=== PATIENT | female | born 1950 | race Caucasian/White ===

== ENCOUNTER → 2018-03-25 | Day surgery (SDC) | payer MEDICARE, OTHER ==
[2018-03-24 12:15] LABS: BASOPHILS # (AUTO) 0.1 (0.0-0.1); BASOPHILS % 0.6 % (0.0-1.0); EOSINOPHILS # (AUTO) 0.4 (0.0-0.4); EOSINOPHILS % 3.5 % (0.0-6.0); HEMATOCRIT 32.1 % (34.2-44.1); HEMOGLOBIN 9.9 g/dL (12.0-16.0); LYMPHOCYTES # (AUTO) 5.1 (1.0-3.2); LYMPHOCYTES % 47.5 % (18.0-39.1); MEAN CORPUSCULAR HEMOGLOBIN 25.1 pg (28-32); MEAN CORPUSCULAR HGB CONC 30.8 g/dL (31-35); MEAN CORPUSCULAR VOLUME 81.5 fL (81-99); MONOCYTES # (AUTO) 0.9 (0.2-0.8); MONOCYTES % 8.4 % (4.4-11.3); NEUTROPHILS # (AUTO) 4.3 (2.1-6.9); NEUTROPHILS % 39.6 % (38.7-80.0); PLATELET COUNT 311 x10e3/uL (140-360); RED BLOOD COUNT 3.94 x10e6/uL (3.6-5.1)
[2018-03-24 12:34] LABS: ANION GAP 13.5 mmol/L (8-16); CALCIUM 9.7 mg/dL (8.4-10.2); CREATININE, SERUM 1.04 mg/dL (0.57-1.11); POTASSIUM 3.5 mmol/L (3.5-5.1)
--- NOTE | 2018-03-24 13:09 | Diagnostic Imaging Report ---
EXAMINATION: PA and lateral views of the chest. COMPARISON: None CLINICAL HISTORY: Preoperative for cystoscopy DISCUSSION: The lungs are well-inflated. No consolidation, pleural effusion, or pneumothorax. Tortuous thoracic aorta with atherosclerotic calcification. Upper mediastinal surgical clips. Normal heart size. No pulmonary edema. No acute osseous abnormality. Surgical clips project over the right upper quadrant of the abdomen likely related to prior cholecystectomy. IMPRESSION: No acute cardiopulmonary abnormalities. Signed by: Dr. Miguel Rose M.D. on 03/24/2018 1:06 PM
[2018-03-24 14:25] LABS: RBC MORPHOLOGY COMMENT ABNORMAL
[2018-03-24 14:27] LABS: HYPOCHROMASIA SLIGHT
[2018-03-24 14:28] LABS: ANISOCYTOSIS SLIG; PLATELET ESTIMATE ADEQUATE; PLATELET MORPHOLOGY COMMENT NORMAL; POIKILOCYTOSIS SLIGHT
[~2018-03-25] MED LIST: ASPIR 8181 MG; ATORVASTATIN CA10 MG PO; BENADRYL25 M1 PO; BIOTIN1 MG PO; BUPROPION XL150 MG PO; CEFAZOLIN SOD 1 GM VIAL ONE; CEFTIN250 MG PO; CITALOPRAM HBR20 MG PO; CLOPIDOGREL75 MG PO; DEXAMETHASONE SOD PHOS INJ 4 MG/ML VIAL ONE; FEROSUL325 MG PO; GABAPENTIN400 MG PO; GENTAMICIN 80MG/NS 100 ML 200 ML IV ONE; HUMALOG MI100 UNIT/2; HYDROMORPHONE 1MG/1ML INJ ONE; IOPAMIDOL 300MG/ML 50ML INFUS..BTL IV ONE; KETOROLAC TROMETHAMINE 30 MG/ML VIAL ONE; LABETALOL HCL 5 MG/ML 20ML VIAL ONE; LIDOCAINE HCL 2% LOCAL INJ 5 ML SDV VIAL INJ ONE; LYRICA50 MG PO; MIDAZOLAM HCL 2 MG/2 ML VIAL ONE; NORCO 5-325 TA1 EACH PO; OMEPRAZOLE40 MG; ONDANSETRON HCL INJ 2 MG/ML VIAL ONE; PROPOFOL IV EMULSION 10 MG/ML 20 ML VIAL ONE; SANTYL15 GM; SEVOFLURANE INHAL SOLN 250 ML PEN BTL ONE; TRULICITY; VICTOZA 2-0.6 MG/0.1 SC; VITAMIN B-121000 MCG PO
[2018-03-25 12:10] VITALS: BP 176/81
--- NOTE | 2018-03-25 12:56 | Operative Report ---
DATE OF PROCEDURE: March 25, 2018 SERVICE: Urology. PREOPERATIVE DIAGNOSES 1. Urethral stricture. 2. Recurrent urinary tract infection. 3. Incomplete bladder emptying, atonic bladder. POSTOPERATIVE DIAGNOSES 1. Urethral stricture. 2. Recurrent urinary tract infection. 3. Incomplete bladder emptying, atonic bladder. OPERATIONS PERFORMED 1. Cystoscopy and urethral dilation. 2. Bilateral retrograde ureteral pyelograms. 3. Interpretation of x-ray, radiologist not present. 4. Supervision on fluoroscopy, radiologist not present. 5. Pelvic exam under anesthesia. This was done for cystocele. BILINGUAL CUSTOMER SERVICE SPECIALIST: None. ANESTHESIA: General. CLINICAL INDICATION NOTE: A 67-year-old patient with recurrent urinary tract infection. She does have multiple other medical problems. She has also an atonic bladder. In the past, she was supposed to do self intermittent catheterization. She did it for some time and stopped. The patient was brought for cystoscopy, dilation, assessment of the upper tracts. Procedure was discussed with the patient. Potential benefits of having Mcpherson catheter following urethral dilation was explained to the patient. I hope she will comply with it. DESCRIPTION OF PROCEDURE AND FINDINGS: After proper level of anesthesia was achieved, the patient was placed in lithotomy position, prepped and draped in a sterile fashion. A small cystocele was noticed. Urethra was dilated to 32-Jamaican with female dilators. Following this as we scoped, the bladder demonstrated inflammatory changes and no tumor and no foreign bodies seen. The bladder appeared to be atonic, somewhat thin walled. Cone-tip catheters were then used and bilateral retrograde was done under fluoroscopic control. No intrinsic lesions were identified. Drainage was prompt. Following this, the bladder was irrigated. Scope was removed and a 22-Jamaican, 10 mL Mcpherson catheter was inserted. Plan is to keep it for 1 week. Followup appointment was given and postop instructions. Job#: [id number] CRISTY
== END | disposition home or self-care (01) ==
LOC: OR 08:14
PROVIDERS: ATTEND Urology
DX: N35.9 Urethral stricture, unspecified (principal); N39.0 Urinary tract infection, site not specified; N31.2 Flaccid neuropathic bladder, not elsewhere classified; N81.10 Cystocele, unspecified; I82.409 Acute embolism and thrombosis of unspecified deep veins of unspecified lower extremity; I10 Essential (primary) hypertension; R05 Cough; E11.9 Type 2 diabetes mellitus without complications; K21.9 Gastro-esophageal reflux disease without esophagitis; K58.9 Irritable bowel syndrome, unspecified; E78.6 Lipoprotein deficiency; F41.9 Anxiety disorder, unspecified; F32.9 Major depressive disorder, single episode, unspecified; Z01.810 Encounter for preprocedural cardiovascular examination; Z01.812 Encounter for preprocedural laboratory examination; Z01.818 Encounter for other preprocedural examination; Z79.82 Long term (current) use of aspirin; Z79.02 Long term (current) use of antithrombotics/antiplatelets; Z79.4 Long term (current) use of insulin; Z87.01 Personal history of pneumonia (recurrent)
CPT/HCPCS: 36415 ×2; 52281; 71046; 74420; 80048; 82948; 85025; 87086; 93005; C1758; J0690; J1100; J1170; J1580; J1885; J2001; J2250; J2405; J3490; Q9967

== ENCOUNTER → 2018-06-15 | Day surgery (SDC) | payer MEDICARE, OTHER ==
[2018-06-14 13:07] LABS: BASOPHILS # (AUTO) 0.1 (0.0-0.1); BASOPHILS % 0.5 % (0.0-1.0); EOSINOPHILS # (AUTO) 0.3 (0.0-0.4); EOSINOPHILS % 2.5 % (0.0-6.0); HEMATOCRIT 33.1 % (34.2-44.1); HEMOGLOBIN 10.3 g/dL (12.0-16.0); LYMPHOCYTES % 28.4 % (18.0-39.1); MEAN CORPUSCULAR HEMOGLOBIN 23.9 pg (28-32); MEAN CORPUSCULAR HGB CONC 31.1 g/dL (31-35); MEAN CORPUSCULAR VOLUME 76.8 fL (81-99); MONOCYTES # (AUTO) 0.6 (0.2-0.8); MONOCYTES % 5.3 % (4.4-11.3); NEUTROPHILS # (AUTO) 6.6 (2.1-6.9); NEUTROPHILS % 62.9 % (38.7-80.0); PLATELET COUNT 322 x10e3/uL (140-360); RED BLOOD COUNT 4.31 x10e6/uL (3.6-5.1); RED CELL DISTRIBUTION WIDTH 13.7 % (11.7-14.4)
[2018-06-14 13:36] LABS: ANION GAP 12.1 mmol/L (8-16); CALCIUM 9.9 mg/dL (8.4-10.2); CREATININE, SERUM 1.02 mg/dL (0.57-1.11); POTASSIUM 4.1 mmol/L (3.5-5.1)
[~2018-06-15] MED LIST changes: +FAMOTIDINE 20 MG/2 ML VIAL IV ONE; +FENTANYL CITRATE/PF 100MCG/2 ML INJ ONE; -HYDROMORPHONE 1MG/1ML INJ ONE; +IMODIUM2 MG PO; +INSULIN REGULAR, HUMAN 100 UNIT/1 ML 3ML VIAL ONE; -IOPAMIDOL 300MG/ML 50ML INFUS..BTL IV ONE; +IOPAMIDOL 610MG/1ML 300 MG/ML VIAL IV ONE; +LABETALOL HCL 20 ML ONE; -LABETALOL HCL 5 MG/ML 20ML VIAL ONE; +METOCLOPRAMIDE HCL 10 MG/2ML VIAL ONE; +MORPHINE SULFATE 2 MG/ML SYR ONE
[2018-06-15 11:51] VITALS: BP 207/96
--- NOTE | 2018-06-15 12:16 | Operative Report ---
DATE OF PROCEDURE: June 15, 2018 SERVICE: Urology. PREOPERATIVE DIAGNOSES: 1. Recurrent urinary tract infection. 2. Urethral stricture. 3. Incomplete bladder emptying. 4. Microhematuria. 5. Cystocele. POSTOPERATIVE DIAGNOSES: 1. Recurrent urinary tract infection. 2. Urethral stricture. 3. Incomplete bladder emptying. 4. Microhematuria. 5. Cystocele. OPERATIONS PERFORMED: 1. Cystoscopy and urethral dilation under anesthesia. 2. Cystoscopy and bilateral retrograde pyelograms under fluoroscopic control. 3. Interpretation of x-ray. Radiologist not present. 4. Supervision of fluoroscopy. Radiologist not present. 5. Pelvic exam under anesthesia. This is done as part of the evaluation of the cystocele. AUTOMOTIVE SOFTWARE ENGINEER: None. ANESTHESIA: General. CLINICAL INDICATION NOTE: This is a 68-year-old patient who has a history of urethral stricture. There was a period of time when she was able to do self-catheterization. Presently she states that she cannot. Patient has an incomplete bladder emptying and significant recurrent urinary tract infection. She also has a cystocele. She was brought for assessment of the upper tract as well as urethral dilation. DESCRIPTION OF PROCEDURE AND FINDINGS: After the proper level of anesthesia was achieved, the patient was placed in a lithotomy position and prepped and draped in sterile fashion. Urethra inspected. This appeared to be narrow. Dilated to 30-Vietnamese. The bladder itself was trabeculated. Cloudy urine was present and sent for culture and sensitivity. No tumors were identified in the bladder. A cone-tip catheter was used, and bilateral retrograde pyelograms were done. No intrinsic lesions were identified. Drainage was prompt. Following this, the bladder was irrigated. The scope was removed. A pelvic exam was done under anesthesia, and no midline or adnexal masses were palpable. Patient tolerated procedure well and was transferred in satisfactory condition to the recovery room. She will be followed as outpatient. Job#: [id number] EV
== END | disposition home or self-care (01) ==
LOC: OR 06:59
PROVIDERS: ATTEND Urology
DX: N35.92 Unspecified urethral stricture, female (principal); N39.0 Urinary tract infection, site not specified; N81.10 Cystocele, unspecified; N32.89 Other specified disorders of bladder; I10 Essential (primary) hypertension; E11.9 Type 2 diabetes mellitus without complications; K21.9 Gastro-esophageal reflux disease without esophagitis; K58.9 Irritable bowel syndrome, unspecified; K57.90 Diverticulosis of intestine, part unspecified, without perforation or abscess without bleeding; F32.9 Major depressive disorder, single episode, unspecified; Z01.812 Encounter for preprocedural laboratory examination; Z79.02 Long term (current) use of antithrombotics/antiplatelets; Z79.82 Long term (current) use of aspirin; Z79.4 Long term (current) use of insulin
CPT/HCPCS: 36415 ×2; 52281; 74420; 80048; 82948; 85025; 87086; 87186; 93005; C1758; J0690; J1100; J1580; J1885; J2001; J2250; J2270; J2405; J2704; J2765; Q9967

== ENCOUNTER 2020-03-06 17:49 | Inpatient (IN) | payer MEDICARE, OTHER ==
[~2020-03-06] VITALS: Ht 157.5 cm; Wt 66.3 kg
[~2020-03-06 17:49] MED LIST changes: -ASPIR 8181 MG; +ASPIR 8181 MG PO; -CEFAZOLIN SOD 1 GM VIAL ONE; -DEXAMETHASONE SOD PHOS INJ 4 MG/ML VIAL ONE; -FAMOTIDINE 20 MG/2 ML VIAL IV ONE; -FENTANYL CITRATE/PF 100MCG/2 ML INJ ONE; -GENTAMICIN 80MG/NS 100 ML 200 ML IV ONE; -INSULIN REGULAR, HUMAN 100 UNIT/1 ML 3ML VIAL ONE; -IOPAMIDOL 610MG/1ML 300 MG/ML VIAL IV ONE; -KETOROLAC TROMETHAMINE 30 MG/ML VIAL ONE; -LABETALOL HCL 20 ML ONE; -LIDOCAINE HCL 2% LOCAL INJ 5 ML SDV VIAL INJ ONE; -METOCLOPRAMIDE HCL 10 MG/2ML VIAL ONE; -MIDAZOLAM HCL 2 MG/2 ML VIAL ONE; -MORPHINE SULFATE 2 MG/ML SYR ONE; -ONDANSETRON HCL INJ 2 MG/ML VIAL ONE; -PROPOFOL IV EMULSION 10 MG/ML 20 ML VIAL ONE; -SEVOFLURANE INHAL SOLN 250 ML PEN BTL ONE
--- NOTE | 2020-03-06 18:45 | Emergency Department Note ---
History of Present Illnes History of Present Illness Chief Complaint: COVID PUI History of Present Illness This is a 69 year old female PRESENTS WITH SHORTNESS OF BREATH SINCE THURSDAY, ALSO REPORTS SWELLING OF LEGS FOR PAST 1 WEEK, WAS AT EDUCATION PROGRAM SPECIALIST OFFICE TODAY AND TOLD TO GO TO ER FOR EVAL FOR SUSPECTED NEW ONSET CHF. PT SOB WORSE WITH EXERTION AND LYING DOWN, DENIES FEVER, DENIES COUGH. 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 Arrival Mode: Car Onset (how long ago): day(s) (3) Location: LEGS Quality: SOB, SWELLING TO LOWER LEGS Radiation: Reports non-radiation Severity: moderate Onset quality: gradual Duration (how long): day(s) (3) Timing of current episode: constant Progression: worsening Context: Denies recent illness, Denies recent surgery, Denies recent travel Relieving factors: rest Exacerbating factors: movement, other (LYING DOWN) Associated symptoms: Reports denies other symptoms Treatments prior to arrival: none Past Medical/Family History Physician Review I have reviewed the patient's past medical and family history. Any updates have been documented here. Past Medical History Recent Fever: No Clinical Suspicion of Infectio: No New/Unexplained Change in Ment: No Past Medical History: Hypertension, Diabetes, UTI's, Anemia, Depression, Hyperlipedemia, DVT/PE, Chronic Kidney Disease Other Medical History: DVT'S DEPRESSION HIGH CHOLESTEROL ANEMIA NEUROPATHY IN FEET Past Surgical History: Cholecysctectomy, Back Surgery, Cataract Removal Other Surgery: TUMOR REMOVED THORACIC SPINE-NON CANCER SURGERY FROM LEGS CLOTS REMOVED CATARACTS PREVIOUS BLEEDING IN RIGHT EYE-NOTED VISIBLE DIALTED LARGER THAN LEFT; Social History Smoking Cessation: Never Smoker Alcohol Use: None Any Illegal Drug Use: No Physically hurt or threatened: No Family History Family history of heart diseas: No Other family history HTN,DM Other Last Tetanus: UNK Review of Systems Review of Systems Constitutional: Reports no symptoms EENTM: Reports no symptoms Cardiovascular: Reports no symptoms Respiratory: Reports as per HPI Gastrointestinal: Reports no symptoms Genitourinary: Reports no symptoms Musculoskeletal: Reports as per HPI Integumentary: Reports no symptoms Neurological: Reports no symptoms Psychological: Reports no symptoms Endocrine: Reports no symptoms Hematological/Lymphatic: Reports no symptoms Physical Exam Related Data Allergies: Coded Allergies: No Known Allergies (Unverified , 12/30/16) Triage Vital Signs Vital Signs Date Time Temp Pulse Resp B/P (MAP) Pulse Ox O2 Delivery O2 Flow Rate FiO2 03/06/20 18:08 97.3 88 30 147/94 96 Room Air Vital signs reviewed: Yes Physical Exam CONSTITUTIONAL Constitutional: Present well-developed, Present well-nourished; Absent distressed HENT HENT: Present normocephalic, Present atraumatic, Present oropharynx clear/moist, Present nose normal HENT L/R: Present left ext ear normal, Present right ext ear normal EYES Eyes: Reports PERRL, Reports conjunctivae normal NECK Neck: Present ROM normal PULMONARY Pulmonary: Present effort normal, Present respiratory distress (MILD TACHYPNEA), Present rales (AT BASE BILATERAL), Present other (DECREASED BREATH SOUNDS THOUGHOUT) CARDIOVASCULAR Cardiovascular: Present regular rhythm, Present heart sounds normal, Present capillary refill normal, Present normal rate GASTROINTESTINAL Abdominal: Present soft, Present nontender, Present bowel sounds normal GENITOURINARY Genitourinary: Present exam deferred SKIN Skin: Present warm, Present dry MUSCULOSKELETAL Musculoskeletal: Present ROM normal, Present edema (3+ PITTING EDEMA TO BILATERAL LOWER EXTREMITIES) NEUROLOGICAL Neurological: Present alert, Present oriented x 3, Present no gross motor or sensory deficits PSYCHOLOGICAL Psychological: Present mood/affect normal, Present judgement normal Results Laboratory Laboratory Laboratory Tests Test 03/06/20 19:35 03/06/20 19:15 Prothrombin Time 13.5 seconds (11.9-14.5) Prothromb Time International Ratio 0.98 Activated Partial Thromboplast Time 30.7 seconds (23.8-35.5) White Blood Count 9.08 x10e3/uL (4.8-10.8) Red Blood Count 3.69 x10e6/uL (3.6-5.1) Hemoglobin 9.3 g/dL (12.0-16.0) Hematocrit 31.6 % (34.2-44.1) Mean Corpuscular Volume 85.6 fL (81-99) Mean Corpuscular Hemoglobin 25.2 pg (28-32) Mean Corpuscular Hemoglobin Concent 29.4 g/dL (31-35) Red Cell Distribution Width 15.9 % (11.7-14.4) Platelet Count 408 x10e3/uL (140-360) Neutrophils (%) (Auto) 50.2 % (38.7-80.0) Lymphocytes (%) (Auto) 40.0 % (18.0-39.1) Monocytes (%) (Auto) 4.1 % (4.4-11.3) Eosinophils (%) (Auto) 4.3 % (0.0-6.0) Basophils (%) (Auto) 0.8 % (0.0-1.0) Neutrophils # (Auto) 4.6 (2.1-6.9) Lymphocytes # (Auto) 3.6 (1.0-3.2) Monocytes # (Auto) 0.4 (0.2-0.8) Eosinophils # (Auto) 0.4 (0.0-0.4) Basophils # (Auto) 0.1 (0.0-0.1) Absolute Immature Granulocyte (auto 0.05 x10e3/uL (0-0.1) Sodium Level 141 mmol/L (136-145) Potassium Level 6.0 mmol/L (3.5-5.1) Chloride Level 116 mmol/L (98-107) Carbon Dioxide Level 13 mmol/L (22-29) Anion Gap 18.0 mmol/L (8-16) Blood Urea Nitrogen 47 mg/dL (7-26) Creatinine 4.26 mg/dL (0.57-1.11) Estimat Glomerular Filtration Rate 10 ML/MIN (60-) BUN/Creatinine Ratio 11 (6-25) Glucose Level 95 mg/dL (74-118) Calcium Level 8.6 mg/dL (8.4-10.2) Total Bilirubin 0.2 mg/dL (0.2-1.2) Aspartate Amino Transf (AST/SGOT) 16 IU/L (5-34) Alanine Aminotransferase (ALT/SGPT) 11 IU/L (0-55) Alkaline Phosphatase 110 IU/L (40-150) Creatine Kinase 142 IU/L (29-168) Creatine Kinase MB 7.50 ng/mL (0-5.0) Troponin I 0.259 ng/mL (0-0.300) Total Protein 6.7 g/dL (6.5-8.1) Albumin 2.3 g/dL (3.5-5.0) Globulin 4.4 g/dL (2.3-3.5) Albumin/Globulin Ratio 0.5 (0.8-2.0) Lab results reviewed: Yes Imaging Imaging results reviewed: Yes Impressions Procedure: [id number] DX/CHEST SINGLE (PORTABLE) Exam Date: 03/06/20 Exam Time: 1900 REPORT STATUS: Signed Examination: Single AP view of the chest. COMPARISON: Chest 2 views 03/24/2018 INDICATION: Shortness of breath today IMPRESSION: 1. Lines and Tubes: None 2. Lungs are mildly hypoinflated. Bilateral predominantly perihilar interstitial opacities, left greater than right suggesting interstitial edema. Small to moderate bilateral pleural effusions, left greater than right, and likely associated compressive atelectasis of bilateral lower lobes. 3. Cardiomediastinal silhouette is obscured. Central pulmonary venous congestion. 4. No acute bony abnormalities. Signed by: Dr. Crystal Parry M.D. on 03/06/2020 7:34 PM Dictated By: CRYSTAL PARRY MD 33 Transcribed By: ANSELMO on 03/06/201933 COPY TO: CHELO OCASIO MD~ Procedures 12 Lead ECG Interpretation ECG Interpretation : ECG: ECG 1 Gastroenterologist: Interpreted by ED physician Date: Mar 06, 2020 Time: 18:52 Rhythm: sinus rhythm Rate: normal BPM: 89 QRS axis: right ST segments normal: Yes T waves flattening: V4, V5, V6 Q waves: V1, V2, V3 Clinical Impression: non-specific ECG Critical Care Time Total Critical Care Time (min): 31 Critcal care necessary due to: renal failure Critcal care time spent by me: develop tx plan w patient/surrogate, discussion w consultants, discussion w primary provider, interpret cardiac output measures, evaluation patient response to tx, examination of patient, obtaining hx from patient/surrogate, order/perform tx or interventions, order/review laboratory studies, order/review radiographic studies, pulse oximetry, re-evaluation of patient condition, review of old charts Assessment & Plan Medical Decision Making MDM PT WITH SOB AND EDEMA TO LOWER EXTREMITIES CBC,CMP, BNP, PT/PTT, CARDIAC ENZYMES EKG, CXR,ORDERED TO EVAL FOR MYOCARDIAL INFARCTION, PULMONARY EDEMA, CHF, CARDIOMEGALY, ELECTROLYTE ABNORMALITY, RENAL FAILURE 1999 PT FOUND TO BE IN RENAL FAILURE WITH HYPERKALEMIA AND VOLUME OVERLOAD, PT'S CREATININE TODAY GREATER THAN 4, LAST CREATININE ON FILE HERE FROM 2 YEARS AGO WAS UNDER 1.5 DELANEY CATHETER ORDERED TO MEASURE ACCURATE URINE OUTPUT 1 AMP CALCIUM CHLORIDE IV ORDERED 1 AMP BICARB IV ORDERED 1 AMP D50 IV ORDERED REGULAR INSULIN 10 UNITS IV ORDERED KAYEXALATE 30 GRAMS PO ORDERED LASIX 80 MG IV ORDERED I SPOKE WITH DR CAICEDO AND DR ANSARI, ADMIT TO IMCU Reassessment Reassessment time: 20:51 Reassessment PT STILL MILDLY TACHYPNEIC RR 25, OXYGEN SATURATION 100 % ON 2 LPM VIA NC Assessment & Plan Final Impression: (1) Hyperkalemia (2) Pulmonary edema (3) Acute on chronic renal failure (4) Volume overload Depart Disposition: ADMITTED Last Vital Signs Date Time Temp Pulse Resp B/P (MAP) Pulse Ox O2 Delivery O2 Flow Rate FiO2 03/06/20 18:08 97.3 88 30 147/94 96 Room Air Home Meds Reported Medications Loperamide Hcl* (IMODIUM*) 2 Mg Cap, 2 PO, CAP 06/15/18 Hydrocodone Bit/Acetaminophen (NORCO 5-325 TABLET) 1 Each Tablet, 1 EACH PO, TAB 03/24/18 [facility] No Conflict Check, 1.5 WEEKLY 03/24/18 Omeprazole (OMEPRAZOLE) 40 Mg Capsule.dr, 20 MG 03/24/18 Gabapentin (GABAPENTIN) 400 Mg Capsule, 600 MG PO DAILY, #30 CAP 03/24/18 Insulin Npl/Insulin Lispro (HUMALOG MIX 75-25 KWIKPEN) 100 Unit/1 Ml Insuln.pen 12/30/16 Diphenhydramine Hcl (BENADRYL) 25 Mg Capsule, 25 MG PO Q12HR PRN for ALLERGY 12/30/16 Clopidogrel Bisulfate (CLOPIDOGREL) 75 Mg Tablet, 75 MG PO DAILY, #30 TAB 12/30/16 Citalopram Hydrobromide (CITALOPRAM HBR) 20 Mg Tablet, 10 MG PO DAILY, TAB 12/30/16 Bupropion Hcl (BUPROPION XL) 150 Mg Tab.er.24h, 150 MG PO DAILY 12/30/16 Aspirin (ASPIR 81) 81 Mg Tablet. 12/30/16 CHELO OCASIO MD Mar 06, 2020 18:44
--- NOTE | 2020-03-06 19:15 | NUR ---
report received from jeff miller
[2020-03-06 19:35] LABS: BASOPHILS # (AUTO) 0.1 (0.0-0.1); BASOPHILS % 0.8 % (0.0-1.0); EOSINOPHILS # (AUTO) 0.4 (0.0-0.4); EOSINOPHILS % 4.3 % (0.0-6.0); HEMATOCRIT 31.6 % (34.2-44.1); HEMOGLOBIN 9.3 g/dL (12.0-16.0); LYMPHOCYTES # (AUTO) 3.6 (1.0-3.2); MEAN CORPUSCULAR HEMOGLOBIN 25.2 pg (28-32); MEAN CORPUSCULAR HGB CONC 29.4 g/dL (31-35); MEAN CORPUSCULAR VOLUME 85.6 fL (81-99); MONOCYTES # (AUTO) 0.4 (0.2-0.8); MONOCYTES % 4.1 % (4.4-11.3); NEUTROPHILS # (AUTO) 4.6 (2.1-6.9); NEUTROPHILS % 50.2 % (38.7-80.0); PLATELET COUNT 408 x10e3/uL (140-360); RED BLOOD COUNT 3.69 x10e6/uL (3.6-5.1); RED CELL DISTRIBUTION WIDTH 15.9 % (11.7-14.4)
--- NOTE | 2020-03-06 19:38 | Diagnostic Imaging Report ---
Examination: Single AP view of the chest. COMPARISON: Chest 2 views 03/24/2018 INDICATION: Shortness of breath today IMPRESSION: 1. Lines and Tubes: None 2. Lungs are mildly hypoinflated. Bilateral predominantly perihilar interstitial opacities, left greater than right suggesting interstitial edema. Small to moderate bilateral pleural effusions, left greater than right, and likely associated compressive atelectasis of bilateral lower lobes. 3. Cardiomediastinal silhouette is obscured. Central pulmonary venous congestion. 4. No acute bony abnormalities. Signed by: Dr. Javed Parry M.D. on 03/06/2020 7:34 PM
[2020-03-06 19:49] LABS: ALBUMIN 2.3 g/dL (3.5-5.0); ALBUMIN/GLOBULIN RATIO 0.5 (0.8-2.0); CALCIUM 8.6 mg/dL (8.4-10.2); CREATININE, SERUM 4.26 mg/dL (0.57-1.11)
[2020-03-06 19:50] LABS: INR 0.98; PROTHROMBIN TIME 13.5 seconds (11.9-14.5)
[2020-03-06 19:51] LABS: PARTIAL THROMBOPLASTIN TIME 30.7 seconds (23.8-35.5)
[2020-03-06 19:55] LABS: CREATINE KINASE MB 7.5 ng/mL (0-5.0)
[2020-03-06] MEDS ORDERED: CALCIUM CHLORIDE 10% 1.36 MEQ/ML 10ML SYR IV STA (19:56)
[2020-03-06] MEDS ORDERED: DEXTROSE 50% SYRINGE 50 ML IV STA (19:56)
[2020-03-06] MEDS ORDERED: SODIUM BICARBONATE 8.4% INJ 50 ML SYR IV STA (19:56)
[2020-03-06] MEDS ORDERED: INSULIN REGULAR, HUMAN 100 UNIT/1 ML 3ML VIAL IV ONE (20:00)
[2020-03-06] MEDS ORDERED: SOD POLYSTYRENE SULFONATE SUSP 15 GM/60 ML BTL PO ONE (20:00)
--- NOTE | 2020-03-06 20:30 | NUR ---
100CC URINE OUT OF DELANEY CATH UPON INSERTION, INFORMED, STERILE TECHNIQUE USED, PATIENT TOLERATED PROCEDURE WELL.
[2020-03-06] MEDS ORDERED: FUROSEMIDE INJ 10 MG/ML 4 ML VIAL IV ONE (20:45)
[2020-03-06] MEDS ORDERED: LORAZEPAM INJ 2 MG/ML VIAL IV ONE ×2 (20:45)
[2020-03-06] MEDS ORDERED: LORAZEPAM INJ 2 MG/ML VIAL ONE (20:58)
[2020-03-06] MEDS ORDERED: DEXTROSE 50% SYRINGE 50 ML IV PRN (21:00)
[2020-03-06] MEDS ORDERED: ONDANSETRON HCL INJ 2MG/ML 2ML 2 MG/ML VIAL IV PRN (21:00)
[2020-03-06] MEDS ORDERED: SODIUM CHLORIDE FLUSH 10 ML SYR INJ PRN (21:00)
[2020-03-06 21:01] LABS: COLOR,URINE YELLOW (YELLOW)
[2020-03-06 21:02] LABS: BILIRUBIN,URINE NEGATIVE (NEGATIVE); CLARITY,URINE CLOUDY (CLEAR); KETONES,URINE NEGATIVE (NEGATIVE); LEUKOCYTE ESTERASE ,URINE 1+ (NEGATIVE); NITRITE,URINE NEGATIVE (NEGATIVE); PROTEIN,URINE DIPSTICK >=300 (NEGATIVE); URINE UROBILINOGEN 0.2 mg/dL (0.2 - 1)
--- OUTSIDE RECORDS SUMMARY | 2020-03-06 21:04 | XMS REPORT | Summary of Care ---
Author Organization Unknown Address Unknown Phone Unavailable Encounter HQ Nuzhat(ANNALISE) [id number] Date(s): 04/19/14 - 04/19/14 [facility] [address] [address] - [facility] Discharge Disposition: Home Physician Attending: Edgar Bowden MD Physician_Referring: Edgar Bowden MD Reason for Visit 250.00-DIAB TYPE 2/401.9-HYPERTENSION/787.99-CHANGE IN Problem List Condition Effective Dates Status Health Status Informan t changes in bowel Active habits(Confirmed) Diabetes mellitus Active type II(Confirmed) Heart Active murmur(Confirmed) Hypertension(Confirm Active ed) Neuropathy(Confirmed Active ) 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
--- OUTSIDE RECORDS SUMMARY | 2020-03-06 21:04 | XMS REPORT | Continuity of Care Document ---
Author Author [employer] Organization [employer] Address Unknown Phone Unavailable Care Team Providers Care Breaster Name Role Phone [employer] Unavailable Un available Problems Problem Status Onset Date Classification Date Reported Comments Source PERIPHERAL Active 02/24/2019 [facility] PERIPHERAL ANGIOGRAM /C INTERVENSION Active 11/09/2018 [facility] DX: K29.70=GASTRITIS, UNSPECIFIED, WITHO Active 10/08/2018 [facility] PERIPHERAL ANGIOGRAM /C INTERVENTION Active 09/23/2018 [facility] UNK Active 0 12/05/2016 [facility] V76.51 787.99 Active 01/18/2015 [facility] 250.00-DIAB TYPE 2/401.9-HYPERTENSION/78 Active 04/14/2014 [facility] 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 Problem 03/06[facility] Depression - motion (qualifier value) Active Problem 09/2016 [facility] Gastroesophageal reflux disease (disorder) Active Problem 03/06/[facility] Anemia (disorder) Resolved Problem 03/06/2019 [facility] [place] [place] Anxiety (finding) Active Problem 03/06/2019 [facility] [place] Diabetes mellitus (disorder) A ctive Problem [facility] [place] Diabetes mellitus type 2 (disorder) Active Problem [facility] [place] Heart murmur (finding) Resolved Problem 03/06/2019 [facility] Nug[facility] [place] Hypercholesterolemia (disorder) Resolved Problem [facility] [place] Hypertensive disorder, systemic arterial (disorder) Active [facility]06[facility] Irritable colon (disorder) Act [place] Problem [facility] [place] Neuropathy (disorder) [facility] Peripheral [facility] disease (disorder) [facility] Urinary tract infectious disease (disorder) Resolved [facility]06[facility]2019 [facility] changes in bowel habits(Confirmed) Active Problem 09/2013 [facility] SCREEN MALIG NEOP-COLON Active [facility] DIGESTVE SYST SYMPTM NEC Active [facility] Medications Medication Details Route Status Patient Instructions Ordering Provider Order Date Source Alprazolam 0.5 MG Oral Tablet [Xanax] Notes: With food or milk (Same as: Xanax) Inactive 03/04/2019 [facility] Benadryl 50 mg, 2 tab, Route: PO, Drug form: TAB, ONCE, Dosing Weight 63.636, kg, Priority: STAT, Start date: 03/04/19 12:47:00 CDT, Stop date: 03/04/19 12:47:00 CDT, 0 Inactive 03/04/2019 [facility] Pepcid Notes: (Same as: Pepcid ) Can be dilute in 5-10cc NS IVP: Slow IV push over at least 2 minutes. Inactive 03/04/2019 [facility] Solu-Medrol Notes: (Same as:So sam-MEDROL, A-Methapred) Inactive 03/04/2019 [facility] normal saline 0.9% IV 1,000 mL 1,000 mL, Rate: 100 ml/hr, Infuse over: 10 hr, Route: IV, Dosing Weight 63.636 kg, Total Volume: 1,000, Start date: 03/04/19 12:47:00 CDT, Duration: 30 day, Stop date: 04/03/19 12:46:00 CDT, 1.69, m2, 0 Inactive 03/04/2019 [facility] Imodium A-D EZ Chews 2 mg =, C HEW, BID, PRN as needed for loose stool, 0 Refill(s) Active 03/04/2019 [facility] Insulin Glargine Notes: (Same as: Lantus) Do not hold insulin without contacting prescriber WASTE: F/P - Black; E - Municipal Trash Bin "single patient use only" Stable for 28 days at room temperature Expires in days from Date Inactive 12/01/2018 [facility] Bystolic Notes: (same as: Byst olic) Inactive 12/01/2018 [facility] hydrochlorothiazide 25 mg oral tablet Notes: (Same as: Hydrodiuril) With food. Inactive 12/01/2018 [facility] Furosemide 40 MG Oral Tablet [Lasix] Notes: (Same as: Lasix) May cause GI upset. Give with food or milk. Inactive 12/01/2018 [facility] Hydrochlorothiazide 25 MG / Olmesartan m edoxomil 40 MG Oral Tablet 1 tab, Route: PO, Drug Form: TAB, Dosing Weight 61.364, kg, Daily, Start date: 12/01/18 9:00:00 CDT, Duration: 30 day, Stop date: 12/30/18 9:00:00 CDT No Longer Active 12/01/2018 [facility] clopidogrel Notes: (Same As: P lavix) Inactive 12/01/2018 [facility] Citalopram 20 mg, 2 tab, Route : PO, Drug form: TAB, Daily, Dosing Weight 61.364, kg, Start date: 12/01/18 9:00:00 CDT, Duration: 30 day, Stop date: 12/30/18 9:00:00 CDT Inactive 12/01/2018 [facility] Bupropion Notes: (Same as: Elza lbutrin XL) "Do Not Crush" Inactive 12/01/2018 [facility] Benicar 40 mg, 2 tab, Route: P O, Drug form: TAB, Daily, Start date: 12/01/18 9:00:00 CDT, Duration: 30 day, Stop date: 12/30/18 9:00:00 CDT Inactive 12/01/2018 [facility] atorvastatin Notes: (Same As: Lipitor) No Longer Active 12/01/2018 [facility] Hydralazine Notes: (Same as: A presoline) Push over 5 minutes No Longer Active 12/01/2018 [facility] mesalamine 1200 MG Enteric Coated Tablet 2.4 gm, 2 tab, Route: PO, Drug form: ECTAB, BID, Dosing Weight 61.364, kg, Start date: 11/30/18 17:00:00 CDT, Duration: 30 day, Stop date: 12/30/18 9:00:00 CDT No Longer Active 11/30/2018 [facility] Hyoscyamine Notes: (Same as: L evsin) Take 30 min before meal No Longer Active 11/30/2018 [facility] Tums Notes: (Same As: Tums) Ca lcium Carbonate 500 mg = 200 mg elemental calcium Dose = mg calcium carbonate ( mg elemental calcium) No Longer Active 11/30/2018 [facility] Aspirin 81 MG Enteric Coated Tablet Notes: Do not crush or chew. (Same As: Ecotrin) No Longer Active 11/30/2018 [facility] Insulin Lispro Notes: (Same as : Humalog) Roll in palms of hands gently; Do not shake vigorously. WASTE: F/P - Black; E - Municipal Trash Bin Stable for 28 days at room temperature. Expires in days from Date No Longer Active 11/30/2018 [facility] *Please bring pt's own mesalamine to [facility] for label* *Please bring pt's own mesalamine to [facility] for label*, ATTN:MARTIN, Drug form: MISC, Route: MISC, QSHIFT, 11/30/18 16:00:00 CDT, Duration: 30 day, Stop date: 12/30/18 8:00:00 CDT No Longer Active 11/30/2018 [facility] Insulin Lispro Notes: (Same as : Humalog) Roll in palms of hands gently; Do not shake vigorously. WASTE: F/P - Black; E - Municipal Trash Bin Stable for 28 days at room temperature. Expires in days from Date No Longer Active 11/30/2018 [facility] Glucagon 1 mg, Route: IM, Drug form: PDR/INJ, PRN, Dosing Weight 61.364, kg, PRN Blood Glucose Results, Start date: 11/30/18 15:27:00 CDT, Duration: 30 day, Stop date: 12/30/18 15:26:00 CDT No Longer Active 11/30/2018 [facility] Dextrose 50% Syringe 12.5 gm, 25 mL, Route: IVP, Drug Form: INJ, Dosing Weight 61.364, kg, PRN, PRN Blood Glucose Results, Start date: 11/30/18 15:27:00 CDT, Duration: 30 day, Stop date: 12/30/18 15:26:00 CDT No Longer Active 11/30/2018 [facility] Acetaminophen 325 MG / Hydrocodone Yaz trate 5 MG Oral Tablet Notes: (Same as: [place] 325/5) Do not ex ceed 4gm/day of acetaminophen. No Longer Active 11/30/2018 [facility] Morphine Notes: (Same as:MORPh ine Sulfate) No Longer Active 11/30/2018 [facility] Ondansetron Notes: (Same as: Z ofran) No Longer Active 11/30/2018 [facility] Diphenhydramine 25 mg, 1 tab, Route: PO, Drug form: TAB, Bedtime, Dosing Weight 61.364, kg, PRN Insomnia, Start date: 11/30/18 15:24:00 CDT, Duration: 30 day, Stop date: 12/30/18 15:23:00 CDT No Longer Active 11/30/2018 [facility] Nitroglycerin Notes: (Same as: Nitroquick, Nitrostat) "Do Not Crush" Sublingual tablet No Longer Active 11/30/2018 [facility] Sodium Chloride 0.9% IV 750 mL 750 mL, Rate: 75 ml/hr, Infuse over: 10 hr, Route: IV, Dosing Weight 61.364 kg, Total Volume: 750, Start date: 11/30/18 15:24:00 CDT, Duration: 10 hr, Stop date: 12/01/18 1:23:00 CDT, 1.66, m2 No Longer Active 11/30/2018 [facility] Sodium Chloride 0.9% (Bolus) IV 250 mL, 250 ml/hr, Infuse Over: 1 hr, Route: IV, 250, Drug form: INJ, ONCE, Dosing Weight 61.364 kg, Start date: 11/30/18 15:24:00 CDT, Stop date: 11/30/18 15:24:00 CDT Inactive 11/30/2018 [facility] citalopram 20 mg oral tablet 2 0 mg = 1 tab, PO, Daily, 0 Refill(s) Active 11/30/2018 [facility] Bupropion 150 mg, PO, Daily, 0 Refill(s) Active 11/30/2018 [facility] ALIVE MULTIVITAMIN FOR WOMEN A LIVE MULTIVITAMIN FOR WOMEN, 1 tablet, Refill(s) 0 Active 11/30/2018 [facility] hyoscyamine 0.125 mg oral tablet 0.125 mg = 1 tab, PO, QID, 0 Refill(s) Active 11/26/2018 [facility] nebivolol 10 MG Oral Tablet [Bystolic] 10 mg = 1 tab, PO, Daily, 0 Refill(s) Active 11/26/2018 [facility] Morphine Notes: (Same as:MORPh ine Sulfate) Inactive 10/26/2018 [facility] Acetaminophen 325 MG / Hydrocodone Yaz trate 5 MG Oral Tablet Notes: (Same as: [place] 325/5) Do not ex ceed 4gm/day of acetaminophen. Inactive 10/26/2018 [facility] Nitroglycerin Notes: (Same as: Nitroquick, Nitrostat) "Do Not Crush" Sublingual tablet Inactive 10/26/2018 [facility] Sodium Chloride 0.9% IV 750 mL 750 mL, Rate: 75 ml/hr, Infuse over: 10 hr, Route: IV, Dosing Weight 65.909 kg, Total Volume: 750, Start date: 10/26/18 11:20:00 CDT, Duration: 10 hr, Stop date: 10/26/18 21:19:00 CDT, 1.72, m2 Inactive 10/26/2018 [facility] clopidogrel 75 mg oral tablet 75 mg = 1 tab, PO, Daily, # 90 tab, 1 Refill(s) Active 10/26/2018 [facility] Diphenhydramine 50 mg, 2 tab, Route: PO, Drug form: TAB, ONCE, Dosing Weight 65.909, kg, Priority: NOW, Start date: 10/26/18 8:24:00 CDT, Stop date: 10/26/18 8:24:00 CDT Inactive 10/26/2018 [facility] Alprazolam Notes: With food or milk (Same as: Xanax) Inactive 10/26/2018 [facility] normal saline 0.9% IV 1,000 mL 1,000 mL, Rate: 250 ml/hr, Infuse over: 4 hr, Route: IV, Dosing Weight 65.909 kg, Total Volume: 1,000, Priority: NOW, Start date: 10/26/18 7:16:00 CDT, Duration: 30 day, Stop date: 11/25/18 7:15:00 CDT, 1.72, m2 Inactive 10/26/2018 [facility] Tums 500 mg, CHEW, BID, 0 Refi ll(s) Active 10/22/2018 [facility] mesalamine 1200 MG Enteric Coated Tablet 2.4 gm = 2 tab, PO, BID, 0 Refill(s) Active 10/22/2018 [facility] gabapentin 600 MG Oral Tablet 300 mg = 0.5 tab, PO, Bedtime, 0 Refill(s) Active 10/22/2018 [facility] nebivolol 2.5 MG Oral Tablet [Bystolic] 2.5 mg = 1 tab, PO, Daily, # 30 tab, 0 Refill(s) Active 10/22/2018 [facility] Hydralazine Hydrochloride 50 MG Oral Tablet 50 mg = 1 tab, PO, TID, # 90 tab, 3 Refill(s) Active 10/22/2018 [facility] Hydrochlorothiazide 25 MG / Olmesartan m edoxomil 40 MG Oral Tablet 1 tab, PO, Daily, # 30 tab, 0 Refill(s) Active 10/22/2018 [facility] potassium chloride 10 mEq oral capsule, extended release 10 mEq = 1 cap, PO, Daily, 0 Refill(s) Active 10/22/2018 [facility] Furosemide 40 MG Oral Tablet [Lasix] 40 mg = 1 tab, PO, Daily, # 30 tab, 0 Refill(s) Active 10/22/2018 [facility] iron infusions iron infusions, IV, qWeek, Refill(s) 0 Active 10/22/2018 [facility] Nitroglycerin Notes: (Same as: Nitroquick, Nitrostat) "Do Not Crush" Sublingual tablet No Longer Active 12/09/2016 [facility] Acetaminophen 325 MG / Hydrocodone Yaz trate 5 MG Oral Tablet Notes: (Same as: [place] 325/5) Do not ex ceed 4gm/day of acetaminophen. No Longer Active 12/09/2016 [facility] Morphine Notes: (Same as:MORPh ine Sulfate) No Longer Active 12/09/2016 [facility] Sodium Chloride 0.154 MEQ/ML Injectable Solution 750 mL, Rate: 75 ml/hr, Infuse over: 10 hr, Route: IV, Dosing Weight 63.636 kg, Total Volume: 750, Start date: 12/09/16 12:10:00 CDT, Duration: 10 hr, Stop date: 12/09/16 22:09:00 CDT Inactive 12/09/2016 [facility] Keflex = 1 tab, PO, TID, 1 tab , 3 times a day, 0 Refill(s) Active 12/09/2016 [facility] Sodium Chloride 0.154 MEQ/ML Injectable Solution 500 mL, Rate: 25 ml/hr, Infuse over: 20 hr, Route: IV, Dosing Weight 60.909 kg, Total Volume: 500, Start date: 02/06/15 13:03:00, Duration: 30 day, Stop date: 03/08/15 13:02:00 Inactive 02/06/2015 [facility] Cardizem 0 Refill(s) Active 02/02/2015 [facility] valsartan 320 MG Oral Tablet [Diovan] 320 mg = 1 tab, PO, Daily, # 30 tab, 0 Refill(s) Active 02/02/2015 [facility] vilazodone hydrochloride 10 MG Oral Tablet [Viibryd] 10 mg = 1 tab, PO, Daily, 0 Refill(s) Active 02/02/2015 [facility] Unknown Home Medication 1 tab, PO, BID, Refill(s) 0 Active 02/02/2015 [facility] 0.65 ML exenatide 3.08 MG/ML Prefilled S yringe [Bydureon] 2 mg, SUB-Q, qWeek, # 4 ea, 0 Refill(s) Active 02/02/2015 [facility] Lantus 18 unit, SUB-Q, Bedtime , 0 Refill(s) Active 02/02/2015 [facility] Humalog 14 units, SUB-Q, TID-B efore Meals, 0 Refill(s) Active 02/02/2015 [facility] Allergies, Adverse Reactions, Alerts Substance Category Reaction Severity Reaction type Status Date Reported Comments Source contrast media (iodine-based) Assertion Drug aller gy Active [facility] No Known Medication Allergies Assertion Drug aller gy [facility] Immunizations No Data Provided for This Section Results Order Name Results Value Reference Range Date Interpretation Comments Source ELECTROLYTES AGAP 13.7 10.0 - 20.0 03/04/2019 [facility] ELECTROLYTES B/C Ratio 21 6 - 25 03/04/2019 [facility] ELECTROLYTES Globulin 4.9 2.7 - 4.2 03/04/2019 [facility] ELECTROLYTES A/G Ratio 0.5 0.7 - 1.6 03/04/2019 [facility] ELECTROLYTES Glucose Lvl 145 70 - 99 03/04/2019 [facility] ELECTROLYTES BUN 48 7 - 22 03/04/2019 [facility] ELECTROLYTES Creatinine Lvl 2.2 7 0.50 - 1.40 03/04/2019 [facility] ELECTROLYTES Sodium Lvl 142 135 - 145 03/04/2019 [facility] ELECTROLYTES Potassium Lvl 3.7 3.5 - 5.1 03/04/2019 [facility] ELECTROLYTES Chloride Lvl 111 95 - 109 03/04/2019 [facility] ELECTROLYTES CO2 21 24 - 32 03/04/2019 [facility] ELECTROLYTES Calcium Lvl 9.1 8.5 - 10.5 03/04/2019 [facility] ELECTROLYTES Total Protein 7.5 6.4 - 8.4 03/04/2019 [facility] ELECTROLYTES Albumin Lvl 2.6 3.5 - 5.0 03/04/2019 [facility] ELECTROLYTES ALT 15 0 - 65 03/04/2019 [facility] ELECTROLYTES AST 13 0 - 37 03/04/2019 [facility] ELECTROLYTES Alk Phos 103 39 - 136 03/04/2019 [facility] ELECTROLYTES Bili Total 0.4 0.2 - 1.3 03/04/2019 [facility] ELECTROLYTES eGFR 22 03/04/2019 Result Comment: The eGFR is calculated using the CKD-EPI formula. In most young, healthy individuals the eGFR will be >90 mL/min/1.73m2. The eGFR declines with age. An eGFR of 60-89 may be normal in some populations, particularly the elderly, for whom the CKD-EPI formula has not been extensively validated. Use of the eGFR is not recommended in the following populations:

Individuals with unstable creatinine concentrations, including patients and those with serious co-morbid conditions.

Patients with extremes in muscle mass or diet.

The data above are obtained from the National Kidney Disease Education Program (NKDEP) which additionally recommends that when the eGFR is used in patients with extremes of body mass index for purposes of drug dosing, the eGFR should be multiplied by the estimated BMI. [facility] HEMATOLOGY WBC 10.0 3.7 - 10.4 03/04/2019 [facility] HEMATOLOGY RBC 4.23 4.20 - 5.40 03/04/2019 [facility] HEMATOLOGY Hgb 10.4 12.0 - 16.0 03/04/2019 [facility] [place][note 2] Hct 31.7 36.0 - 48.0 03/04/2019 [facility] [place][note 2] MCV 75.1 80.0 - 98.0 03/04/2019 [facility] [place][note 2] MCH 24.6 27.0 - 31.0 03/04/2019 [facility] [place][note 2] MCHC 32.8 32.0 - 36.0 03/04/2019 [facility] [place][note 2] RDW 16.9 11.5 - 14.5 03/04/2019 [facility] [place][note 2] Platelet 397 133 - 450 03/04/2019 [facility] [place][note 2] MPV 7.5 7.4 - 10.4 03/04/2019 [facility] [place][note 2] Segs 44.6 45.0 - 75.0 03/04/2019 [facility] [place][note 2] Lymphocytes 44.8 20.0 - 40.0 03/04/2019 [facility] [place][note 2] Monocytes 7.1 2.0 - 12.0 03/04/2019 [facility] [place][note 2] Eosinophils 2.7 0.0 - 4.0 03/04/2019 [facility] [place][note 2] Basophils 0.8 0.0 - 1.0 03/04/2019 [facility] [place][note 2] Neutrophils # 4.5 1.5 - 8.1 03/04/2019 [facility] [place][note 2] Lymphocytes # 4.5 1.0 - 5.5 03/04/2019 [facility] [place][note 2] Monocytes # 0.7 0.0 - 0.8 03/04/2019 [facility] [place][note 2] Eosinophils # 0.3 0.0 - 0.5 03/04/2019 [facility] [place][note 2] Basophils # 0.1 0.0 - 0.2 03/04/2019 [facility] [place][note 2] Microcyte 1+ *ABN* (03/04/19 12:50 PM) None Seen 03/04/2019 [facility] CHEM PANEL Glucose Lvl 236 70 - 99 12/01/2018 [facility] CHEM PANEL BUN 58 7 - 22 12/01/2018 [facility] CHEM PANEL eGFR 21 12/01/2018 Result Comment: The eGFR is calculated using the CKD-EPI formula. In most young, healthy individuals the eGFR will be >90 mL/min/1.73m2. The eGFR declines with age. An eGFR of 60-89 may be normal in some populations, particularly the elderly, for whom the CKD-EPI formula has not been extensively validated. Use of the eGFR is not recommended in the following populations:

Individuals with unstable creatinine concentrations, including patients and those with serious co-morbid conditions.

Patients with extremes in muscle mass or diet.

The data above are obtained from the National Kidney Disease Education Program (NKDEP) which additionally recommends that when the eGFR is used in patients with extremes of body mass index for purposes of drug dosing, the eGFR should be multiplied by the estimated BMI. [facility] CHEM PANEL Chloride Lvl 108 95 - 109 12/01/2018 [facility] CHEM PANEL Creatinine Lvl 2.32 0.50 - 1.40 12/01/2018 [facility] CHEM PANEL Potassium Lvl 4.6 3.5 - 5.1 12/01/2018 [facility] CHEM PANEL Sodium Lvl 139 135 - 145 12/01/2018 [facility] CHEM PANEL CO2 24 24 - 32 12/01/2018 [facility] CHEM PANEL Calcium Lvl 8.8 8.5 - 10.5 12/01/2018 [facility] CHEM PANEL AGAP 11.6 10.0 - 20.0 12/01/2018 [facility] HEMATOLOGY WBC 11.2 3.7 - 10.4 12/01/2018 [facility] HEMATOLOGY RBC 4.34 4.20 - 5.40 12/01/2018 [facility] HEMATOLOGY MCH 23.8 27.0 - 31.0 12/01/2018 [facility] HEMATOLOGY MCV 77.2 80.0 - 98.0 12/01/2018 [facility] HEMATOLOGY MCHC 30.8 32.0 - 36.0 12/01/2018 [facility] HEMATOLOGY Hct 33.5 36.0 - 48.0 12/01/2018 [facility] HEMATOLOGY Hgb 10.3 12.0 - 16.0 12/01/2018 [facility] HEMATOLOGY RDW 15.3 11.5 - 14.5 12/01/2018 [facility] HEMATOLOGY MPV 7.7 7.4 - 10.4 12/01/2018 [facility] HEMATOLOGY Platelet 313 133 - 450 12/01/2018 [facility] CHEM PANEL Globulin 5.1 2.7 - 4.2 11/26/2018 [facility] CHEM PANEL A/G Ratio 0.5 0.7 - 1.6 11/26/2018 [facility] CHEM PANEL AGAP 11.0 10.0 - 20.0 11/26/2018 [facility] CHEM PANEL B/C Ratio 21 6 - 25 11/26/2018 [facility] CHEM PANEL eGFR 26 11/26/2018 Result Comment: The eGFR is calculated using the CKD-EPI formula. In most young, healthy individuals the eGFR will be >90 mL/min/1.73m2. The eGFR declines with age. An eGFR of 60-89 may be normal in some populations, particularly the elderly, for whom the CKD-EPI formula has not been extensively validated. Use of the eGFR is not recommended in the following populations:

Individuals with unstable creatinine concentrations, including patients and those with serious co-morbid conditions.

Patients with extremes in muscle mass or diet.

The data above are obtained from the National Kidney Disease Education Program (NKDEP) which additionally recommends that when the eGFR is used in patients with extremes of body mass index for purposes of drug dosing, the eGFR should be multiplied by the estimated BMI. [facility] CHEM PANEL Alk Phos 143 39 - 136 11/26/2018 [facility] CHEM PANEL AST 21 0 - 37 11/26/2018 [facility] CHEM PANEL ALT 23 0 - 65 11/26/2018 [facility] CHEM PANEL Bili Total 0.3 0.2 - 1.3 11/26/2018 [facility] CHEM PANEL BUN 42 7 - 22 11/26/2018 [facility] CHEM PANEL Glucose Lvl 213 70 - 99 11/26/2018 [facility] CHEM PANEL Potassium Lvl 5.0 3.5 - 5.1 11/26/2018 [facility] CHEM PANEL Sodium Lvl 136 135 - 145 11/26/2018 [facility] CHEM PANEL Creatinine Lvl 1.98 0.50 - 1.40 11/26/2018 [facility] CHEM PANEL Total Protein 7.9 6.4 - 8.4 11/26/2018 [facility] CHEM PANEL Albumin Lvl 2.8 3.5 - 5.0 11/26/2018 [facility] CHEM PANEL Calcium Lvl 9.4 8.5 - 10.5 11/26/2018 [facility] CHEM PANEL Chloride Lvl 105 95 - 109 11/26/2018 [facility] CHEM PANEL CO2 25 24 - 32 11/26/2018 [facility] HEMATOLOGY WBC 9.9 3.7 - 10.4 11/26/2018 [facility] HEMATOLOGY RDW 15.1 11.5 - 14.5 11/26/2018 [facility] HEMATOLOGY RBC 4.84 4.20 - 5.40 11/26/2018 [facility] HEMATOLOGY MCHC 31.5 32.0 - 36.0 11/26/2018 [facility] [place][note 2] MCV 76.9 80.0 - 98.0 11/26/2018 [facility] [place][note 2] MCH 24.2 27.0 - 31.0 11/26/2018 [facility] [place][note 2] Hgb 11.7 12.0 - 16.0 11/26/2018 [facility] [place][note 2] Hct 37.2 36.0 - 48.0 11/26/2018 [facility] [place][note 2] Platelet 367 133 - 450 11/26/2018 [facility] [place][note 2] MPV 7.7 7.4 - 10.4 11/26/2018 [facility] [place][note 2] Eosinophils # 0.2 0.0 - 0.5 11/26/2018 [facility] [place][note 2] Microcyte 1+ *ABN* (11/26/18 1:14 PM) None Seen 11/26/2018 [facility] [place][note 2] Basophils # 0.1 0.0 - 0.2 11/26/2018 [facility] [place][note 2] Monocytes # 0.6 0.0 - 0.8 11/26/2018 [facility] [place][note 2] Lymphocytes # 3.4 1.0 - 5.5 11/26/2018 [facility] [place][note 2] Neutrophils # 5.7 1.5 - 8.1 11/26/2018 [facility] [place][note 2] Monocytes 6.2 2.0 - 12.0 11/26/2018 [facility] [place][note 2] Eosinophils 2.3 0.0 - 4.0 11/26/2018 [facility] [place][note 2] Basophils 0.6 0.0 - 1.0 11/26/2018 [facility] [place][note 2] Lymphocytes 33.8 20.0 - 40.0 11/26/2018 [facility] [place][note 2] Segs 57.1 45.0 - 75.0 11/26/2018 [facility] CHEM PANEL eGFR 34 10/22/2018 Result Comment: The eGFR is calculated using the CKD-EPI formula. In most young, healthy individuals the eGFR will be >90 mL/min/1.73m2. The eGFR declines with age. An eGFR of 60-89 may be normal in some populations, particularly the elderly, for whom the CKD-EPI formula has not been extensively validated. Use of the eGFR is not recommended in the following populations:

Individuals with unstable creatinine concentrations, including patients and those with serious co-morbid conditions.

Patients with extremes in muscle mass or diet.

The data above are obtained from the National Kidney Disease Education Program (NKDEP) which additionally recommends that when the eGFR is used in patients with extremes of body mass index for purposes of drug dosing, the eGFR should be multiplied by the estimated BMI. [facility] CHEM PANEL Sodium Lvl 138 135 - 145 10/22/2018 [facility] CHEM PANEL Creatinine Lvl 1.58 0.50 - 1.40 10/22/2018 [facility] CHEM PANEL BUN 32 7 - 22 10/22/2018 [facility] CHEM PANEL Glucose Lvl 236 70 - 99 10/22/2018 [facility] CHEM PANEL CO2 21 24 - 32 10/22/2018 [facility] CHEM PANEL Total Protein 7.8 6.4 - 8.4 10/22/2018 [facility] CHEM PANEL Albumin Lvl 2.6 3.5 - 5.0 10/22/2018 [facility] CHEM PANEL Calcium Lvl 9.1 8.5 - 10.5 10/22/2018 [facility] CHEM PANEL Chloride Lvl 110 95 - 109 10/22/2018 [facility] CHEM PANEL Potassium Lvl 4.9 3.5 - 5.1 10/22/2018 [facility] CHEM PANEL ALT 19 0 - 65 10/22/2018 [facility] CHEM PANEL AST 16 0 - 37 10/22/2018 [facility] CHEM PANEL Bili Total 0.4 0.2 - 1.3 10/22/2018 [facility] CHEM PANEL Alk Phos 148 39 - 136 10/22/2018 [facility] CHEM PANEL B/C Ratio 20 6 - 25 10/22/2018 [facility] CHEM PANEL Globulin 5.2 2.7 - 4.2 10/22/2018 [facility] CHEM PANEL A/G Ratio 0.5 0.7 - 1.6 10/22/2018 [facility] CHEM PANEL AGAP 11.9 10.0 - 20.0 10/22/2018 [facility] HEMATOLOGY MPV 7.4 7.4 - 10.4 10/22/2018 [facility] HEMATOLOGY Platelet 430 133 - 450 10/22/2018 [facility] HEMATOLOGY MCV 76.0 80.0 - 98.0 10/22/2018 [facility] HEMATOLOGY RDW 15.8 11.5 - 14.5 10/22/2018 [facility] [place][note 2] MCH 25.0 27.0 - 31.0 10/22/2018 [facility] [place][note 2] MCHC 32.8 32.0 - 36.0 10/22/2018 [facility] HEMATOLOGY RBC 4.31 4.20 - 5.40 10/22/2018 [facility] [place][note 2] Hct 32.8 36.0 - 48.0 10/22/2018 [facility] [place][note 2] Hgb 10.8 12.0 - 16.0 10/22/2018 [facility] [place][note 2] WBC 9.9 3.7 - 10.4 10/22/2018 [facility] [place][note 2] Microcyte 1+ *ABN* (10/22/18 8:11 AM) None Seen 10/22/2018 [facility] [place][note 2] Eosinophils 2.4 0.0 - 4.0 10/22/2018 [facility] [place][note 2] Monocytes 4.8 2.0 - 12.0 10/22/2018 [facility] [place][note 2] Segs 58.2 45.0 - 75.0 10/22/2018 [facility] [place][note 2] Lymphocytes 34.0 20.0 - 40.0 10/22/2018 [facility] [place][note 2] Basophils 0.6 0.0 - 1.0 10/22/2018 [facility] [place][note 2] Lymphocytes # 3.4 1.0 - 5.5 10/22/2018 [facility] [place][note 2] Monocytes # 0.5 0.0 - 0.8 10/22/2018 [facility] [place][note 2] Neutrophils # 5.7 1.5 - 8.1 10/22/2018 [facility] [place][note 2] Eosinophils # 0.2 0.0 - 0.5 10/22/2018 [facility] [place][note 2] Basophils # 0.1 0.0 - 0.2 10/22/2018 [facility] ELECTROLYTES Chloride Lvl 102 95 - 109 02/02/2015 [facility] ELECTROLYTES CO2 31 24 - 32 02/02/2015 [facility] ELECTROLYTES Calcium Lvl 8.8 8.5 - 10.5 02/02/2015 [facility] ELECTROLYTES AGAP 11.7 10.0 - 20.0 02/02/2015 [facility] ELECTROLYTES Sodium Lvl 141 135 - 145 02/02/2015 [facility] ELECTROLYTES Glucose Lvl 234 70 - 99 02/02/2015 [facility] ELECTROLYTES Potassium Lvl 3.7 3.5 - 5.1 02/02/2015 [facility] ELECTROLYTES BUN 20 7 - 22 02/02/2015 [facility] ELECTROLYTES Creatinine Lvl 0.8 0.5 - 1.4 02/02/2015 [facility] ELECTROLYTES eGFR 79 02/02/2015 Result Comment: The eGFR is calculated using the CKD-EPI formula. In most young, healthy individuals the eGFR will be >90 mL/min/1.73m2. The eGFR declines with age. An eGFR of 60-89 may be normal in some populations, particularly the elderly, for whom the CKD-EPI formula has not been extensively validated. Use of the eGFR is not recommended in the following populations:

Individuals with unstable creatinine concentrations, including patients and those with serious co-morbid conditions.

Patients with extremes in muscle mass or diet.

The data above are obtained from the National Kidney Disease Education Program (NKDEP) which additionally recommends that when the eGFR is used in patients with extremes of body mass index for purposes of drug dosing, the eGFR should be multiplied by the estimated BMI. [facility] Pathology Reports No Data Provided for This Section Diagnostic Reports Report Value Date Source Brain wo contrast MRI PATIENT NAME: ELSIE LOAIZA : 1950; Age: 67 years y/o Female MR: [id number] STUDY: Brain wo contrast MRI 06/18/2017 10:23 AM OB GYN ORDERING PHYSICIAN: Vaibhav Jarrett MD CLINICAL INDICATION: Left eye vision loss; COMPARISON: None TECHNIQUE: Multiplanar noncontrast MRI of the brain is performed. FINDINGS: BRAIN PARENCHYMA: There is no hemorrhage, mass lesion, extra axial collection, cerebral edema, or mass effect. Diffusion sequences are normal. Brain volume is age-appropriate. There are minimal periventricular white matter signal abnormalities without mass effect.The cerebellar tonsils are above foramen magnum. The pituitary gland is age-appropriate. CEREBELLOPONTINE REGIONS AND SKULL BASE: The cerebellopontine angles appear unremarkable. No skull base abnormality is seen. VENTRICLES/SULCI/CISTERNS: The ventricles are normal in size and configuration. The basal cisterns are patent. VISUALIZED VESSELS: Major intracranial flow voids are preserved. ORBITS, VISUALIZED PARANASAL SINUSES AND MASTOIDS: Paranasal sinuses are clear. The mastoid air cells are clear. No orbital pathology is seen. IMPRESSION: 1. No evidence of acute or recent ischem ia 2. Mild, nonspecific white matter signal abnormalities likely reflect chronic small vessel ischemia 3. Normal orbits and optic nerves 06/18/2017 CELESTINA Nugent Stomach emptying NM HISTORY: G astritis. Nuclear gastric emptying study performed following the oral administration of 1 mCi technetium 99m sulfur colloid in eggs. FINDINGS: T1 half of gastric emptying is delayed at 159 minutes. There is only 8% gastric emptying noted at one hour. Only 30% gastric emptying noted at 2 hours. 54% gastric emptying is noted at 3 hours . 60% gastric emptying is noted at 4 hours . IMPRESSION: Delayed gastric emptying. SL:13 2014 [facility] Consultation Notes No Data Provided for This Section Discharge Summaries No Data Provided for This Section History and Physicals No Data Provided for This Section Vital Signs Vital Sign Value Date Comments Source Height 157.48 cm 03/04/2019 [facility] Weight 63.636 03/04/2019 [facility] BMI Calculated 25.66 03/04/2019 [facility] Heart Rate 72 12/01/2018 [facility] Systolic (mm Hg) 90 12/01/2018 [facility] Diastolic (mm Hg) 56 12/01/2018 [facility] Respitory Rate 18 12/01/2018 [facility] Temperature Oral (F) 98.5 F 12/01/2018 [facility] Temperature Oral (F) 98.7 F 12/01/2018 [facility] Systolic (mm Hg) 126 12/01/2018 [facility] Diastolic (mm Hg) 62 12/01/2018 [facility] Respitory Rate 16 12/01/2018 [facility] Heart Rate 71 12/01/2018 [facility] Systolic (mm Hg) 123 12/01/2018 [facility] Diastolic (mm Hg) 68 12/01/2018 [facility] Temperature Oral (F) 97.7 F 12/01/2018 [facility] Respitory Rate 18 12/01/2018 [facility] Heart Rate 65 12/01/2018 [facility] Weight 61.364 11/26/2018 [facility] BMI Calculated 24.74 11/26/2018 [facility] Height 157.48 cm 11/26/2018 [facility] Systolic (mm Hg) 136 10/26/2018 [facility] Diastolic (mm Hg) 62 10/26/2018 [facility] Systolic (mm Hg) 148 10/26/2018 [facility] Diastolic (mm Hg) 80 10/26/2018 [facility] Systolic (mm Hg) 152 10/26/2018 [facility] Diastolic (mm Hg) 65 10/26/2018 [facility] Temperature Oral (F) 98.0 F 10/26/2018 [facility] Respitory Rate 19 10/26/2018 [facility] BMI Calculated 26.15 10/22/2018 [facility] Weight 65.909 10/22/2018 [facility] Height 158.75 cm 10/22/2018 [facility] Heart Rate 83 10/22/2018 [facility] Temperature Oral (F) 97.8 F 10/22/2018 [facility] Respitory Rate 20 10/22/2018 [facility] Heart Rate 87 12/10/2016 [facility] Temperature Oral (F) 97.4 F 12/10/2016 [facility] Respitory Rate 18 12/10/2016 [facility] Systolic (mm Hg) 123 12/10/2016 [facility] Diastolic (mm Hg) 74 12/10/2016 [facility] Temperature Oral (F) 98.2 F 12/10/2016 [facility] Respitory Rate 16 12/10/2016 [facility] Systolic (mm Hg) 160 12/10/2016 [facility] Diastolic (mm Hg) 84 12/10/2016 [facility] Respitory Rate 16 12/10/2016 [facility] Temperature Oral (F) 97.6 F 12/10/2016 [facility] Systolic (mm Hg) 163 12/10/2016 [facility] Diastolic (mm Hg) 89 12/10/2016 [facility] Height 157.48 cm 12/09/2016 [facility] Weight 63.636 12/09/2016 [facility] BMI Calculated 25.66 12/09/2016 [facility] Systolic (mm Hg) 162 02/06/2015 [facility] Diastolic (mm Hg) 95 02/06/2015 [facility] Respitory Rate 12 02/06/2015 [facility] Systolic (mm Hg) 145 02/06/2015 [facility] Diastolic (mm Hg) 95 02/06/2015 [facility] Respitory Rate 15 02/06/2015 [facility] Systolic (mm Hg) 145 02/06/2015 [facility] Diastolic (mm Hg) 121 02/06/2015 [facility] Respitory Rate 15 02/06/2015 [facility] Heart Rate 99 02/06/2015 [facility] Weight 60.909 02/02/2015 [facility] BMI Calculated 24.56 02/02/2015 [facility] Height 157.48 cm 02/02/2015 [facility] Temperature Oral (F) 97.8 F 02/02/2015 [facility] Heart Rate 88 02/02/2015 [facility] Encounters Location Location Details Encounter Type Encounter Number Reason For Visit Attending Provider ADM Date DC Date Status Source [facility] Outpatient [id number] Edgar Bowden 2014 04/20/2014 [facility] Bedded Outpatient [id number] Edgar Bowden 02/06/2015 02/06/2015 [facility] Bedded Outpatient [id number] Vaibhav Jarrett 12/09/2016 12/10/2016 [facility] [place] [facility] [id number] Vaibhav Jarrett 06/18/2017 06/19/2017 CELESTINA Nugent [facility] Bedded Outpatient [id number] Viabhav Jarrett 10/26/2018 10/27/2018 [facility] Bedded Outpatient [id number] Vaibhav Jarrett 11/30/2018 12/01/2018 [facility] Bedded Outpatient [id number] Vaibhav Jarrett 03/04/2019 03/04/2019 [facility] Procedures Procedure Code Date Perfomer Comments Source Angiogram [id number] 10/26/2018 [facility] Rotational atherectomy [id number] 12/09/2016 [facility] Colonoscopy [id number] 07/20/[id number] 07/20/2012 [facility] Removal of spinal cord lesion [id number] 07/20/2002 [facility] [id number] 07/20/[id number] [facility] Tonsillectomy [id number] [facility] Assessment and Plan Assessment and Plan Date Source Extracted from:Title: Cardiology Progres s Note Author: Bianca Zendejas MD Date: 12/10/16 Impression and Plan 1. Peripheral arterial disease status po st atherectomy and angioplasty of the right popliteal, anterior tibial, and posterior tibial artery 2. Diabetes mellitus 3. Hyperlipidemia Plan: 1. Dual anti-platelet therapy for life. 2. Discharge home to follow-up with Dr. Jarrett in two weeks. 3. Continue current medications. 12/10/2016 [facility] Plan of Care No Data Provided for This Section Social History Social History Date Source Social History TypeResponse Alcohol Never Substance Abuse Use: None. Smoking Status Never smoker; Exposure to Tobacco Smoke None; Cigarette Smoking Last 365 Days No; Reg Smoking Cessation Counseling No entered on: 03/04/19 03/04/2019 [facility] Social History TypeResponse Substance Abuse 1 Alcohol Never2 Smoking Status Never smoker; Exposure to Tobacco Smoke None; Cigarette Smoking Last 365 Days No; Reg Smoking Cessation Counseling No [id number] 07/19/2013 CELESTINA Nugent Family History No Data Provided for This Section Advance Directives No Data Provided for This Section Functional Status No Data Provided for This Section
--- OUTSIDE RECORDS SUMMARY | 2020-03-06 21:04 | XMS REPORT | Summary of Care ---
Author Author [facility] Organization [facility] Address Unknown Phone Unavailable Encounter ACE Noland(ANNALISE) [id number] Date(s): 02/06/15 - 02/06/15 [facility] [address] [place] [address]- Discharge Disposition: Home Attending Physician: Edgar Bowden MD Referring Physician: Edgar Bowden MD Vital Signs 1 2 3 Most recent to oldest [Reference Range]: 157.48 cm (02/02/15 10:50 AM) Height 1 2 3 Most recent to oldest [Reference Range]: 97.8 DegF (02/02/15 10:50 AM) Temperature Oral [96.4-99.1 DegF] 1 2 3 Most recent to oldest [Reference Range]: 162/95 mmHg *HI* (02/06/15 3:21 PM) 145/95 mmHg *HI* (02/06/15 3:06 PM) 145/121 mmHg *HI* (02/06/15 2:51 PM) Blood Pressure [90-140/60-90 mmHg] 1 2 3 Most recent to oldest [Reference Range]: 12 BRMIN *LOW* (02/06/15 3:21 PM) 15 BRMIN (02/06/15 3:06 PM) 15 BRMIN (02/06/15 2:51 PM) Respiratory Rate [14-20 BRMIN] 1 2 3 Most recent to oldest [Reference Range]: 99 bpm (02/06/15 1:59 PM) 88 bpm (02/02/15 10:50 AM) Peripheral Pulse Rate [60-100 bpm] 1 2 3 Most recent to oldest [Reference Range]: 60.909 kg (02/02/15 10:50 AM) Weight 1 2 3 Most recent to oldest [Reference Range]: 24.56 m2 (02/02/15 10:50 AM) Body Mass Index Problem List Condition Effective Dates Status Health Status Informan t Acid Active reflux(Confirmed) Depression(Confirmed Active ) Diabetes mellitus Active type II(Confirmed) Heart Resolved murmur(Confirmed) Hypertension(Confirm Active ed) IBS - Irritable Active bowel syndrome(Confirmed) Neuropathy(Confirmed Active ) 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) UTI - Urinary tract Resolved infection(Confirmed) Allergies, Adverse Reactions, Alerts Substance Reaction Severity Status NKDA Active Medications Bydureon Pen 2 mg subcutaneous injection, extended release 2 mg, SUB-Q, qWeek, # 4 ea, 0 Refill(s) Start Date: 02/02/15 Status: Ordered Cardizem 0 Refill(s) Start Date: 02/02/15 Status: Ordered Diovan 320 mg oral tablet 320 mg = 1 tab, PO, Daily, # 30 tab, 0 Refill(s) Start Date: 02/02/15 Status: Ordered Humalog 14 units, SUB-Q, TID-Before Meals, 0 Refill(s) Start Date: 02/02/15 Status: Ordered Lantus 18 unit, SUB-Q, Bedtime, 0 Refill(s) Start Date: 02/02/15 Status: Ordered Sodium Chloride 0.9% IV 500 mL 500 mL, Rate: 25 ml/hr, Infuse over: 20 hr, Route: IV, Dosing Weight 60.909 kg, Total Volume: 500, Start date: 02/06/15 13:03:00, Duration: 30 day, Stop date: 0 03/08/15 13:02:00 Start Date: 02/06/15 Stop Date: 02/06/15 Status: Discontinued Unknown Home Medication 1 tab, PO, BID, Refill(s) 0 Start Date: 02/02/15 Status: Ordered Viibryd 10 mg oral tablet 10 mg = 1 tab, PO, Daily, 0 Refill(s) Start Date: 02/02/15 Status: Ordered Results ELECTROLYTES Most recent to 1 oldest [Reference Range]: Sodium Lvl [135-145 141 mEq/L mEq/L] (02/02/15 11:03 AM) Potassium Lvl 3.7 mEq/L [3.5-5.1 mEq/L] (02/02/15 11:03 AM) Chloride Lvl [95-109 102 mEq/L mEq/L] (02/02/15 11:03 AM) CO2 [24-32 mEq/L] 31 mEq/L (02/02/15 11:03 AM) AGAP [10.0-20.0 11.7 mEq/L mEq/L] (02/02/15 11:03 AM) CHEM PANEL Most recent to 1 oldest [Reference Range]: Creatinine Lvl 0.8 mg/dL [0.5-1.4 mg/dL] (02/02/15 11:03 AM) eGFR 79 mL/min/1.73m2 1 *NA* (02/02/15 11:03 AM) BUN [7-22 mg/dL] 20 mg/dL (02/02/15 11:03 AM) Glucose Lvl [70-99 234 mg/dL mg/dL] *HI* (02/02/15 11:03 AM) Calcium Lvl 8.8 mg/dL [8.5-10.5 mg/dL] (02/02/15 11:03 AM) 1Result Comment: The eGFR is calculated using the [...] from the National Kidney Disease Education Program ( NKDEP) which additionally recommends that when the eGFR is used in patients with extremes of body mass index for purposes of drug dosing, the eGFR should be mul tiplied by the estimated BMI. Immunizations No data available for this section Procedures Procedure Date Related Diagnosis Body Site Colonoscopy 07/2013 Removal of spinal cord lesion 2002 Tubal ligation 1995 Tonsillectomy Social History Social History Type Response Substance Abuse 1 Alcohol 2 Smoking Status Never smoker; Exposure to T obacco Smoke None; Cigarette Smoking Last 365 Days No; Reg Smoking Cessation Counseli ng No 1NONE 2NONE Assessment and Plan No data available for this section
--- OUTSIDE RECORDS SUMMARY | 2020-03-06 21:04 | XMS REPORT | Summary of Care ---
Author Author [facility] Organization [facility] Address Unknown Phone Unavailable Encounter ACE Noland(ANNALISE) [id number] Date(s): 12/09/16 - 12/10/16 [facility] [address] [place] [address]- [phone] Discharge Disposition: Home or Self Care Attending Physician: Vaibhav Jarrett MD Referring Physician: Vaibhav Jarrett MD Vital Signs 1 2 3 Most recent to oldest [Reference Range]: 157.48 cm (12/09/16 12:26 PM) Height 97.4 DegF (12/10/16 7:42 AM) 98.2 DegF (12/10/16 4:00 AM) 97.6 DegF (12/10/16 12:00 AM) Temperature Oral [96.4-99.1 DegF] 123/74 mmHg (12/10/16 7:42 AM) 160/84 mmHg *HI* (12/10/16 4:00 AM) 163/89 mmHg *HI* (12/10/16 12:00 AM) Blood Pressure [90-140/60-90 mmHg] 18 BRMIN (12/10/16 7:42 AM) 16 BRMIN (12/10/16 4:00 AM) 16 BRMIN (12/10/16 12:00 AM) Respiratory Rate [14-20 BRMIN] 87 bpm (12/10/16 7:42 AM) Peripheral Pulse Rate [60-100 bpm] 63.636 kg (12/09/16 12:26 PM) Weight 25.66 m2 (12/09/16 12:26 PM) Body Mass Index Problem List Condition Effective Dates Status Health Status Informan t Acid Active reflux(Confirmed) Anemia(Confirmed) Resolved Anxiety(Confirmed) Active Depression(Confirmed Active ) Toe ulcer due to Active DM(Confirmed) Diabetes mellitus Active type II(Confirmed) Heart Resolved murmur(Confirmed) Hypercholesteremia(C Resolved onfirmed) Hypertension(Confirm Active ed) IBS - Irritable Active bowel syndrome(Confirmed) Neuropathy(Confirmed Active ) Poor circulation of Active extremity(Confirmed) 1 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 Start Date: 12/09/16 Stop Date: 12/10/16 Status: Discontinued Keflex = 1 tab, PO, TID, 1 tab, 3 times a day, 0 Refill(s) Start Date: 12/09/16 Status: Ordered morphine Sulfate 4 mg, 1 mL, Route: IVP, Drug form: SOLN, Q2H, Dosing Weight 63.636, kg, PRN Pain Score 7-10, Start date: 12/09/16 12:10:00 CDT, Duration: 30 day, Stop date: 12:09:00 CDT Notes: (Same as:MORPhine Sulfate) Start Date: 12/09/16 Stop Date: 12/10/16 Status: Discontinued nitroglycerin SL Tab 0.4 mg, 1 tab, Route: SL, Drug form: TAB, Q5Min, Dosing Weight 63.636, kg, PRN C hest Pain, Start date: 12/09/16 12:10:00 CDT, Duration: 3 doses or times, Stop d ate: Limited # of times Notes: (Same as:Nitroquick, Nitrostat)"Do Not Crush" Sublingual tablet Start Date: 12/09/16 Stop Date: 12/10/16 Status: Discontinued sodium chloride 0.9% 1000 ml INJ 750 mL 750 mL, Rate: 75 ml/hr, Infuse over: 10 hr, Route: IV, Dosing Weight 63.636 kg, Total Volume: 750, Start date: 12/09/16 12:10:00 CDT, Duration: 10 hr, Stop date : 12/09/16 22:09:00 CDT Start Date: 12/09/16 Stop Date: 12/09/16 Status: Completed Results No data available for this section Immunizations No data available for this section Procedures Procedure Date Related Diagnosis Body Site Colonoscopy 07/2013 Removal of spinal cord lesion 2002 Tubal ligation 1995 Cataract surgery Tonsillectomy Social History Social History Type Response Substance Abuse 1 Alcohol Never2 Smoking Status Never smoker; Exposure to T obacco Smoke None; Cigarette Smoking Last 365 Days No; Reg Smoking Cessation Counseli ng No 1NONE 2NONE Assessment and Plan Extracted from: Title: Cardiology Progress Note Author: Bianca Zendejas MD Date: 12/10/16 [...]
--- OUTSIDE RECORDS SUMMARY | 2020-03-06 21:04 | XMS REPORT | Summary of Care ---
Author Author [facility] Organization [facility] Address Unknown Phone Unavailable Encounter ACE Noland(ANNALISE) [id number] Date(s): 10/26/18 - 10/26/18 [facility] [address] [place] [address]- Discharge Disposition: Home or Self Care Attending Physician: Vaibhav Jarrett MD Referring Physician: Vaibhav Jarrett MD Vital Signs 1 2 3 Most recent to oldest [Reference Range]: 158.75 cm (10/22/18 8:07 AM) Height 98.0 DegF (10/26/18 7:22 AM) 97.8 DegF (10/22/18 8:07 AM) Temperature Oral [96.4-99.1 DegF] 136/62 mmHg (10/26/18 6:30 PM) 148/80 mmHg *HI* (10/26/18 6:00 PM) 152/65 mmHg *HI* (10/26/18 5:30 PM) Blood Pressure [90-140/60-90 mmHg] 19 BRMIN (10/26/18 7:22 AM) 20 BRMIN (10/22/18 8:07 AM) Respiratory Rate [14-20 BRMIN] 83 bpm (10/22/18 8:07 AM) Peripheral Pulse Rate [60-100 bpm] 65.909 kg (10/22/18 8:07 AM) Weight 26.15 m2 (10/22/18 8:07 AM) Body Mass Index Problem List Condition Effective Dates Status Health Status Informan t Acid Active reflux(Confirmed) Anemia(Confirmed) Resolved Anxiety(Confirmed) Active Toe ulcer due to Active DM(Confirmed) Diabetes mellitus Active type II(Confirmed) Heart Resolved murmur(Confirmed) Hypercholesteremia(C Resolved onfirmed) Hypertension(Confirm Active ed) IBS - Irritable Active bowel syndrome(Confirmed) Neuropathy(Confirmed Active ) Poor circulation of Active extremity(Confirmed) 1 PAD (peripheral Active artery disease)(Confirmed) 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 Start Date: 10/26/18 Stop Date: 10/26/18 Status: Discontinued ALPRAZOLam 0.5 mg, 1 tab, Route: PO, Drug form: TAB, ONCE, Dosing Weight 65.909, kg, Priori ty: NOW, Start date: 10/26/18 8:24:00 CDT, Stop date: 10/26/18 8:24:00 CDT Notes: With food or milk(Same as: Xanax) Start Date: 10/26/18 Stop Date: 10/26/18 Status: Ordered Bystolic 2.5 mg oral tablet 2.5 mg = 1 tab, PO, Daily, # 30 tab, 0 Refill(s) Start Date: 10/22/18 Status: Ordered clopidogrel 75 mg oral tablet 75 mg = 1 tab, PO, Daily, # 90 tab, 1 Refill(s) Start Date: 10/26/18 Stop Date: 04/24/19 Status: Ordered diphenhydrAMINE 50 mg, 2 tab, Route: PO, Drug form: TAB, ONCE, Dosing Weight 65.909, kg, Priorit y: NOW, Start date: 10/26/18 8:24:00 CDT, Stop date: 10/26/18 8:24:00 CDT Start Date: 10/26/18 Stop Date: 10/26/18 Status: Ordered gabapentin 600 mg oral tablet 300 mg = 0.5 tab, PO, Bedtime, 0 Refill(s) Start Date: 10/22/18 Status: Ordered hydrALAZINE 50 mg oral tablet 50 mg = 1 tab, PO, TID, # 90 tab, 3 Refill(s) Start Date: 10/22/18 Status: Ordered hydrochlorothiazide-olmesartan 25 mg-40 mg oral tablet 1 tab, PO, Daily, # 30 tab, 0 Refill(s) Start Date: 10/22/18 Status: Ordered iron infusions iron infusions, IV, qWeek, Refill(s) 0 Start Date: 10/22/18 Status: Ordered Lasix 40 mg oral tablet 40 mg = 1 tab, PO, Daily, # 30 tab, 0 Refill(s) Start Date: 10/22/18 Status: Ordered mesalamine 1.2 g oral enteric coated tablet 2.4 gm = 2 tab, PO, BID, 0 Refill(s) Start Date: 10/22/18 Status: Ordered morphine Sulfate 4 mg, 1 mL, Route: IVP, Drug form: SOLN, Q2H, Dosing Weight 65.909, kg, PRN Pain Score 7-10, Start date: 10/26/18 11:20:00 CDT, Duration: 30 day, Stop date: 04/07 11:19:00 CDT Notes: (Same as:MORPhine Sulfate) Start Date: 10/26/18 Stop Date: 10/26/18 Status: Discontinued nitroglycerin SL Tab 0.4 mg, 1 tab, Route: SL, Drug form: TAB, Q5Min, Dosing Weight 65.909, kg, PRN C hest Pain, Start date: 10/26/18 11:20:00 CDT, Duration: 3 doses or times, Stop d ate: Limited # of times Notes: (Same as:Nitroquick, Nitrostat)"Do Not Crush" Sublingual tablet Start Date: 10/26/18 Stop Date: 10/26/18 Status: Discontinued normal saline 0.9% IV 1,000 mL 1,000 mL, Rate: 250 ml/hr, Infuse over: 4 hr, Route: IV, Dosing Weight 65.909 kg , Total Volume: 1,000, Priority: NOW, Start date: 10/26/18 7:16:00 CDT, Duration : 30 day, Stop date: 11/25/18 7:15:00 CDT, 1.72, m2 Start Date: 10/26/18 Stop Date: 10/26/18 Status: Discontinued potassium chloride 10 mEq oral capsule, extended release 10 mEq = 1 cap, PO, Daily, 0 Refill(s) Start Date: 10/22/18 Status: Ordered Sodium Chloride 0.9% IV 750 mL 750 mL, Rate: 75 ml/hr, Infuse over: 10 hr, Route: IV, Dosing Weight 65.909 kg, Total Volume: 750, Start date: 10/26/18 11:20:00 CDT, Duration: 10 hr, Stop date : 10/26/18 21:19:00 CDT, 1.72, m2 Start Date: 10/26/18 Stop Date: 10/26/18 Status: Completed Tums 500 mg, CHEW, BID, 0 Refill(s) Start Date: 10/22/18 Status: Ordered Results ELECTROLYTES Most recent to 1 oldest [Reference Range]: Sodium Lvl [135-145 138 mEq/L mEq/L] (10/22/18 8:11 AM) Potassium Lvl 4.9 mEq/L [3.5-5.1 mEq/L] (10/22/18 8:11 AM) Chloride Lvl [95-109 110 mEq/L mEq/L] *HI* (10/22/18 8:11 AM) CO2 [24-32 mEq/L] 21 mEq/L *LOW* (10/22/18 8:11 AM) AGAP [10.0-20.0 11.9 mEq/L mEq/L] (10/22/18 8:11 AM) CHEM PANEL Most recent to 1 oldest [Reference Range]: Creatinine Lvl 1.58 mg/dL [0.50-1.40 mg/dL] *HI* (10/22/18 8:11 AM) eGFR 34 mL/min/1.73m2 1 *NA* (10/22/18 8:11 AM) BUN [7-22 mg/dL] 32 mg/dL *HI* (10/22/18 8:11 AM) B/C Ratio [6-25] 20 (10/22/18 8:11 AM) Glucose Lvl [70-99 236 mg/dL mg/dL] *HI* (10/22/18 8:11 AM) Total Protein 7.8 g/dL [6.4-8.4 g/dL] (10/22/18 8:11 AM) Albumin Lvl [3.5-5.0 2.6 g/dL g/dL] *LOW* (10/22/18 8:11 AM) Globulin [2.7-4.2 5.2 g/dL g/dL] *HI* (10/22/18 8:11 AM) A/G Ratio [0.7-1.6] 0.5 *LOW* (10/22/18 8:11 AM) Calcium Lvl 9.1 mg/dL [8.5-10.5 mg/dL] (10/22/18 8:11 AM) ALT [0-65 unit/L] 19 unit/L (10/22/18 8:11 AM) AST [0-37 unit/L] 16 unit/L (10/22/18 8:11 AM) Alk Phos [39-136 148 unit/L unit/L] *HI* (10/22/18 8:11 AM) Bili Total [0.2-1.3 0.4 mg/dL mg/dL] (10/22/18 8:11 AM) 1Result Comment: The eGFR is calculated [...] be mul tiplied by the estimated BMI. HEMATOLOGY Most recent to 1 oldest [Reference Range]: WBC [3.7-10.4 K/CMM] 9.9 K/CMM (10/22/18 8:11 AM) RBC [4.20-5.40 4.31 M/CMM M/CMM] (10/22/18 8:11 AM) Hgb [12.0-16.0 g/dL] 10.8 g/dL *LOW* (10/22/18 8:11 AM) Hct [36.0-48.0 %] 32.8 % *LOW* (10/22/18 8:11 AM) MCV [80.0-98.0 fL] 76.0 fL *LOW* (10/22/18:11 AM) MCH [27.0-31.0 pg] 25.0 pg *LOW* (10/22/18 8:11 AM) MCHC [32.0-36.0 32.8 g/dL g/dL] (10/22/18 8:11 AM) RDW [11.5-14.5 %] 15.8 % *HI* (10/22/18 8:11 AM) MPV [7.4-10.4 fL] 7.4 fL (10/22/18 8:11 AM) Platelet [133-450 430 K/CMM K/CMM] (10/22/18 8:11 AM) Segs [45.0-75.0 %] 58.2 % (10/22/18 8:11 AM) Lymphocytes 34.0 % [20.0-40.0 %] (10/22/18 8:11 AM) Monocytes [2.0-12.0 4.8 % %] (10/22/18 8:11 AM) Eosinophils [0.0-4.0 2.4 % %] (10/22/18 8:11 AM) Basophils [0.0-1.0 0.6 % %] (10/22/18 8:11 AM) Neutrophils # 5.7 K/CMM [1.5-8.1 K/CMM] (10/22/18 8:11 AM) Lymphocytes # 3.4 K/CMM [1.0-5.5 K/CMM] (10/22/18 8:11 AM) Monocytes # [0.0-0.8 0.5 K/CMM K/CMM] (10/22/18 8:11 AM) Eosinophils # 0.2 K/CMM [0.0-0.5 K/CMM] (10/22/18 8:11 AM) Basophils # [0.0-0.2 0.1 K/CMM K/CMM] (10/22/18 8:11 AM) Microcyte [None 1+ Seen] *ABN* (10/22/18 8:11 AM) Immunizations No data available for this section Procedures Procedure Date Related Diagnosis Body Site Status Rotational atherectomy 12/09/16 Completed Colonoscopy 07/2013 Completed Removal of spinal cord lesion 2002 Complete d Tubal ligation 1995 Completed Cataract surgery Completed Tonsillectomy Completed Social History Social History Type Response Substance Abuse 1 Alcohol Never2 Smoking Status Never smoker; Exposure to T obacco Smoke None; Cigarette Smoking Last 365 Days No; Reg Smoking Cessation Counseli ng No entered on: 10/22/18 1NONE 2NONE Assessment and Plan No data available for this section
--- OUTSIDE RECORDS SUMMARY | 2020-03-06 21:04 | XMS REPORT | Summary of Care ---
Author Author [facility] Organization [facility] Address Unknown Phone Unavailable Encounter HQ Nuzhat(FIN) [id number] Date(s): 06/18/17 - 06/18/17 [facility] [place] [address] [phone] Discharge Disposition: Home or Self Care Attending Physician: Vaibhav Jarrett MD Vital Signs No data available for this section Problem List Condition Effective Dates Status Health Status Informan t Acid Active reflux(Confirmed) Anemia(Confirmed) Resolved Anxiety(Confirmed) Active Depression(Confirmed Active ) Toe ulcer due to Active DM(Confirmed) Diabetes mellitus Active type II(Confirmed) Heart Resolved murmur(Confirmed) Hypercholesteremia(C Resolved onfirmed) Hypertension(Confirm Active ed) IBS - Irritable Active bowel syndrome(Confirmed) Neuropathy(Confirmed Active ) Poor circulation of Active extremity(Confirmed) 1 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
--- OUTSIDE RECORDS SUMMARY | 2020-03-06 21:04 | XMS REPORT | Summary of Care ---
Author Author [facility] Organization [facility] Address Unknown Phone Unavailable Encounter ACE Noland(ANNALISE) [id number] Date(s): 03/04/19 - 03/04/19 [facility] [address] [place] [address]- Discharge Disposition: Home or Self Care Attending Physician: Vaibhav Jarrett MD Referring Physician: Vaibhav Jarrett MD Vital Signs Most recent to 1 oldest [Reference Range]: Height 157.48 cm (03/04/19 7:04 AM) Weight 63.636 kg (03/04/19 7:04 AM) Body Mass Index 25.66 m2 (03/04/19 7:04 AM) Problem List Condition Effective Dates Status Health Status Informan t Acid Active reflux(Confirmed) Anemia(Confirmed) Resolved Anxiety(Confirmed) Active Toe ulcer due to Active DM(Confirmed) Diabetes mellitus Active type II(Confirmed) Heart Resolved murmur(Confirmed) Hypercholesteremia(C Resolved onfirmed) Hypertension(Confirm Active ed) IBS - Irritable Active bowel syndrome(Confirmed) Neuropathy(Confirmed Active ) Poor circulation of Active extremity(Confirmed) 1 PAD (peripheral Active artery disease)(Confirmed) 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) UTI - Urinary tract Resolved infection(Confirmed) 1legs Allergies, Adverse Reactions, Alerts Substance Reaction Severity Status contrast media Active (iodine-based) Medications Benadryl 50 mg, 2 tab, Route: PO, Drug form: TAB, ONCE, Dosing Weight 63.636, kg, Priorit y: STAT, Start date: 03/04/19 12:47:00 CDT, Stop date: 03/04/19 12:47:00 CDT, 0 Start Date: 03/04/19 Stop Date: 03/04/19 Status: Completed Imodium A-D EZ Chews 2 mg =, CHEW, BID, PRN as needed for loose stool, 0 Refill(s) Start Date: 03/04/19 Status: Ordered normal saline 0.9% IV 1,000 mL 1,000 mL, Rate: 100 ml/hr, Infuse over: 10 hr, Route: IV, Dosing Weight 63.636 k g, Total Volume: 1,000, Start date: 03/04/19 12:47:00 CDT, Duration: 30 day, Sto p date: 04/03/19 12:46:00 CDT, 1.69, m2, 0 Start Date: 03/04/19 Stop Date: 03/04/19 Status: Discontinued Pepcid 20 mg, 2 mL, Route: IVP, Drug form: INJ, ONCE, Dosing Weight 63.636, kg, Priorit y: STAT, Start date: 03/04/19 12:47:00 CDT, Stop date: 03/04/19 12:47:00 CDT, 0 Notes: (Same as: Pepcid)Can be dilute in 5-10cc NS IVP: Slow IV push over at le ast 2 minutes. Start Date: 03/04/19 Stop Date: 03/04/19 Status: Ordered Solu-MEDROL 125 mg, 2 mL, Route: IVP, Drug form: INJ, ONCE, Dosing Weight 63.636, kg, Priori ty: STAT, Start date: 03/04/19 12:47:00 CDT, Stop date: 03/04/19 12:47:00 CDT, 0 Notes: (Same as:Solu-MEDROL, A-Methapred) Start Date: 03/04/19 Stop Date: 03/04/19 Status: Ordered Xanax 0.5 mg oral tablet 0.5 mg, 1 tab, Route: PO, Drug form: TAB, ONCE, Dosing Weight 63.636, kg, Priori ty: STAT, Start date: 03/04/19 12:47:00 CDT, Stop date: 03/04/19 12:47:00 CDT, 0 Notes: With food or milk(Same as: Xanax) Start Date: 03/04/19 Stop Date: 03/04/19 Status: Completed Results Most recent to 1 oldest [Reference Range]: Neutrophils # 4.5 K/CMM [1.5-8.1 K/CMM] (03/04/19 12:50 PM) Lymphocytes # 4.5 K/CMM [1.0-5.5 K/CMM] (03/04/19 12:50 PM) Monocytes # [0.0-0.8 0.7 K/CMM K/CMM] (03/04/19 12:50 PM) Eosinophils # 0.3 K/CMM [0.0-0.5 K/CMM] (03/04/19 12:50 PM) Basophils # [0.0-0.2 0.1 K/CMM K/CMM] (03/04/19 12:50 PM) eGFR 22 mL/min/1.73m2 1 *NA* (03/04/19 12:50 PM) A/G Ratio [0.7-1.6] 0.5 *LOW* (03/04/19 12:50 PM) Albumin Lvl [3.5-5.0 2.6 g/dL g/dL] *LOW* (03/04/19 12:50 PM) Alk Phos [39-136 103 unit/L unit/L] (03/04/19 12:50 PM) ALT [0-65 unit/L] 15 unit/L (03/04/19 12:50 PM) AGAP [10.0-20.0 13.7 mEq/L mEq/L] (03/04/19 12:50 PM) AST [0-37 unit/L] 13 unit/L (03/04/19 12:50 PM) B/C Ratio [6-25] 21 (03/04/19 12:50 PM) Basophils [0.0-1.0 0.8 % %] (03/04/19 12:50 PM) BUN [7-22 mg/dL] 48 mg/dL *HI* (03/04/19 12:50 PM) Calcium Lvl 9.1 mg/dL [8.5-10.5 mg/dL] (03/04/19 12:50 PM) Chloride Lvl [95-109 111 mEq/L mEq/L] *HI* (03/04/19 12:50 PM) CO2 [24-32 mEq/L] 21 mEq/L *LOW* (03/04/19 12:50 PM) Creatinine Lvl 2.27 mg/dL [0.50-1.40 mg/dL] *HI* (03/04/19 12:50 PM) Eosinophils [0.0-4.0 2.7 % %] (03/04/19 12:50 PM) Globulin [2.7-4.2 4.9 g/dL g/dL] *HI* (03/04/19 12:50 PM) Glucose Lvl [70-99 145 mg/dL mg/dL] *HI* (03/04/19 12:50 PM) Hct [36.0-48.0 %] 31.7 % *LOW* (03/04/19 12:50 PM) Hgb [12.0-16.0 g/dL] 10.4 g/dL *LOW* (03/04/19 12:50 PM) Potassium Lvl 3.7 mEq/L [3.5-5.1 mEq/L] (03/04/19 12:50 PM) Lymphocytes 44.8 % [20.0-40.0 %] *HI* (03/04/19 12:50 PM) MCH [27.0-31.0 pg] 24.6 pg *LOW* (03/04/19 12:50 PM) MCHC [32.0-36.0 32.8 g/dL g/dL] (03/04/19 12:50 PM) MCV [80.0-98.0 fL] 75.1 fL *LOW* (03/04/19 12:50 PM) Microcyte [None 1+ Seen] *ABN* (03/04/19 12:50 PM) Monocytes [2.0-12.0 7.1 % %] (03/04/19 12:50 PM) MPV [7.4-10.4 fL] 7.5 fL (03/04/19 12:50 PM) Sodium Lvl [135-145 142 mEq/L mEq/L] (03/04/19 12:50 PM) Platelet [133-450 397 K/CMM K/CMM] (03/04/19 12:50 PM) Segs [45.0-75.0 %] 44.6 % *LOW* (03/04/19 12:50 PM) Total Protein 7.5 g/dL [6.4-8.4 g/dL] (03/04/19 12:50 PM) RBC [4.20-5.40 4.23 M/CMM M/CMM] (03/04/19 12:50 PM) RDW [11.5-14.5 %] 16.9 % *HI* (03/04/19 12:50 PM) Bili Total [0.2-1.3 0.4 mg/dL mg/dL] (03/04/19 12:50 PM) WBC [3.7-10.4 K/CMM] 10.0 K/CMM (03/04/19 12:50 PM) 1Result Comment: The eGFR is calculated using [...] Procedure Date Related Diagnosis Body Site Status Angiogram 10/26/18 Completed Rotational atherectomy 12/09/16 Completed Colonoscopy 07/2013 Completed Cholecystectomy 2012 Completed Removal of spinal cord lesion 2002 Complete d Tubal ligation 1995 Completed Cataract surgery Completed Tonsillectomy Completed Social History Social History Type Response Alcohol Never Substance Abuse Use: None. Smoking Status Never smoker; Exposure to T obacco Smoke None; Cigarette Smoking Last 365 Days No; Reg Smoking Cessation Counseli ng No entered on: 03/04/19 Assessment and Plan No data available for this section
--- OUTSIDE RECORDS SUMMARY | 2020-03-06 21:04 | XMS REPORT | Summary of Care ---
Author Author [facility] Organization [facility] Address Unknown Phone Unavailable Encounter ACE Noland(ANNALISE) [id number] Date(s): 11/30/18 - 12/01/18 [facility] [address] [place] [address]- Discharge Disposition: Home or Self Care Attending Physician: Vaibhav Jarrett MD Referring Physician: Vaibhav Jarrett MD Vital Signs 1 2 3 Most recent to oldest [Reference Range]: 157.48 cm (11/26/18 12:54 PM) Height 98.5 DegF (12/01/18 7:33 AM) 98.7 DegF (12/01/18 3:12 AM) 97.7 DegF (11/30/18 11:09 PM) Temperature Oral [96.4-99.1 DegF] 90/56 mmHg (12/01/18 7:33 AM) 126/62 mmHg (12/01/18 3:12 AM) 123/68 mmHg (11/30/18 11:09 PM) Blood Pressure [90-140/60-90 mmHg] 18 BRMIN (12/01/18 7:33 AM) 16 BRMIN (12/01/18 3:12 AM) 18 BRMIN (11/30/18 11:09 PM) Respiratory Rate [14-20 BRMIN] 72 bpm (12/01/18 7:33 AM) 71 bpm (12/01/18 3:12 AM) 65 bpm (11/30/18 11:09 PM) Peripheral Pulse Rate [60-100 bpm] 61.364 kg (11/26/18 12:54 PM) Weight 24.74 m2 (11/26/18 12:54 PM) Body Mass Index Problem List Condition [...] Resolved infection(Confirmed) 1legs Allergies, Adverse Reactions, Alerts No Known Medication Allergies Medications *Please bring pt's own mesalamine to pharmacy for label* *Please bring pt's own mesalamine to pharmacy for label*, ATTN:MARTIN, Drug form: IA SC, Route: MISC, QSHIFT, 11/30/18 16:00:00 CDT, Duration: 30 day, Stop date: 8:00:00 CDT Start Date: 11/30/18 Stop Date: 12/01/18 Status: Discontinued acetaminophen-hydrocodone 325 mg-5 mg oral tablet 1 tab, Route: PO, Drug Form: TAB, Dosing Weight 61.364, kg, Q4H, PRN Pain Score 4-6, Start date: 11/30/18 15:24:00 CDT, Duration: 30 day, Stop date: 12/30/18 15 :23:00 CDT Notes: (Same as: [place] 325/5) Do not exceed 4gm/day of acetaminophen. Start Date: 11/30/18 Stop Date: 12/01/18 Status: Discontinued acetaminophen-hydrocodone 325 mg-5 mg oral tablet 2 tab, Route: PO, Drug Form: TAB, Dosing Weight 61.364, kg, Q4H, PRN Pain Score 7-10, Start date: 11/30/18 15:24:00 CDT, Duration: 30 day, Stop date: 12/30/18 1 5:23:00 CDT Notes: (Same as: [place] 325/5) Do not exceed 4gm/day of acetaminophen. Start Date: 11/30/18 Stop Date: 12/01/18 Status: Discontinued ALIVE MULTIVITAMIN FOR WOMEN ALIVE MULTIVITAMIN FOR WOMEN, 1 tablet, Refill(s) 0 Start Date: 11/30/18 Status: Ordered aspirin 81 mg tablet, enteric coated 81 mg, 1 tab, Route: PO, Drug form: ECTAB, Daily, Dosing Weight 61.364, kg, Star t date: 11/30/18 17:00:00 CDT, Duration: 30 day, Stop date: 12/30/18 9:00:00 CDT Notes: Do not crush or chew.(Same As: Ecotrin) Start Date: 11/30/18 Stop Date: 12/01/18 Status: Discontinued atorvastatin 10 mg, 1 tab, Route: PO, Drug form: TAB, Bedtime, Dosing Weight 61.364, kg, Star t date: 11/30/18 21:00:00 CDT, Duration: 30 day, Stop date: 12/29/18 21:00:00 CD T Notes: (Same As: Lipitor) Start Date: 11/30/18 Stop Date: 12/01/18 Status: Discontinued Benicar 40 mg, 2 tab, Route: PO, Drug form: TAB, Daily, Start date: 12/01/18 9:00:00 CDT , Duration: 30 day, Stop date: 12/30/18 9:00:00 CDT Start Date: 12/01/18 Stop Date: 12/01/18 Status: Discontinued buPROPion 150 mg, PO, Daily, 0 Refill(s) Start Date: 11/30/18 Status: Ordered buPROPion 150 mg, 1 tab, Route: PO, Drug form: ERTAB, Daily, Dosing Weight 61.364, kg, Sta rt date: 12/01/18 9:00:00 CDT, Duration: 30 day, Stop date: 12/30/18 9:00:00 CDT Notes: (Same as: Wellbutrin XL)"Do Not Crush" Start Date: 12/01/18 Stop Date: 12/01/18 Status: Discontinued Bystolic 10 mg, 1 tab, Route: PO, Drug form: TAB, Daily, Dosing Weight 61.364, kg, Start date: 12/01/18 9:00:00 CDT, Duration: 30 day, Stop date: 12/30/18 9:00:00 CDT Notes: (same as: Bystolic) Start Date: 12/01/18 Stop Date: 12/01/18 Status: Discontinued Bystolic 10 mg oral tablet 10 mg = 1 tab, PO, Daily, 0 Refill(s) Start Date: 11/26/18 Status: Ordered citalopram 20 mg, 2 tab, Route: PO, Drug form: TAB, Daily, Dosing Weight 61.364, kg, Start date: 12/01/18 9:00:00 CDT, Duration: 30 day, Stop date: 12/30/18 9:00:00 CDT Start Date: 12/01/18 Stop Date: 12/01/18 Status: Discontinued citalopram 20 mg oral tablet 20 mg = 1 tab, PO, Daily, 0 Refill(s) Start Date: 11/30/18 Status: Ordered clopidogrel 75 mg, 1 tab, Route: PO, Drug form: TAB, Daily, Dosing Weight 61.364, kg, Start date: 12/01/18 9:00:00 CDT, Duration: 30 day, Stop date: 12/30/18 9:00:00 CDT Notes: (Same As: Plavix) Start Date: 12/01/18 Stop Date: 12/01/18 Status: Discontinued Dextrose 50% Syringe 12.5 gm, 25 mL, Route: IVP, Drug Form: INJ, Dosing Weight 61.364, kg, PRN, PRN B lood Glucose Results, Start date: 11/30/18 15:27:00 CDT, Duration: 30 day, Stop date: 12/30/18 15:26:00 CDT Start Date: 11/30/18 Stop Date: 12/01/18 Status: Discontinued Dextrose 50% Syringe 25 gm, 50 mL, Route: IVP, Drug Form: INJ, Dosing Weight 61.364, kg, PRN, PRN Blo od Glucose Results, Start date: 11/30/18 15:27:00 CDT, Duration: 30 day, Stop da te: 12/30/18 15:26:00 CDT Start Date: 11/30/18 Stop Date: 12/01/18 Status: Discontinued diphenhydrAMINE 25 mg, 1 tab, Route: PO, Drug form: TAB, Bedtime, Dosing Weight 61.364, kg, PRN Insomnia, Start date: 11/30/18 15:24:00 CDT, Duration: 30 day, Stop date: 15:23:00 CDT Start Date: 11/30/18 Stop Date: 12/01/18 Status: Discontinued glucagon 1 mg, Route: IM, Drug form: PDR/INJ, PRN, Dosing Weight 61.364, kg, PRN Blood Gl ucose Results, Start date: 11/30/18 15:27:00 CDT, Duration: 30 day, Stop date: 0 12/30/18 15:26:00 CDT Start Date: 11/30/18 Stop Date: 12/01/18 Status: Discontinued hydrALAZINE 20 mg, 1 mL, Route: IV, Drug form: INJ, Q4H, Dosing Weight 61.364, kg, PRN Hyper tension, Start date: 11/30/18 20:29:00 CDT, Duration: 30 day, Stop date: 20:28:00 CDT Notes: (Same as: Apresoline)Push over 5 minutes Start Date: 11/30/18 Stop Date: 12/01/18 Status: Discontinued hydrochlorothiazide 25 mg oral tablet 25 mg, 1 tab, Route: PO, Drug form: TAB, Daily, Start date: 12/01/18 9:00:00 CDT , Duration: 30 day, Stop date: 12/30/18 9:00:00 CDT Notes: (Same as: Hydrodiuril) With food. Start Date: 12/01/18 Stop Date: 12/01/18 Status: Discontinued hydrochlorothiazide-olmesartan 25 mg-40 mg oral tablet 1 tab, Route: PO, Drug Form: TAB, Dosing Weight 61.364, kg, Daily, Start date: 0 12/01/18 9:00:00 CDT, Duration: 30 day, Stop date: 12/30/18 9:00:00 CDT Start Date: 12/01/18 Stop Date: 11/30/18 Status: Deleted hyoscyamine 0.125 mg, 1 tab, Route: PO, Drug form: TAB, QID, Dosing Weight 61.364, kg, Start date: 11/30/18 17:00:00 CDT, Duration: 30 day, Stop date: 12/30/18 13:00:00 CDT Notes: (Same as: Levsin) Take 30 min before meal Start Date: 11/30/18 Stop Date: 12/01/18 Status: Discontinued hyoscyamine 0.125 mg oral tablet 0.125 mg = 1 tab, PO, QID, 0 Refill(s) Start Date: 11/26/18 Status: Ordered insulin glargine 10 unit, 0.1 mL, Route: SUB-Q, Drug form: SOLN, Daily, Dosing Weight 61.364, kg, Start date: 12/01/18 9:00:00 CDT, Duration: 30 day, Stop date: 12/30/18 9:00:00 CDT Notes: (Same as: Lantus)Do not hold insulin without contacting prescriberWASTE: F/P - Black; E - Municipal Trash Bin"single patient use only"Stable for 28 days at room temperature Expires in days from Date Start Date: 12/01/18 Stop Date: 12/01/18 Status: Discontinued insulin lispro 10 unit, 0.1 mL, Route: SUB-Q, Drug form: SOLN, TID-Before Meals, Dosing Weight 61.364, kg, Start date: 11/30/18 16:30:00 CDT, Duration: 30 day, Stop date: 12/18 10/05 11:30:00 CDT Notes: (Same as: Humalog) Roll in palms of hands gently; Do not shake vigorously . WASTE: F/P - Black; E - Municipal Trash BinStable for 28 days at room [facility].Expires in days from Date Start Date: 11/30/18 Stop Date: 12/01/18 Status: Discontinued insulin lispro 10 unit, 0.1 mL, Route: SUB-Q, Drug form: SOLN, TID-Before Meals, Dosing Weight 61.364, kg, PRN Blood Glucose Results, Start date: 11/30/18 15:27:00 CDT, Durati on: 30 day, Stop date: 12/30/18 15:26:00 CDT Notes: (Same as: Humalog) Roll in palms of hands gently; Do not shake vigorously . WASTE: F/P - Black; E - Municipal Trash BinStable for 28 days at room [facility].Expires in days from Date Start Date: 11/30/18 Stop Date: 12/01/18 Status: Discontinued insulin lispro 8 unit, 0.08 mL, Route: SUB-Q, Drug form: SOLN, TID-Before Meals, Dosing Weight 61.364, kg, PRN Blood Glucose Results, Start date: 11/30/18 15:27:00 CDT, Durati on: 30 day, Stop date: 12/30/18 15:26:00 CDT Notes: (Same as: Humalog) Roll in palms of hands gently; Do not shake vigorously . WASTE: F/P - Black; E - Municipal Trash BinStable for 28 days at room tempera ture.Expires in days from Date Start Date: 11/30/18 Stop Date: 12/01/18 Status: Discontinued insulin lispro 6 unit, 0.06 mL, Route: SUB-Q, Drug form: SOLN, TID-Before Meals, Dosing Weight 61.364, kg, PRN Blood Glucose Results, Start date: 11/30/18 15:27:00 CDT, Durati on: 30 day, Stop date: 12/30/18 15:26:00 CDT Notes: (Same as: Humalog) Roll in palms of hands gently; Do not shake vigorously . WASTE: F/P - Black; E - Municipal Trash BinStable for 28 days at room tempera ture.Expires in days from Date Start Date: 11/30/18 Stop Date: 12/01/18 Status: Discontinued insulin lispro 4 unit, 0.04 mL, Route: SUB-Q, Drug form: SOLN, TID-Before Meals, Dosing Weight 61.364, kg, PRN Blood Glucose Results, Start date: 11/30/18 15:27:00 CDT, Durati on: 30 day, Stop date: 12/30/18 15:26:00 CDT Notes: (Same as: Humalog) Roll in palms of hands gently; Do not shake vigorously . WASTE: F/P - Black; E - Municipal Trash BinStable for 28 days at room [facility].Expires in days from Date Start Date: 11/30/18 Stop Date: 12/01/18 Status: Discontinued insulin lispro 2 unit, 0.02 mL, Route: SUB-Q, Drug form: SOLN, TID-Before Meals, Dosing Weight 61.364, kg, PRN Blood Glucose Results, Start date: 11/30/18 15:27:00 CDT, Durati on: 30 day, Stop date: 12/30/18 15:26:00 CDT Notes: (Same as: Humalog) Roll in palms of hands gently; Do not shake vigorously . WASTE: F/P - Black; E - Municipal Trash BinStable for 28 days at room [facility].Expires in days from Date Start Date: 11/30/18 Stop Date: 12/01/18 Status: Discontinued Lasix 40 mg oral tablet 40 mg, 1 tab, Route: PO, Drug form: TAB, Daily, Dosing Weight 61.364, kg, Start date: 12/01/18 9:00:00 CDT, Duration: 30 day, Stop date: 12/30/18 9:00:00 CDT Notes: (Same as: Lasix) May cause GI upset. Give with food or milk. Start Date: 12/01/18 Stop Date: 12/01/18 Status: Discontinued mesalamine 1.2 g oral enteric coated tablet 2.4 gm, 2 tab, Route: PO, Drug form: ECTAB, BID, Dosing Weight 61.364, kg, Start date: 11/30/18 17:00:00 CDT, Duration: 30 day, Stop date: 12/30/18 9:00:00 CDT Start Date: 11/30/18 Stop Date: 12/01/18 Status: Discontinued morphine Sulfate 2 mg, 0.5 mL, Route: IVP, Drug form: SOLN, Q2H, Dosing Weight 61.364, kg, PRN Pa in Score 4-6, Start date: 11/30/18 15:24:00 CDT, Duration: 30 day, Stop date: 15:23:00 CDT Notes: (Same as:MORPhine Sulfate) Start Date: 11/30/18 Stop Date: 12/01/18 Status: Discontinued morphine Sulfate 4 mg, 1 mL, Route: IVP, Drug form: SOLN, Q2H, Dosing Weight 61.364, kg, PRN Pain Score 7-10, Start date: 11/30/18 15:24:00 CDT, Duration: 30 day, Stop date: 15:23:00 CDT Notes: (Same as:MORPhine Sulfate) Start Date: 11/30/18 Stop Date: 12/01/18 Status: Discontinued nitroglycerin SL Tab 0.4 mg, 1 tab, Route: SL, Drug form: TAB, Q5Min, Dosing Weight 61.364, kg, PRN C hest Pain, Start date: 11/30/18 15:24:00 CDT, Duration: 3 doses or times, Stop d ate: Limited # of times Notes: (Same as:Nitroquick, Nitrostat)"Do Not Crush" Sublingual tablet Start Date: 11/30/18 Stop Date: 12/01/18 Status: Discontinued ondansetron 4 mg, 1 tab, Route: PO, Drug form: TAB, Q8H, Dosing Weight 61.364, kg, PRN Nause a & Vomiting, Start date: 11/30/18 15:24:00 CDT, Duration: 30 day, Stop date: 12/30/18 15:23:00 CDT Notes: (Same as: Zofran) Start Date: 11/30/18 Stop Date: 12/01/18 Status: Discontinued Sodium Chloride 0.9% (Bolus) IV 250 mL, 250 ml/hr, Infuse Over: 1 hr, Route: IV, 250, Drug form: INJ, ONCE, Dosi ng Weight 61.364 kg, Start date: 11/30/18 15:24:00 CDT, Stop date: 11/30/18 15:2 4:00 CDT Start Date: 11/30/18 Stop Date: 11/30/18 Status: Completed Sodium Chloride 0.9% IV 750 mL 750 mL, Rate: 75 ml/hr, Infuse over: 10 hr, Route: IV, Dosing Weight 61.364 kg, Total Volume: 750, Start date: 11/30/18 15:24:00 CDT, Duration: 10 hr, Stop date : 12/01/18 1:23:00 CDT, 1.66, m2 Start Date: 11/30/18 Stop Date: 12/01/18 Status: Completed Tums 500 mg, 1 tab, Route: CHEW, Drug form: CHEWTAB, BID, Dosing Weight 61.364, kg, S tart date: 11/30/18 17:00:00 CDT, Duration: 30 day, Stop date: 12/30/18 9:00:00 CDT Notes: (Same As: Tums)Calcium Carbonate 500 mg = 200 mg elemental calcium Dose = mg calcium carbonate ( mg elemental calcium) Start Date: 11/30/18 Stop Date: 12/01/18 Status: Discontinued Results Most recent to 1 2 oldest [Reference Range]: Neutrophils # 5.7 K/CMM [1.5-8.1 K/CMM] (11/26/18 1:14 PM) Lymphocytes # 3.4 K/CMM [1.0-5.5 K/CMM] (11/26/18 1:14 PM) Monocytes # [0.0-0.8 0.6 K/CMM K/CMM] (11/26/18 1:14 PM) Eosinophils # 0.2 K/CMM [0.0-0.5 K/CMM] (11/26/18 1:14 PM) Basophils # [0.0-0.2 0.1 K/CMM K/CMM] (11/26/18 1:14 PM) eGFR 21 mL/min/1.73m2 1 26 mL/min/1.73m2 2 *NA* *NA* (12/01/18 3:11 AM) (11/26/18 1:14 PM) A/G Ratio [0.7-1.6] 0.5 *LOW* (11/26/18 1:14 PM) Albumin Lvl [3.5-5.0 2.8 g/dL g/dL] *LOW* (11/26/18 1:14 PM) Alk Phos [39-136 143 unit/L unit/L] *HI* (11/26/18 1:14 PM) ALT [0-65 unit/L] 23 unit/L (11/26/18 1:14 PM) AGAP [10.0-20.0 11.6 mEq/L 11.0 mEq/L mEq/L] (12/01/18 3:11 AM) (11/26/18 1:14 PM) AST [0-37 unit/L] 21 unit/L (11/26/18:14 PM) B/C Ratio [6-25] 21 (11/26/18: PM) Basophils [0.0-1.0 0.6 % %] (11/26/18:14 PM) BUN [7-22 mg/dL] 58 mg/dL 42 mg/dL *HI* *HI* (12/01/18 3:11 AM) (11/26/18: PM) Calcium Lvl 8.8 mg/dL 9.4 mg/dL [8.5-10.5 mg/dL] (12/01/18 3:11 AM) (11/26/18: PM) Chloride Lvl [95-109 108 mEq/L 105 mEq/L mEq/L] (12/01/18 3:11 AM) (11/26/18 1:14 PM) CO2 [24-32 mEq/L] 24 mEq/L 25 mEq/L (12/01/18 3:11 AM) (11/26/18:14 PM) Creatinine Lvl 2.32 mg/dL 1.98 mg/dL [0.50-1.40 mg/dL] *HI* *HI* (12/01/18 3:11 AM) (11/26/18:14 PM) Eosinophils [0.0-4.0 2.3 % %] (11/26/18 1:14 PM) Globulin [2.7-4.2 5.1 g/dL g/dL] *HI* (11/26/18: PM) Glucose Lvl [70-99 236 mg/dL 213 mg/dL mg/dL] *HI* *HI* (12/01/18 3:11 AM) (11/26/18:14 PM) Hct [36.0-48.0 %] 33.5 % 37.2 % *LOW* (11/26/18 1:14 PM) (12/01/18 3:11 AM) Hgb [12.0-16.0 g/dL] 10.3 g/dL 11.7 g/dL *LOW* *LOW* (12/01/18 3:11 AM) (11/26/18 1:14 PM) Potassium Lvl 4.6 mEq/L 5.0 mEq/L [3.5-5.1 mEq/L] (12/01/18 3:11 AM) (11/26/18 1:14 PM) Lymphocytes 33.8 % [20.0-40.0 %] (11/26/18: PM) MCH [27.0-31.0 pg] 23.8 pg 24.2 pg *LOW* *LOW* (12/01/18 3:11 AM) (11/26/18:14 PM) MCHC [32.0-36.0 30.8 g/dL 31.5 g/dL g/dL] *LOW* *LOW* (12/01/18 3:11 AM) (11/26/18 1:14 PM) MCV [80.0-98.0 fL] 77.2 fL 76.9 fL *LOW* *LOW* (12/01/18 3:11 AM) (11/26/18: PM) Microcyte [None 1+ Seen] *ABN* (11/26/18: PM) Monocytes [2.0-12.0 6.2 % %] (11/26/18 1:14 PM) MPV [7.4-10.4 fL] 7.7 fL 7.7 fL (12/01/18 3:11 AM) (11/26/18:14 PM) Sodium Lvl [135-145 139 mEq/L 136 mEq/L mEq/L] (12/01/18 3:11 AM) (11/26/18 1:14 PM) Platelet [133-450 313 K/CMM 367 K/CMM K/CMM] (12/01/18 3:11 AM) (11/26/18 1:14 PM) Segs [45.0-75.0 %] 57.1 % (5/10/19 1:14 PM) Total Protein 7.9 g/dL [6.4-8.4 g/dL] (11/26/18 1:14 PM) RBC [4.20-5.40 4.34 M/CMM 4.84 M/CMM M/CMM] (12/01/18 3:11 AM) (11/26/18 1:14 PM) RDW [11.5-14.5 %] 15.3 % 15.1 % *HI* *HI* (12/01/18 3:11 AM) (11/26/18 1:14 PM) Bili Total [0.2-1.3 0.3 mg/dL mg/dL] (11/26/18 1:14 PM) WBC [3.7-10.4 K/CMM] 11.2 K/CMM 9.9 K/CMM *HI* (11/26/18 1:14 PM) (12/01/18 3:11 AM) 1Result Comment: The eGFR is calculated [...] be mul tiplied by the estimated BMI. 2Result Comment: The eGFR is calculated using the [...] History Social History Type Response Substance Abuse Use: None. Alcohol Never Smoking Status Never smoker; Exposure to T obacco Smoke None; Cigarette Smoking Last 365 Days No; Reg Smoking Cessation Counseli ng No entered on: 11/26/18 Assessment and Plan No data available for this section
--- OUTSIDE RECORDS SUMMARY | 2020-03-06 21:05 | XMS REPORT | Continuity of Care Document ---
Author Author [facility] t Organization [facility] Address [address] [place] [address] Phone Unavailable Care Team Providers Care Developer Programmer Analyst Name Role Phone Eric OCASIO Attphys Unavailable Wilfrido Jarrett Attphys MIKE BAL Attphys Unavailable Harish Bowden Attphys Payers Payer Name Policy Type Policy Number Effective Date Expiration Date S ource Problems Condition Name Condition Details Condition Category Status Onset Date Resolution Date Last Treatment Date Treating Clinician Comments Source PERIPHERAL GERRI PHERAL Active 02/24/2019 [facility] Diagnosis Active 2019-02-24 00:00:00 2019-03-10 14:14:00 Marquez Clinton PERIPHERAL ANGIOGRAM /C INTERVENSION PERIPHERAL ANGIOGRAM /C INTERVENSION Active 11/09/2018 [facility] Diagnosis Ac tive 2018-11-09 00:00:00 2018-11-30 17:32:00 M faby Clinton DX: K29.70=GASTRITIS, UNSPECIFIED, WITHO DX: K29.70=GASTRITIS, UNSPECIFIED, WITHO Active 10/08/2018 [facility] Active 2018-10-08 00:00:00 2018-11-15 15:53:00 Marquez Clinton PERIPHERAL ANGIOGRAM /C INTERVENTION PERIPHERAL ANGIOGRAM /C INTERVENTION Active 09/23/2018 [facility] Diagnosis Ac tive 2018-09-23 00:00:00 2018-10-26 06:09:00 [facility] UNK UNK Active 12/05/2016 [facility] Diagnosis Active 2016-12-05 00:00:00 2016-12-10 10:07:00 [facility] V[facility].51 787.99 V76. 51 787.99 Active 01/18/2015 [facility] Diagnosis Active 2015-01-18 00:00:00 2015-02-06 12:31:00 [facility] 250.00-DIAB TYPE 2/401.9-HYPERTENSION/78 250.00-DIAB TYPE 2/401.9-HYPERTENSION/78 Active 04/14/2014 [facility] Diagnosis A ctive 2014-04-14 00:00:00 2014 08:04:[facility] Anemia (disorder) Anem ia (disorder) [facility] 2019-03-06 21:58:03 [facility] Heart murmur (finding) Hear t murmur (finding) Resolved Problem 03/06[facility]2019 [facility] Resolved 2019-03-06 21:58:03 [facility] Hypercholesterolemia (disorder) Hypercholesterolemia (disorder) Resolved Problem 03/06/2019 [facility] Resolved 2019-03-06 21:58:03 [facility] Urinary tract infectious disease (disorder) Urinary tract infectious disease (disorder) Resolved Problem 03/06/2019 [facility] Resolved 2019-03-06 21:58:03 [facility] Depression - motion (qualifier value) Depression - motion (qualifier value) Active Problem 06/21/2017 [facility] Active 2017-06-21 02:10:55 [facility] Gastroesophageal reflux disease (disorder) Gastroesophageal reflux disease (disorder) Active Problem 03/06/2019 [facility] Active 2019-03-06 21:58:03 [facility] Anxiety (finding) Anxi ety (finding) Active Problem 03/06/2019 [facility] Active 2019-03-06 21:58:03 [facility] Diabetes mellitus (disorder) D iabetes mellitus (disorder) Active Problem 03/06/2019 [facility] Active 2019-03-06 21:58:03 [facility] Diabetes mellitus type 2 (disorder) Diabetes mellitus type 2 (disorder) Active Problem 03/06/2019 [facility] Active 2019-03-06 21:58:03 Yisel Clinton Hypertensive disorder, systemic arterial (disorder) Hypertensive disorder, systemic arterial (disorder) Active Problem 03/06/2019 [facility] Active 2019-03-06 21:58:03 Marquez Clinton Irritable colon (disorder) Irr itable colon (disorder) Active Problem 03/06/2019 CELESTINA Nugent [facility] Problem Active 2019-03-06 21:58:03 Marquez Clinton Neuropathy (disorder) Neur opathy (disorder) Active Problem 03/06/2019 [facility] Active 2019-03-06 21:58:03 Marquez Clinton Peripheral vascular disease (disorder) Peripheral vascular disease (disorder) Active Problem 03/06/2019 [facility] Active 2019-03-06 21:58:03 Christiano Clinton changes in bowel habits(Confirmed) changes in bowel habits(Confirmed) Active Problem 04/21/2014 [facility] Problem Active 2014-04-21 22:04:05 [facility] Oz SCREEN MALIG NEOP-COLON SCRE EN MALIG NEOP-COLON Active [facility] Diagnosis Active 2015-02-06 12:31:00 Maruqez Clinton DIGESTVE SYST SYMPTM NEC DIGE STVE SYST SYMPTM NEC Active [facility] Diagnosis Active 2015-02-06 12:31:00 Marquez Clinton History of Past Illness Condition Name Condition Details Condition Category Status Onset Date Resolution Date Last Treatment Date Treating Clinician Comments Source 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 Problem 03/06/2019 [facility] Resolved 2002-07-20 00:00:00 2019-03-06 21:58:03 2 21:58:03 Marquez Clinton Allergies, Adverse Reactions, Alerts Allergy Name Allergy Type Status Severity Reaction(s) Onset Date Inacti ve Date Treating Clinician Comments Source No Known Allergies DA Active U 2019-02-01 00:00:00 [facility] No Known Allergies DA Active U 2018-07-10 00:00:00 [facility] No Known Allergies DA Active U 2018-02-01 00:00:00 [facility] contrast media (iodine-based) contrast media (iodine-based) Active Marquez Clinton No Known Medication Allergies No Known Medication Allergies Active Marquez Clinton Social History Social Habit Start Date Stop Date Quantity Comments Source Social History 2013-07-19 18:03:47 2013-07-19 18:03:47 Marquez Clinton Medications Ordered Medication Name Filled Medication Name Start Date Stop Da te Current Medication? Ordering Clinician Indication Dosage Frequency Signature (SIG) Comments Components Source Alprazolam 0.5 MG Oral Tablet [Xanax] 2019-03-04 17:47:00 N o Notes: With food or milk (Same as: Xanax) Yisel Clinton Benadryl 2019-03-04 17:47:00 No 50 mg, 2 tab, Route: PO, Drug form: TAB, ONCE, Dosing Weight 63.636, kg, Priority: STAT, Start date: 03/04/19 12:47:00 CDT, Stop date: 03/04/19 12:47:00 CDT, 0 Marquez Clinton Pepcid 2019-03-04 17:47:00 Yes Notes: (Same as: Pepcid) Can be dilute in 5-10cc NS IVP: Slow IV push over at least 2 minutes. Marquez Clinton Solu-Medrol 2019-03-04 17:47:00 Yes Notes: (Same as:Solu-MEDROL, A-Methapred) Marquez Clinton normal saline 0.9% IV 1,000 mL 2019-03-04 17:47:00 No 1,000 mL, Rate: 100 ml/hr, Infuse over: 10 hr, Route: IV, Dosing Weight 63.636 kg, Total Volume: 1,000, Start date: 03/04/19 12:47:00 CDT, Duration: 30 day, Stop date: 04/03/19 12:46:00 CDT, 1.69, m2, 0 Yisel Clinton Imodium A-D EZ Chews 2019-03-04 12:02:00 Yes 2 mg =, CHEW, BID, PRN as needed for loose stool, 0 Refill(s) Armen Clinton Insulin Glargine 2018-12-01 14:00:00 No Notes: (Same as: Lantus) Do not hold insulin without contacting prescriber WASTE: F/P - Black; E - Municipal Trash Bin "single patient use only" Stable for 28 days at room temperature Expires in days from Date Marquez Wing 2018-12-01 14:00:00 No Notes: (clark e as: [facility]) Marquez Clinton hydrochlorothiazide 25 mg oral tablet 2018-12-01 14:00:00 N o Notes: (Same as: Hydrodiuril) With food. Yisel brown Oz Furosemide 40 MG Oral Tablet [Lasix] 2018-12-01 14:00:00 No Notes: (Same as: Lasix) May cause GI upset. Give with food or milk. aMrquez Clinton Hydrochlorothiazide 25 MG / Olmesartan medoxomil 40 MG Oral Tablet 2018-12-01 14:00:00 No 1 tab, Rou te: PO, Drug Form: TAB, Dosing Weight 61.364, kg, Daily, Start date: 12/01/18 9:00:00 CDT, Duration: 30 day, Stop date: 12/30/18 9:00:00 CDT [facility] clopidogrel 2018-12-01 14:00:00 No Notes: ( Same As: Plavix) [facility] Citalopram 2018-12-01 14:00:00 No 20 mg, 2 tab, Route: PO, Drug form: TAB, Daily, Dosing Weight 61.364, kg, Start date: 12/01/18 9:00:00 CDT, Duration: 30 day, Stop date: 12/30/18 9:00:00 CDT [facility] Bupropion 2018-12-01 14:00:00 No Notes: (Same as: Wellbutrin XL) "Do Not Crush" [facility] Benicar 2018-12-01 14:00:00 No 40 mg, 2 tab, Route: PO, Drug form: TAB, Daily, Start date: 12/01/18 9:00:00 CDT, Duration: 30 day, Stop date: 12/30/18 9:00:00 CDT [facility] atorvastatin 2018-12-01 02:00:00 No Notes: (Same As: Lipitor) [facility] Hydralazine 2018-12-01 01:29:00 No Notes: (Same as: Apresoline) Push over 5 minutes Marquez Clinton mesalamine 1200 MG Enteric Coated Tablet 2018-11-30 22:00:00 No 2.4 gm, 2 tab, Route: PO, Drug form: ECTAB, BID, Dosing Weight 61.364, kg, Start date: 11/30/18 17:00:00 CDT, Duration: 30 day, Stop date: 12/30/18 9:00:00 CDT Marquez Clinton Hyoscyamine 2018-11-30 22:00:00 No Notes: (Same as: Levsin) Take 30 min before meal Marquez Clinton Tums 2018-11-30 22:00:00 No Notes: (Same As: Tums) Calcium Carbonate 500 mg = 200 mg elemental calcium Dose = mg calcium carbonate ( mg elemental calcium) Marquez Clinton Aspirin 81 MG Enteric Coated Tablet 2018-11-30 22:00:00 No Notes: Do not crush or chew. (Same As: Ecotrin) Armen emoririssa Clinton Insulin Lispro 2018-11-30 21:30:00 No Notes: (Same as: Humalog) Roll in palms of hands gently; Do not shake vigorously. WASTE: F/P - Black; E - Municipal Trash Bin Stable for 28 days at room temperature. Expires in days from Date [facility] Blaine tierra *Please bring pt's own mesalamine to pharmacy for label* 2018-11-30 21:00:00 No *Please bring pt's own mesalamine to pharmacy for label*, ATTN:MARTIN, Drug form: MISC, Route: MISC, QSHIFT, 11/30/18 16:00:00 CDT, Duration: 30 day, Stop date: 12/30/18 8:00:00 CDT [facility] Oz Insulin Lispro 2018-11-30 20:27:00 No Notes: (Same as: Humalog) Roll in palms of hands gently; Do not shake vigorously. WASTE: F/P - Black; E - Municipal Trash Bin Stable for 28 days at room temperature. Expires in days from Date [facility] Glucagon 2018-11-30 20:27:00 No 1 mg, Route: IM, Drug form: PDR/INJ, PRN, Dosing Weight 61.364, kg, PRN Blood Glucose Results, Start date: 11/30/18 15:27:00 CDT, Duration: 30 day, Stop date: 12/30/18 15:26:00 CDT [facility] Dextrose 50% Syringe 2018-11-30 20:27:00 No 12.5 gm, 25 mL, Route: IVP, Drug Form: INJ, Dosing Weight 61.364, kg, PRN, PRN Blood Glucose Results, Start date: 11/30/18 15:27:00 CDT, Duration: 30 day, Stop date: 12/30/18 15:26:00 CDT [facility] Acetaminophen 325 MG / Hydrocodone Bitartrate 5 MG Oral Tabl et 2018-11-30 20:24:00 No Notes: (Sa me as: [place] 325/5) Do not exceed 4gm/day of acetaminophen. [facility] Morphine 2018-11-30 20:24:00 No Not es: (Same as:MORPhine Sulfate) [facility] Ondansetron 2018-11-30 20:24:00 No Notes: ( Same as: Zofran) [facility] Diphenhydramine 2018-11-30 20:24:00 No 25 mg, 1 tab, Route: PO, Drug form: TAB, Bedtime, Dosing Weight 61.364, kg, PRN Insomnia, Start date: 11/30/18 15:24:00 CDT, Duration: 30 day, Stop date: 12/30/18 15:23:00 CDT [facility] Nitroglycerin 2018-11-30 20:24:00 No Notes: (Same as:Nitroquick, Nitrostat) "Do Not Crush" Sublingual tablet [facility] Sodium Chloride 0.9% IV 750 mL 2018-11-30 20:24:00 No 750 mL, Rate: 75 ml/hr, Infuse over: 10 hr, Route: IV, Dosing Weight 61.364 kg, Total Volume: 750, Start date: 11/30/18 15:24:00 CDT, Duration: 10 hr, Stop date: 12/01/18 1:23:00 CDT, 1.66, m2 [facility] Sodium Chloride 0.9% (Bolus) IV 2018-11-30 20:24:00 No 250 mL, 250 ml/hr, Infuse Over: 1 hr, Route: IV, 250, Drug form: INJ, ONCE, Dosing Weight 61.364 kg, Start date: 11/30/18 15:24:00 CDT, Stop date: 11/30/18 15:24:00 CDT [facility] citalopram 20 mg oral tablet 2018-11-30 19:22:00 Yes 20 mg = 1 tab, PO, Daily, 0 Refill(s) [facility] Bupropion 2018-11-30 19:22:00 Yes 15 0 mg, PO, Daily, 0 Refill(s) [facility] ALIVE MULTIVITAMIN FOR WOMEN 2018-11-30 19:22:00 Yes ALIVE MULTIVITAMIN FOR WOMEN, 1 tablet, Refill(s) 0 [facility] hyoscyamine 0.125 mg oral tablet 2018-11-26 17:59:00 Yes 0.125 mg = 1 tab, PO, QID, 0 Refill(s) [facility] nebivolol 10 MG Oral Tablet [Bystolic] 2018-11-26 17:56:00 Yes 10 mg = 1 tab, PO, Daily, 0 Refill(s) [facility] [place] Morphine 2018-10-26 16:20:00 No Not es: (Same as:MORPhine Sulfate) [facility] Acetaminophen 325 MG / Hydrocodone Bitartrate 5 MG Oral Tabl et 2018-10-26 16:20:00 No Notes: (Sa me as: [place] 325/5) Do not exceed 4gm/day of acetaminophen. [facility] Nitroglycerin 2018-10-26 16:20:00 No Notes: (Same as:Nitroquick, Nitrostat) "Do Not Crush" Sublingual tablet [facility] Sodium Chloride 0.9% IV 750 mL 2018-10-26 16:20:00 No 750 mL, Rate: 75 ml/hr, Infuse over: 10 hr, Route: IV, Dosing Weight 65.909 kg, Total Volume: 750, Start date: 10/26/18 11:20:00 CDT, Duration: 10 hr, Stop date: 10/26/18 21:19:00 CDT, 1.72, m2 [facility] clopidogrel 75 mg oral tablet 2018-10-26 16:19:00 Yes 75 mg = 1 tab, PO, Daily, # 90 tab, 1 Refill(s) Sara Garcia Diphenhydramine 2018-10-26 13:24:00 Yes 50 mg, 2 tab, Route: PO, Drug form: TAB, ONCE, Dosing Weight 65.909, kg, Priority: NOW, Start date: 10/26/18 8:24:00 CDT, Stop date: 10/26/18 8:24:00 CDT Marquez Clinton Alprazolam 2018-10-26 13:24:00 Yes Notes: With food or milk (Same as: Xanax) Marquez Clinton normal saline 0.9% IV 1,000 mL 2018-10-26 12:16:00 No 1,000 mL, Rate: 250 ml/hr, Infuse over: 4 hr, Route: IV, Dosing Weight 65.909 kg, Total Volume: 1,000, Priority: NOW, Start date: 10/26/18 7:16:00 CDT, Duration: 30 day, Stop date: 11/25/18 7:15:00 CDT, 1.72, m2 Marquez Clinton Tums 2018-10-22 13:05:00 Yes 500 mg, CHEW, B ID, 0 Refill(s) Marquez Clinton mesalamine 1200 MG Enteric Coated Tablet 2018-10-22 13:05:00 Yes 2.4 gm = 2 tab, PO, BID, 0 Refill(s) Sara Garcia gabapentin 600 MG Oral Tablet 2018-10-22 13:05:00 Yes 300 mg = 0.5 tab, PO, Bedtime, 0 Refill(s) Marquez ferro nebivolol 2.5 MG Oral Tablet [Bystolic] 2018-10-22 13:04:00 Yes 2.5 mg = 1 tab, PO, Daily, # 30 tab, 0 Refill(s) Marquez Clinton Hydralazine Hydrochloride 50 MG Oral Tablet 2018-10-22 13:03:00 Yes 50 mg = 1 tab, PO, TID, # 90 tab, 3 Refill(s) Marquez Clinton Hydrochlorothiazide 25 MG / Olmesartan medoxomil 40 MG Oral Tablet 2018-10-22 13:02:00 Yes 1 tab, PO, Daily, # 30 tab, 0 Refill(s) [facility] potassium chloride 10 mEq oral capsule, extended release 2018-10-22 13:02:00 Yes 10 mEq = 1 cap, PO, Daily, 0 Ref ill(s) [facility] Furosemide 40 MG Oral Tablet [Lasix] 2018-10-22 13:01:00 Ye s 40 mg = 1 tab, PO, Daily, # 30 tab, 0 Refill(s) [facility] iron infusions 2018-10-22 13:00:00 Yes iron infusions, IV, qWeek, Refill(s) 0 [facility] Nitroglycerin 2016-12-09 17:10:00 No Notes: (Same as:Nitroquick, Nitrostat) "Do Not Crush" Sublingual tablet [facility] Acetaminophen 325 MG / Hydrocodone Bitartrate 5 MG Oral Tabl et 2016-12-09 17:10:00 No Notes: (Sa me as: [place] 325/5) Do not exceed 4gm/day of acetaminophen. [facility] Morphine 2016-12-09 17:10:00 No Not es: (Same as:MORPhine Sulfate) [facility] Sodium Chloride 0.154 MEQ/ML Injectable Solution 2016-12-09 17:1 0:00 No 750 mL, Rate: 75 ml/hr, Infu se over: 10 hr, Route: IV, Dosing Weight 63.636 kg, Total Volume: 750, Start date: 12/09/16 12:10:00 CDT, Duration: 10 hr, Stop date: 12/09/16 22:09:00 CDT [facility] Her felipe Keflex 2016-12-09 15:29:00 Yes = 1 tab, PO, TID, 1 tab, 3 times a day, 0 Refill(s) [facility] Sodium Chloride 0.154 MEQ/ML Injectable Solution 2015-02-06 18:0 3:00 No 500 mL, Rate: 25 ml/hr, Infu se over: 20 hr, Route: IV, Dosing Weight 60.909 kg, Total Volume: 500, Start date: 02/06/15 13:03:00, Duration: 30 day, Stop date: 03/08/15 13:02:00 [facility] Cardizem 2015-02-02 16:16:00 Yes 0 Refill(s) Marquez Clinton valsartan 320 MG Oral Tablet [Diovan] 2015-02-02 16:16:00 Y es 320 mg = 1 tab, PO, Daily, # 30 tab, 0 Refill(s) Marquez Clinton vilazodone hydrochloride 10 MG Oral Tablet [Viibryd] 2 16:16:00 Yes 10 mg = 1 tab, PO, Daily, 0 Refill(s) Marquez Clinton Unknown Home Medication 2015-02-02 16:16:00 Yes 1 tab, PO, BID, Refill(s) 0 Marquez Clinton 0.65 ML exenatide 3.08 MG/ML Prefilled Syringe [Bydureon] 2015-02-02 16:15:00 Yes 2 mg, SUB-Q, qWeek, # 4 ea, 0 Re fill(s) Marquez Clinton Lantus 2015-02-02 16:14:00 Yes 18 un it, SUB-Q, Bedtime, 0 Refill(s) Marquez Clinton Humalog 2015-02-02 16:13:00 Yes 14 units, SUB-Q, TID-Before Meals, 0 Refill(s) Marquez Clinton Vital Signs Vital Name Observation Time Observation Value Comments Source Height 2019-03-04 12:04:00 157.48 cm [facility] Weight 2019-03-04 12:04:00 Marquez Clinton BMI Calculated 2019-03-04 12:04:00 Sara Aguirreann Heart Rate 2018-12-01 12:33:00 [facility] Systolic (mm Hg) 2018-12-01 12:33:00 Christiano rial Oz Diastolic (mm Hg) 2018-12-01 12:33:00 Mem orial Oz Respitory Rate 2018-12-01 12:33:00 Sara al [place] Temperature Oral (F) 2018-12-01 12:33:00 98.5 F [facility] Temperature Oral (F) 2018-12-01 08:12:00 98.7 F [facility] Systolic (mm Hg) 2018-12-01 08:12:00 Christiano rial [place] Diastolic (mm Hg) 2018-12-01 08:12:00 Mem orial [place] Respitory Rate 2018-12-01 08:12:00 Memori al Oz Heart Rate 2018-12-01 08:12:00 [facility] [place] Systolic (mm Hg) 2018-12-01 04:09:00 Christiano rial Oz Diastolic (mm Hg) 2018-12-01 04:09:00 Mem orial Oz Temperature Oral (F) 2018-12-01 04:09:00 97.7 F [facility] Respitory Rate 2018-12-01 04:09:00 [facility] [place] Heart Rate 2018-12-01 04:09:00 [facility] [place] Weight 2018-11-26 17:54:00 [facility] [place] BMI Calculated 2018-11-26 17:54:00 Memori al Oz Height 2018-11-26 17:54:00 157.48 cm [facility] Systolic (mm Hg) 2018-10-26 23:30:00 Christiano rial Oz Diastolic (mm Hg) 2018-10-26 23:30:00 Mem orial [place] Systolic (mm Hg) 2018-10-26 23:00:00 Christiano rial Oz Diastolic (mm Hg) 2018-10-26 23:00:00 Mem orial [facility] Systolic (mm Hg) 2018-10-26 22:30:00 Christiano rial [place] Diastolic (mm Hg) 2018-10-26 22:30:00 Mem orial [place] Temperature Oral (F) 2018-10-26 12:22:00 98.0 F [facility] Respitory Rate 2018-10-26 12:22:00 [facility] [place] BMI Calculated 2018-10-22 13:07:00 Memori al Oz Weight 2018-10-22 13:07:00 [facility] Height 2018-10-22 13:07:00 158.75 cm [facility] [place] Heart Rate 2018-10-22 13:07:00 [facility] Temperature Oral (F) 2018-10-22 13:07:00 97.8 F [facility] Respitory Rate 2018-10-22 13:07:00 [facility] [place] Heart Rate 2016-12-10 12:42:00 [facility] Temperature Oral (F) 2016-12-10 12:42:00 97.4 F [facility] [place] Respitory Rate 2016-12-10 12:42:00 Memori al Oz Systolic (mm Hg) 2016-12-10 12:42:00 Christiano rial [place] Diastolic (mm Hg) 2016-12-10 12:42:00 Mem orial Oz Temperature Oral (F) 2016-12-10 09:00:00 98.2 F [facility] [place] Respitory Rate 2016-12-10 09:00:00 Memori al [facility] Systolic (mm Hg) 2016-12-10 09:00:00 Christiano rial Oz Diastolic (mm Hg) 2016-12-10 09:00:00 Mem o[facility] Respitory Rate 2016-12-10 05:00:00 [facility] [place] Temperature Oral (F) 2016-12-10 05:00:00 97.6 F [facility] [place] Systolic (mm Hg) 2016-12-10 05:00:00 Christiano rial Oz Diastolic (mm Hg) 2016-12-10 05:00:00 Mem o[facility] Height 2016-12-09 17:26:00 157.48 cm [facility] Weight 2016-12-09 17:26:00 [facility] BMI Calculated 2016-12-09 17:26:00 [facility] [place] Systolic (mm Hg) 2015-02-06 20:21:00 Christiano rial [place] Diastolic (mm Hg) 2015-02-06 20:21:00 Mem o[facility] Oz Respitory Rate 2015-02-06 20:21:00 [facility] [place] Systolic (mm Hg) 2015-02-06 20:06:00 Christiano rial [place] Diastolic (mm Hg) 2015-02-06 20:06:00 Mem orial Oz Respitory Rate 2015-02-06 20:06:00 [facility] [place] Systolic (mm Hg) 2015-02-06 19:51:00 Christiano rial Oz Diastolic (mm Hg) 2015-02-06 19:51:00 Mem o[facility] Oz Respitory Rate 2015-02-06 19:51:00 [facility] [place] Heart Rate 2015-02-06 18:59:00 [facility] [place] Weight 2015-02-02 15:50:00 [facility] BMI Calculated 2015-02-02 15:50:00 [facility] [place] Height 2015-02-02 15:50:00 157.48 cm [facility] Temperature Oral (F) 2015-02-02 15:50:00 97.8 F [facility] Heart Rate 2015-02-02 15:50:00 [facility] [place] Procedures Procedure Date / Time Performed Performing Clinician [facility] e Angiogram 2018-10-26 05:00:00 Marquez felipe Rotational atherectomy 2016-12-09 05:00:00 Yisel Apodacaann Colonoscopy 2013-07-20 00:00:00 Marquez felipe Cholecystectomy 2012-07-20 00:00:00 Marquez felipe Removal of spinal cord lesion 2002-07-20 00:00:00 [facility] Tubal ligation 1995-07-20 00:00:00 [facility] Her felipe Cataract surgery [facility] Elvis n Tonsillectomy [facility] Oz Encounters Start Date/Time End Date/Time [facility] Source 2019-03-04 11:35:00 2019-03-04 15:00:00 Outpatient Vaibhav Jarrett MHSE MHSE [id number] 2019-03-04 13:00:00 2019-03-04 13:00:00 Outpatient [facility] CAR [id number] 2018-11-30 10:43:00 2018-12-01 13:45:00 Outpatient Vaibhav Jarrett MHSE MHSE [id number] 2018-11-30 10:43:00 2018-11-30 10:43:00 Outpatient [facility] CAR [id number] 2018-10-26 06:09:00 2018-10-26 19:30:00 Outpatient Vaibhav Jarrett MHSE MHSE [id number] 2018-10-26 06:09:00 2018-10-26 06:09:00 Outpatient [facility] CAR [id number] 2017-06-18 09:23:00 2017-06-18 23:59:00 Outpatient Amber Jarrett HOIP HOIP [id number] 2016-12-09 09:50:00 2016-12-10 10:54:00 Outpatient Vaibhav Jarrett MHSE MHSE [id number] 2015-02-06 12:29:00 2015-02-06 15:29:00 Outpatient Edgar Bowden MHSE MHSE [id number] 2014 07:56:00 2014 23:59:00 Outpatient Edgar Bowden MHIE MHIE [id number] Results Test Description Test Time Test Comments Results Result Comments Source CHEST SINGLE (PORTABLE) 2020-03-06 19:33:00 [facility] [address] [place], [place] [address] Patient Name: ELSIE LOAIZA MR #: [id number] : 1950 Age/Sex: 69/F Req #: [id number] Adm Physician: Ordered by: CHELO OCASIO MD Report #: [id number] Location: ER Room/Bed: Procedure: [id number] DX/CHEST SINGLE (PORTABLE) Exam Date: 03/06/20 Exam Time: 1899 REPORT STATUS: Signed Examination: Single AP view of the chest. COMPARISON: Chest 2 views 03/24/2018 INDICATION: Shortness of breath today IMPRESSION: 1. Lines and Tubes: None 2. Lungs are mildly hypoinflated. Bilateral predominantly perihilar interstitial opacities, left greater than right suggesting interstitial edema. Small to moderate bilateral pleural effusions, left greater than right, and likely associated compressive atelectasis of bilateral lower lobes. 3. Cardiomediastinal silhouette is obscured. Central pulmonary venous congestion. 4. No acute bony abnormalities. Signed by: Dr. Javed Conroy M.D. on 03/06/2020 7:34 PM Dictated By: JAVED CONROY MD 33 Transcribed By: ANSELMO on 03/06/201933 COPY TO: CHELO OCASIO MD - [employer] [facility] 2019-09-13 09:59:00 N maegan: ELSIE LOAIZA [facility] : 1950 Age/S: 69 / F [address] [facility] Unit #: [id number] Loc: [place] [address] Phys: Mike Bal MD Acct: [id number] Dis Date: Status: REG CLI PHONE #: [phone] Exam Date: 09/13/2019948 FAX #: [phone] Reason: [id number] EXAMS: CPT CODE: [id number] US RETROPERITONEAL COM [id number] HISTORY: Chronic kidney disease. COMPARISON: Renal ultrasound from March 14, [address] abdomen and pelvis from July 11, 2018. Bilateral renal ultrasound: Both kidneys are free from hydronephrosis. Lobular contour. Slightly prominent medullary pyramids bilaterally with mildly hyperechogenic kidneys may suggest chronic medical renal disease. No calyceal stones are visible on either side. No perinephric collections noted. Right k idney measured 10.4 x 5 x 5.2 cm. Left kidney measured 10.3 x 4.7 x 4 cm. Urinary bladder distended incompletely with minimal scattered calcification within the urinary bladder wall along the nondependent portion. No wall thickening. No mural nodules. No free fluid. IMPRESSION: No hydronephrosis or calyceal stones with mild chronic medical renal disease. Incompletely distended urinary bladder with punctate scattered calcifications within the wall without nodules. Location: [facility]. at 0959 Reported and signed by: Mario Richards M.D. CC: Mike Bal MD; Aldo Espinosa MD Technologist: JEANNIE GONZALEZ RT(R),RDMS Trnscb Date/Time: 09/13/2019 (0959) t.SDR.[email or web address] Orig Print D/T: S: 09/13/2019 (1002) Probe: PAGE 1 Signed Report GLUBED 2019-03-15 16:48:00 Test Item GLUBED (test code = GLUBED) 300 mg/dL 74-106 H Performed by certified heavy forging machine operator at [facility] [id number] 12:03:00* Test Item Value Reference Range Interpretation Comments GLUBED (test code = GLUBED) 244 mg/dL 74-106 H Performed by certified heavy forging machine operator at [facility] BASIC METABOLIC [id number] 07:02:00* Test Item Value Reference Range Interpretation Comments SODIUM (test code = NA) 141 mmol/L 136-145 N POTASSIUM (test code = K) 4.4 mmol/L 3.5-5.1 N CHLORIDE (test code = CL) 110.0 mmol/L 98-107 H CARBON DIOXIDE (test code = CO2) 21.0 mmol/L 21-32 N ANION GAP (test code = GAP) 14.4 10-20 N GLUCOSE (test code = GLU) 224 mg/dL 74-106 H BLOOD UREA NITROGEN (test code = BUN) 54 mg/dL 7-18 H GLOMERULAR FILTRATION RATE (test code = GFR) 18 mL/min >=60 Estimated GFR by using Modified MDRD formula.Chronic kidney disease is defined as either kidney damageor GFR <60 mL/min/1.73 m2 for >3 months. CREATININE (test code = CREAT) 2.60 mg/dL 0.55-1.02 H Note change in reference range due to change in reagent. BUN/CREATININE RATIO (test code = BUN/CREA) 20.8 10-20 H CALCIUM (test code = CA) 8.8 mg/dL 8.5-10.1 N BASIC METABOLIC [id number] 06:48:00* Test Item Value Reference Range Interpretation Comments SODIUM (test code = NA) 141 mmol/L 136-145 N POTASSIUM (test code = K) 4.4 mmol/L 3.5-5.1 N CHLORIDE (test code = CL) 110.0 mmol/L 98-107 H CARBON DIOXIDE (test code = CO2) mmol/L 21-32 ANION GAP (test code = GAP) 10-20 GLUCOSE (test code = GLU) mg/dL 74-106 BLOOD UREA NITROGEN (test code = BUN) mg/dL 7-18 GLOMERULAR FILTRATION RATE (test code = GFR) mL/min >=60 CREATININE (test code = CREAT) mg/dL 0.55-1.02 BUN/CREATININE RATIO (test code = BUN/CREA) 10-20 CALCIUM (test code = CA) mg/dL 8.5-10.1 [id number] 06:04:00* Test Item Value Reference Range Interpretation Comments GLUBED (test code = GLUBED) 199 mg/dL 74-106 H Performed by certified heavy forging machine operator at [facility] UR PROTEIN [id number] 23:02:00* Test Item Value Reference Range Interpretation Comments UR PROTEIN RANDOM (test code = PROTU) 532.3 mg/dL 0.0-11.9 H Protein levels may be falsely elevated in patients withelevated level of aminoglycoside antibiotics in CSF and inhighly concentrated urine specimens. If false elevation issuspected, contact lab for alternated testing technique. UR CREATININE [id number] 23:02:00* Test Item Value Reference Range Interpretation Comments UR CREATININE RANDOM (test code = CREATU) 78.0 mg/dL 30-125 N URINALYSIS [id number] 22:53:00* Test Item Value Reference Range Interpretation Comments UA COLOR (test code = COLU) YELLOW YELLOW UA APPEARANCE (test code = APPU) TURBID CLEAR A UA GLUCOSE DIPSTICK (test code = DGLUU) 500 (3+) mg/dL NEGATIVE A UA BILIRUBIN DIPSTICK (test code = BILU) NEGATIVE mg/dL NEGATIVE UA KETONE DIPSTICK (test code = KETU) NEGATIVE mg/dL NEGATIVE UA SPECIFIC GRAVITY (test code = SGU) 1.014 1.001-1.035 UA BLOOD DIPSTICK (test code = JACQUELINE) 0.2 mg/dL (2+) mg/dL NEGATIVE A UA PH DIPSTICK (test code = NOE) 6.0 5.0-8.0 UA PROTEIN DIPSTICK (test code = PROU) 200 (2+) mg/dL NEGATIVE A UA UROBILINIOGEN DIPSTICK (test code = URO) Normal mg/dL NEGATIVE UA NITRITE DIPSTICK (test code = ZAKIA) POSITIVE NEGATIVE A UA LEUKOCYTE ESTERASE W REFLEX (test code = LEUUR) 500 Kandis/u L (3+) Kandis/uL NEGATIVE A UA WBC (test code = WBCU) >200 per HPF 0-5 A UA RBC (test code = RBCU) 21-50 #/HPF 0-5 UA WBC CLUMPS (test code = WBCUCL) >10 /HPF NONE A UA EPITHELIAL CELLS (test code = EPIU) FEW per HPF FEW UA BACTERIA (test code = BACU) MANY #/HPF NONE A Urine Source? VoidedUR SMEAR EOSINOPHIL [id number] 22:53:00* Test Item Value Reference Range Interpretation Comments UR SMEAR EOSINOPHIL COUNT (test code = EOSCTU) 5-10 EOS/100 WBCs per HPF NONE SEEN Urine Source? VoidedURINALYSIS [id number] 22:41:00* Test Item Value Reference Range Interpretation Comments UA COLOR (test code = COLU) YELLOW YELLOW UA APPEARANCE (test code = APPU) TURBID CLEAR A UA GLUCOSE DIPSTICK (test code = DGLUU) 500 (3+) mg/dL NEGATIVE A UA BILIRUBIN DIPSTICK (test code = BILU) NEGATIVE mg/dL NEGATIVE UA KETONE DIPSTICK (test code = KETU) NEGATIVE mg/dL NEGATIVE UA SPECIFIC GRAVITY (test code = SGU) 1.014 1.001-1.035 UA BLOOD DIPSTICK (test code = JACQUELINE) 0.2 mg/dL (2+) mg/dL NEGATIVE A UA PH DIPSTICK (test code = NOE) 6.0 5.0-8.0 UA PROTEIN DIPSTICK (test code = PROU) 200 (2+) mg/dL NEGATIVE A UA UROBILINIOGEN DIPSTICK (test code = URO) Normal mg/dL NEGATIVE UA NITRITE DIPSTICK (test code = ZAKIA) POSITIVE NEGATIVE A UA LEUKOCYTE ESTERASE W REFLEX (test code = LEUUR) 500 Kandis/u L (3+) Kandis/uL NEGATIVE A UA WBC (test code = WBCU) >200 per HPF 0-5 A UA RBC (test code = RBCU) 21-50 #/HPF 0-5 UA WBC CLUMPS (test code = WBCUCL) >10 /HPF NONE A UA EPITHELIAL CELLS (test code = EPIU) FEW per HPF FEW UA BACTERIA (test code = BACU) MANY #/HPF NONE A Urine Source? VoidedUR SMEAR EOSINOPHIL [id number] 22:41:00* Test Item Value Reference Range Interpretation Comments UR SMEAR EOSINOPHIL COUNT (test code = EOSCTU) per HPF NONE SE EN Urine Source? VoidedURINALYSIS [id number] 22:33:00* Test Item Value Reference Range Interpretation Comments UA COLOR (test code = COLU) YELLOW YELLOW UA APPEARANCE (test code = APPU) TURBID CLEAR A UA GLUCOSE DIPSTICK (test code = DGLUU) 500 (3+) mg/dL NEGATIVE A UA BILIRUBIN DIPSTICK (test code = BILU) NEGATIVE mg/dL NEGATIVE UA KETONE DIPSTICK (test code = KETU) NEGATIVE mg/dL NEGATIVE UA SPECIFIC GRAVITY (test code = SGU) 1.014 1.001-1.035 UA BLOOD DIPSTICK (test code = JACQUELINE) 0.2 mg/dL (2+) mg/dL NEGATIVE A UA PH DIPSTICK (test code = NOE) 6.0 5.0-8.0 UA PROTEIN DIPSTICK (test code = PROU) 200 (2+) mg/dL NEGATIVE A UA UROBILINIOGEN DIPSTICK (test code = URO) Normal mg/dL NEGATIVE UA NITRITE DIPSTICK (test code = ZAKIA) POSITIVE NEGATIVE A UA LEUKOCYTE ESTERASE W REFLEX (test code = LEUUR) 500 Kandis/u L (3+) Kandis/uL NEGATIVE A UA WBC (test code = WBCU) per HPF 0-5 UA RBC (test code = RBCU) per HPF 0-5 UA EPITHELIAL CELLS (test code = EPIU) per HPF Few UA BACTERIA (test code = BACU) per HPF NONE Urine Source? VoidedUR SMEAR EOSINOPHIL [id number] 22:33:00* Test Item Value Reference Range Interpretation Comments UR SMEAR EOSINOPHIL COUNT (test code = EOSCTU) per HPF NONE SE EN Urine Source? Voided- US RETRO [id number] 20:16:00 Name: LOAIZAELSIE HENSON [facility] : 1950 Age/S: 68 / F [address] [facility] Unit #: [id number] Loc: [place] [address] Phys: Natalie Ratliff MD Acct: [id number] Dis Date: Status: ADM IN PHONE #: [phone] Exam Date: 03/14/20191956 FAX #: [phone] Reason: john EXAMS: CPT CODE: [id number] US RETRO LTD 94565 EXAM: Ultrasound retroperitoneum, limited; INFORMATION: Acute kidney injury; creatinine 2.3; FINDINGS: The kidneys of normal size and shape; no hydronephrosis, no stones and no parenchymal abnormalities. The right kidney measures 11.1 x 6.2 x 5.3 cm, with a parenchymal thickness of 1.9 cm. The left kidney measures 10.7 x 5.2 x 5 cm, with a parenchymal thickness of 1.7 cm. The urinary bladder is unremarkable; bilateral ureteral jets are seen. IMPRESSION: Unremarkable ultrasound of the kidneys and the bladder. at 2016 Reported and signed by: Jaron Moffett M.D. CC: Severo Quan MD; Natalie Ratliff MD Technologist: Amber Vazquez Trntnb Date/Time: 03/14/20 (2015) tMACHELLE Orig Print D/T: S: 03/14/2019 (2018) Probe: PAGE 1 Signed Report [id number] 17:22:00* Test Item Value Reference Range Interpretation Comments GLUBED (test code = GLUBED) 233 mg/dL 74-106 H Performed by certified heavy forging machine operator at [facility] - MRI BRAIN W/O [id number] 17:17:00 FAX: Miki Montesinos MD [phone] [facility]: [address] St: ADM Name: ELSIE SON [facility] : [birth year] Age/S: 68/F [address] [facility] Unit #: [id number] Loc: V.[address] [place] [address] Phys: Miki Montesinos MD Acct: [id number] Dis Date: Status: ADM IN PHONE #: [phone] Exam Date: 03/14/2019 0805 FAX #: [phone] Reason: slurred speech EXAMS: CPT CODE: [id number] MRI BRAIN W/O CONTRAST 23365 EXAM: MRI of the brain without con trast; INFORMATION: Slurred speech; hypertension; TE CHNIQUE AND FINDINGS: Multiplanar, multisequence scans of the brain includ ing diffusion-weighted studies. The diffusion scans showed no areas of restricted diffusion. No evidence of mass lesions or midline shift; the gradient echo study shows no evidence of intra or extra-axial hemorrhage. Mild gliosis involving the periventricular and deep white matter; o therwise, unremarkable nichols/white matter differentiation. Expected flow-vo ids are seen within vascular structures. The ventricles are symmetric and of normal diameter; sulci and basilar cisterns are intact. IMPRESSION: 1. No evidence of acute ischemic lesions or of intracranial hemorrhage. 2. No mass lesions. 3. Minimal chronic isch emic white matter changes. at 1719 Reported and signed by: Jaron Moffett M.D. CC: Miki Montesinos MD Technologist: DAVID RIVAS,RT - MRI [facility] Date/Time/By: 2018 (6988) : By: KeerthiGRW Orig Print D/T: S: 03/14/2019 (5926) PAGE 1 Signed Report [id number] 11:35:00* Test Item Value Reference Range Interpretation Comments GLUBED (test code = GLUBED) 243 mg/dL 74-106 H Performed by certified heavy forging machine operator at [facility] [id number] 06:31:00* Test Item Value Reference Range Interpretation Comments GLUBED (test code = GLUBED) 189 mg/dL 74-106 H Performed by certified heavy forging machine operator at [facility] [id number] 02:29:00* Test Item Value Reference Range Interpretation Comments PHOSPHORUS (test code = PHOS) 4.3 mg/dL 2.5-4.9 N FE W/TOTAL IRON BINDING CAP.2019-03-14 02:29:00* Test Item Value Reference Range Interpretation Comments SERUM IRON (test code = IRON) 33 ug/dL 50-175 L TOTAL IRON BINDING CAPACITY (test code = TIBC) 203 mcg/dL 250-450 L IRON SATURATION (test code = FESAT) 16.26 % 13-45 N THYROID PROFILE [id number] 02:29:00* Test Item Value Reference Range Interpretation Comments T3 UPTAKE (test code = T3UP) 39.0 % 30.0-40.0 N T4 (THYROXINE) (test code = T4) 7.1 ug/dL 4.5-13.9 N T7 (FREE THYROXINE INDEX) (test code = T7) 2.76 FTI 1.3-5.1 N THYROID STIMULATING HORMONE (test code = TSH) 2.620 uIU/mL 0.36-3.7 4 N TSH REFERENCE RANGES: EUTHYROID: 0.35 - 4.3 mIU/mL HYPO : > 5.5 mIU/mL HYPER : < 0.35 mIU/mL [id number] 02:29:00* Test Item Value Reference Range Interpretation Comments FERRITIN (test code = DIANDRA) 312 ng/mL 8-388 N PROCALCITONIN (PCT)2019-03-14 02:18:00* Test Item Value Reference Range Interpretation Comments PROCALCITONIN (PCT) (test code = PROCAL) < 0.05 ng/ml Concentration Interpretation (ng/mL) <0.51 Sepsis is not likely. Local bacterial infection is possible. (LOW RISK for progression to Sepsis) 0.51 - 2.00 Sepsis is possible, but other conditions are known to elevate PCT as well. (MODERATE RISK for progression to Sepsis) > 2.00 Sepsis is likely, unless other causes are known. (HIGH RISK for progression to Severe Sepsis or Septic Shock) 10.00 High likelihood of Severe Sepsis or Septic or higher Shock. *Increased PCT levels may not always be related to systemic bacterial infection.*Low PCT levels do not automatically exclude the presence of bacterial infection.*All results should be interpreted taking into account the patients history. [id number] 02:13:00* Test Item Value Reference Range Interpretation Comments TROPONIN-I (test code = TROPI) <0.015 ng/mL 0-0.045 N COMMENTS TO FORMING MACHINE ADJUSTER: COLLECT 3 HOURS AFTER PREVIOUS SAMPLECOMPREHENSIVE METABOLIC [id number] 02:12:00* Test Item Value Reference Range Interpretation Comments SODIUM (test code = NA) 141 mmol/L 136-145 N POTASSIUM (test code = K) 4.1 mmol/L 3.5-5.1 N CHLORIDE (test code = CL) 110.0 mmol/L 98-107 H CARBON DIOXIDE (test code = CO2) 21.0 mmol/L 21-32 N ANION GAP (test code = GAP) 14.1 10-20 N GLUCOSE (test code = GLU) 210 mg/dL 74-106 H BLOOD UREA NITROGEN (test code = BUN) 38 mg/dL 7-18 H GLOMERULAR FILTRATION RATE (test code = GFR) 21 mL/min >=60 Estimated GFR by using Modified MDRD formula.Chronic kidney disease is defined as either kidney damageor GFR <60 mL/min/1.73 m2 for >3 months. CREATININE (test code = CREAT) 2.30 mg/dL 0.55-1.02 H Note change in reference range due to change in reagent. BUN/CREATININE RATIO (test code = BUN/CREA) 16.7 10-20 N TOTAL PROTEIN (test code = PROT) 6.3 gram/dL 6.4-8.2 L ALBUMIN (test code = ALB) 2.1 g/dL 3.4-5.0 L GLOBULIN (test code = GLOB) 4.2 gram/dL 2.7-4.2 N ALBUMIN/GLOBULIN RATIO (test code = A/G) 0.5 0.75-1.50 L CALCIUM (test code = CA) 8.5 mg/dL 8.5-10.1 N BILIRUBIN TOTAL (test code = BILT) 0.10 mg/dL 0.0-1.0 N SGOT/AST (test code = AST) 11 IUnit/L 15-37 L SGPT/ALT (test code = ALT) 16 IUnit/L 12-78 N ALKALINE PHOSPHATASE TOTAL (test code = ALKP) 121 IUnit/L 45-117 H Note change in reference range due to change in reagent. [id number] 02:12:00* Test Item Value Reference Range Interpretation Comments MAGNESIUM (test code = MAG) 1.5 mg/dL 1.8-2.4 L [id number] 02:12:00* Test Item Value Reference Range Interpretation Comments GLYCOSYLATED HEMOGLOBIN (HA1C) (test code = GLYHGB) 9.8 % HbA1 4. 8-6.0 H ESTIMATED AVERAGE GLUCOSE (test code = EAG) 235 MG/DL COMPREHENSIVE METABOLIC [id number] 02:00:00* Test Item Value Reference Range Interpretation Comments SODIUM (test code = NA) 141 mmol/L 136-145 N POTASSIUM (test code = K) 4.1 mmol/L 3.5-5.1 N CHLORIDE (test code = CL) 110.0 mmol/L 98-107 H CARBON DIOXIDE (test code = CO2) mmol/L 21-32 ANION GAP (test code = GAP) 10-20 GLUCOSE (test code = GLU) mg/dL 74-106 BLOOD UREA NITROGEN (test code = BUN) mg/dL 7-18 GLOMERULAR FILTRATION RATE (test code = GFR) mL/min >=60 CREATININE (test code = CREAT) mg/dL 0.55-1.02 BUN/CREATININE RATIO (test code = BUN/CREA) 10-20 TOTAL PROTEIN (test code = PROT) gram/dL 6.4-8.2 ALBUMIN (test code = ALB) g/dL 3.4-5.0 GLOBULIN (test code = GLOB) gram/dL 2.7-4.2 ALBUMIN/GLOBULIN RATIO (test code = A/G) 0.75-1.50 CALCIUM (test code = CA) mg/dL 8.5-10.1 BILIRUBIN TOTAL (test code = BILT) mg/dL 0.0-1.0 SGOT/AST (test code = AST) IUnit/L 15-37 SGPT/ALT (test code = ALT) IUnit/L 12-78 ALKALINE PHOSPHATASE TOTAL (test code = ALKP) IUnit/L 45-117 [id number] 02:00:00* Test Item Value Reference Range Interpretation Comments MAGNESIUM (test code = MAG) mg/dL 1.8-2.4 [id number] 22:21:00* Test Item Value Reference Range Interpretation Comments TROPONIN-I (test code = TROPI) <0.015 ng/mL 0-0.045 N COMMENTS TO FORMING MACHINE ADJUSTER: COLLECT 3 HOURS AFTER PREVIOUS [id number] 21:11:00* Test Item Value Reference Range Interpretation Comments GLUBED (test code = GLUBED) 411 mg/dL 74-106 H Performed by certified heavy forging machine operator at [facility] BASIC METABOLIC [id number] 17:13:00* Test Item Value Reference Range Interpretation Comments SODIUM (test code = NA) 138 mmol/L 136-145 N SPEC IMEN 3+ HEMOLYSIS POTASSIUM (test code = K) 4.7 mmol/L 3.5-5.1 N CHLORIDE (test code = CL) 108.0 mmol/L 98-107 H CARBON DIOXIDE (test code = CO2) 20.0 mmol/L 21-32 L ANION GAP (test code = GAP) 14.7 10-20 N GLUCOSE (test code = GLU) 290 mg/dL 74-106 H RE SULTS CALLED TO [id number] BY [facility] 03/13/19 1710 BLOOD UREA NITROGEN (test code = BUN) 35 mg/dL 7-18 H GLOMERULAR FILTRATION RATE (test code = GFR) 20 mL/min >=60 Estimated GFR by using Modified MDRD formula.Chronic kidney disease is defined as either kidney damageor GFR <60 mL/min/1.73 m2 for >3 months. CREATININE (test code = CREAT) 2.40 mg/dL 0.55-1.02 H Note change in reference range due to change in reagent. BUN/CREATININE RATIO (test code = BUN/CREA) 14.5 10-20 N CALCIUM (test code = CA) 8.7 mg/dL 8.5-10.1 N [id number] 17:13:00* Test Item Value Reference Range Interpretation Comments TROPONIN-I (test code = TROPI) <0.015 ng/mL 0-0.045 N BASIC METABOLIC [id number] 17:12:00* Test Item Value Reference Range Interpretation Comments SODIUM (test code = NA) 138 mmol/L 136-145 N SPEC IMEN 3+ HEMOLYSIS POTASSIUM (test code = K) 4.7 mmol/L 3.5-5.1 N CHLORIDE (test code = CL) 108.0 mmol/L 98-107 H CARBON DIOXIDE (test code = CO2) 20.0 mmol/L 21-32 L ANION GAP (test code = GAP) 14.7 10-20 N GLUCOSE (test code = GLU) 290 mg/dL 74-106 H RE SULTS CALLED TO [id number] BY [employer]DAVID 03/13/19 1710 BLOOD UREA NITROGEN (test code = BUN) 35 mg/dL 7-18 H GLOMERULAR FILTRATION RATE (test code = GFR) 20 mL/min >=60 Estimated GFR by using Modified MDRD formula.Chronic kidney disease is defined as either kidney damageor GFR <60 mL/min/1.73 m2 for >3 months. CREATININE (test code = CREAT) 2.40 mg/dL 0.55-1.02 H Note change in reference range due to change in reagent. BUN/CREATININE RATIO (test code = BUN/CREA) 14.5 10-20 N CALCIUM (test code = CA) 8.7 mg/dL 8.5-10.1 N [id number] 17:12:00* Test Item Value Reference Range Interpretation Comments TROPONIN-I (test code = TROPI) ng/mL 0-0.045 BASIC METABOLIC [id number] 17:11:00* Test Item Value Reference Range Interpretation Comments SODIUM (test code = NA) 138 mmol/L 136-145 N POTASSIUM (test code = K) 4.7 mmol/L 3.5-5.1 N CHLORIDE (test code = CL) 108.0 mmol/L 98-107 H CARBON DIOXIDE (test code = CO2) 20.0 mmol/L 21-32 L ANION GAP (test code = GAP) 14.7 10-20 N GLUCOSE (test code = GLU) 290 mg/dL 74-106 H RE SULTS CALLED TO [id number] BY NAVARRO 03/13/19 1710 BLOOD UREA NITROGEN (test code = BUN) 35 mg/dL 7-18 H GLOMERULAR FILTRATION RATE (test code = GFR) 20 mL/min >=60 Estimated GFR by using Modified MDRD formula.Chronic kidney disease is defined as either kidney damageor GFR <60 mL/min/1.73 m2 for >3 months. CREATININE (test code = CREAT) 2.40 mg/dL 0.55-1.02 H Note change in reference range due to change in reagent. BUN/CREATININE RATIO (test code = BUN/CREA) 14.5 10-20 N CALCIUM (test code = CA) 8.7 mg/dL 8.5-10.1 N [id number] 17:11:00* Test Item Value Reference Range Interpretation Comments TROPONIN-I (test code = TROPI) ng/mL 0-0.045 [id number] 17:11:00* Test Item Value Reference Range Interpretation Comments ALCOHOL (test code = ALC) < 3 mg/dL 0.0-3.0 N -- INTERPRETIVE DATA NOTE: POSITIVE SCREENING RESULTS SHOULD BE CONSIDERED PRESUMPTIVE.WHEN COLLECTED FOR MEDICAL PURPOSES ONLY. SPECIMEN WILL NOTBE COLLECTED BY CHAIN OF CUSTODY.IF A CONFIRMATION OF POSITIVE RESULTS IS DESIRED, ACONFIRMATION TEST MUST BE REQUESTED BY THE PHYSICIAN AT ANADDITIONAL CHARGE TO THE PATIENT. BASIC METABOLIC [id number] 17:10:00* Test Item Value Reference Range Interpretation Comments SODIUM (test code = NA) 138 mmol/L 136-145 N POTASSIUM (test code = K) 4.7 mmol/L 3.5-5.1 N CHLORIDE (test code = CL) 108.0 mmol/L 98-107 H CARBON DIOXIDE (test code = CO2) 20.0 mmol/L 21-32 L ANION GAP (test code = GAP) 14.7 10-20 N GLUCOSE (test code = GLU) 290 mg/dL 74-106 H BLOOD UREA NITROGEN (test code = BUN) 35 mg/dL 7-18 H GLOMERULAR FILTRATION RATE (test code = GFR) 20 mL/min >=60 Estimated GFR by using Modified MDRD formula.Chronic kidney disease is defined as either kidney damageor GFR <60 mL/min/1.73 m2 for >3 months. CREATININE (test code = CREAT) 2.40 mg/dL 0.55-1.02 H Note change in reference range due to change in reagent. BUN/CREATININE RATIO (test code = BUN/CREA) 14.5 10-20 N CALCIUM (test code = CA) 8.7 mg/dL 8.5-10.1 N [id number] 17:10:00* Test Item Value Reference Range Interpretation Comments TROPONIN-I (test code = TROPI) ng/mL 0-0.045 BASIC METABOLIC [id number] 17:07:00* Test Item Value Reference Range Interpretation Comments SODIUM (test code = NA) 138 mmol/L 136-145 N POTASSIUM (test code = K) 4.7 mmol/L 3.5-5.1 N CHLORIDE (test code = CL) 108.0 mmol/L 98-107 H CARBON DIOXIDE (test code = CO2) mmol/L 21-32 ANION GAP (test code = GAP) 10-20 GLUCOSE (test code = GLU) mg/dL 74-106 BLOOD UREA NITROGEN (test code = BUN) mg/dL 7-18 GLOMERULAR FILTRATION RATE (test code = GFR) mL/min >=60 CREATININE (test code = CREAT) mg/dL 0.55-1.02 BUN/CREATININE RATIO (test code = BUN/CREA) 10-20 CALCIUM (test code = CA) mg/dL 8.5-10.1 [id number] 17:07:00* Test Item Value Reference Range Interpretation Comments TROPONIN-I (test code = TROPI) ng/mL 0-0.045 PROTHROMBIN [id number] 16:59:00* Test Item Value Reference Range Interpretation Comments PROTHROMBIN TIME PATIENT (test code = PTP) 11.4 seconds 9.0-14.0 N RESULTS CALLED TO [id number] BY ALFONSO 03/13/19 1659 INTERNATIONAL NORMAL RATIO (test code = INR) 1.0 0.8-1.2 N The therapeutic range for oral anticoagulant therapy formost indications is an international normalized ratio (INR)of between 2.0 and 3.0. The recommended therapeutic INRrange for various clinical situations is listed below: Clinical Situation INR range Pulmonary e mbolism treatment (2.0-3.0)Venous thrombosis treatmentVenous thrombosis prophylaxis (high risk surgery)Prevention of systemic embolism from: Acute myocardial infarction Valvular heart disease Atrial fibrillation Mechanical prosthetic heart valves (2.5-3.5) IS PATIENT ON ANTICOAGULANTS? NTHROMBOPLASTIN TIME [id number] 16:59:00* Test Item Value Reference Range Interpretation Comments THROMBOPLASTIN TIME PARTIAL (test code = PTT) 32.2 seconds 25.0-36. 5 N IS PATIENT ON ANTICOAGULANTS? N- XR CHEST 1 [id number] 16:58:00 FAX: Miki Montesinos MD [phone] [facility]: St: PRE Name: ELSIE SON [facility] : [birth year] Age/S: 68/F [address] [facility] Unit #: [id number] Loc: [place] [address] Phys: Miki Montesinos MD Acct: [id number] Dis Date: Status: PRE ER PHONE #: [phone] Exam Date: 03/13/2019 1640 FAX #: [phone] Reason: CODE STROKE EXAMS: CPT CODE: [id number] XR CHEST 1 V [id number] REASON FOR EXAM: CODE STRO KE Exam Order Date: 03/13/2019 4:32 PM Ordering M.D.: Miki Montesinos MD PROCEDURE: - XR CHEST 1 V COMPARI SON: Frontal chest x-ray July 27, 2018 FINDINGS: The jorge luis gs are clear. There is no pleural effusion or pneumothorax. Pulmonary vas cularity is within normal limits. Cardiomediastinal silhouette is normal in size for technique. The mediastinal contours are within normal l imits. Musculoskeletal structures are within normal limits. Prior cholecystectomy. IMPRESSION: No ac chrissy cardiopulmonary process. at 4621 Reported and signed by: Silverio zavaleta MD CC: Miki Montesinos MD Technologist: RAY LOYD(R) Trnscrd Tristian e/Time/By: 03/13/2019 (3268) : By: [email or web address] Orig Print D/T: S: 2018 (5100) PAGE 1 Signed Report CBC W/AUTO [id number] 16:56:00* Test Item Value Reference Range Interpretation Comments WHITE BLOOD CELL (test code = WBC) 9.7 K/mm3 4.5-12.5 N RED BLOOD CELL (test code = RBC) 4.43 mill/mm3 3.7-5.2 N HEMOGLOBIN (test code = HGB) 10.6 gram/dL 11.5-15.5 L HEMATOCRIT (test code = HCT) 34.5 % 36.0-46.0 L MEAN CELL VOLUME (test code = MCV) 77.9 fL 80-98 L MEAN CELL HGB (test code = MCH) 23.9 picogram 27.0-33.0 L MEAN CELL HGB CONCETRATION (test code = MCHC) 30.7 gram/dL 33.0-36. 0 L RED CELL DISTRIBUTION WIDTH (test code = RDW) 16.2 % 11.6-16. 2 N RED CELL DISTRIBUTION WIDTH SD (test code = RDW-SD) 45.7 fL 37 .0-51.0 N PLATELET COUNT (test code = PLT) 327 K/mm3 150-450 N MEAN PLATELET VOLUME (test code = MPV) 9.5 fL 6.7-11.0 N NEUTROPHIL % (test code = NT%) 51.1 % 39.0-69.0 N IMMATURE GRANULOCYTE % (test code = IG%) 0.5 % 0.0-5.0 N LYMPHOCYTE % (test code = LY%) 40.5 % 25.0-55.0 N MONOCYTE % (test code = MO%) 5.1 % 0.0-10.0 N EOSINOPHIL % (test code = EO%) 2.2 % 0.0-5.0 N BASOPHIL % (test code = BA%) 0.6 % 0.0-1.0 N NUCLEATED RBC % (test code = NRBC%) 0.0 % 0-0 N NEUTROPHIL # (test code = NT#) 4.96 K/mm3 1.8-7.7 N IMMATURE GRANULOCYTE # (test code = IG#) 0.05 x10 3/uL 0-0.03 H LYMPHOCYTE # (test code = LY#) 3.93 K/mm3 1.0-5.0 N MONOCYTE # (test code = MO#) 0.50 K/mm3 0-0.8 N EOSINOPHIL # (test code = EO#) 0.21 K/mm3 0.0-0.5 N BASOPHIL # (test code = BA#) 0.06 K/mm3 0.0-0.2 N NUCLEATED RBC # (test code = NRBC#) 0.00 K/mm3 0.0-0.1 N MANUAL DIFF REQUIRED (test code = MDIFF) NO PROTHROMBIN [id number] 16:56:00* Test Item Value Reference Range Interpretation Comments PROTHROMBIN TIME PATIENT (test code = PTP) 11.4 seconds 9.0-14.0 N INTERNATIONAL NORMAL RATIO (test code = INR) 1.0 0.8-1.2 N The therapeutic range for oral anticoagulant therapy formost indications is an international normalized ratio (INR)of between 2.0 and 3.0. The recommended therapeutic INRrange for various clinical situations is listed below: Clinical Situation INR range Pulmonary e mbolism treatment (2.0-3.0)Venous thrombosis treatmentVenous thrombosis prophylaxis (high risk surgery)Prevention of systemic embolism from: Acute myocardial infarction Valvular heart disease Atrial fibrillation Mechanical prosthetic heart valves (2.5-3.5) IS PATIENT ON ANTICOAGULANTS? NTHROMBOPLASTIN TIME [id number] 16:56:00* Test Item Value Reference Range Interpretation Comments THROMBOPLASTIN TIME PARTIAL (test code = PTT) 32.2 seconds 25.0-36. 5 N IS PATIENT ON ANTICOAGULANTS? N- CT HEAD/BRAIN W/O [id number] 16:47:00 Name: ELSIE LOAIZA [facility] : 1950 Age/S: 68 / F [address] Unit #: [id number] Loc: [place] [address] Phys: Brian Montesinos MD Acct: [id number] Di s Date: Status: PRE ER PHONE #: Exam Date: 03/13/2019 1632 FAX #: Reason: confusion, speech problem EXAMS: CPT CODE: [id number] CT HEAD/BRAIN W/O CONT 00200 HISTORY: confusion, spee ch problem TECHNIQUE: Noncontrast 2.[address] of the head. Exa mination acquired within 24 hours of arrival. Automated exposure control f or dose reduction. COMPARISON: None FINDINGS: No lacerations or contusions of the scalp or facial soft tissues.. Calvarium and skull base are intact. No acute hemorrhage. No intracranial mass, mass effect, or midline shift. No effacement of the sulci or mallory-white matter interface to suggest acute infarct. Decreased attenuation of the periventricular white matter compatible w ith microvascular ischemic changes. No hydrocephalus.. No extra-ax ial fluid collection. Visualized paranasal sinuses are clear. Mastoid air cells and middle ear cavities are clear. There is cerumen in the right external auditory canal. Prior lens extraction bilaterally.. IMPRESSION: No acute intracranial pro cess. Microvascular ischemic changes of the white matter. Preliminary findings discussed with Dr. Montesinos by telephone at 4:47 PM March 13, 2019 Electronically Signed by Silverio Au MD on 2018 at 8506 Reported and signed by: Silverio Au MD PAGE 1 Signed Report (CONTINUED) Name: ELSIE LOAIZA [facility] B: 1950 Age/S: 68 / F [address] [facility] Unit #: [id number] Loc: [place] [address] Phys: Ra duong Montesinos MD Acct: [id number] D is Date: Status: PRE ER PHONE #: [phone] Exam Date: 03/13/2019 163 FAX #: [phone] Reason: confusion, speech problem EXAMS: CPT CODE: [id number] CT HEAD/BRAI N W/O CONT 61314 <Continued> CC: Miki Montesinos MD Technologist:Gabi Traylor RT(R),CT; CTDI: DLP: Trnscb Date/Time: 03/13/2019 (9207) t.SDR.RR31 Orig Print D/T: S: 03/13/2019 (7590) PAGE 2 Signed Report AITQQRRQNHHR7503-30-23 17:50:0013.7[facility] ZJIXQRNKPFGK7252-90-44 17:50:00* Test Item Value Reference Range Interpretation Comments B/C Ratio (test code = B/C Ratio) 21 1 6-25 [facility] MazsobvNCPHLELWZYZK6024-85-33 17:50:004.9[facility] HermannELECTROLYTES 2019-03-04 17:50:00* Test Item Value Reference Range Interpretation Comments A/G Ratio (test code = A/G Ratio) 0.5 1 0.7-1.6 [facility] EqzcpyaCOKXEPQIUDDQ0344-66-23 17:50:72150Nzgvuwki HermannELECTROLYTES 2019-03-04 17:50:0048[facility] OoiysxcRQLQAZINSWQH0260-18-27 17:50:002.27[facility] VdqdoqgWJUUJUXAWSIU4984-53-24 17:50:48068Wzexnjfz PjzzgxcZAEOJIWQIUGI1099-01-57 17:50:003.7[facility] YyzveguLBDJIUVRAMVI7438-21-09 17:50:18582Gkunitzz [place] NGUKUIHCCWIH8101-61-58 17:50:0021[facility] BypxcajYTZZIUOLQSCP2084-47-27 17:50:00 9.1[facility] GfqmlslLQTMVYOFBKZP7220-09-86 17:50:007.5[facility] [place] ETRFBUYQFEDA8945-57-38 17:50:002.6[facility] JnhasjyWFNZOXWYWPBR6421-83-32 17:50:0015[facility] DjphuhcZDJKJUVXRZEQ1703-35-00 17:50:0013[facility] WRCCMZJTQFIQ6125-52-43 17:50:86560Okwllssq ZgfbcwxBVOGORJSPSMJ7683-62-02 17:50:000.4[facility] IyucdhhCJAKAAMJMBOO2665-55-00 17:50:0022[facility] [place] ODHQDIFCTE8691-63-44 17:50:0010.0[facility] IxcvgpjMLQRQVWZEW4034-52-12 17:50:00 4.23[facility] TutxxdwKAFEEAUDKG9386-31-54 17:50:0010.4[facility] HermannHEMATOLOGY 2019-03-04 17:50:0031.7[facility] UkmvkmzYQUAFWIVUY1218-70-28 17:50:0075.1[facility] IbgfqoaCOUSAMHBZL0148-33-17 17:50:00* Test Item Value Reference Range Interpretation Comments MCH (test code = MCH) 24.6 pg 27.0-31.0 [facility] TlgdbuhDFBQLDOXXZ8987-24-43 17:50:0032.8[facility] HermannHEMATOLOGY 2019-03-04 17:50:0016.9[facility] ZjcpjlpLSONAGJJSY9983-37-29 17:50:15753Dvhuhpmn OpuaafrITSDFIAHDB6503-78-93 17:50:007.5[facility] DoaskhgNATGMOPURP4604-51-17 17:50:0044.6[facility] GooqkczKTDRKOGXHI4690-65-74 17:50:0044.8[facility] CSUDJHOCWX4342-02-55 17:50:007.1[facility] QvhgswwKZGEVMNOJH8960-82-49 17:50:002.7 [facility] NnfimdmIPPLSVAJQV7207-09-91 17:50:000.8[facility] HermannHEMATOLOGY 2019-03-04 17:50:004.5[facility] DwxivkzKNCDCIFWFX4518-26-51 17:50:004.5[facility] TfhaeddLKWNLXRKVA0672-22-09 17:50:000.7[facility] YqkbajlRKWCWUHSPN9030-80-06 17:50:000.3[facility] OqloswjNZCZMTPFNO3994-88-82 17:50:000.1[facility] FUUXIBEGHM3589-39-17 17:50:001+ *ABN*(03/04/19 12:50 PM)[facility] URINALYSIS ZIEYMDMD0884-74-94 17:10:00* Test Item Value Reference Range Interpretation Comments UA COLOR (test code = COLU) YELLOW YELLOW UA APPEARANCE (test code = APPU) TURBID CLEAR A UA GLUCOSE DIPSTICK (test code = DGLUU) 100 (1+) mg/dL NEGATIVE A UA BILIRUBIN DIPSTICK (test code = BILU) NEGATIVE mg/dL NEGATIVE UA KETONE DIPSTICK (test code = KETU) NEGATIVE mg/dL NEGATIVE UA SPECIFIC GRAVITY (test code = SGU) 1.010 1.001-1.035 UA BLOOD DIPSTICK (test code = JACQUELINE) 0.2 mg/dL (2+) mg/dL NEGATIVE A UA PH DIPSTICK (test code = NOE) 6.0 5.0-8.0 UA PROTEIN DIPSTICK (test code = PROU) 200 (2+) mg/dL NEGATIVE A UA UROBILINIOGEN DIPSTICK (test code = URO) Normal mg/dL NEGATIVE UA NITRITE DIPSTICK (test code = ZAKIA) NEGATIVE NEGATIVE UA LEUKOCYTE ESTERASE W REFLEX (test code = LEUUR) 500 Kandis/u L (3+) Kandis/uL NEGATIVE A UA WBC (test code = WBCU) >200 per HPF 0-5 A UA RBC (test code = RBCU) 21-50 #/HPF 0-5 UA WBC CLUMPS (test code = WBCUCL) >10 /HPF NONE A UA EPITHELIAL CELLS (test code = EPIU) FEW per HPF FEW UA BACTERIA (test code = BACU) FEW #/HPF NONE A Urine Source? Clean Catch- CT HEAD/BRAIN W/O [id number] 12:54:00 Name: FADIAELSIE BONNY [facility] : 1950 Age/S: 68 / F [address] [facility] Unit #: [id number] Loc: [place] [address] Phys: Shorty Chinchilla DO Acct: [id number] Di s Date: Status: REG ER PHONE #: Exam Date: 02/01/2019 1236 FAX #: Reason: Headache EXAMS: CPT CODE: [id number] CT HEAD/BRAIN W/O CONT 24791 HISTORY: Headaches. COMPARISON: July 10, 2018. CT brain without contrast: Automated exposure control. No acute intracranial bleeds or extra -axial collections are noted. No acute territorial vascular infarction is noted. The sulci, gyri, ventricles and subarachnoid spaces and the basilar cisterns are normal for patient's age. No herniation or hydroceph alus or midline shift is noted. Mild periventricular ischemi c gliosis is noted. Age-appropriate atrophy is noted as well. Portions of the visualized paranasal sinuses are normal. No obvi ous bony calvarial defect is noted. IMPRESSION: No acute intracranial bleeds or extra-axial collections. No acute territorial vascular infarction. No herniation or hydroc ephalus or midline shift. Chronic white matter ischemic disea se and atrophy . at 1254 Reported and signed by : Mario Richards M.D. CC: Shorty Chinchilla DO Technologist:Alfredo Cabello RT(R),(MR),(CT) CTDI: DLP: Tr nscb Date/Time: 02/01/2019 (5422) Francesca.TH4 Orig Print D/ T: S: 02/01/2019 (2558) PAGE 1 Signed Report CBC W/AUTO [id number] 12:44:00* Test Item Value Reference Range Interpretation Comments WHITE BLOOD CELL (test code = WBC) 11.6 K/mm3 4.5-12.5 N RED BLOOD CELL (test code = RBC) 5.03 mill/mm3 3.7-5.2 N HEMOGLOBIN (test code = HGB) 11.8 gram/dL 11.5-15.5 N HEMATOCRIT (test code = HCT) 39.0 % 36.0-46.0 N MEAN CELL VOLUME (test code = MCV) 77.5 fL 80-98 L MEAN CELL HGB (test code = MCH) 23.5 picogram 27.0-33.0 L MEAN CELL HGB CONCETRATION (test code = MCHC) 30.3 gram/dL 33.0-36. 0 L RED CELL DISTRIBUTION WIDTH (test code = RDW) 14.8 % 11.6-16. 2 N RED CELL DISTRIBUTION WIDTH SD (test code = RDW-SD) 41.1 fL 37 .0-51.0 N PLATELET COUNT (test code = PLT) 357 K/mm3 150-450 N MEAN PLATELET VOLUME (test code = MPV) 10.0 fL 6.7-11.0 N NEUTROPHIL % (test code = NT%) 55.1 % 39.0-69.0 N IMMATURE GRANULOCYTE % (test code = IG%) 0.6 % 0.0-5.0 N LYMPHOCYTE % (test code = LY%) 35.1 % 25.0-55.0 N MONOCYTE % (test code = MO%) 5.5 % 0.0-10.0 N EOSINOPHIL % (test code = EO%) 3.0 % 0.0-5.0 N BASOPHIL % (test code = BA%) 0.7 % 0.0-1.0 N NUCLEATED RBC % (test code = NRBC%) 0.0 % 0-0 N NEUTROPHIL # (test code = NT#) 6.37 K/mm3 1.8-7.7 N IMMATURE GRANULOCYTE # (test code = IG#) 0.07 x10 3/uL 0-0.03 H LYMPHOCYTE # (test code = LY#) 4.07 K/mm3 1.0-5.0 N MONOCYTE # (test code = MO#) 0.64 K/mm3 0-0.8 N EOSINOPHIL # (test code = EO#) 0.35 K/mm3 0.0-0.5 N BASOPHIL # (test code = BA#) 0.08 K/mm3 0.0-0.2 N NUCLEATED RBC # (test code = NRBC#) 0.00 K/mm3 0.0-0.1 N BASIC METABOLIC [id number] 12:39:00* Test Item Value Reference Range Interpretation Comments SODIUM (test code = NA) 136 mmol/L 136-145 N POTASSIUM (test code = K) 4.1 mmol/L 3.5-5.1 N CHLORIDE (test code = CL) 105.0 mmol/L 98-107 N CARBON DIOXIDE (test code = CO2) 21.0 mmol/L 21-32 N ANION GAP (test code = GAP) 14.1 10-20 N GLUCOSE (test code = GLU) 148 mg/dL 74-106 H BLOOD UREA NITROGEN (test code = BUN) 46 mg/dL 7-18 H GLOMERULAR FILTRATION RATE (test code = GFR) 20 mL/min >=60 Estimated GFR by using Modified MDRD formula.Chronic kidney disease is defined as either kidney damageor GFR <60 mL/min/1.73 m2 for >3 months. CREATININE (test code = CREAT) 2.40 mg/dL 0.55-1.02 H Note change in reference range due to change in reagent. BUN/CREATININE RATIO (test code = BUN/CREA) 19.2 10-20 N CALCIUM (test code = CA) 8.9 mg/dL 8.5-10.1 N BASIC METABOLIC [id number] 12:33:00* Test Item Value Reference Range Interpretation Comments SODIUM (test code = NA) 136 mmol/L 136-145 N POTASSIUM (test code = K) 4.1 mmol/L 3.5-5.1 N CHLORIDE (test code = CL) 105.0 mmol/L 98-107 N CARBON DIOXIDE (test code = CO2) mmol/L 21-32 ANION GAP (test code = GAP) 10-20 GLUCOSE (test code = GLU) mg/dL 74-106 BLOOD UREA NITROGEN (test code = BUN) mg/dL 7-18 GLOMERULAR FILTRATION RATE (test code = GFR) mL/min >=60 CREATININE (test code = CREAT) mg/dL 0.55-1.02 BUN/CREATININE RATIO (test code = BUN/CREA) 10-20 CALCIUM (test code = CA) mg/dL 8.5-10.1 CHEM KDLLF0535-55-00 08:11:80247Flzcscxy HermannCHEM TZIOQ8353-74-91 08:11:0058 [facility]annCHEM YKYRR3105-54-40 08:11:0021[facility] HermannCHEM PANEL 2018-12-01 08:11:92113Wprjhezy [facility]annCHEM YZPCQ0835-70-23 08:11:002.32[facility] HermannCHEM TOKDR3513-36-68 08:11:004.6[facility] HermannCHEM ZKTYK2231-74-08 08:11:11927Zhltdfpq HermannCHEM KLEVN8870-98-89 08:11:0024[facility] HermannCHEM KOZPL3244-71-97 08:11:008.8[facility] HermannCHEM IZNEM0510-31-39 08:11:0011.6 [facility] KhjlbbiYELMUWTLQQ8031-27-26 08:11:0011.2[facility] HermannHEMATOLOGY 2018-12-01 08:11:004.34[facility] GokhtsoQTEHMVIZKX1877-16-33 08:11:00* Test Item Value Reference Range Interpretation Comments MCH (test code = MCH) 23.8 pg 27.0-31.0 [facility] VdlsbqcHRHCVLFGKU4100-23-23 08:11:0077.2[facility] HermannHEMATOLOGY 2018-12-01 08:11:0030.8[facility] EylggnmKFYTXNVHBY0324-04-85 08:11:0033.5[facility] AzlkvgyZBUVZHKARK6799-00-50 08:11:0010.3[facility] QitexrtEDSZAOBYIW8466-27-53 08:11:0015.3[facility] RlthhewEUVNORZLQU2927-19-62 08:11:007.7[facility] QEZCBHYDRI5212-01-50 08:11:30035Flyqbsxg HermannCHEM KLRYV3407-37-75 18:14:005.1 [facility] HermannCHEM IGLIC5398-81-64 18:14:00* Test Item Value Reference Range Interpretation Comments A/G Ratio (test code = A/G Ratio) 0.5 1 0.7-1.6 [facility] HermannCHEM WODKS4636-13-72 18:14:0011.0[facility] HermannCHEM PANEL 2018-11-26 18:14:00* Test Item Value Reference Range Interpretation Comments B/C Ratio (test code = B/C Ratio) 21 1 6-25 [facility] HermannCHEM PECRU1378-03-64 18:14:0026[facility] HermannCHEM PANEL 2018-11-26 18:14:31780Bnpbnqcj HermannCHEM DPSDD4172-40-67 18:14:0021[facility] HermannCHEM ZSIIE2298-88-47 18:14:0023[facility] HermannCHEM MRHVK7981-05-57 18:14:000.3[facility] HermannCHEM ZXYDE9435-25-40 18:14:0042[facility] HermannCHEM QSYZI6494-48-31 18:14:72641Llzercwg HermannCHEM GSZEI2560-46-31 18:14:005.0 [facility] HermannCHEM IJDLY3970-18-07 18:14:90648Iyntcwob HermannCHEM PANEL 2018-11-26 18:14:001.98[facility] HermannCHEM DBQZV2454-86-66 18:14:007.9[facility] HermannCHEM XZJGF0971-27-28 18:14:002.8[facility] HermannCHEM XRBKD4934-19-94 18:14:009.4[facility] HermannCHEM AKXDI0957-39-25 18:14:85322Zpuzyfcw HermannCHEM ANAYL3145-56-02 18:14:0025[facility] NzsobakMDFMNRKADA5875-49-44 18:14:009.9 [facility] ZkbpbikOCAYVZGGKS5072-18-82 18:14:0015.1[facility] HermannHEMATOLOGY 2018-11-26 18:14:004.84[facility] AxvrohjHXFMJVKOGO8119-79-37 18:14:0031.5[facility] ZujmbnuNCQUGFWEPW3517-58-09 18:14:0076.9[facility] ImcyjajMWDDMAZQYF8305-80-59 18:14:00* Test Item Value Reference Range Interpretation Comments MCH (test code = MCH) 24.2 pg 27.0-31.0 [facility] MzuzurjTLXYYMLUKG5781-76-95 18:14:0011.7[facility] HermannHEMATOLOGY 2018-11-26 18:14:0037.2[facility] OypsxacWYBVGCWUSS6612-82-88 18:14:10022Xekayzuk EkqsozxEJNFFGKZNA2612-71-37 18:14:007.7[facility] UpondapDVBTWMMZSF3957-46-60 18:14:000.2[facility] RoxspyzHAHPVASQQA8328-61-84 18:14:001+ *ABN*(11/26/18 1:14 PM)[facility] NzuwuudVBEIUQMEPV6404-71-08 18:14:000.1[facility] HermannHEMATOLOGY 2018-11-26 18:14:000.6[facility] RczlqjuDXOWMYMKEL0605-49-23 18:14:003.4[facility] PefxmzwYJSQUEETRV9757-30-63 18:14:005.7[facility] LrmvmaeBPRODTLUXE6139-89-91 18:14:006.2[facility] VdzxzeoVFMVYAGBOJ7771-76-17 18:14:002.3[facility] [place] BCADULKRTU6182-64-86 18:14:000.6[facility] MhsvoxvLSXDYGMRTG0554-52-29 18:14:00 33.8[facility] GtvfthiUEFGUPNXIF1096-92-25 18:14:0057.1[facility] HermannCHEM PANEL 2018-10-22 13:11:0034[facility] HermannCHEM AXUKZ7066-60-08 13:11:31697Rujyhbda HermannCHEM MDHKO0642-65-00 13:11:001.58[facility] HermannCHEM MPZSS7815-27-55 13:11:0032[facility] HermannCHEM ACKYV4233-54-79 13:11:62209Elnzzwvo HermannCHEM EDIVH6937-65-83 13:11:0021[facility] HermannCHEM HJPVD0414-72-41 13:11:007.8 [facility] HermannCHEM UKJDG3664-30-00 13:11:002.6[facility] HermannCHEM PANEL 2018-10-22 13:11:009.1[facility] HermannCHEM SJSYG6050-60-48 13:11:70266Latdldvd HermannCHEM TKXKO4351-11-80 13:11:004.9[facility] HermannCHEM QVNNR1226-06-26 13:11:0019[facility] HermannCHEM YLEXX9940-43-64 13:11:0016[facility] HermannCHEM EFNZI8065-63-41 13:11:000.4[facility] HermannCHEM FTSAK0589-52-98 13:11:11904 [facility]annCHEM QACZL7967-87-25 13:11:00* Test Item Value Reference Range Interpretation Comments B/C Ratio (test code = B/C Ratio) 20 1 6-25 [facility]annCHEM GIWRZ6347-80-06 13:11:005.2[facility] HermannCHEM PANEL 2018-10-22 13:11:00* Test Item Value Reference Range Interpretation Comments A/G Ratio (test code = A/G Ratio) 0.5 1 0.7-1.6 [facility]annCHEM USBDE9381-90-96 13:11:0011.9[facility] HermannHEMATOLOGY 2018-10-22 13:11:007.4[facility] MdbymizQTPIHXPQAN7125-55-93 13:11:56459Wkdzxgwc PtrxwzfZDPBNAJDSE1119-14-28 13:11:0076.0[facility] EtaswqnIQJJGFSOBH6251-50-07 13:11:0015.8[facility] SdxusncBNDXHMBOYX4385-08-84 13:11:00* Test Item Value Reference Range Interpretation Comments MCH (test code = MCH) 25.0 pg 27.0-31.0 [facility] TkyykrmNTOCGBDHCW9330-00-06 13:11:0032.8[facility] HermannHEMATOLOGY 2018-10-22 13:11:004.31[facility] TngvykaGZOAUFMQOA0311-78-06 13:11:0032.8[facility] XjllpbdCRBIAZGUUX3662-67-82 13:11:0010.8[facility] TsbwhmvTRECBSALQT1019-57-11 13:11:009.9[facility] YjdlhmqFLRSWMFGRA5435-72-12 13:11:001+ *ABN*(10/22/18 8:11 AM) [facility] GmhbfrwDULJUFXPUI0841-25-66 13:11:002.4[facility] HermannHEMATOLOGY 2018-10-22 13:11:004.8[facility] WmfpmswAXVUBNUKCZ9750-99-84 13:11:0058.2[facility] CaqoxrfVEALHTALSJ9361-35-45 13:11:0034.0[facility] BkrvihoGSVUCHDJTQ9172-21-89 13:11:000.6[facility] WzxgdnsDTIEEUKYZN5176-45-57 13:11:003.4[facility] [place] CQLFUFLLIE9234-01-22 13:11:000.5[facility] OeszoolECVLBDIGJY5836-60-73 13:11:005.7 [facility] HplqihuPSCNDGVTQG5616-87-30 13:11:000.2[facility] HermannHEMATOLOGY 2018-10-22 13:11:000.1[facility] HermannCHEST 2 GEITJ7300-08-81 13:03:00 [place] [address] Patient Name: ELSIE LOAIZA MR #: [id number] : 1950 Age/Sex: 67/F Req #: [id number] [facility] Physician: Ordered by: MIKE BAL MD Report #: [id number] Location: OR Room/Be d: Procedure: DX/CHEST 2 VIEWS Exam Date: 03/24/18 Exam Time: 1210 REPORT STATUS: Signed EXAMINATION: PA and lateral views of the chest. COMPARISON: None CLINICAL HISTORY: Preoperative for cystoscopy DISCUSSION: The l ungs are well-inflated. No consolidation, pleural effusion, or pneumothorax. T ortuous thoracic aorta with atherosclerotic calcification. Upper mediastinal s urgical clips. Normal heart size. No pulmonary edema. No acute osseous abno rmality. Surgical clips project over the right upper quadrant of the abdomen l ikely related to prior cholecystectomy. IMPRESSION: No acute cardiopu lmonary abnormalities. Signed by: Abelino Sifuentes on 03/24/2018 1:06 PM Dictated By: MAURILIO ZAVALA MD Electronically Fiordaliza d By: MAURILIO ZAVALA MD on 03/24/18 1306 Transcribed By: ANSELMO on 03/24/18 130 6 COPY TO: MIKE BAL MD CEVMEWAUABUI1671-94-72 16:03:57808 [facility] HxlqjcnOFPQNEEKQRSG1890-41-97 16:03:0031[facility] HermannELECTROLYTES 2015-02-02 16:03:008.8[facility] UdqqfyuNOGPVSLVSRXJ3337-58-42 16:03:0011.7 [facility] GlicupvNPIGZGIPBRAS8102-53-55 16:03:77817Evtaejor HermannELECTROLYTES 2015-02-02 16:03:19424Bggltunz UrfbdvwRYGWVUUGEKKW8014-85-23 16:03:003.7[facility] TmljpqkIXEKMRFNQHNR2666-79-30 16:03:0020[facility] LcnggifZHCCFKEIDXKD4690-58-01 16:03:000.8[facility] CspzsleLFWIKFTGMCAI1211-67-59 16:03:0079[facility] Oz
--- OUTSIDE RECORDS SUMMARY | 2020-03-06 21:12 | XMS REPORT | Continuity of Care Document ---
Author Author [facility] t Organization [facility] Address [address] [place] [address] Phone Unavailable Care Team Providers Care Solar Manager Name Role Phone Eric OCASIO Attphys Unavailable Wilfrido Jarrett Attphys MIKE BAL Attphys Unavailable Harish Bowden Attphys Payers Payer Name Policy Type Policy Number Effective Date Expiration Date S ource Problems Condition Name Condition Details Condition Category Status Onset Date Resolution Date Last Treatment Date Treating Clinician Comments Source PERIPHERAL GERRI PHERAL Active 02/24/2019 [facility] Diagnosis Active 2019-02-24 00:00:00 2019-03-10 14:14:00 Marquez Clinton PERIPHERAL ANGIOGRAM /C INTERVENSION PERIPHERAL ANGIOGRAM /C INTERVENSION Active 11/09/2018 [facility] Diagnosis Ac tive 2018-11-09 00:00:00 2018-11-30 17:32:00 M faby Clinton DX: K29.70=GASTRITIS, UNSPECIFIED, WITHO DX: K29.70=GASTRITIS, UNSPECIFIED, WITHO Active 10/08/2018 [facility] Active 2018-10-08 00:00:00 2018-11-15 15:53:00 Marquez Clinton PERIPHERAL ANGIOGRAM /C INTERVENTION PERIPHERAL ANGIOGRAM /C INTERVENTION Active 09/23/2018 [facility] Diagnosis Ac tive 2018-09-23 00:00:00 2018-10-26 06:09:00 [facility] UNK UNK Active 12/05/2016 [facility] Diagnosis Active 2016-12-05 00:00:00 2016-12-10 10:07[facility]51 787.99 V76. 51 787.99 Active 01/18/2015 [facility] Diagnosis Active 2015-01-18 00:00:00 2015-02-06 12:31:00 [facility] 250.00-DIAB TYPE 2/401.9-HYPERTENSION/78 250.00-DIAB TYPE 2/401.9-HYPERTENSION/78 Active 04/14/2014 [facility] Diagnosis A ctive 2014-04-14 00:00:00 2014 08:04:00 [facility] Anemia (disorder) Anem ia (disorder) [facility] 2019-03-06 21:58:03 [facility] Heart murmur (finding) Hear t murmur (finding) Resolved Problem 03/06/2019 [facility] Resolved 2019-03-06 21:58:03 [facility] Hypercholesterolemia (disorder) Hypercholesterolemia (disorder) Resolved Problem 03/06/2019 [facility] Resolved 2019-03-06 21:58:03 [facility] Urinary tract infectious disease (disorder) Urinary tract infectious disease (disorder) Resolved Problem 03/06/2019 [facility] Resolved 2019-03-06 21:58:03 [facility] Depression - motion (qualifier value) Depression - motion (qualifier value) Active Problem 06/21/2017 [facility] Active 2017-06-21 02:10:55 [facility] Gastroesophageal reflux disease (disorder) Gastroesophageal reflux disease (disorder) Active Problem 03/06/2019 [facility] Active 2019-03-06 21:58:03 [facility] Anxiety (finding) Anxi ety (finding) Active Problem 03/06/2019 [facility] Active 2019-03-06 21:58:03 [facility] Diabetes mellitus (disorder) D iabetes mellitus (disorder) Active Problem 03/06/2019 [facility] Active 2019-03-06 21:58:03 [facility] Diabetes mellitus type 2 (disorder) Diabetes mellitus type 2 (disorder) Active Problem 03/06/2019 [facility] Active 2019-03-06 21:58:03 Yisel Clinton Hypertensive disorder, systemic arterial (disorder) Hypertensive disorder, systemic arterial (disorder) Active Problem 03/06/2019 [facility] Active 2019-03-06 21:58:03 Marquez Clinton Irritable colon (disorder) Irr itable colon (disorder) Active Problem 03/06/2019 CELESTINA Nugent [facility] Problem Active 2019-03-06 21:58:03 Marquez Clinton Neuropathy (disorder) Neur opathy (disorder) Active Problem 03/06/2019 [facility] Active 2019-03-06 21:58:03 Marquez Clinton Peripheral vascular disease (disorder) Peripheral vascular disease (disorder) Active Problem 03/06/2019 [facility] Active 2019-03-06 21:58:03 Christiano Clinton changes in bowel habits(Confirmed) changes in bowel habits(Confirmed) Active Problem 04/21/2014 [facility] Problem Active 2014-04-21 22:04:05 [facility] Oz SCREEN MALIG NEOP-COLON SCRE EN MALIG NEOP-COLON Active [facility] Diagnosis Active 2015-02-06 12:31:00 Marquez Clinton DIGESTVE SYST SYMPTM NEC DIGE STVE SYST SYMPTM NEC Active [facility] Diagnosis Active 2015-02-06 12:31:00 Marquez Clinton History of Past Illness Condition Name Condition Details Condition Category Status Onset Date Resolution Date Last Treatment Date Treating Clinician Comments Source 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 Problem 03/06/2019 [facility]olved 2002-07-20 00:00:00 2019-03-06 21:58:03 2 21:58:03 Marquez Clinton Allergies, Adverse Reactions, Alerts Allergy Name Allergy Type Status Severity Reaction(s) Onset Date Inacti ve Date Treating Clinician Comments Source No Known Allergies DA Active U 2019-02-01 00:00:00 [facility] No Known Allergies DA Active U 2018-07-10 00:00:00 [facility] No Known Allergies DA Active U 2018-02-01 00:00:00 [facility] contrast media (iodine-based) contrast media (iodine-based) Active [...] 2018-12-01 14:00:00 No Notes: (clark e as: [facility]) Marquez Clinton hydrochlorothiazide 25 mg oral tablet 2018-12-01 14:00:00 N o Notes: (Same as: Hydrodiuril) With food. Yisel brown Oz Furosemide 40 MG Oral Tablet [Lasix] 2018-12-01 14:00:00 No Notes: (Same as: Lasix) May cause GI upset. Give with food or milk. Marquez Clinton Hydrochlorothiazide 25 MG / Olmesartan medoxomil 40 MG Oral Tablet 2018-12-01 14:00:00 No 1 tab, Rou te: PO, Drug Form: TAB, Dosing Weight 61.364, kg, Daily, Start date: 12/01/18 9:00:00 CDT, Duration: 30 day, Stop date: 12/30/18 9:00:00 CDT [facility] Oz clopidogrel 2018-12-01 14:00:00 No Notes: ( Same As: Plavix) [facility] Oz Citalopram 2018-12-01 14:00:00 No 20 mg, 2 tab, Route: PO, Drug form: TAB, Daily, Dosing Weight 61.364, kg, Start date: 12/01/18 9:00:00 CDT, Duration: 30 day, Stop date: 12/30/18 9:00:00 CDT [facility] Bupropion 2018-12-01 14:00:00 No Notes: (Same as: Wellbutrin XL) "Do Not Crush" [facility] Oz Benicar 2018-12-01 14:00:00 No 40 mg, 2 tab, Route: PO, Drug form: TAB, Daily, Start date: 12/01/18 9:00:00 CDT, Duration: 30 day, Stop date: 12/30/18 9:00:00 CDT [facility] atorvastatin 2018-12-01 02:00:00 No Notes: (Same As: Lipitor) [facility] Hydralazine 2018-12-01 01:29:00 No Notes: (Same as: [...] room temperature. Expires in days from Date [facility] Blaine tierra *Please bring pt's own mesalamine to pharmacy for label* 2018-11-30 21:00:00 No *Please bring pt's own mesalamine to pharmacy for label*, ATTN:MARTIN, Drug form: MISC, Route: MISC, QSHIFT, 11/30/18 16:00:00 CDT, Duration: 30 day, Stop date: 12/30/18 8:00:00 CDT [facility] Oz Insulin Lispro 2018-11-30 20:27:00 No Notes: (Same as: Humalog) Roll in palms of hands gently; Do not shake vigorously. WASTE: F/P - Black; E - Municipal Trash Bin Stable for 28 days at room temperature. Expires in days from Date [facility] Glucagon 2018-11-30 20:27:00 No 1 mg, Route: IM, Drug form: PDR/INJ, PRN, Dosing Weight 61.364, kg, PRN Blood Glucose Results, Start date: 11/30/18 15:27:00 CDT, Duration: 30 day, Stop date: 12/30/18 15:26:00 CDT [facility] Dextrose 50% Syringe 2018-11-30 20:27:00 No 12.5 gm, 25 mL, Route: IVP, Drug Form: INJ, Dosing Weight 61.364, kg, PRN, PRN Blood Glucose Results, Start date: 11/30/18 15:27:00 CDT, Duration: 30 day, Stop date: 12/30/18 15:26:00 CDT [facility] Acetaminophen 325 MG / Hydrocodone Bitartrate 5 MG Oral Tabl et 2018-11-30 20:24:00 No Notes: (Sa me as: Golden 325/5) Do not exceed 4gm/day of acetaminophen. [facility] Morphine 2018-11-30 20:24:00 No Not es: (Same as:MORPhine Sulfate) [facility] Ondansetron 2018-11-30 20:24:00 No Notes: ( Same as: Zofran) [facility] Diphenhydramine 2018-11-30 20:24:00 No 25 mg, 1 tab, Route: PO, Drug form: TAB, Bedtime, Dosing Weight 61.364, kg, PRN Insomnia, Start date: 11/30/18 15:24:00 CDT, Duration: 30 day, Stop date: 12/30/18 15:23:00 CDT [facility] Nitroglycerin 2018-11-30 20:24:00 No Notes: (Same as:Nitroquick, Nitrostat) "Do Not Crush" Sublingual tablet [facility] Sodium Chloride 0.9% IV 750 mL 2018-11-30 20:24:00 No 750 mL, Rate: 75 ml/hr, Infuse over: 10 hr, Route: IV, Dosing Weight 61.364 kg, Total Volume: 750, Start date: 11/30/18 15:24:00 CDT, Duration: 10 hr, Stop date: 12/01/18 1:23:00 CDT, 1.66, m2 [facility] Sodium Chloride 0.9% (Bolus) IV 2018-11-30 20:24:00 No 250 mL, 250 ml/hr, Infuse Over: 1 hr, Route: IV, 250, Drug form: INJ, ONCE, Dosing Weight 61.364 kg, Start date: 11/30/18 15:24:00 CDT, Stop date: 11/30/18 15:24:00 CDT [facility] citalopram 20 mg oral tablet 2018-11-30 19:22:00 Yes 20 mg = 1 tab, PO, Daily, 0 Refill(s) [facility] Bupropion 2018-11-30 19:22:00 Yes 15 0 mg, PO, Daily, 0 Refill(s) [facility] ALIVE MULTIVITAMIN FOR WOMEN 2018-11-30 19:22:00 Yes ALIVE MULTIVITAMIN FOR WOMEN, 1 tablet, Refill(s) 0 [facility] hyoscyamine 0.125 mg oral tablet 2018-11-26 17:59:00 Yes 0.125 mg = 1 tab, PO, QID, 0 Refill(s) [facility] nebivolol 10 MG Oral Tablet [Bystolic] 2018-11-26 17:56:00 Yes 10 mg = 1 tab, PO, Daily, 0 Refill(s) Memoria l [facility] Morphine 2018-10-26 16:20:00 No Not es: (Same as:MORPhine Sulfate) [facility] Acetaminophen 325 MG / Hydrocodone Bitartrate 5 MG Oral Tabl et 2018-10-26 16:20:00 No Notes: (Sa me as: Golden 325/5) Do not exceed 4gm/day of acetaminophen. [facility] Nitroglycerin 2018-10-26 16:20:00 No Notes: (Same as:Nitroquick, Nitrostat) "Do Not Crush" Sublingual tablet [facility] Sodium Chloride 0.9% IV 750 mL 2018-10-26 16:20:00 No 750 mL, Rate: 75 ml/hr, Infuse over: 10 hr, Route: IV, Dosing Weight 65.909 kg, Total Volume: 750, Start date: 10/26/18 11:20:00 CDT, Duration: 10 hr, Stop date: 10/26/18 21:19:00 CDT, 1.72, m2 [facility] clopidogrel 75 mg oral tablet 2018-10-26 16:19:00 [...] PO, Daily, # 30 tab, 0 Refill(s) [facility] potassium chloride 10 mEq oral capsule, extended release 2018-10-22 13:02:00 Yes 10 mEq = 1 cap, PO, Daily, 0 Ref ill(s) [facility] Furosemide 40 MG Oral Tablet [Lasix] 2018-10-22 13:01:00 Ye s 40 mg = 1 tab, PO, Daily, # 30 tab, 0 Refill(s) [facility] iron infusions 2018-10-22 13:00:00 Yes iron infusions, IV, qWeek, Refill(s) 0 [facility] Nitroglycerin 2016-12-09 17:10:00 No Notes: (Same as:Nitroquick, Nitrostat) "Do Not Crush" Sublingual tablet [facility] Acetaminophen 325 MG / Hydrocodone Bitartrate 5 MG Oral Tabl et 2016-12-09 17:10:00 No Notes: (Sa me as: Golden 325/5) Do not exceed 4gm/day of acetaminophen. [facility] Morphine 2016-12-09 17:10:00 No Not es: (Same as:MORPhine Sulfate) [facility] Sodium Chloride 0.154 MEQ/ML Injectable Solution 2016-12-09 17:1 0:00 No 750 mL, Rate: 75 ml/hr, Infu se over: 10 hr, Route: IV, Dosing Weight 63.636 kg, Total Volume: 750, Start date: 12/09/16 12:10:00 CDT, Duration: 10 hr, Stop date: 12/09/16 22:09:00 CDT [facility] Her felipe Keflex 2016-12-09 15:29:00 Yes = 1 tab, PO, TID, 1 tab, 3 times a day, 0 Refill(s) [facility] Sodium Chloride 0.154 MEQ/ML Injectable Solution 2015-02-06 18:0 3:00 No 500 mL, Rate: 25 ml/hr, Infu se over: 20 hr, Route: IV, Dosing Weight 60.909 kg, Total Volume: 500, Start date: 02/06/15 13:03:00, Duration: 30 day, Stop date: 03/08/15 13:02:00 [facility] Cardizem 2015-02-02 16:16:00 Yes 0 Refill(s) Marquez [...] Comments Source Height 2019-03-04 12:04:00 157.48 cm [facility] Weight 2019-03-04 12:04:00 Marquez Clinton BMI Calculated 2019-03-04 12:04:00 Sara Aguirreann Heart Rate 2018-12-01 12:33:00 [facility] Systolic (mm Hg) 2018-12-01 12:33:00 Christiano rial Oz Diastolic (mm Hg) 2018-12-01 12:33:00 Mem orial Oz Respitory Rate 2018-12-01 12:33:00 Sara al [place] Temperature Oral (F) 2018-12-01 12:33:00 98.5 F [facility] Temperature Oral (F) 2018-12-01 08:12:00 98.7 F [facility] Systolic (mm Hg) 2018-12-01 08:12:00 Christiano rial [place] Diastolic (mm Hg) 2018-12-01 08:12:00 Mem orial [place] Respitory Rate 2018-12-01 08:12:00 Memori al Oz Heart Rate 2018-12-01 08:12:00 [facility] [place] Systolic (mm Hg) 2018-12-01 04:09:00 Christiano rial Oz Diastolic (mm Hg) 2018-12-01 04:09:00 Mem orial Oz Temperature Oral (F) 2018-12-01 04:09:00 97.7 F [facility] Respitory Rate 2018-12-01 04:09:00 Memori al [place] Heart Rate 2018-12-01 04:09:00 [facility] [place] Weight 2018-11-26 17:54:00 [facility] [place] BMI Calculated 2018-11-26 17:54:00 Memori al Oz Height 2018-11-26 17:54:00 157.48 cm [facility] Systolic (mm Hg) 2018-10-26 23:30:00 Christiano rial Oz Diastolic (mm Hg) 2018-10-26 23:30:00 Mem orial [place] Systolic (mm Hg) 2018-10-26 23:00:00 Christiano rial Oz Diastolic (mm Hg) 2018-10-26 23:00:00 Mem orial Oz Systolic (mm Hg) 2018-10-26 22:30:00 Christiano rial [place] Diastolic (mm Hg) 2018-10-26 22:30:00 Mem orial [place] Temperature Oral (F) 2018-10-26 12:22:00 98.0 F [facility] Respitory Rate 2018-10-26 12:22:00 Memori al [place] BMI Calculated 2018-10-22 13:07:00 Memori al Oz Weight 2018-10-22 13:07:00 [facility] Height 2018-10-22 13:07:00 158.75 cm [facility] [place] Heart Rate 2018-10-22 13:07:00 [facility] Temperature Oral (F) 2018-10-22 13:07:00 97.8 F [facility] Respitory Rate 2018-10-22 13:07:00 Memori al [place] Heart Rate 2016-12-10 12:42:00 [facility] Temperature Oral (F) 2016-12-10 12:42:00 97.4 F [facility] [place] Respitory Rate 2016-12-10 12:42:00 Memori al Oz Systolic (mm Hg) 2016-12-10 12:42:00 Christiano rial [place] Diastolic (mm Hg) 2016-12-10 12:42:00 Mem orial Oz Temperature Oral (F) 2016-12-10 09:00:00 98.2 F [facility] [place] Respitory Rate 2016-12-10 09:00:00 Memori al Oz Systolic (mm Hg) 2016-12-10 09:00:00 Christiano rial Oz Diastolic (mm Hg) 2016-12-10 09:00:00 Mem orial Oz Respitory Rate 2016-12-10 05:00:00 Memori al [place] Temperature Oral (F) 2016-12-10 05:00:00 97.6 F [facility] [place] Systolic (mm Hg) 2016-12-10 05:00:00 Christiano rial Oz Diastolic (mm Hg) 2016-12-10 05:00:00 Mem orial Oz Height 2016-12-09 17:26:00 157.48 cm [facility] Weight 2016-12-09 17:26:00 [facility] BMI Calculated 2016-12-09 17:26:00 Memori al [place] Systolic (mm Hg) 2015-02-06 20:21:00 Christiano rial [place] Diastolic (mm Hg) 2015-02-06 20:21:00 Mem orial Oz Respitory Rate 2015-02-06 20:21:00 Memori al [place] Systolic (mm Hg) 2015-02-06 20:06:00 Christiano rial [place] Diastolic (mm Hg) 2015-02-06 20:06:00 Mem orial Oz Respitory Rate 2015-02-06 20:06:00 Memori al [place] Systolic (mm Hg) 2015-02-06 19:51:00 Christiano rial Oz Diastolic (mm Hg) 2015-02-06 19:51:00 Mem orial Oz Respitory Rate 2015-02-06 19:51:00 Memori al [place] Heart Rate 2015-02-06 18:59:00 [facility] [place] Weight 2015-02-02 15:50:00 [facility] BMI Calculated 2015-02-02 15:50:00 Memori al [place] Height 2015-02-02 15:50:00 157.48 cm [facility] Temperature Oral (F) 2015-02-02 15:50:00 97.8 F [facility] Heart Rate 2015-02-02 15:50:00 [facility] [place] Procedures Procedure Date / Time Performed Performing Clinician [facility] e Angiogram 2018-10-26 05:00:00 Marquez felipe Rotational atherectomy 2016-12-09 05:00:00 Yisel Apodacaann Colonoscopy 2013-07-20 00:00:00 Marquez felipe Cholecystectomy 2012-07-20 00:00:00 Marquez felipe Removal of spinal cord lesion 2002-07-20 00:00:00 [facility] Oz Tubal ligation 1995-07-20 00:00:00 [facility] Her felipe Cataract surgery [facility] Elvis n Tonsillectomy [facility] Oz Encounters Start Date/Time End Date/Time [facility]counter Type Ad[facility] Encounter ID Source 2019-03-04 11:35:00 2019-03-04 15:00:00 Outpatient Vaibhav Jarrett MHSE MHSE [id number] 2019-03-04 13:00:00 2019-03-04 13:00:00 Outpatient MHSE CAR [id number] 2018-11-30 10:43:00 2018-12-01 13:45:00 Outpatient Vaibhav Jarrett MHSE MHSE [id number] 2018-11-30 10:43:00 2018-11-30 10:43:00 Outpatient MHSE CAR [id number] 2018-10-26 06:09:00 2018-10-26 19:30:00 Outpatient Vaibhav Jarrett MHSE MHSE [id number] 2018-10-26 06:09:00 2018-10-26 06:09:00 Outpatient MHSE CAR [id number] 2017-06-18 09:23:00 2017-06-18 23:59:00 Outpatient Amber Jarrett HOIP HOIP [id number] 2016-12-09 09:50:00 2016-12-10 10:54:00 Outpatient Vaibhav Jarrett MHSE MHSE [id number] 2015-02-06 12:29:00 2015-02-06 15:29:00 Outpatient Edgar Bowden MHSE MHSE [id number] 2014 07:56:00 2014 23:59:00 Outpatient Edgar Bowden MHIE MHIE [id number] Results Test Description Test Time Test Comments Results Result Comments Source CHEST SINGLE (PORTABLE) 2020-03-06 19:33:00 [facility] [address] [place], [place] [address] Patient Name: ELSIE LOAIZA MR #: [id number] : 1950 Age/Sex: 69/F Req #: [id number] Adm Physician: Ordered by: CHELO OCSAIO MD Report #: [id number] Location: ER Room/Bed: Procedure: [id number] DX/CHEST SINGLE (PORTABLE) Exam Date: 03/06/20 Exam [...] 03/06/201933 COPY TO: CHELO OCASIO MD - Arigo 2019-09-13 09:59:00 N maegan: ELSIE LOAIZA [facility] : 1950 Age/S: 69 / F [address] [facility] Unit #: [id number] Loc: [place] [address] Phys: Mike Bal MD Acct: [id number] Dis Date: Status: REG CLI PHONE #: [phone] Exam Date: 09/13/2019948 FAX #: [phone] Reason: N18.9 EXAMS: CPT CODE: [id number] US RETROPERITONEAL COM [id number] HISTORY: Chronic kidney disease. COMPARISON: Renal ultrasound [...] calcifications within the wall without nodules. Location: [facility]. at 0959 Reported and signed by: Mario Richards M.D. CC: Mike Bal MD; Aldo Espinosa MD Technologist: JEANNIE GONZALEZ RT(R),RDMS Trnscb Date/Time: 09/13/2019 (0959) [email or web address] Orig Print D/T: S: 09/13/2019 (1002) Probe: PAGE 1 Signed Report GLUBED 2019-03-15 16:48:00 Test Item GLUBED (test code = GLUBED) 300 mg/dL 74-106 H Performed by certified dethistler operator at [facility]3] [id number] 12:03:00* Test Item Value Reference Range Interpretation Comments GLUBED (test code = GLUBED) 244 mg/dL 74-106 H Performed by certified dethistler operator at [facility]3] BASIC METABOLIC [id number] 07:02:00* Test Item Value Reference Range Interpretation [...] CA) 8.8 mg/dL 8.5-10.1 N BASIC METABOLIC [id number] 06:48:00* Test Item Value Reference Range Interpretation [...] CALCIUM (test code = CA) mg/dL 8.5-10.1 [id number] 06:04:00* Test Item Value Reference Range Interpretation Comments GLUBED (test code = GLUBED) 199 mg/dL 74-106 H Performed by certified dethistler operator at [facility]3] UR PROTEIN [id number] 23:02:00* Test Item Value Reference Range Interpretation Comments UR PROTEIN RANDOM (test code = PROTU) 532.3 mg/dL 0.0-11.9 H Protein levels may be falsely elevated in patients withelevated level of aminoglycoside antibiotics in CSF and inhighly concentrated urine specimens. If false elevation issuspected, contact lab for alternated testing technique. UR CREATININE [id number] 23:02:00* Test Item Value Reference Range Interpretation Comments UR CREATININE RANDOM (test code = CREATU) 78.0 mg/dL 30-125 N URINALYSIS [id number] 22:53:00* Test Item Value Reference Range Interpretation [...] NONE A Urine Source? VoidedUR SMEAR EOSINOPHIL [id number] 22:53:00* Test Item Value Reference Range Interpretation Comments UR SMEAR EOSINOPHIL COUNT (test code = EOSCTU) 5-10 EOS/100 WBCs per HPF NONE SEEN Urine Source? VoidedURINALYSIS [id number] 22:41:00* Test Item Value Reference Range Interpretation [...] NONE A Urine Source? VoidedUR SMEAR EOSINOPHIL [id number] 22:41:00* Test Item Value Reference Range Interpretation Comments UR SMEAR EOSINOPHIL COUNT (test code = EOSCTU) per HPF NONE SE EN Urine Source? VoidedURINALYSIS [id number] 22:33:00* Test Item Value Reference Range Interpretation [...] HPF NONE Urine Source? VoidedUR SMEAR EOSINOPHIL [id number] 22:33:00* Test Item Value Reference Range Interpretation Comments UR SMEAR EOSINOPHIL COUNT (test code = EOSCTU) per HPF NONE SE EN Urine Source? Voided- US RETRO [id number] 20:16:00 Name: LOAIZAELSIE HENSON [facility] : 1950 Age/S: 68 / F [address] [facility] Unit #: [id number] Loc: [place] [address] Phys: Natalie Ratliff MD Acct: [id number] Dis Date: Status: ADM IN PHONE #: [phone] Exam Date: 03/14/20191956 FAX #: [phone] Reason: john EXAMS: CPT CODE: [id number] US RETRO LTD [id number] EXAM: Ultrasound retroperitoneum, limited; INFORMATION: Acute kidney [...] MD; Natalie Ratliff MD Technologist: Amber Vazquez Trngab Date/Time: 03/14/20 (2015) tMACHELLE Orig Print D/T: S: 03/14/2019 (2018) Probe: PAGE 1 Signed Report [id number] 17:22:00* Test Item Value Reference Range Interpretation Comments GLUBED (test code = GLUBED) 233 mg/dL 74-106 H Performed by certified dethistler operator at [facility]3] - MRI BRAIN W/O [id number] 17:17:00 FAX: Miki Montesinos MD [phone] [place]: [address] St: ADM Name: ELSIE SON [facility] : [birth year] Age/S: 68/F [address] [facility] Unit #: [id number] Loc: [address] [place] [address] Phys: Miki Montesinos MD Acct: [id number] Dis Date: Status: ADM IN PHONE #: [phone] Exam Date: 03/14/2019 6758 FAX #: [phone] Reason: slurred speech EXAMS: CPT CODE: [id number] MRI BRAIN W/O CONTRAST 82811 EXAM: MRI of the brain without con [...] chronic isch emic white matter changes. at 1711 Reported and signed by: Jaron Moffett M.D. CC: Miki Montesinos MD Technologist: DAVID RIVAS,RT - MRI [facility] Date/Time/By: 2018 (1447) : By: KeerthiGRW Orig Print D/T: S: 03/14/2019 (8522) PAGE 1 Signed Report [id number] 11:35:00* Test Item Value Reference Range Interpretation Comments GLUBED (test code = GLUBED) 243 mg/dL 74-106 H Performed by certified dethistler operator at [facility] (Formerly [facility])[3] KGDXVV8779-07-97 06:31:00* Test Item Value Reference Range Interpretation Comments GLUBED (test code = GLUBED) 189 mg/dL 74-106 H Performed by certified dethistler operator at [facility] (Formerly [facility])[3] QUVGMOAFQV0324-33-76 02:29:00* Test Item Value Reference Range Interpretation [...] FESAT) 16.26 % 13-45 N THYROID PROFILE W/QAY1350-12-46 02:29:00* Test Item Value Reference Range Interpretation [...] 5.5 mIU/mL HYPER : < 0.35 mIU/mL GFMJWQCY3242-69-08 02:29:00* Test Item Value Reference Range Interpretation [...] interpreted taking into account the patients history. NWMAMYWK-E6499-51-26 02:13:00* Test Item Value Reference Range Interpretation Comments TROPONIN-I (test code = TROPI) <0.015 ng/mL 0-0.045 N COMMENTS TO ASSOCIATE DIRECTOR FINANCIAL AID: COLLECT 3 HOURS AFTER PREVIOUS SAMPLECOMPREHENSIVE METABOLIC FOINV3043-67-55 02:12:00* Test Item Value Reference Range Interpretation [...] reference range due to change in reagent. CKKYNPLJE0123-45-39 02:12:00* Test Item Value Reference Range Interpretation Comments MAGNESIUM (test code = MAG) 1.5 mg/dL 1.8-2.4 L [id number] 02:12:00* Test Item Value Reference Range Interpretation Comments GLYCOSYLATED HEMOGLOBIN (HA1C) (test code = GLYHGB) 9.8 % HbA1 4. 8-6.0 H ESTIMATED AVERAGE GLUCOSE (test code = EAG) 235 MG/DL COMPREHENSIVE METABOLIC IKCQT5030-57-94 02:00:00* Test Item Value Reference Range Interpretation [...] TOTAL (test code = ALKP) IUnit/L 45-117 SAITRAWSB4594-21-60 02:00:00* Test Item Value Reference Range Interpretation Comments MAGNESIUM (test code = MAG) mg/dL 1.8-2.4 XMBKIVZO-W8141-89-25 22:21:00* Test Item Value Reference Range Interpretation Comments TROPONIN-I (test code = TROPI) <0.015 ng/mL 0-0.045 N COMMENTS TO ASSOCIATE DIRECTOR FINANCIAL AID: COLLECT 3 HOURS AFTER PREVIOUS RDZJVTPTGSJO8282-66-51 21:11:00* Test Item Value Reference Range Interpretation Comments GLUBED (test code = GLUBED) 411 mg/dL 74-106 H Performed by certified dethistler operator at [facility] ([facility])[3] BASIC METABOLIC [id number] 17:13:00* Test Item Value Reference Range Interpretation [...] mg/dL 74-106 H RE SULTS CALLED TO [id number] BY [facility] 1710 BLOOD UREA NITROGEN (test [...] code = CA) 8.7 mg/dL 8.5-10.1 N [id number]-[id number] 17:13:00* Test Item Value Reference Range Interpretation Comments TROPONIN-I (test code = TROPI) <0.015 ng/mL 0-0.045 N BASIC METABOLIC [id number] 17:12:00* Test Item Value Reference Range Interpretation [...] mg/dL 74-106 H RE SULTS CALLED TO [id number] [employer] [address] [employer]DAVID 03/13/19 1710 BLOOD UREA NITROGEN (test code [...] code = CA) 8.7 mg/dL 8.5-10.1 N [id number]-[id number] 17:12:00* Test Item Value Reference Range Interpretation Comments TROPONIN-I (test code = TROPI) ng/mL 0-0.045 BASIC METABOLIC [id number] 17:11:00* Test Item Value Reference Range Interpretation [...] mg/dL 74-106 H RE SULTS CALLED TO [id number] BY NAVARRO 03/13/19 1710 BLOOD UREA NITROGEN [...] code = CA) 8.7 mg/dL 8.5-10.1 N [id number]-[id number] 17:11:00* Test Item Value Reference Range Interpretation Comments TROPONIN-I (test code = TROPI) ng/mL 0-0.045 OCUKQPC9154-50-22 17:11:00* Test Item Value Reference Range Interpretation [...] ANADDITIONAL CHARGE TO THE PATIENT. BASIC METABOLIC DADXU6467-15-03 17:10:00* Test Item Value Reference Range Interpretation [...] code = CA) 8.7 mg/dL 8.5-10.1 N [id number]-[id number] 17:10:00* Test Item Value Reference Range Interpretation Comments TROPONIN-I (test code = TROPI) ng/mL 0-0.045 BASIC METABOLIC EFKSM9912-67-19 17:07:00* Test Item Value Reference Range Interpretation [...] CALCIUM (test code = CA) mg/dL 8.5-10.1 YNXLPCVJ-B6452-89-25 17:07:00* Test Item Value Reference Range Interpretation Comments TROPONIN-I (test code = TROPI) ng/mL 0-0.045 PROTHROMBIN [id number] 16:59:00* Test Item Value Reference Range Interpretation Comments PROTHROMBIN TIME PATIENT (test code = PTP) 11.4 seconds 9.0-14.0 N RESULTS CALLED TO [id number] BY ALFONSO 03/13/19 1659 INTERNATIONAL NORMAL RATIO [...] (2.5-3.5) IS PATIENT ON ANTICOAGULANTS? NTHROMBOPLASTIN TIME OCHXQQP1198-68-29 16:59:00* Test Item Value Reference Range Interpretation Comments THROMBOPLASTIN TIME PARTIAL (test code = PTT) 32.2 seconds 25.0-36. 5 N IS PATIENT ON ANTICOAGULANTS? N- XR CHEST 1 [id number] 16:58:00 FAX: Miki Montesinos MD [phone] [place]: St: PRE Name: ELSIE SON [facility] : [birth year] Age/S: 68/F [address] [facility] Unit #: [id number] Loc: [place] [address] Phys: Miki Montesinos MD Acct: [id number] Dis Date: Status: PRE ER PHONE #: [phone] Exam Date: 03/13/2019 1640 FAX #: [phone] Reason: CODE STROKE EXAMS: CPT CODE: [id number] XR CHEST 1 V 76655 REASON FOR EXAM: CODE STRO KE Exam [...] IMPRESSION: No ac chrissy cardiopulmonary process. at 4242 Reported and signed by: Silverio zavaleta MD CC: Miki Montesinos MD Technologist: RAY LOYD(R) Trnscrd Tristian e/Time/By: 03/13/2019 (2002) : By: [email or web address] Orig Print D/T: S: 2018 (1382) PAGE 1 Signed Report CBC W/AUTO [id number] 16:56:00* Test Item Value Reference Range Interpretation [...] REQUIRED (test code = MDIFF) NO PROTHROMBIN [id number] 16:56:00* Test Item Value Reference Range Interpretation [...] (2.5-3.5) IS PATIENT ON ANTICOAGULANTS? NTHROMBOPLASTIN TIME BNIRTKD3008-28-83 16:56:00* Test Item Value Reference Range Interpretation Comments THROMBOPLASTIN TIME PARTIAL (test code = PTT) 32.2 seconds 25.0-36. 5 N IS PATIENT ON ANTICOAGULANTS? N- CT HEAD/BRAIN W/O [id number] 16:47:00 Name: ELSIE LOAIZA [facility] : 1950 Age/S: 68 / F [address] Unit #: [id number] Loc: [place] [address] Phys: Brian Montesinos MD Acct: [id number] Di s Date: Status: PRE ER PHONE #: Exam Date: 03/13/2019 1634 FAX #: Reason: confusion, speech problem EXAMS: CPT CODE: [id number] CT HEAD/BRAIN W/O CONT 14544 HISTORY: confusion, spee ch problem TECHNIQUE: Noncontrast [...] by Silverio Au MD on 2018 at 6649 Reported and signed by: Silverio Au MD PAGE 1 Signed Report (CONTINUED) Name: ELSIE LOAIZA [facility] B: 1950 Age/S: 68 / F [address] Unit #: [id number] Loc: [place] [address] Phys: Ra duong Montesinos MD Acct: [id number] D is Date: Status: PRE ER PHONE #: [phone] Exam Date: 03/13/2019 1632 FAX #: [phone] Reason: confusion, speech problem EXAMS: CPT CODE: [id number] CT HEAD/BRAI N W/O CONT 83201 <Continued> CC: Miki Montesinos MD Technologist:Gabi Traylor RT(R),CT; CTDI: DLP: Trnscb Date/Time: 03/13/2019 (8727) t.SDR.RR31 Orig Print D/T: S: 03/13/2019 (6609) PAGE 2 Signed Report PUFKXKJSJKIF7299-91-60 17:50:0013.7[facility] XSSMVPUWVAAF6471-30-55 17:50:00* Test Item Value Reference Range Interpretation Comments B/C Ratio (test code = B/C Ratio) 21 1 6-25 [facility] EazmttvEERGFXKJXPRD4977-15-50 17:50:004.9[facility] HermannELECTROLYTES 2019-03-04 17:50:00* Test Item Value Reference Range Interpretation Comments A/G Ratio (test code = A/G Ratio) 0.5 1 0.7-1.6 [facility] YfsdzisAZBPWEPAQOAE0511-05-44 17:50:64987Delstjlq HermannELECTROLYTES 2019-03-04 17:50:0048[facility] FidrmrjNYNDNICIPISP4680-82-49 17:50:002.27[facility] JossleyIBCKABUXDDIB8939-17-26 17:50:79904Wqqovcsm ClmbxrsQJONBIFJTVVA2459-16-80 17:50:003.7[facility] MqztjsjBWGBIUICDFQY3550-17-41 17:50:02924Zjhbsmxa Hayden HROJGQPSESEP4083-22-25 17:50:0021[facility] FutxszcEVJVEPPIMJXR9179-38-71 17:50:00 9.1[facility] QpalhfoZYMZADNOLDUQ1956-34-46 17:50:007.5[facility] BXQTRPOMHFEP8932-95-60 17:50:002.6[facility] UxevwriMVGFHZHRRFXW0893-54-19 17:50:0015[facility] XrwsqnuUABSEXXPKVJS0215-07-64 17:50:0013[facility] DXNGQBJDJYIE6970-91-29 17:50:00786Swfvvpst BpbxafaQEGDVQXSXNHC2468-08-82 17:50:000.4[facility] CxnvtyeSWTUAJNKODCG2421-74-89 17:50:0022[facility] IDTKGWNDYL3622-42-80 17:50:0010.0[facility] PlgjveyKELUKXSVMF7439-45-41 17:50:00 4.23[facility] IxrptcdUMIULRLARN4149-36-38 17:50:0010.4[facility] HermannHEMATOLOGY 2019-03-04 17:50:0031.7[facility] MjvjavxMVBMHCJNOD9791-69-47 17:50:0075.1[facility] BjtworfVORFIHKSPU8937-66-15 17:50:00* Test Item Value Reference Range Interpretation Comments MCH (test code = MCH) 24.6 pg 27.0-31.0 [facility] ZmworokOAIDRPYFGO8740-87-05 17:50:0032.8[facility] HermannHEMATOLOGY 2019-03-04 17:50:0016.9[facility] XnosdlbCXCNARVUZL2352-07-89 17:50:84842Txquyogi PtipenrXUTZQDTNBP7887-71-00 17:50:007.5[facility] PzatqpvUCAORXPPED4146-39-41 17:50:0044.6[facility] ZdajifyINZXEQIWAD5648-57-80 17:50:0044.8[facility] FNWCVWSUVL5887-17-66 17:50:007.1[facility] NsprwpjKAEMBPMKUQ1282-70-63 17:50:002.7 [facility] GpdgqwnHVKTHJWNOG2205-46-90 17:50:000.8[facility] HermannHEMATOLOGY 2019-03-04 17:50:004.5[facility] QtlutbeAISZEOWFAK6043-85-07 17:50:004.5[facility] FyuflssHYRQBDXCVJ6347-95-28 17:50:000.7[facility] TyxeekwDKFFANOMYI5401-81-64 17:50:000.3[facility] EkqfmczWKJSSVOEKB0193-93-09 17:50:000.1[facility] USJKAMCOQA6017-98-37 17:50:001+ *ABN*(03/04/19 12:50 PM)[facility] URINALYSIS VYACKASJ9831-55-36 17:10:00* Test Item Value Reference Range Interpretation [...] Urine Source? Clean Catch- CT HEAD/BRAIN W/O OUAH9742-54-75 12:54:00 Name: FADIAELSIE BONNY [facility] : 1950 Age/S: 68 / F [address] [facility] Unit #: [id number] Loc: [place] [address] Phys: Shorty Chinchilla DO Acct: [id number] Di s Date: Status: REG ER PHONE #: [phone] Exam Date: 02/01/2019 1238 FAX #: Reason: Headache EXAMS: CPT CODE: [id number] CT HEAD/BRAIN W/O CONT 42906 HISTORY: Headaches. COMPARISON: July 10, 2018. CT [...] RT(R),(MR),(CT) CTDI: DLP: Tr nscb Date/Time: 02/01/2019 (7704) Francesca.TH4 Orig Print D/ T: S: 02/01/2019 (1525) PAGE 1 Signed Report CBC W/AUTO [id number] 12:44:00* Test Item Value Reference Range Interpretation [...] NRBC#) 0.00 K/mm3 0.0-0.1 N BASIC METABOLIC XECBR7050-20-71 12:39:00* Test Item Value Reference Range Interpretation [...] CA) 8.9 mg/dL 8.5-10.1 N BASIC METABOLIC SPUWA7938-59-76 12:33:00* Test Item Value Reference Range Interpretation [...] (test code = CA) mg/dL 8.5-10.1 CHEM UAWZT0623-17-47 08:11:92423Unpvicjp HermannCHEM KWFMN8377-03-87 08:11:0058 [facility]annCHEM CKWDH6265-13-81 08:11:0021[facility] HermannCHEM PANEL 2018-12-01 08:11:73030Phklmdnu HermannCHEM BDKFB9890-25-95 08:11:002.32[facility] HermannCHEM HLEYL1066-81-80 08:11:004.6[facility] HermannCHEM KVYPP1365-02-66 08:11:15617Bmmuardr HermannCHEM UFGDK3248-36-99 08:11:0024[facility] HermannCHEM WBKVN7115-31-47 08:11:008.8[facility] HermannCHEM ZMYVX9108-90-18 08:11:0011.6 [facility] ZidkvzdLDKSLZFWNO1567-65-65 08:11:0011.2[facility] HermannHEMATOLOGY 2018-12-01 08:11:004.34[facility] FofdhniHDFHRRKXHI5194-80-49 08:11:00* Test Item Value Reference Range Interpretation Comments MCH (test code = MCH) 23.8 pg 27.0-31.0 [facility] CbkvycvPFUUUPOULE2731-17-28 08:11:0077.2[facility] HermannHEMATOLOGY 2018-12-01 08:11:0030.8[facility] NeturknJWZQIILZSL4616-17-03 08:11:0033.5[facility] FiplmewMLVMAEJROR1950 08:11:0010.3[facility] BlcafmnGDYAHPFAQX9244-45-79 08:11:0015.3[facility] KzveddcWHPEXNMUFJ9877-02-15 08:11:007.7[facility] FHSOZZDSTA1196-48-89 08:11:55952Qztliyqz HermannCHEM BUBRZ0318-58-88 18:14:005.1 [facility] HermannCHEM UDHEK3312-51-06 18:14:00* Test Item Value Reference Range Interpretation Comments A/G Ratio (test code = A/G Ratio) 0.5 1 0.7-1.6 [facility] HermannCHEM HZSMN8102-24-56 18:14:0011.0[facility] HermannCHEM PANEL 2018-11-26 18:14:00* Test Item Value Reference Range Interpretation Comments B/C Ratio (test code = B/C Ratio) 21 1 6-25 [facility] HermannCHEM PDQAF7266-85-10 18:14:0026[facility] HermannCHEM PANEL 2018-11-26 18:14:03479Hkxjvvgg HermannCHEM OCBPJ4303-61-08 18:14:0021[facility] HermannCHEM ZRLOL8856-52-63 18:14:0023[facility] HermannCHEM ZGSDU6462-23-96 18:14:000.3[facility] HermannCHEM VSBSV3527-97-25 18:14:0042[facility] HermannCHEM ZOEUZ1492-13-36 18:14:73533Okvdlfgh HermannCHEM THUNX8311-84-47 18:14:005.0 [facility] HermannCHEM CFLOG4601-63-60 18:14:03911Sotjzijb HermannCHEM PANEL 2018-11-26 18:14:001.98[facility] HermannCHEM FRGWN6511-34-53 18:14:007.9[facility] HermannCHEM QKLTM2249-52-42 18:14:002.8[facility] HermannCHEM IZEOW7181-41-43 18:14:009.4[facility] HermannCHEM PIXGM7537-41-58 18:14:15042Ssdrgszk HermannCHEM EZCJY3403-30-46 18:14:0025[facility] YqlbqmrODKJKGKOYL3357-54-06 18:14:009.9 [facility] ErjmbsbKVNXUQDEDK4713-42-99 18:14:0015.1[facility] HermannHEMATOLOGY 2018-11-26 18:14:004.84[facility] IerzhaoMBTQSLVXSB2541-80-42 18:14:0031.5[facility] KowlvwbPWWXQCWLKO2430-77-11 18:14:0076.9[facility] BwvthtmRJCAKOFUVF3761-43-45 18:14:00* Test Item Value Reference Range Interpretation Comments MCH (test code = MCH) 24.2 pg 27.0-31.0 [facility] MbbnlqtJIUCUQXGFS6564-12-12 18:14:0011.7[facility] HermannHEMATOLOGY 2018-11-26 18:14:0037.2[facility] OwockeoUIAWDUBSDT9200-27-38 18:14:04775Vltjmhst SfkfpviGJRYIKQMPD6932-50-57 18:14:007.7[facility] YwuurgtMMPMILWQWJ3270-01-76 18:14:000.2[facility] QktrtlnYPSNKBWKUU3384-74-23 18:14:001+ *ABN*(11/26/18 1:14 PM)[facility] JewgzwzPSVZAESZPK3012-47-88 18:14:000.1[facility] HermannHEMATOLOGY 2018-11-26 18:14:000.6[facility] UcqyuucXUYUPPQHXB1956-98-82 18:14:003.4[facility] AxkjagjVBERTPWXAE3385-54-94 18:14:005.7[facility] HuisliwDPJOOOEBKM7841-18-42 18:14:006.2[facility] KoueudhXOEMVDGXKS1649-49-99 18:14:002.3[facility] KSPDVGAHOH9968-26-17 18:14:000.6[facility] StinivkRLNQPRNBKI3919-38-71 18:14:00 33.8[facility] DqgeqjoANJVBKKAZT8019-61-45 18:14:0057.1[facility] HermannCHEM PANEL 2018-10-22 13:11:0034[facility] HermannCHEM HNRDO3982-41-42 13:11:90220Vhnnylyi HermannCHEM XFQYE7417-80-06 13:11:001.58[facility] HermannCHEM GPLXQ3664-94-07 13:11:0032[facility] HermannCHEM HELNX8258-53-46 13:11:79134Snrlehem HermannCHEM DLKTB0647-78-34 13:11:0021[facility] HermannCHEM KYNFK3190-66-51 13:11:007.8 [facility] HermannCHEM UGXKN8344-77-70 13:11:002.6[facility] HermannCHEM PANEL 2018-10-22 13:11:009.1[facility] HermannCHEM EPBFB0329-69-23 13:11:71215Uqajglfs HermannCHEM ALGYH0199-16-66 13:11:004.9[facility] HermannCHEM KAMDB0072-44-25 13:11:0019[facility] HermannCHEM OOIMJ0473-25-74 13:11:0016[facility] HermannCHEM HRXSM5223-13-83 13:11:000.4[facility] HermannCHEM BUNSU9680-40-16 13:11:20348 [facility] HermannCHEM YFOIF9542-06-76 13:11:00* Test Item Value Reference Range Interpretation Comments B/C Ratio (test code = B/C Ratio) 20 1 6-25 [facility] HermannCHEM XTHGT1987-53-39 13:11:005.2[facility] HermannCHEM PANEL 2018-10-22 13:11:00* Test Item Value Reference Range Interpretation Comments A/G Ratio (test code = A/G Ratio) 0.5 1 0.7-1.6 [facility] HermannCHEM HMRYO1817-08-48 13:11:0011.9[facility] HermannHEMATOLOGY 2018-10-22 13:11:007.4[facility] GmlqpdoIOEPTCTJVT4831-17-29 13:11:04866Mvjcodks SixoldkELIYBXCQSO7996-86-17 13:11:0076.0[facility] RjudbqlXNWGYQMVUZ8214-50-15 13:11:0015.8[facility] RxjpvfeZVZYSJFYBK1570-49-92 13:11:00* Test Item Value Reference Range Interpretation Comments MCH (test code = MCH) 25.0 pg 27.0-31.0 [facility] FqdfbbqVHWGMWVBFQ9532-34-94 13:11:0032.8[facility] HermannHEMATOLOGY 2018-10-22 13:11:004.31[facility] QquhsilLPLCWWTDLO3238-95-21 13:11:0032.8[facility] TpduntzQEYKMKKEVA1122-23-52 13:11:0010.8[facility] VbqrsjsWBHOLRYGUD2726-78-53 13:11:009.9[facility] JcnxjjbIRXUHKXGIU9872-97-52 13:11:001+ *ABN*(10/22/18 8:11 AM) [facility] NzyhlvxFLRIQQNJQQ5361-89-72 13:11:002.4[facility] HermannHEMATOLOGY 2018-10-22 13:11:004.8[facility] WlvgmqwEORJTAEQUX5898-06-46 13:11:0058.2[facility] MtwqigwCNIFVYDGMO6155-39-81 13:11:0034.0[facility] KqijpkoDUXAWOLPLJ5080-37-09 13:11:000.6[facility] RbpreigPRCNEKHRPH4707-81-82 13:11:003.4[facility] ASEIWSPYZF0904-12-63 13:11:000.5[facility] TtgakmfTBAWHUJKXU2767-92-33 13:11:005.7 [facility] RpaazoaJIERWCLAJH5355-47-70 13:11:000.2[facility] HermannHEMATOLOGY 2018-10-22 13:11:000.1[facility] HermannCHEST 2 OPOON7672-02-56 13:03:00 [place] [address] Patient Name: ELSIE LOAIZA MR #: [id number] : 1950 Age/Sex: 67/F Req #: [id number] [facility] Physician: Ordered by: MIKE BAL MD Report #: [id number] Location: OR Room/Be d: Procedure: DX/CHEST 2 [...] 130 6 COPY TO: MIKE BAL MD DDFYALMUFCPV2047-87-50 16:03:14907 [facility] VwytcjzFPNXAIOEFTOO6636-45-49 16:03:0031[facility] HermannELECTROLYTES 2015-02-02 16:03:008.8[facility] OyaqnlvAKXSXWZJUDFP9341-71-72 16:03:0011.7 [facility] LcgebleDAJREQMGWCVS3335-89-58 16:03:74782Btumxhiz HermannELECTROLYTES 2015-02-02 16:03:18572Bkglkrju PjonfjjRRXGAVIUAMWA4132-93-99 16:03:003.7[facility] JqoxhkeUSRWZFUOZZJZ1379-23-91 16:03:0020[facility] PxlwojjSKSLOOPKGNHS6736-46-07 16:03:000.8[facility] SbogiftKUIQVBNLVKKR5997-14-15 16:03:0079[facility] Oz
--- OUTSIDE RECORDS SUMMARY | 2020-03-06 21:12 | XMS REPORT | Continuity of Care Document ---
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 Name Role Phone Office [employer] Unavailable Un available Problems Problem Status Onset Date Classification Date Reported Comments Source PERIPHERAL Active 02/24/2019 [facility] PERIPHERAL ANGIOGRAM /C INTERVENSION Active 11/09/2018 [facility] DX: K29.70=GASTRITIS, UNSPECIFIED, WITHO Active 10/08/2018 [facility] PERIPHERAL ANGIOGRAM /C INTERVENTION Active 09/23/2018 [facility] UNK Active 0 12/05/2016 [facility] V76.51 787.99 Active 01/18/2015 [facility] 250.00-DIAB TYPE 2/401.9-HYPERTENSION/78 Active 04/14/2014 [facility] 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 [facility]06[facility] Depression - motion (qualifier value) Active Problem 09/2016 [facility] [place] Gastroesophageal reflux disease (disorder) Active Problem 03/06/2019 [facility] Anemia (disorder) Resolved Problem 03/06/2019 CELESTINA [...] systemic arterial (disorder) Active Problem [facility]/06/[facility] Irritable colon (disorder) Act antel[place] Problem [facility] [place] Neuropathy (disorder) [facility] Peripheral vascular disease (disorder) Active [facility] Urinary tract infectious disease (disorder) Resolved Problem 03/06/2019 [facility] changes in bowel habits(Confirmed) Active Problem 09/2013 [facility] SCREEN MALIG NEOP-COLON Active [facility] DIGESTVE SYST SYMPTM NEC Active [facility] Medications Medication Details Route Status Patient Instructions Ordering Provider Order Date Source Alprazolam 0.5 MG Oral Tablet [Xanax] Notes: With food or milk (Same as: Xanax) Inactive 03/04/2019 [facility] Benadryl 50 mg, 2 tab, Route: PO, Drug form: TAB, ONCE, Dosing Weight 63.636, kg, Priority: STAT, Start date: 03/04/19 12:47:00 CDT, Stop date: 03/04/19 12:47:00 CDT, 0 Inactive 03/04/2019 [facility] Pepcid Notes: (Same as: Pepcid ) Can be dilute in 5-10cc NS IVP: Slow IV push over at least 2 minutes. Inactive 03/04/2019 [facility] Solu-Medrol Notes: (Same as:So sam-MEDROL, A-Methapred) Inactive 03/04/2019 [facility] normal saline 0.9% IV 1,000 mL 1,000 mL, Rate: 100 ml/hr, Infuse over: 10 hr, Route: IV, Dosing Weight 63.636 kg, Total Volume: 1,000, Start date: 03/04/19 12:47:00 CDT, Duration: 30 day, Stop date: 04/03/19 12:46:00 CDT, 1.69, m2, 0 Inactive 03/04/2019 [facility] Imodium A-D EZ Chews 2 mg =, C HEW, BID, PRN as needed for loose stool, 0 Refill(s) Active 03/04/2019 [facility] Insulin Glargine Notes: (Same as: Lantus) Do not hold insulin without contacting prescriber WASTE: F/P - Black; E - Municipal Trash Bin "single patient use only" Stable for 28 days at room temperature Expires in days from Date Inactive 12/01/2018 [facility] Bystolic Notes: (same as: Byst olic) Inactive 12/01/2018 [facility] hydrochlorothiazide 25 mg oral tablet Notes: (Same as: Hydrodiuril) With food. Inactive 12/01/2018 [facility] Furosemide 40 MG Oral Tablet [Lasix] Notes: (Same as: Lasix) May cause GI upset. Give with food or milk. Inactive 12/01/2018 [facility] Hydrochlorothiazide 25 MG / Olmesartan m edoxomil 40 MG Oral Tablet 1 tab, Route: PO, Drug Form: TAB, Dosing Weight 61.364, kg, Daily, Start date: 12/01/18 9:00:00 CDT, Duration: 30 day, Stop date: 12/30/18 9:00:00 CDT No Longer Active 12/01/2018 [facility] clopidogrel Notes: (Same As: P lavix) Inactive 12/01/2018 [facility] Citalopram 20 mg, 2 tab, Route : PO, Drug form: TAB, Daily, Dosing Weight 61.364, kg, Start date: 12/01/18 9:00:00 CDT, Duration: 30 day, Stop date: 12/30/18 9:00:00 CDT Inactive 12/01/2018 [facility] Bupropion Notes: (Same as: Elza lbutrin XL) "Do Not Crush" Inactive 12/01/2018 [facility] Benicar 40 mg, 2 tab, Route: P O, Drug form: TAB, Daily, Start date: 12/01/18 9:00:00 CDT, Duration: 30 day, Stop date: 12/30/18 9:00:00 CDT Inactive 12/01/2018 [facility] atorvastatin Notes: (Same As: Lipitor) No Longer Active 12/01/2018 [facility] Hydralazine Notes: (Same as: A presoline) Push over 5 minutes No Longer Active 12/01/2018 [facility] mesalamine 1200 MG Enteric Coated Tablet 2.4 gm, 2 tab, Route: PO, Drug form: ECTAB, BID, Dosing Weight 61.364, kg, Start date: 11/30/18 17:00:00 CDT, Duration: 30 day, Stop date: 12/30/18 9:00:00 CDT No Longer Active 11/30/2018 [facility] Hyoscyamine Notes: (Same as: L evsin) Take 30 min before meal No Longer Active 11/30/2018 [facility] Tums Notes: (Same As: Tums) Ca lcium Carbonate 500 mg = 200 mg elemental calcium Dose = mg calcium carbonate ( mg elemental calcium) No Longer Active 11/30/2018 [facility] Aspirin 81 MG Enteric Coated Tablet Notes: Do not crush or chew. (Same As: Ecotrin) No Longer Active 11/30/2018 [facility] Insulin Lispro Notes: (Same as : Humalog) Roll in palms of hands gently; Do not shake vigorously. WASTE: F/P - Black; E - Municipal Trash Bin Stable for 28 days at room temperature. Expires in days from Date No Longer Active 11/30/2018 [facility] *Please bring pt's own mesalamine to [facility] for label* *Please bring pt's own mesalamine to [facility] for label*, ATTN:MARTIN, Drug form: MISC, Route: MISC, QSHIFT, 11/30/18 16:00:00 CDT, Duration: 30 day, Stop date: 12/30/18 8:00:00 CDT No Longer Active 11/30/2018 [facility] Insulin Lispro Notes: (Same as : Humalog) Roll in palms of hands gently; Do not shake vigorously. WASTE: F/P - Black; E - Municipal Trash Bin Stable for 28 days at room temperature. Expires in days from Date No Longer Active 11/30/2018 [facility] Glucagon 1 mg, Route: IM, Drug form: PDR/INJ, PRN, Dosing Weight 61.364, kg, PRN Blood Glucose Results, Start date: 11/30/18 15:27:00 CDT, Duration: 30 day, Stop date: 12/30/18 15:26:00 CDT No Longer Active 11/30/2018 [facility] Dextrose 50% Syringe 12.5 gm, 25 mL, Route: IVP, Drug Form: INJ, Dosing Weight 61.364, kg, PRN, PRN Blood Glucose Results, Start date: 11/30/18 15:27:00 CDT, Duration: 30 day, Stop date: 12/30/18 15:26:00 CDT No Longer Active 11/30/2018 [facility] Acetaminophen 325 MG / Hydrocodone Yaz trate 5 MG Oral Tablet Notes: (Same as: [place] 325/5) Do not ex ceed 4gm/day of acetaminophen. No Longer Active 11/30/2018 [facility] Morphine Notes: (Same as:MORPh ine Sulfate) No Longer Active 11/30/2018 [facility] Ondansetron Notes: (Same as: Z ofran) No Longer Active 11/30/2018 [facility] Diphenhydramine 25 mg, 1 tab, Route: PO, Drug form: TAB, Bedtime, Dosing Weight 61.364, kg, PRN Insomnia, Start date: 11/30/18 15:24:00 CDT, Duration: 30 day, Stop date: 12/30/18 15:23:00 CDT No Longer Active 11/30/2018 [facility] Nitroglycerin Notes: (Same as: Nitroquick, Nitrostat) "Do Not Crush" Sublingual tablet No Longer Active 11/30/2018 [facility] Sodium Chloride 0.9% IV 750 mL 750 mL, Rate: 75 ml/hr, Infuse over: 10 hr, Route: IV, Dosing Weight 61.364 kg, Total Volume: 750, Start date: 11/30/18 15:24:00 CDT, Duration: 10 hr, Stop date: 12/01/18 1:23:00 CDT, 1.66, m2 No Longer Active 11/30/2018 [facility] Sodium Chloride 0.9% (Bolus) IV 250 mL, 250 ml/hr, Infuse Over: 1 hr, Route: IV, 250, Drug form: INJ, ONCE, Dosing Weight 61.364 kg, Start date: 11/30/18 15:24:00 CDT, Stop date: 11/30/18 15:24:00 CDT Inactive 11/30/2018 [facility] citalopram 20 mg oral tablet 2 0 mg = 1 tab, PO, Daily, 0 Refill(s) Active 11/30/2018 [facility] Bupropion 150 mg, PO, Daily, 0 Refill(s) Active 11/30/2018 [facility] ALIVE MULTIVITAMIN FOR WOMEN A LIVE MULTIVITAMIN FOR WOMEN, 1 tablet, Refill(s) 0 Active 11/30/2018 [facility] hyoscyamine 0.125 mg oral tablet 0.125 mg = 1 tab, PO, QID, 0 Refill(s) Active 11/26/2018 [facility] nebivolol 10 MG Oral Tablet [Bystolic] 10 mg = 1 tab, PO, Daily, 0 Refill(s) Active 11/26/2018 [facility] Morphine Notes: (Same as:MORPh ine Sulfate) Inactive 10/26/2018 [facility] Acetaminophen 325 MG / Hydrocodone Yaz trate 5 MG Oral Tablet Notes: (Same as: [place] 325/5) Do not ex ceed 4gm/day of acetaminophen. Inactive 10/26/2018 [facility] Nitroglycerin Notes: (Same as: Nitroquick, Nitrostat) "Do Not Crush" Sublingual tablet Inactive 10/26/2018 [facility] Sodium Chloride 0.9% IV 750 mL 750 mL, Rate: 75 ml/hr, Infuse over: 10 hr, Route: IV, Dosing Weight 65.909 kg, Total Volume: 750, Start date: 10/26/18 11:20:00 CDT, Duration: 10 hr, Stop date: 10/26/18 21:19:00 CDT, 1.72, m2 Inactive 10/26/2018 [facility] clopidogrel 75 mg oral tablet 75 mg = 1 tab, PO, Daily, # 90 tab, 1 Refill(s) Active 10/26/2018 [facility] Diphenhydramine 50 mg, 2 tab, Route: PO, Drug form: TAB, ONCE, Dosing Weight 65.909, kg, Priority: NOW, Start date: 10/26/18 8:24:00 CDT, Stop date: 10/26/18 8:24:00 CDT Inactive 10/26/2018 [facility] Alprazolam Notes: With food or milk (Same as: Xanax) Inactive 10/26/2018 [facility] normal saline 0.9% IV 1,000 mL 1,000 mL, Rate: 250 ml/hr, Infuse over: 4 hr, Route: IV, Dosing Weight 65.909 kg, Total Volume: 1,000, Priority: NOW, Start date: 10/26/18 7:16:00 CDT, Duration: 30 day, Stop date: 11/25/18 7:15:00 CDT, 1.72, m2 Inactive 10/26/2018 [facility] Tums 500 mg, CHEW, BID, 0 Refi ll(s) Active 10/22/2018 [facility] mesalamine 1200 MG Enteric Coated Tablet 2.4 gm = 2 tab, PO, BID, 0 Refill(s) Active 10/22/2018 [facility] gabapentin 600 MG Oral Tablet 300 mg = 0.5 tab, PO, Bedtime, 0 Refill(s) Active 10/22/2018 [facility] nebivolol 2.5 MG Oral Tablet [Bystolic] 2.5 mg = 1 tab, PO, Daily, # 30 tab, 0 Refill(s) Active 10/22/2018 [facility] Hydralazine Hydrochloride 50 MG Oral Tablet 50 mg = 1 tab, PO, TID, # 90 tab, 3 Refill(s) Active 10/22/2018 [facility] Hydrochlorothiazide 25 MG / Olmesartan m edoxomil 40 MG Oral Tablet 1 tab, PO, Daily, # 30 tab, 0 Refill(s) Active 10/22/2018 [facility] potassium chloride 10 mEq oral capsule, extended release 10 mEq = 1 cap, PO, Daily, 0 Refill(s) Active 10/22/2018 [facility] Furosemide 40 MG Oral Tablet [Lasix] 40 mg = 1 tab, PO, Daily, # 30 tab, 0 Refill(s) Active 10/22/2018 [facility] iron infusions iron infusions, IV, qWeek, Refill(s) 0 Active 10/22/2018 [facility] Nitroglycerin Notes: (Same as: Nitroquick, Nitrostat) "Do Not Crush" Sublingual tablet No Longer Active 12/09/2016 [facility] Acetaminophen 325 MG / Hydrocodone Yaz trate 5 MG Oral Tablet Notes: (Same as: [place] 325/5) Do not ex ceed 4gm/day of acetaminophen. No Longer Active 12/09/2016 [facility] Morphine Notes: (Same as:MORPh ine Sulfate) No Longer Active 12/09/2016 [facility] Sodium Chloride 0.154 MEQ/ML Injectable Solution 750 mL, Rate: 75 ml/hr, Infuse over: 10 hr, Route: IV, Dosing Weight 63.636 kg, Total Volume: 750, Start date: 12/09/16 12:10:00 CDT, Duration: 10 hr, Stop date: 12/09/16 22:09:00 CDT Inactive 12/09/2016 [facility] Keflex = 1 tab, PO, TID, 1 tab , 3 times a day, 0 Refill(s) Active 12/09/2016 [facility] Sodium Chloride 0.154 MEQ/ML Injectable Solution 500 mL, Rate: 25 ml/hr, Infuse over: 20 hr, Route: IV, Dosing Weight 60.909 kg, Total Volume: 500, Start date: 02/06/15 13:03:00, Duration: 30 day, Stop date: 03/08/15 13:02:00 Inactive 02/06/2015 [facility] Cardizem 0 Refill(s) Active 02/02/2015 [facility] valsartan 320 MG Oral Tablet [Diovan] 320 mg = 1 tab, PO, Daily, # 30 tab, 0 Refill(s) Active 02/02/2015 [facility] vilazodone hydrochloride 10 MG Oral Tablet [Viibryd] 10 mg = 1 tab, PO, Daily, 0 Refill(s) Active 02/02/2015 [facility] Unknown Home Medication 1 tab, PO, BID, Refill(s) 0 Active 02/02/2015 [facility] 0.65 ML exenatide 3.08 MG/ML Prefilled S yringe [Bydureon] 2 mg, SUB-Q, qWeek, # 4 ea, 0 Refill(s) Active 02/02/2015 [facility] Lantus 18 unit, SUB-Q, Bedtime , 0 Refill(s) Active 02/02/2015 [facility] Humalog 14 units, SUB-Q, TID-B efore Meals, 0 Refill(s) Active 02/02/2015 [facility] Allergies, Adverse Reactions, Alerts Substance Category Reaction Severity Reaction type Status Date Reported Comments Source contrast media (iodine-based) Assertion Drug aller gy Active [facility] No Known Medication Allergies Assertion Drug aller gy [facility] Immunizations No Data Provided for This Section Results Order Name Results Value Reference Range Date Interpretation Comments Source ELECTROLYTES AGAP 13.7 10.0 - 20.0 03/04/2019 [facility] ELECTROLYTES B/C Ratio 21 6 - 25 03/04/2019 [facility] ELECTROLYTES Globulin 4.9 2.7 - 4.2 03/04/2019 [facility] ELECTROLYTES A/G Ratio 0.5 0.7 - 1.6 03/04/2019 [facility] ELECTROLYTES Glucose Lvl 145 70 - 99 03/04/2019 [facility] ELECTROLYTES BUN 48 7 - 22 03/04/2019 [facility] ELECTROLYTES Creatinine Lvl 2.2 7 0.50 - 1.40 03/04/2019 [facility] ELECTROLYTES Sodium Lvl 142 135 - 145 03/04/2019 [facility] ELECTROLYTES Potassium Lvl 3.7 3.5 - 5.1 03/04/2019 [facility] ELECTROLYTES Chloride Lvl 111 95 - 109 03/04/2019 [facility] ELECTROLYTES CO2 21 24 - 32 03/04/2019 [facility] ELECTROLYTES Calcium Lvl 9.1 8.5 - 10.5 03/04/2019 [facility] ELECTROLYTES Total Protein 7.5 6.4 - 8.4 03/04/2019 [facility] ELECTROLYTES Albumin Lvl 2.6 3.5 - 5.0 03/04/2019 [facility] ELECTROLYTES ALT 15 0 - 65 03/04/2019 [facility] ELECTROLYTES AST 13 0 - 37 03/04/2019 [facility] ELECTROLYTES Alk Phos 103 39 - 136 03/04/2019 [facility] ELECTROLYTES Bili Total 0.4 0.2 - 1.3 03/04/2019 [facility] ELECTROLYTES eGFR 22 03/04/2019 Result Comment: [...] should be multiplied by the estimated BMI. [facility] HEMATOLOGY WBC 10.0 3.7 - 10.4 03/04/2019 [facility] HEMATOLOGY RBC 4.23 4.20 - 5.40 03/04/2019 [facility] HEMATOLOGY Hgb 10.4 12.0 - 16.0 03/04/2019 [facility] Hct 31.7 36.0 - 48.0 03/04/2019 [facility] MCV 75.1 80.0 - 98.0 03/04/2019 [facility] MCH 24.6 27.0 - 31.0 03/04/2019 [facility] MCHC 32.8 32.0 - 36.0 03/04/2019 [facility] RDW 16.9 11.5 - 14.5 03/04/2019 [facility] Platelet 397 133 - 450 03/04/2019 [facility] MPV 7.5 7.4 - 10.4 03/04/2019 [facility] Segs 44.6 45.0 - 75.0 03/04/2019 [facility] Lymphocytes 44.8 20.0 - 40.0 03/04/2019 [facility] Monocytes 7.1 2.0 - 12.0 03/04/2019 [facility] Eosinophils 2.7 0.0 - 4.0 03/04/2019 [facility] Basophils 0.8 0.0 - 1.0 03/04/2019 [facility] Neutrophils # 4.5 1.5 - 8.1 03/04/2019 [facility] Lymphocytes # 4.5 1.0 - 5.5 03/04/2019 [facility] Monocytes # 0.7 0.0 - 0.8 03/04/2019 [facility] Eosinophils # 0.3 0.0 - 0.5 03/04/2019 [facility] Basophils # 0.1 0.0 - 0.2 03/04/2019 [facility] Microcyte 1+ *ABN* (03/04/19 12:50 PM) None Seen 03/04/2019 [facility] CHEM PANEL Glucose Lvl 236 70 - 99 12/01/2018 [facility] CHEM PANEL BUN 58 7 - 22 12/01/2018 [facility] CHEM PANEL eGFR 21 12/01/2018 Result [...] should be multiplied by the estimated BMI. [facility] CHEM PANEL Chloride Lvl 108 95 - 109 12/01/2018 [facility] CHEM PANEL Creatinine Lvl 2.32 0.50 - 1.40 12/01/2018 [facility] CHEM PANEL Potassium Lvl 4.6 3.5 - 5.1 12/01/2018 [facility] CHEM PANEL Sodium Lvl 139 135 - 145 12/01/2018 [facility] CHEM PANEL CO2 24 24 - 32 12/01/2018 [facility] CHEM PANEL Calcium Lvl 8.8 8.5 - 10.5 12/01/2018 [facility] CHEM PANEL AGAP 11.6 10.0 - 20.0 12/01/2018 [facility] HEMATOLOGY WBC 11.2 3.7 - 10.4 12/01/2018 [facility] HEMATOLOGY RBC 4.34 4.20 - 5.40 12/01/2018 [facility] HEMATOLOGY MCH 23.8 27.0 - 31.0 12/01/2018 [facility] HEMATOLOGY MCV 77.2 80.0 - 98.0 12/01/2018 [facility] HEMATOLOGY MCHC 30.8 32.0 - 36.0 12/01/2018 [facility] HEMATOLOGY Hct 33.5 36.0 - 48.0 12/01/2018 [facility] HEMATOLOGY Hgb 10.3 12.0 - 16.0 12/01/2018 [facility] HEMATOLOGY RDW 15.3 11.5 - 14.5 12/01/2018 [facility] HEMATOLOGY MPV 7.7 7.4 - 10.4 12/01/2018 [facility] HEMATOLOGY Platelet 313 133 - 450 12/01/2018 [facility] CHEM PANEL Globulin 5.1 2.7 - 4.2 11/26/2018 [facility] CHEM PANEL A/G Ratio 0.5 0.7 - 1.6 11/26/2018 [facility] CHEM PANEL AGAP 11.0 10.0 - 20.0 11/26/2018 [facility] CHEM PANEL B/C Ratio 21 6 - 25 11/26/2018 [facility] CHEM PANEL eGFR 26 11/26/2018 Result [...] should be multiplied by the estimated BMI. [facility] CHEM PANEL Alk Phos 143 39 - 136 11/26/2018 [facility] CHEM PANEL AST 21 0 - 37 11/26/2018 [facility] CHEM PANEL ALT 23 0 - 65 11/26/2018 [facility] CHEM PANEL Bili Total 0.3 0.2 - 1.3 11/26/2018 [facility] CHEM PANEL BUN 42 7 - 22 11/26/2018 [facility] CHEM PANEL Glucose Lvl 213 70 - 99 11/26/2018 [facility] CHEM PANEL Potassium Lvl 5.0 3.5 - 5.1 11/26/2018 [facility] CHEM PANEL Sodium Lvl 136 135 - 145 11/26/2018 [facility] CHEM PANEL Creatinine Lvl 1.98 0.50 - 1.40 11/26/2018 [facility] CHEM PANEL Total Protein 7.9 6.4 - 8.4 11/26/2018 [facility] CHEM PANEL Albumin Lvl 2.8 3.5 - 5.0 11/26/2018 [facility] CHEM PANEL Calcium Lvl 9.4 8.5 - 10.5 11/26/2018 [facility] CHEM PANEL Chloride Lvl 105 95 - 109 11/26/2018 [facility] CHEM PANEL CO2 25 24 - 32 11/26/2018 [facility] HEMATOLOGY WBC 9.9 3.7 - 10.4 11/26/2018 [facility] HEMATOLOGY RDW 15.1 11.5 - 14.5 11/26/2018 [facility] HEMATOLOGY RBC 4.84 4.20 - 5.40 11/26/2018 [facility] HEMATOLOGY MCHC 31.5 32.0 - 36.0 11/26/2018 [facility] MCV 76.9 80.0 - 98.0 11/26/2018 [facility] MCH 24.2 27.0 - 31.0 11/26/2018 [facility] Hgb 11.7 12.0 - 16.0 11/26/2018 [facility] Hct 37.2 36.0 - 48.0 11/26/2018 [facility] Platelet 367 133 - 450 11/26/2018 [facility] MPV 7.7 7.4 - 10.4 11/26/2018 [facility] Eosinophils # 0.2 0.0 - 0.5 11/26/2018 [facility] Microcyte 1+ *ABN* (11/26/18 1:14 PM) None Seen 11/26/2018 [facility] Basophils # 0.1 0.0 - 0.2 11/26/2018 [facility] Monocytes # 0.6 0.0 - 0.8 11/26/2018 [facility] Lymphocytes # 3.4 1.0 - 5.5 11/26/2018 [facility] Neutrophils # 5.7 1.5 - 8.1 11/26/2018 [facility] Monocytes 6.2 2.0 - 12.0 11/26/2018 [facility] Eosinophils 2.3 0.0 - 4.0 11/26/2018 [facility] Basophils 0.6 0.0 - 1.0 11/26/2018 [facility] Lymphocytes 33.8 20.0 - 40.0 11/26/2018 [facility] Segs 57.1 45.0 - 75.0 11/26/2018 [facility] CHEM PANEL eGFR 34 10/22/2018 Result [...] should be multiplied by the estimated BMI. [facility] CHEM PANEL Sodium Lvl 138 135 - 145 10/22/2018 [facility] CHEM PANEL Creatinine Lvl 1.58 0.50 - 1.40 10/22/2018 [facility] CHEM PANEL BUN 32 7 - 22 10/22/2018 [facility] CHEM PANEL Glucose Lvl 236 70 - 99 10/22/2018 [facility] CHEM PANEL CO2 21 24 - 32 10/22/2018 [facility] CHEM PANEL Total Protein 7.8 6.4 - 8.4 10/22/2018 [facility] CHEM PANEL Albumin Lvl 2.6 3.5 - 5.0 10/22/2018 [facility] CHEM PANEL Calcium Lvl 9.1 8.5 - 10.5 10/22/2018 [facility] CHEM PANEL Chloride Lvl 110 95 - 109 10/22/2018 [facility] CHEM PANEL Potassium Lvl 4.9 3.5 - 5.1 10/22/2018 [facility] CHEM PANEL ALT 19 0 - 65 10/22/2018 [facility] CHEM PANEL AST 16 0 - 37 10/22/2018 [facility] CHEM PANEL Bili Total 0.4 0.2 - 1.3 10/22/2018 [facility] CHEM PANEL Alk Phos 148 39 - 136 10/22/2018 [facility] CHEM PANEL B/C Ratio 20 6 - 25 10/22/2018 [facility] CHEM PANEL Globulin 5.2 2.7 - 4.2 10/22/2018 [facility] CHEM PANEL A/G Ratio 0.5 0.7 - 1.6 10/22/2018 [facility] CHEM PANEL AGAP 11.9 10.0 - 20.0 10/22/2018 [facility] HEMATOLOGY MPV 7.4 7.4 - 10.4 10/22/2018 [facility] HEMATOLOGY Platelet 430 133 - 450 10/22/2018 [facility] HEMATOLOGY MCV 76.0 80.0 - 98.0 10/22/2018 [facility] HEMATOLOGY RDW 15.8 11.5 - 14.5 10/22/2018 [facility] MCH 25.0 27.0 - 31.0 10/22/2018 [facility] MCHC 32.8 32.0 - 36.0 10/22/2018 [facility] HEMATOLOGY RBC 4.31 4.20 - 5.40 10/22/2018 [facility] Hct 32.8 36.0 - 48.0 10/22/2018 [facility] Hgb 10.8 12.0 - 16.0 10/22/2018 [facility] WBC 9.9 3.7 - 10.4 10/22/2018 [facility] Microcyte 1+ *ABN* (10/22/18 8:11 AM) None Seen 10/22/2018 [facility] Eosinophils 2.4 0.0 - 4.0 10/22/2018 [facility] Monocytes 4.8 2.0 - 12.0 10/22/2018 [facility] Segs 58.2 45.0 - 75.0 10/22/2018 [facility] Lymphocytes 34.0 20.0 - 40.0 10/22/2018 [facility] Basophils 0.6 0.0 - 1.0 10/22/2018 [facility] Lymphocytes # 3.4 1.0 - 5.5 10/22/2018 [facility] Monocytes # 0.5 0.0 - 0.8 10/22/2018 [facility] Neutrophils # 5.7 1.5 - 8.1 10/22/2018 [facility] Eosinophils # 0.2 0.0 - 0.5 10/22/2018 [facility] Basophils # 0.1 0.0 - 0.2 10/22/2018 [facility] ELECTROLYTES Chloride Lvl 102 95 - 109 02/02/2015 [facility] ELECTROLYTES CO2 31 24 - 32 02/02/2015 [facility] ELECTROLYTES Calcium Lvl 8.8 8.5 - 10.5 02/02/2015 [facility] ELECTROLYTES AGAP 11.7 10.0 - 20.0 02/02/2015 [facility] ELECTROLYTES Sodium Lvl 141 135 - 145 02/02/2015 [facility] ELECTROLYTES Glucose Lvl 234 70 - 99 02/02/2015 [facility] ELECTROLYTES Potassium Lvl 3.7 3.5 - 5.1 02/02/2015 [facility] ELECTROLYTES BUN 20 7 - 22 02/02/2015 [facility] ELECTROLYTES Creatinine Lvl 0.8 0.5 - 1.4 02/02/2015 [facility] ELECTROLYTES eGFR 79 02/02/2015 Result Comment: [...] should be multiplied by the estimated BMI. [facility] Pathology Reports No Data Provided for This Section Diagnostic Reports Report Value Date Source Brain wo contrast MRI PATIENT NAME: ELSIE LOAIZA : 1950; Age: 67 years y/o Female MR: [id number] STUDY: Brain wo contrast MRI 06/18/2017 10:23 AM [employer] ORDERING PHYSICIAN: Vaibhav Jarrett MD CLINICAL INDICATION: [...] . IMPRESSION: Delayed gastric emptying. SL:13 2014 [facility] Consultation Notes No Data Provided for This Section Discharge Summaries No Data Provided for This Section History and Physicals No Data Provided for This Section Vital Signs Vital Sign Value Date Comments Source Height 157.48 cm 03/04/2019 [facility] Weight 63.636 03/04/2019 [facility] BMI Calculated 25.66 03/04/2019 [facility] Heart Rate 72 12/01/2018 [facility] Systolic (mm Hg) 90 12/01/2018 [facility] Diastolic (mm Hg) 56 12/01/2018 [facility] Respitory Rate 18 12/01/2018 [facility] Temperature Oral (F) 98.5 F 12/01/2018 [facility] Temperature Oral (F) 98.7 F 12/01/2018 [facility] Systolic (mm Hg) 126 12/01/2018 [facility] Diastolic (mm Hg) 62 12/01/2018 [facility] Respitory Rate 16 12/01/2018 [facility] Heart Rate 71 12/01/2018 [facility] Systolic (mm Hg) 123 12/01/2018 [facility] Diastolic (mm Hg) 68 12/01/2018 [facility] Temperature Oral (F) 97.7 F 12/01/2018 [facility] Respitory Rate 18 12/01/2018 [facility] Heart Rate 65 12/01/2018 [facility] Weight 61.364 11/26/2018 [facility] BMI Calculated 24.74 11/26/2018 [facility] Height 157.48 cm 11/26/2018 [facility] Systolic (mm Hg) 136 10/26/2018 [facility] Diastolic (mm Hg) 62 10/26/2018 [facility] Systolic (mm Hg) 148 10/26/2018 [facility] Diastolic (mm Hg) 80 10/26/2018 [facility] Systolic (mm Hg) 152 10/26/2018 [facility] Diastolic (mm Hg) 65 10/26/2018 [facility] Temperature Oral (F) 98.0 F 10/26/2018 [facility] Respitory Rate 19 10/26/2018 [facility] BMI Calculated 26.15 10/22/2018 [facility] Weight 65.909 10/22/2018 [facility] Height 158.75 cm 10/22/2018 [facility] Heart Rate 83 10/22/2018 [facility] Temperature Oral (F) 97.8 F 10/22/2018 [facility] Respitory Rate 20 10/22/2018 [facility] Heart Rate 87 12/10/2016 [facility] Temperature Oral (F) 97.4 F 12/10/2016 [facility] Respitory Rate 18 12/10/2016 [facility] Systolic (mm Hg) 123 12/10/2016 [facility] Diastolic (mm Hg) 74 12/10/2016 [facility] Temperature Oral (F) 98.2 F 12/10/2016 [facility] Respitory Rate 16 12/10/2016 [facility] Systolic (mm Hg) 160 12/10/2016 [facility] Diastolic (mm Hg) 84 12/10/2016 [facility] Respitory Rate 16 12/10/2016 [facility] Temperature Oral (F) 97.6 F 12/10/2016 [facility] Systolic (mm Hg) 163 12/10/2016 [facility] Diastolic (mm Hg) 89 12/10/2016 [facility] Height 157.48 cm 12/09/2016 [facility] Weight 63.636 12/09/2016 [facility] BMI Calculated 25.66 12/09/2016 [facility] Systolic (mm Hg) 162 02/06/2015 [facility] Diastolic (mm Hg) 95 02/06/2015 [facility] Respitory Rate 12 02/06/2015 [facility] Systolic (mm Hg) 145 02/06/2015 [facility] Diastolic (mm Hg) 95 02/06/2015 [facility] Respitory Rate 15 02/06/2015 [facility] Systolic (mm Hg) 145 02/06/2015 [facility] Diastolic (mm Hg) 121 02/06/2015 [facility] Respitory Rate 15 02/06/2015 [facility] Heart Rate 99 02/06/2015 [facility] Weight 60.909 02/02/2015 [facility] BMI Calculated 24.56 02/02/2015 [facility] Height 157.48 cm 02/02/2015 [facility] Temperature Oral (F) 97.8 F 02/02/2015 [facility] Heart Rate 88 02/02/2015 [facility] Encounters Location Location Details Encounter Type Encounter Number Reason For Visit Attending Provider ADM Date DC Date Status Source [facility] Outpatient [id number] Edgar Bowden 2014 04/20/2014 [facility] Bedded Outpatient [id number] Edgar Bowden 02/06/2015 02/06/2015 [facility] Bedded Outpatient [id number] Vaibhav Jarrett 12/09/2016 12/10/2016 [facility] [place] [facility] [id number] Vaibhav Jarrett 06/18/2017 06/19/2017 CELESTINA Nugent [facility] Bedded Outpatient [id number] Vaibhav Jarrett 10/26/2018 10/27/2018 [facility] Bedded Outpatient [id number] Vaibhav Jarrett 11/30/2018 12/01/2018 [facility] Bedded Outpatient [id number] Vaibahv Jarrett 03/04/2019 03/04/2019 [facility] Procedures Procedure Code Date Perfomer Comments Source Angiogram [id number] 10/26/2018 [facility] Rotational atherectomy [id number] 12/09/2016 [facility] Colonoscopy [id number] 07[facility]20[facility] [id number] 07/20/2012 [facility] Removal of spinal cord lesion [id number] 07[facility]20/[facility] Tubal [facility] [id number] 07/20/[facility] [id number] [facility] Tonsillectomy [id number] [facility] Assessment and Plan Assessment and Plan [...] two weeks. 3. Continue current medications. 12/10/2016 [facility] Plan of Care No Data Provided for This Section Social History Social History Date Source Social History TypeResponse Alcohol Never Substance Abuse Use: None. Smoking Status Never smoker; Exposure to Tobacco Smoke None; Cigarette Smoking Last 365 Days No; Reg Smoking Cessation Counseling No entered on: 03/04/19 03/04/2019 [facility] Social History TypeResponse Substance Abuse 1 Alcohol Never2 Smoking Status Never smoker; Exposure to Tobacco Smoke None; Cigarette Smoking Last 365 Days No; Reg Smoking Cessation Counseling No [id number] 07/19/2013 CELESTINA Nugent Family History No Data Provided for This Section Advance Directives No Data Provided for This Section Functional Status No Data Provided for This Section
[2020-03-06 21:14] LABS: BACTERIA,URINE MANY /HPF; EPITHELIAL CELLS,URINE FEW /LPF; WBC,URINE (MAN) >50 /HPF (0-5)
[2020-03-06] MEDS: INSULIN REGULAR, HUMAN 100 UNIT/1 ML 3ML VIAL SQ SCH (21:30)
[2020-03-06] MEDS ORDERED: CEFTRIAXONE SOD 1 GM VIAL IV SCH (21:30)
[2020-03-06] MEDS ORDERED: HYDRALAZINE HCL 20 MG/ML VIAL IV PRN (22:00)
--- NOTE | 2020-03-06 22:11 | History and Physical ---
PRIMARY CARE PHYSICIAN: Aldo Espinosa MD [facility] DOCTOR: Dr. Severo Nielsen. CHIEF COMPLAINT: Shortness of breath. HISTORY OF PRESENT ILLNESS: Ms. Payton is a pleasant 69-year-old female with shortness of breath. The patient came to emergency room on March 06, 2020. The patient had shortness of breath for 4 days with a pattern of worsening. Some increasing leg edema. The patient was told to come to emergency room from personal service representative's office per ER note. The patient had seen her PCP on March 01, 2020. She was diagnosed with UTI and she was given possibly nitrofurantoin antibiotic, but she only took one tablet. The patient was short of breath, so she stopped subsequent antibiotics. The patient without any history of asthma. There are allergies and she is on intermittent Benadryl. She has GERD and she is on medication for this. No home oxygen. She is usually independent. PAST MEDICAL HISTORY: Hyperlipidemia, diabetes, peripheral vascular disease, depression, chronic kidney disease, cholecystectomy, lumbar surgery, cataract surgery, tonsillectomy, and bilateral tubal ligation. MEDICATIONS: Medication list reviewed per the chart record. ALLERGIES: NO KNOWN DRUG ALLERGIES. SOCIAL HISTORY: No smoking. No drinking. No drugs. The patient lives with her and she is an independent as stated above. FAMILY HISTORY: Noncontributory. REVIEW OF SYSTEMS: GENERAL: There are no weight changes. OPHTHALMOLOGIC: No floaters. ENT: No dry mouth. ENDOCRINE: No known thyroid disease. PULMONARY: No hemoptysis. CARDIAC: No recent TX. : No blood in urine. GI: No diarrhea. MUSCULOSKELETAL: Mild arthritis. NEUROLOGIC: No seizures. PSYCHIATRIC: No active depression, mood. PHYSICAL EXAMINATION: VITAL SIGNS: Noted and reviewed per the chart record. Blood pressure averaging 147/94, but up to 188/108. Heart rate 88. Other vital signs noted and reviewed, stable per electronic record. She is currently on 2 L/minute of oxygen. GENERAL: In no acute distress, slightly nervous on oxygen by cannula. HEENT: Normocephalic and atraumatic. NECK: Supple. Throat midline. LUNGS: Bilateral air entry, decreased breath sounds at bases. CARDIOVASCULAR: S1, S2. No murmurs, rubs, or gallops. ABDOMEN: Soft and nontender. EXTREMITIES: No clubbing. No cyanosis. There is 2+ leg edema. INTEGUMENT: No rash. No purpura. LABORATORY DATA: Urinalysis with greater than 300 protein, 1+ glucose, 3+ blood, 1+ LE, still pending microscopic. 9 white count, 31 hematocrit, 408 platelets. Lymphocytes 40%, PMNs 50%. Coagulation profile normal. 13 bicarbonate, 47 BUN and 4.26 creatinine. 6.0 potassium. BNP was 7073. Albumin 2.3. Chest x-ray as stated small right, moderate left-sided pleural effusion with compressive atelectasis suggested versus pneumonia. IMPRESSION AND PLAN: 1. Dyspnea, mostly due to pulmonary edema. 2. Pulmonary edema. 3. Acute kidney failure. 4. Hypertension, treated emergency. 5. Diabetes. 6. Hyperlipidemia. 7. Possible pneumonia. 8. Reported recent urinary tract infection. 9. Moderate anemia. 10. Critical hyperkalemia. 11. Severe hypoalbuminemia. 12. Hyperlipidemia. 13. Diabetes. 14. Peripheral vascular disease, on history. 15. Depression. Renal consult. Gentle diuresis. Consult Cardiology, the patient may or may not need updated echo. The patient may have difficulty with fluid removal and therefore may need eventual thoracentesis. Consult Pulmonary, Dr. Flores. We know the patient well from the past. Initial antibiotics and follow up closely. Check ultrasound of renal system. Thank you very much, Dr. Espinosa. Please call for questions. MD HOLLY Escobar/ESLENE /[id number]
[2020-03-06] MEDS: HYDRALAZINE HCL 20 MG/ML VIAL IV PRN (22:14)
[2020-03-06] MEDS: AZITHROMYCIN 500MG/NS 250 ML 250 ML IV SCH (22:14)
--- NOTE | 2020-03-06 23:10 | NUR ---
Patient admitted to room 198 in IMCU. Patient A&O x3, on 02 2L NC, law to bedside drainage. Oriented to environment and call light. Instructed to call for assistance on the onset of pain or SOB. Call light within reach. Will continue to monitor.
[2020-03-06 23:30] VITALS: BP 127/65
[2020-03-06] MEDS: CEFTRIAXONE SOD 1 GM/NS 50 ML 50 ML IV SCH (23:30)
[2020-03-07] VITALS (12 sets, daily range): BP systolic 127–170; BP diastolic 64–90
--- NOTE | 2020-03-07 | NUR ---
Patient unable to report home medication. Medication and list left at home. Patient states " I thought Dr Jarrett would have all my home meds" Patient states spouse at home unable to read medication due to legally blind. Patient states uses [facility] in [place] or son Juan Antonio could bring home medications in AM.
--- NOTE | 2020-03-07 00:30 | NUR ---
Noted patient RR 32, 02 sat 100%, patient using accessory muscles and c/o SOB. Education provided on bipap and encourage patient to wear. Patient agreeable to wear BIPAP. RT called to place bipap. Will continue to monitor.
--- NOTE | 2020-03-07 00:32 | NUR ---
RT here to place patient on bipap. Patient tolerating. Will continue to monitor.
--- NOTE | 2020-03-07 03:45 | NUR ---
Patient request to remove bipap. Bipap removed and 02 2L NC applied. 02 sat 100% Will continue to monitor.
[2020-03-07 03:57] LABS: BASOPHILS # (AUTO) 0.1 (0.0-0.1); BASOPHILS % 0.5 % (0.0-1.0); EOSINOPHILS # (AUTO) 0.1 (0.0-0.4); EOSINOPHILS % 1.5 % (0.0-6.0); HEMOGLOBIN 8.9 g/dL (12.0-16.0); LYMPHOCYTES # (AUTO) 2.4 (1.0-3.2); LYMPHOCYTES % 25.2 % (18.0-39.1); MEAN CORPUSCULAR HGB CONC 29.7 g/dL (31-35); MEAN CORPUSCULAR VOLUME 84.3 fL (81-99); MONOCYTES # (AUTO) 0.4 (0.2-0.8); NEUTROPHILS # (AUTO) 6.5 (2.1-6.9); NEUTROPHILS % 68.3 % (38.7-80.0); PLATELET COUNT 347 x10e3/uL (140-360); RED BLOOD COUNT 3.56 x10e6/uL (3.6-5.1); RED CELL DISTRIBUTION WIDTH 15.8 % (11.7-14.4)
--- NOTE | 2020-03-07 04:00 | NUR ---
Patient 02 sat 100%, RR 36, noted using accessory muscles. Encourage patient to wear bipap. Bipap applied, RR 26 02 sat 100%. Will continue to monitor.
[2020-03-07] MEDS: HYDRALAZINE HCL 20 MG/ML VIAL IV PRN (04:09)
[2020-03-07 04:16] LABS: ALBUMIN/GLOBULIN RATIO 0.5 (0.8-2.0); CALCIUM 8.8 mg/dL (8.4-10.2); CREATININE, SERUM 4.15 mg/dL (0.57-1.11)
[2020-03-07 04:32] LABS: CREATINE KINASE MB 2.9 ng/mL (0-5.0)
--- NOTE | 2020-03-07 05:30 | NUR ---
Patient request to remove bipap. Nurse in room with patient providing care and monitoring patient off bipap. Patient on 02 2L NC, tolerating RR 22. Will continue to monitor.
--- NOTE | 2020-03-07 06:45 | NUR ---
Security brought home meds to desk that emmy Romano dropped off at front desk assistant.
[2020-03-07] MEDS ORDERED: CALCITRIOL0.25 MCG PO (07:02)
[2020-03-07] MEDS ORDERED: LEVOTHYROXINE50 MCG PO (07:02)
[2020-03-07] MEDS ORDERED: ATORVASTATIN CA10 MG PO (07:02)
[2020-03-07] MEDS ORDERED: NITROFURANTOIN100 MG PO (07:02)
[2020-03-07] MEDS ORDERED: FLUCONAZOLE100 MG PO (07:02)
[2020-03-07] MEDS ORDERED: MIRTAZAPINE15 MG PO (07:02)
[2020-03-07] MEDS ORDERED: COLCRYS0.6 MG PO (07:02)
[2020-03-07] MEDS ORDERED: DOXAZOSIN MESYLA2 MG PO (07:02)
[2020-03-07] MEDS ORDERED: ALLOPURINOL100 MG PO (07:02)
[2020-03-07] MEDS ORDERED: PANTOPRAZOLE SO40 MG PO (07:02)
[2020-03-07] MEDS ORDERED: LASIX40 MG PO (07:02)
[2020-03-07] MEDS ORDERED: BYSTOLIC10 MG PO (07:02)
--- NOTE | 2020-03-07 07:15 | NUR ---
Report and walking rounds completed with oncoming nurse. Patient in bed with call light within reach. No issues or concerns noted.
--- NOTE | 2020-03-07 07:23 | NUR ---
Left message for Dr Mcclendon regarding consult for acute on chronic renal failure, hyperkalemia and volume overload. Left message for Dr Stone ( Covering for [facility]) for new consult overload. Awaiting call back. Oncoming nurse updated that paged.
[2020-03-07] MEDS: INSULIN REGULAR, HUMAN 100 UNIT/1 ML 3ML VIAL SQ SCH ×4 (07:30→20:40)
--- NOTE | 2020-03-07 08:43 | Diagnostic Imaging Report ---
TECHNIQUE: Frontal view of the chest. INDICATION: ^CHF ^[id number] ^[id number] COMPARISON: Prior day. DISCUSSION: Limited evaluation due to portable technique. Lines and hardware: Overlying EKG leads are noted. Heart and mediastinum: Stable cardiomegaly and central gastric congestion. Lungs and pleura: Interstitial markings are more prominent with ill-defined interstitial opacities in the perihilar regions. Stable hazy opacities at the lung base with blunting of the costophrenic angles. Soft tissues and bones: No acute abnormality. IMPRESSION: Interval increase in interstitial opacities and prominent pulmonary vascular concerning for worsening fluid overload/pulmonary edema. Stable cardiomegaly, central vascular congestion and left greater than right pleural effusions. Signed by: Anton Wild MD on 03/07/2020 8:40 AM
--- NOTE | 2020-03-07 08:53 | Diagnostic Imaging Report ---
Renal ultrasound. History: Renal failure. Comparison: 12/31/2016. Discussion: Transverse and longitudinal images of the kidneys were obtained demonstrating normal renal sizes and echogenicities. There is no evidence of hydronephrosis, mass, or renal calculus. The right kidney measures 8.7 cm and the left kidney measures 9.7 cm in length. The urinary bladder is decompressed by a Mcpherson catheter. There is no evidence of free fluid. IMPRESSION: Unremarkable renal ultrasound. Negative for hydronephrosis. Signed by: Anton Wild MD on 03/07/2020 8:49 AM
[2020-03-07] MEDS: PANTOPRAZOLE SOD 40 MG TABEC PO SCH ×2 (08:57→09:17)
[2020-03-07] MEDS: ASPIRIN 81 MG CHEW TAB PO SCH (08:58)
[2020-03-07] MEDS: FUROSEMIDE INJ 10 MG/ML 4 ML VIAL IV SCH ×2 (08:59→23:00)
[2020-03-07] MEDS ORDERED: CLOPIDOGREL BISULFATE 75 MG TAB PO SCH (09:00)
[2020-03-07] MEDS: HEPARIN SOD (PORCINE) 5,000 UNIT/ML VIAL SC SCH ×2 (09:21→20:50)
--- NOTE | 2020-03-07 13:09 | NUR ---
INTERNAL MEDICINE PROGRESS NOTE Coverage for: Dr. Severo Nielsen. DATE: 03/07/20 SUBJECTIVE: Some SOB today BIPAP for rescue, 30/01; 30% fio2 law, ~ 80 cc/hr on Lasix eats 70-80% of meal REVIEW OF SYSTEMS: No chest pain, no rash PHYSICAL EXAMINATION: VITAL SIGNS: Noted and reviewed per the chart record. GENERAL: no acute distress, slightly nervous on oxygen by cannula. HEENT: Normocephalic and atraumatic. NECK: Supple. Throat midline. LUNGS: Bilateral air entry, decreased breath sounds at bases. CARDIOVASCULAR: S1, S2. No murmurs, rubs, or gallops. ABDOMEN: Soft and nontender. EXTREMITIES: No clubbing. No cyanosis. 1-2+ leg edema. INTEGUMENT: No rash. No purpura. LABS: k 5.0, cr 4.15. hco3 15. wbc 9.5. hct 30, plt 347 IMPRESSION AND PLAN: 0. Acute respiratory failure hypoxemic, bipap salvage 1. Dyspnea, mostly due to pulmonary edema. 2. Pulmonary edema. Associated pleural effusions 3. Acute kidney failure. 4. Hypertension, treated emergency. 5. Diabetes. 6. Hyperlipidemia. 7. Possible pneumonia, less likely but not ruled out. 8. Reported recent urinary tract infection. 9. Moderate anemia. 10. Critical hyperkalemia. 11. Severe hypoalbuminemia. 12. Hyperlipidemia. 13. Diabetes. 14. Peripheral vascular disease, on history. 15. Depression. Renal consult for diuresis and fluid management Oxygen by protocol if tolerated. BIPAP for salvage Follow urine output and lytes/renal function Patient may actually need a bridging thoracentesis. Pulmonary consulted Initial antibiotics for possibility of sepsis and follow up closely. ultrasound of renal system - no hydronephrosis Follow K, better. Thank you very much, Dr. Espinosa. Please call for questions.
[2020-03-07] MEDS ORDERED: FLUCONAZOLE 200 MG/100 ML 100 ML IV SCH (14:00)
--- NOTE | 2020-03-07 14:05 | Diagnostic Imaging Report ---
Ultrasound chest History: Evaluate for pleural effusion. Comparison: Chest x-ray dated the same day. Discussion: Focused ultrasound images of the chest were obtained. Moderate left and small right pleural effusions are noted. IMPRESSION: Moderate left and small right pleural effusions. Signed by: Anton Wild MD on 03/07/2020 2:02 PM
[2020-03-07 14:49] LABS: CREATINE KINASE MB 2.8 ng/mL (0-5.0)
[2020-03-07] MEDS ORDERED: HEPARIN SOD (PORCINE) 1000 UNIT/ML 10ML MDV IM ONE (17:15)
--- NOTE | 2020-03-07 17:21 | Consultation ---
DATE OF CONSULTATION: Pulmonary Critical Care Consultation CHIEF COMPLAINT: Dyspnea and acute renal failure. HISTORY OF PRESENT ILLNESS: The patient is a 69-year-old woman. She has a history of diabetes, chronic kidney disease, and peripheral vascular disease. She came in complaining of worsening dyspnea and edema. Evaluation in the ER showed pulmonary edema with pleural effusions. She did not have fever or cough. The patient received Lasix last night and required BiPAP. She is still short of breath and is awaiting placement of a dialysis catheter and dialysis. PAST SURGICAL HISTORY: 1. Status post cholecystectomy. 2. Status post lumbar surgery. 3. Status post tonsillectomy. 4. Status post cataract surgery. PAST MEDICAL HISTORY: 1. Diabetes. 2. Peripheral vascular disease. 3. Chronic kidney disease. SOCIAL HISTORY: The patient is not a smoker. The patient is not a drinker. ALLERGIES: THERE ARE NO KNOWN DRUG ALLERGIES. FAMILY HISTORY: Family history is noncontributory. REVIEW OF SYSTEMS: The patient is not having any fevers. She has no headache. She has no neck pain. She is not having any chest pain. PHYSICAL EXAMINATION: CARDIAC: Reveals regular rate and rhythm with normal S1 and S2. LUNGS: Auscultation of lungs reveals rhonchorous breath sounds bilaterally. There is no wheezing. ABDOMEN: Soft and nontender. There is no rebound or guarding. EXTREMITIES: Shows 2+ leg edema. NEUROLOGIC: There are no focal neurological abnormalities. LABORATORY DATA: White blood cell count is 9.5, hemoglobin is 8.9, and the platelet count is 347. The BUN to creatinine ratio is 40 to 4.15 and the carbon dioxide is 16. The albumin is 2. RADIOGRAPHIC DATA: Chest x-ray shows increasing bilateral opacities, cardiomegaly, and bilateral pleural effusions. IMPRESSION: 1. [id number] renal failure. 2. Acute respiratory failure. 3. Pulmonary edema related to renal disease. 4. Hypertension. 5. Diabetes. 6. Peripheral vascular disease. PLAN: 1. The patient is scheduled for Leon catheter placement and dialysis. 2. Continue current antibiotics. 3. Echocardiogram. 4. Monitor and control blood sugars. 5. Monitor creatinine and electrolytes. Judd Nicholas MD [facility] /[id number]
[2020-03-07] MEDS ORDERED: HEPARIN SOD (PORCINE) 1000 UNIT/ML SDV ONE (17:22)
[2020-03-07] MEDS ORDERED: HEPARIN SOD (PORCINE) 1000 UNIT/ML SDV IV PRN (17:30)
--- NOTE | 2020-03-07 18:55 | NUR ---
Handoff report to oncoming nurse made aware nurse patient to receiving hemodialysis this nurse spoke with [facility] center spoke with nurse Krishna RN he stated he would be here approximately 2 hours form 1730.
--- NOTE | 2020-03-07 19:32 | Consultation ---
DATE OF CONSULTATION: Cardiology consultation REASON FOR CONSULTATION: Heart failure. HISTORY OF PRESENT ILLNESS: This is a 69-year-old woman who has a history of chronic diastolic heart failure, chronic kidney disease not on dialysis, hypertension, diabetes mellitus, peripheral arterial disease, and history of deep venous thrombosis, who presented from our cardiology clinic due to progressively worsening shortness of breath and peripheral edema. Symptoms were moderate to severe in intensity, progressively worsening, progressed despite being on diuretics. No other exacerbating or relieving factors. There have been discussions in the past regarding hemodialysis, however, is not currently on hemodialysis. Upon arrival here, she was noted to be volume overloaded and was given Lasix and now Nephrology plans for dialysis due to oliguric renal failure. REVIEW OF SYSTEMS: A 12-point review of system was conducted, is negative except as stated above in the HPI. PAST MEDICAL HISTORY: As stated above in the HPI. PAST SURGICAL HISTORY: None recent. PAST FAMILY HISTORY: Noncontributory to current illness. SOCIAL HISTORY: No illicit drug, alcohol, or tobacco use. ALLERGIES: NO KNOWN DRUG ALLERGIES. MEDICATIONS: See medication reconciliation form. PHYSICAL EXAMINATION: VITAL SIGNS: Temperature is 97.5, heart rate is 88, respirations are 24, blood pressure is 131/64, and oxygen saturation 99% on 2 L nasal cannula. GENERAL: Well appearing, no apparent distress. Alert and oriented x3. HEAD: Normocephalic and atraumatic. Eyes, the extraocular muscles are intact. Conjunctivae clear. NECK: No JVD. No bruits. CARDIOVASCULAR: Regular rate and rhythm. LUNGS: Diminished breath sounds at bases. ABDOMEN: Soft, nontender, nondistended. EXTREMITIES: Pitting edema. VASCULAR: 2+ pulses. SKIN: Warm, dry, intact. NEUROLOGIC: No focal deficits noted. LABORATORY DATA: Reviewed. Creatinine is 4.1, potassium 5. Troponin negative x3. BNP 7034. Hemoglobin 8.9. Chest x-ray shows perihilar interstitial opacities, left greater than right with bilateral pleural effusions. IMAGING DATA: A 12-lead electrocardiogram showed normal sinus rhythm. IMPRESSION: 1. Acute on chronic diastolic heart failure. 2. Acute on chronic kidney disease. 3. Hypoalbuminemia. 4. Hyperkalemia. 5. Hypertension. 6. Hyperlipidemia. 7. Diabetes mellitus. 8. Peripheral edema. 9. Respiratory failure with hypoxia. RECOMMENDATIONS: Continue diuretics per Nephrology. The patient has plans to be initiated on hemodialysis for volume removal. Otherwise, continue all current cardiovascular medications. We will recheck a 2D echocardiogram. Maintain on telemetry. Wean noninvasive positive-pressure ventilation per Pulmonary Critical Care. We will continue to follow along with you. Abundio Stone DO [facility] /[id number]
[2020-03-07] MEDS ORDERED: SODIUM CHLORIDE 0.9% 1000ML 1,000 ML ONE (20:14)
[2020-03-07] MEDS ORDERED: MANNITOL 25% 12.5GM/50 ML VIAL IV PRN (20:15)
[2020-03-07] MEDS ORDERED: SODIUM CHLORIDE 0.9% 250ML 500 ML IV PRN (20:15)
[2020-03-07] MEDS ORDERED: SODIUM CHLORIDE 0.9% 1000ML 2,000 ML IV PRN (20:15)
--- NOTE | 2020-03-07 21:15 | NUR ---
Patient starting dialysis. Patient request to remove bipap. Resp. tech in to see patient. Patient agreed to wear her bipap while receiving dialysis. Continue monitor.
--- NOTE | 2020-03-07 21:48 | Consultation ---
DATE OF CONSULTATION: Initial Nephrology Consultation Report REASON FOR CONSULTATION: I have been kindly asked by Dr. Nielsen to see this patient in regard to chronic kidney disease and renal failure. HISTORY OF PRESENT ILLNESS: Ms. Payton is a 69-year-old female, who is a patient of Dr. Ratliff. She last saw Dr. Ratliff at the end of December of this year. The patient is followed by her because of chronic kidney disease. She had some blood work done about maybe 1 or 2 weeks. Again, at that point in time, her serum creatinine was about 3.3 and she presented to the hospital with not feeling well and she was also in respiratory distress. She was breathing hard and at that time, she was requiring BiPAP. She has been given some Lasix 80 mg IV q.12 hours here and with that she has put out about 2 L of urine output, but she still is in some respiratory distress. PAST MEDICAL HISTORY: 1. Diabetes. 2. Hyperlipidemia. 3. Peripheral vascular disease. 4. Chronic kidney disease. PAST SURGICAL HISTORY: She has had cholecystectomy and lumbar back surgery. MEDICATIONS: As per SEP. REVIEW OF SYSTEMS: As mentioned above, shortness of breath and just not feeling well. PHYSICAL EXAMINATION: VITAL SIGNS: Blood pressure 151/84, pulse 90, afebrile. GENERAL: The patient is on nasal cannula. Overnight, she was on BiPAP and she is a little bit tachypneic, but she is able to speak in full sentences, but you can see that she is short of breath. HEENT: No increased JVD. CARDIOVASCULAR: Regular rate and rhythm. LUNGS: Crackles and high pitched squeals throughout the lungs. ABDOMEN: Positive bowel sounds. EXTREMITIES: Trace bilateral lower extremity edema. LABORATORY RESULTS: Sodium 144, potassium 5, chloride 118, bicarb 16. BUN and creatinine 48 and 4.1 respectively. Chest x-ray shows bilateral infiltrates. IMPRESSION/PLAN: 1. Progressive chronic kidney disease. 2. Chronic kidney disease, stage 5. 3. Pulmonary edema. 4. Hypertension. 5. Diabetes. 6. Anemia of chronic disease. 7. Metabolic acidosis. PLAN: I had ordered 80 mg of Lasix IV q.12 hours. It is reported that she is diuresing. However, she is still short of breath. Her chest x-ray has not really showed much improvement. Her GFR is about 11 to 12. I think this is the time to initiate dialysis. I have talked to the patient about we are going to go ahead and have a Leon catheter placed. I explained to her the risks of dialysis or not doing dialysis. I told her that we will do dialysis and keep monitoring her kidney function, but I suspect she will be ESRD. I will follow the patient with you. Thank you for this consultation. Ather MD ADRIEN Mccauley/SELENE /[id number]
--- NOTE | 2020-03-07 22:05 | NUR ---
Received change of shift report from AM nurse. Patient in bed. Denies pain at this time. Addendum: 03/07/20 at 2211 by Gabi Delgado RN Time error. [id number].
[2020-03-07] MEDS: AZITHROMYCIN 500MG/NS 250 ML 250 ML IV SCH (23:00)
[2020-03-07] MEDS: CEFTRIAXONE SOD 1 GM/NS 50 ML 50 ML IV SCH (23:36)
--- NOTE | 2020-03-07 23:43 | NUR ---
Dialysis completed. 2L taken off. Patient is doing well. Patient request to remove bipap.
[2020-03-08] VITALS (13 sets, daily range): BP systolic 108–159; BP diastolic 72–94
--- NOTE | 2020-03-08 01:25 | NUR ---
Patient had 2 loose,soft, yellow stools. Bottom lightly orin. Applied protective cream to bottom. Patient resting quitly at this time.
[2020-03-08] MEDS: HYDROCODONE/APAP 5MG-325MG TAB PO PRN ×3 (02:00→22:59)
[2020-03-08] MEDS: DIPHENHYDRAMINE HCL 25 MG CAP PO PRN ×2 (02:00→22:59)
[2020-03-08 04:37] LABS: BASOPHILS # (AUTO) 0.1 (0.0-0.1); BASOPHILS % 0.7 % (0.0-1.0); EOSINOPHILS # (AUTO) 0.4 (0.0-0.4); EOSINOPHILS % 3.9 % (0.0-6.0); HEMATOCRIT 27.7 % (34.2-44.1); HEMOGLOBIN 8.3 g/dL (12.0-16.0); LYMPHOCYTES # (AUTO) 2.9 (1.0-3.2); LYMPHOCYTES % 27.9 % (18.0-39.1); MEAN CORPUSCULAR HEMOGLOBIN 25.2 pg (28-32); MEAN CORPUSCULAR VOLUME 83.9 fL (81-99); MONOCYTES # (AUTO) 0.5 (0.2-0.8); MONOCYTES % 5.2 % (4.4-11.3); NEUTROPHILS # (AUTO) 6.5 (2.1-6.9); NEUTROPHILS % 61.8 % (38.7-80.0); PLATELET COUNT 359 x10e3/uL (140-360); RED CELL DISTRIBUTION WIDTH 15.9 % (11.7-14.4)
[2020-03-08 05:01] LABS: ALBUMIN 1.9 g/dL (3.5-5.0); ALBUMIN/GLOBULIN RATIO 0.5 (0.8-2.0); CALCIUM 7.6 mg/dL (8.4-10.2); CREATININE, SERUM 3.05 mg/dL (0.57-1.11); MAGNESIUM 1.2 MG/DL (1.3-2.1); PHOSPHORUS 3.9 MG/DL (2.3-4.7)
--- NOTE | 2020-03-08 06:52 | NUR ---
Patient had a bed bath with katiuska care. Patient tolerated well.
[2020-03-08] MEDS: INSULIN REGULAR, HUMAN 100 UNIT/1 ML 3ML VIAL SQ SCH ×4 (07:30→21:00)
--- NOTE | 2020-03-08 08:03 | Diagnostic Imaging Report ---
Non-tunneled trialysis Catheter Insertion History: Chronic kidney disease with fluid overload acquiring hemodialysis. Modality: Fluoroscopy and sonography. Sedation: None. Conveyor Worker: Anton Wild MD. Fermentation Manager: None. Approach: Right internal jugular vein Estimated blood loss: < 5 cc. Specimen: None. Fluoroscopy Time: 0.1 min. Reference Air Kerma (Ka, r): 1.33 mGy. Technique: Informed written consent was obtained. Discussion of risks, benefits, and alternatives were made with the patient. The patient expressed understanding and agreed to proceed. A universal timeout was performed prior to starting the procedure. All elements maximal sterile barrier technique was utilized for this procedure, including utilization of sterile scrub solution for skin prep, a large sterile sheet to cover the areas of the patient that were not prepped, and hand hygiene, mask, head covering, and sterile gown for performing radiologist and scrub technologist. Initial ultrasound images demonstrate patent and compressible right internal jugular, which was punctured under direct real-time ultrasound guidance with a micropuncture needle. An ultrasound image was saved to PACS. A microwire and sheath were placed. A 0.035 inch wire was placed through the sheath into the IVC. The tract was serially dilated. The 15 cm trialysis catheter was placed over the wire with its distal tip terminating in the superior right atrium. The ports were flushed and aspirated easily following placement. The lumens were locked with heparin. The catheter was sutured to the skin to secure its placement. Vital signs were monitored throughout the procedure by a nurse, and remained stable. The patient tolerated the procedure well and left the department in the same condition. Results: Spot radiograph of the chest demonstrates the new non-tunneled trialysis catheter to lie in the expected position with its tip overlying the right atrium. Impression: Successful, uncomplicated placement of a right internal jugular non-tunneled trialysis catheter using sonographic and fluoroscopic guidance. The catheter is ready for immediate use. Signed by: Anton Wild MD on 03/08/2020 8:00 AM
--- NOTE | 2020-03-08 08:23 | Diagnostic Imaging Report ---
Examination: Single AP view of the chest. COMPARISON: 03/07/2020 INDICATION: Pleural effusions DISCUSSION: Interval placement of a right internal jugular high flow central venous catheter, with the tip projecting over the expected region of the upper right atrium. Lungs remain reasonably well inflated. Overall stable appearance of prominent pulmonary interstitial markings and moderate bilateral pleural effusions. No new consolidation or pneumothorax. Stable mild enlargement of the cardiomediastinal silhouette. No acute osseous abnormalities. IMPRESSION: Interval placement of a right internal jugular approach high flow central venous catheter positioned as described. Stable findings of interstitial pulmonary edema and moderate bilateral pleural effusions. Signed by: Dr. Miguel Rose M.D. on 03/08/2020 8:20 AM
[2020-03-08] MEDS: PANTOPRAZOLE SOD 40 MG TABEC PO SCH (08:36)
[2020-03-08] MEDS: ASPIRIN 81 MG CHEW TAB PO SCH ×2 (09:00→14:25)
[2020-03-08] MEDS: FUROSEMIDE INJ 10 MG/ML 4 ML VIAL IV SCH ×2 (09:00→21:00)
--- NOTE | 2020-03-08 10:11 | Progress Note ---
DATE: Cardiology Progress Note SUBJECTIVE: The patient reports feeling much better after one session of hemodialysis. Her shortness of breath has improved. No chest pain this morning. OBJECTIVE: VITAL SIGNS: Temperature is 98.2, heart rate is 89, respirations are 20, blood pressure is 159/90, and oxygen saturation is 99% on 2 L nasal cannula. GENERAL: She is well appearing, in no apparent distress. CARDIOVASCULAR: She has regular rate and rhythm. LUNGS: Diminished breath sounds at bases. ABDOMEN: Soft, nontender, and nondistended. EXTREMITIES: Trace edema. CARDIOVASCULAR MEDICATIONS: Reviewed. LABORATORY DATA: Reviewed. Hemoglobin 8.3. Creatinine is 3.05 and potassium is 4. Chest x-ray shows stable findings of interstitial pulmonary edema and moderate bilateral pleural effusions. IMPRESSION: 1. Ijarm-ed-retxpnr diastolic heart failure. 2. Loozg-gv-rhsbbyo kidney disease, now on hemodialysis. 3. Hypoalbuminemia. 4. History of hyperkalemia, resolved. 5. Hypertension. 6. Hyperlipidemia. 7. Diabetes mellitus. 8. Respiratory failure with hypoxia. RECOMMENDATIONS: Continue diuretics per Nephrology. The patient has improved with volume removal through hemodialysis. We will recheck a 2D echocardiogram. Otherwise, continue all current cardiovascular medications. If she needs more antihypertensive affect, we will titrate medications after hemodialysis. DO KAHLIL Fletcher/MODL /[id number]
--- NOTE | 2020-03-08 12:19 | NUR ---
INTERNAL MEDICINE PROGRESS NOTE Coverage for: Dr. Severo Nielsen. DATE: 03/08/20 SUBJECTIVE: HD 2 L out yesterday HD ~1.5 L goal today, some mild hypotension limiting bipap used all day yesterday today 98% saturation, 2 L/min oxygen law REVIEW OF SYSTEMS: No chest pain, no rash PHYSICAL EXAMINATION: VITAL SIGNS: Noted and reviewed per the chart record. GENERAL: no acute distress, calm HEENT: Normocephalic and atraumatic. NECK: Supple. Throat midline. LUNGS: Bilateral air entry, decreased breath sounds at bases. CARDIOVASCULAR: S1, S2. No murmurs, rubs, or gallops. ABDOMEN: Soft and nontender. EXTREMITIES: No clubbing. No cyanosis. 1 + leg edema. INTEGUMENT: No rash. No purpura. LABS: k 4.0, cr 3.05. wbc 10. hct 28, plt 359 IMPRESSION AND PLAN: 0. Acute respiratory failure hypoxemic, bipap salvage / off bipap 1. Dyspnea, mostly due to pulmonary edema. 2. Pulmonary edema. Associated pleural effusions 3. Acute on chronic kidney failure. 4. Hypertension, treated emergency. 5. Diabetes. 6. Hyperlipidemia. 7. Possible pneumonia, less likely but not ruled out. 8. Reported recent urinary tract infection. 9. Moderate anemia. 10. Critical hyperkalemia. 11. Severe hypoalbuminemia. 12. Hyperlipidemia. 13. Diabetes. 14. Peripheral vascular disease, on history. 15. Depression. Renal consult for diuresis and fluid management -intermittent HD as needed -follow UOP Oxygen by protocol if tolerated. BIPAP as backup. Patient may actually need a bridging thoracentesis. Pulmonary consulted Continue antibiotics for possibility of sepsis and follow up closely. Follow urine culture ultrasound of renal system - no hydronephrosis Thank you very much, Dr. Espinosa. Please call for questions.
--- NOTE | 2020-03-08 13:48 | Progress Note ---
DATE: SUBJECTIVE: The patient is feeling better. She received dialysis and has received yesterday and is receiving dialysis again today. PHYSICAL EXAMINATION: VITAL SIGNS: The blood pressure is 154/78, saturation is 99% on 2 L and the pulse is 86. HEENT: Shows no facial swelling or erythema. LYMPHATIC: Shows no submandibular, cervical, or supraclavicular adenopathy. CARDIAC: Reveals regular rate and rhythm with normal S1 and S2. LUNGS: Auscultation of lungs reveals rhonchorous breath sounds bilaterally. There is no wheezing. ABDOMEN: Soft and nontender. There is no rebound or guarding. EXTREMITIES: Shows no leg edema or calf tenderness. There is no cyanosis or clubbing. SKIN: Shows no rashes. NEUROLOGICAL: Shows no focal abnormalities. LABORATORY DATA: BUN to creatinine ratio is 27 to 3.05 and the other electrolytes are within normal limits. The albumin is 1.9. The white blood cell count is 10.5 and hemoglobin is 8.3. The platelet count is 359. IMPRESSION: 1. Acute on chronic renal failure. 2. Acute respiratory failure. 3. Urinary tract infection with gram-negative rods. 4. Diabetes. 5. Hypertension. 6. Anemia. 7. Peripheral vascular disease. PLAN: 1. Continue dialysis. 2. Repeat chest x-ray again tomorrow. 3. Continue current antibiotics and monitor culture results. 4. Continue to monitor renal function and electrolytes. Judd Nicholas MD [facility]/MODL /[id number]
[2020-03-08] MEDS: HEPARIN SOD (PORCINE) 5,000 UNIT/ML VIAL SC SCH ×2 (14:30→21:00)
--- NOTE | 2020-03-08 17:39 | Progress Note ---
DATE: 03/08/2020 Renal Progress Note SUBJECTIVE: Events about 24 hours have been noted. The patient had a Leon catheter placed yesterday. She received her first dialysis yesterday and 2 L were removed yesterday. The patient just finished dialysis again today. Today, the patient feels much better. She is not as short of breath as she was before admission and she received her 2nd dialysis just a little while ago. PHYSICAL EXAMINATION: VITAL SIGNS: Blood pressure 108/80, pulse 86, respirations 22. GENERAL: The patient is no acute distress, but she is wearing a nasal cannula oxygen still. HEENT: No increased JVD. The patient has a new right IJ Leon catheter. CARDIOVASCULAR: Regular rate and rhythm. LUNGS: Decreased breath sounds and crackles bilaterally. ABDOMEN: Positive bowel sounds. EXTREMITIES: Trace bilateral lower extremity edema. LABORATORY RESULTS: Sodium 142, potassium 4, chloride 109, bicarb 23, BUN and creatinine 27 and 3.05 respectively. Hemoglobin, hematocrit 8.3 and 27.7 respectively. IMPRESSION: 1. Progressive chronic kidney disease. 2. Chronic kidney disease, stage 5. 3. Pulmonary edema. 4. Hypertension. 5. Diabetes. 6. Anemia of chronic disease. 7. Metabolic acidosis. PLAN: The patient underwent the first dialysis session yesterday last night 2 L were removed and today the patient underwent dialysis as well for 3 hours. We dialyzed on a three potassium bath, 2.5 calcium, 1.8 L were removed. So in the last two days, she has had 3.8 L of fluid removed. It looks like this patient has progressed to chronic kidney disease stage 5. I will probably give her a break tomorrow unless she needs urgent dialysis and the next one will be probably planned for Thursday. In the meantime, we will continue the 80 mg of Lasix IV to keep from fluid accumulation and the patient needs some Epogen or Aranesp, I will go ahead and order that, and then I also talk to case management coordinator about setting up with dialysis at [facility] in [place]. Continue the Lasix. We will talk to the case management coordinator about getting her set up. We will continue the Lasix IV. Ather MD ADRIEN Mccauley/SELENE /[id number]
--- NOTE | 2020-03-08 19:08 | NUR ---
Received change of shift report from AM nurse. Patient in bed in sitting position. O2 on 2L n/c with sat at 100%. No noted distress or discomfort at this time. Continue monitor.
[2020-03-08] MEDS: AZITHROMYCIN 500MG/NS 250 ML 250 ML IV SCH (21:00)
[2020-03-08] MEDS: CEFTRIAXONE SOD 1 GM/NS 50 ML 50 ML IV SCH (22:59)
[2020-03-09] VITALS (8 sets, daily range): BP systolic 108–160; BP diastolic 51–85
[2020-03-09 05:23] LABS: ALBUMIN 1.9 g/dL (3.5-5.0); ALBUMIN/GLOBULIN RATIO 0.5 (0.8-2.0); ANION GAP 13.2 mmol/L (8-16); CALCIUM 7.6 mg/dL (8.4-10.2); CREATININE, SERUM 3.05 mg/dL (0.57-1.11); POTASSIUM 4.2 mmol/L (3.5-5.1)
[2020-03-09 06:35] LABS: BASOPHILS # (AUTO) 0.1 (0.0-0.1); BASOPHILS % 0.8 % (0.0-1.0); EOSINOPHILS # (AUTO) 0.5 (0.0-0.4); EOSINOPHILS % 6.3 % (0.0-6.0); HEMATOCRIT 29.5 % (34.2-44.1); HEMOGLOBIN 8.8 g/dL (12.0-16.0); LYMPHOCYTES # (AUTO) 3.3 (1.0-3.2); LYMPHOCYTES % 38.7 % (18.0-39.1); MEAN CORPUSCULAR HEMOGLOBIN 25.5 pg (28-32); MEAN CORPUSCULAR HGB CONC 29.8 g/dL (31-35); MEAN CORPUSCULAR VOLUME 85.5 fL (81-99); MONOCYTES # (AUTO) 0.6 (0.2-0.8); MONOCYTES % 7.2 % (4.4-11.3); NEUTROPHILS # (AUTO) 3.9 (2.1-6.9); NEUTROPHILS % 46.5 % (38.7-80.0); PLATELET COUNT 306 x10e3/uL (140-360); RED BLOOD COUNT 3.45 x10e6/uL (3.6-5.1); RED CELL DISTRIBUTION WIDTH 15.9 % (11.7-14.4)
[2020-03-09] MEDS: INSULIN REGULAR, HUMAN 100 UNIT/1 ML 3ML VIAL SQ SCH ×4 (07:30→20:35)
[2020-03-09] MEDS: FUROSEMIDE INJ 10 MG/ML 4 ML VIAL IV SCH ×2 (08:32→20:20)
[2020-03-09] MEDS: PANTOPRAZOLE SOD 40 MG TABEC PO SCH (08:32)
[2020-03-09] MEDS: ASPIRIN 81 MG CHEW TAB PO SCH (08:32)
--- NOTE | 2020-03-09 08:51 | Diagnostic Imaging Report ---
EXAMINATION: CHEST SINGLE (PORTABLE) INDICATION: CHF COMPARISON: Chest radiograph of 03/08/2020 FINDINGS: LINES/TUBES:Right IJ temporary dialysis catheter terminates at the superior cavoatrial junction. LUNGS:The lung volumes are low. There is perihilar fullness and indistinctness of the pulmonary vasculature. Bibasilar patchy opacities. PLEURA:Bilateral pleural effusions, slightly increased on the left compared to the prior day. MEDIASTINUM:Cardiomediastinal silhouette is stably enlarged. BONES/SOFT TISSUES:No acute osseous injury. ABDOMEN:No free air under the diaphragm. IMPRESSION: Unchanged cardiomegaly and pulmonary edema. Bilateral pleural effusions, slightly increased on the left compared to the prior day. Signed by: Juan M Angulo MD on 03/09/2020 8:47 AM
[2020-03-09] MEDS: HEPARIN SOD (PORCINE) 5,000 UNIT/ML VIAL SC SCH ×2 (09:00→20:23)
[2020-03-09] MEDS: EPOETIN ALFA-EPBX 10,000 UNIT/ML VIAL SC SCH (09:08)
--- NOTE | 2020-03-09 10:14 | NUR ---
PT SIGNED CHOICE FOR SNG. FILED IN CHART AND WILL FAX ALL CLINICALS AVAILABLE TO ADMISSION LINE.
--- NOTE | 2020-03-09 13:24 | NUR ---
INTERNAL MEDICINE PROGRESS NOTE Coverage for: Dr. Severo Nielsen. DATE: 03/09/20 SUBJECTIVE: Successful HD so far No HD planned today UOP 550 cc/12 hrs yesterday night no bipap in last 24 hrs 100% sat REVIEW OF SYSTEMS: No chest pain, no rash PHYSICAL EXAMINATION: VITAL SIGNS: Noted and reviewed per the chart record. GENERAL: no acute distress, calm HEENT: Normocephalic and atraumatic. NECK: Supple. Throat midline. LUNGS: Bilateral air entry, decreased breath sounds at bases. CARDIOVASCULAR: S1, S2. No murmurs, rubs, or gallops. ABDOMEN: Soft and nontender. EXTREMITIES: No clubbing. No cyanosis. 1 + leg edema. INTEGUMENT: No rash. No purpura. LABS: k 4.2, cr 3.05, hct 29.5, wbc 8.47, plt 306 IMPRESSION AND PLAN: 0. Acute respiratory failure hypoxemic, bipap on / off bipap 1. Dyspnea, mostly due to pulmonary edema. 2. Pulmonary edema. Associated pleural effusions 3. Acute on chronic kidney failure. 4. Hypertension, treated emergency. 5. Diabetes. 6. Hyperlipidemia. 7. Possible pneumonia, less likely but not ruled out. 8. Urinary tract infection GNR 9. Moderate anemia. 10. Critical hyperkalemia. 11. Severe hypoalbuminemia. 12. Hyperlipidemia. 13. Diabetes. 14. Peripheral vascular disease, on history. 15. Depression. Renal consult for diuresis and fluid management -intermittent HD as needed -follow UOP -long term care social worker HD catheter to be placed today Oxygen by protocol if tolerated. BIPAP as backup. Patient may actually need a bridging thoracentesis. Pulmonary consulted Continue antibiotics for possibility of sepsis and follow up closely. urine culture noted ultrasound of renal system - no hydronephrosis Thank you very much, Dr. Espinosa. Please call for questions.
[2020-03-09] MEDS ORDERED: FENTANYL CITRATE/PF 100MCG/2 ML INJ ONE (13:29)
[2020-03-09] MEDS ORDERED: MIDAZOLAM HCL 2 MG/2 ML VIAL ONE (13:29)
[2020-03-09] MEDS ORDERED: HEPARIN SOD (PORCINE) 1000 UNIT/ML SDV ONE (13:30)
[2020-03-09] MEDS ORDERED: SODIUM CHLORIDE 0.9% 250ML 250 ML ONE (13:31)
[2020-03-09] MEDS ORDERED: IOPAMIDOL 300MG/ML 100 ML INFUS..BTL IV ONE (13:31)
[2020-03-09] MEDS ORDERED: LIDOCAINE HCL 1% LOCAL INJ 20 ML VIAL ONE (13:31)
--- NOTE | 2020-03-09 14:54 | Diagnostic Imaging Report ---
PROCEDURE: Conversion of non-tunneled to tunneled dialysis catheter Procedural Personnel Attending physician(s): Juan M Angulo MD Fellow physician(s): None Resident physician(s): None Advanced practice provider(s): None Pre-procedure diagnosis: ESRD Post-procedure diagnosis: Same Indication: Performance of hemodialysis Additional clinical history: None Complications: No immediate complications. IMPRESSION: Conversion of right-sided internal jugular non-tunneled temporary dialysis catheter for a tunneled dialysis catheter, with tip in the expected location of the right atrium. Plan: The catheter may be used immediately. PROCEDURE SUMMARY: - Temporary central venous catheter removal - Tunneled central venous catheter insertion with fluoroscopic guidance - Additional procedure(s): None PROCEDURE DETAILS: Pre-procedure History and imaging of central venous access reviewed (QCDR): Yes Consent: Informed consent for the procedure including risks, benefits and alternatives was obtained and time-out was performed prior to the procedure. Preparation (MIPS): The site was prepared and draped using all elements of maximal sterile barrier technique including sterile gloves, sterile gown, cap, mask, large sterile sheet, sterile ultrasound probe cover, hand hygiene and cutaneous antisepsis with 2% chlorhexidine. Medical reason for site preparation exception (MIPS): Not applicable Anesthesia/sedation Level of anesthesia/sedation: Moderate sedation (conscious sedation) 1mg Versed, 50mcg fentanyl Anesthesia/sedation administered by: Independent trained observer under attending supervision with continuous monitoring of the patient?s level of consciousness and physiologic status Total intra-service sedation time (minutes): 30 Catheter exchange Local anesthesia was administered. A wire was passed through the indwelling central venous catheter and into the central veins. The catheter was removed, and a peel-away sheath was placed. An incision was made near the venous access site and the catheter was tunneled subcutaneously to the venous access site. The catheter was advanced via a peel-away sheath into the vein under fluoroscopic guidance. Catheter tip location was fluoroscopically verified and a permanent image was stored. Catheter placed: [employer] 19cm tip to cuff Catheter size (Niuean): 15 Niuean Catheter flush: Heparin (1000 units/mL) Closure The access site was closed and a sterile bandage was applied. Access site closure technique: Tissue adhesive Catheter securement technique: Non-absorbable suture Contrast Contrast agent: None Contrast volume (mL): NA Radiation Dose Fluoroscopy time (minutes): 0.0 Reference air kerma (mGy): 0.4 Additional Details Additional description of procedure: None Equipment details: None Specimens removed: Temporary central venous catheter Estimated blood loss (mL): Less than 10 Standardized report: [email or web address] Attestation Signer name: Juan M Angulo MD I attest that I was present for the entire procedure. I reviewed the stored images and agree with the report as written. Signed by: Juan M Angulo MD on 03/09/2020 2:51 PM
[2020-03-09] MEDS: HYDROCODONE/APAP 5MG-325MG TAB PO PRN (17:04)
--- NOTE | 2020-03-09 18:47 | NUR ---
PT HAS TUNNELED CATH. PER PACU OK TO USE. PER MD NOTE, PT TO HAVE DIALYSIS TOMORROW. PER CSM SHOULD HAVE DIALYSIS CHAIR IN PLACE FOR DC BY THURSDAY. PT STABLE
--- NOTE | 2020-03-09 19:35 | Progress Note ---
DATE: Cardiology Progress Note SUBJECTIVE: The patient is feeling better after dialysis. Shortness of breath has improved. No chest pain. OBJECTIVE: VITAL SIGNS: Temperature 98.2, heart rate is 85, respirations are 20, blood pressure is 136/72, and oxygen saturation 99% on 2 L nasal cannula. GENERAL: Well appearing, no apparent distress. CARDIOVASCULAR: Regular rate and rhythm. LUNGS: Diminished breath sounds at bases. ABDOMEN: Soft, nontender, nondistended. EXTREMITIES: Trace edema. CARDIOVASCULAR MEDICATIONS: Reviewed. LABORATORY DATA: Reviewed. Hemoglobin 8.8, creatinine 3.05, and potassium 4.2. A 2D echocardiogram showed left ventricular ejection fraction of 40% to 45% with a pleural effusion. TELEMETRY: Telemetry monitoring showed normal sinus rhythm. IMPRESSION: 1. Acute on chronic systolic and diastolic heart failure. 2. Acute on chronic kidney disease, now on hemodialysis. 3. Hypoalbuminemia. 4. Hypertension. 5. Hyperlipidemia. 6. Pleural effusion. RECOMMENDATIONS: Continue diuretics and volume removal through hemodialysis per Nephrology. Her echocardiogram showed [id number] reduced systolic function with ejection fraction of 40 to 45%. Avoid nephrotoxic agents at this point in time. Continue all other current cardiovascular medications. Monitor on telemetry. Pleural effusion per Pulmonary Critical Care. DO KAHLIL Fletcher/CHARYL /[id number]
[2020-03-09] MEDS: AZITHROMYCIN 500MG/NS 250 ML 250 ML IV SCH (20:20)
[2020-03-09] MEDS: HYDROCODONE/APAP 7.5MG-325MG 1 EA TAB PO PRN (20:36)
[2020-03-10] VITALS (8 sets, daily range): BP systolic 137–154; BP diastolic 76–92
[2020-03-10] MEDS: HYDROCODONE/APAP 7.5MG-325MG 1 EA TAB PO PRN ×3 (04:40→15:32)
[2020-03-10 05:06] LABS: BASOPHILS # (AUTO) 0.1 (0.0-0.1); BASOPHILS % 0.8 % (0.0-1.0); EOSINOPHILS # (AUTO) 0.7 (0.0-0.4); EOSINOPHILS % 7.1 % (0.0-6.0); HEMATOCRIT 33.4 % (34.2-44.1); HEMOGLOBIN 9.6 g/dL (12.0-16.0); LYMPHOCYTES # (AUTO) 3.9 (1.0-3.2); LYMPHOCYTES % 40.3 % (18.0-39.1); MEAN CORPUSCULAR HEMOGLOBIN 24.9 pg (28-32); MEAN CORPUSCULAR HGB CONC 28.7 g/dL (31-35); MEAN CORPUSCULAR VOLUME 86.5 fL (81-99); MONOCYTES # (AUTO) 0.9 (0.2-0.8); NEUTROPHILS % 42.2 % (38.7-80.0); PLATELET COUNT 314 x10e3/uL (140-360); RED BLOOD COUNT 3.86 x10e6/uL (3.6-5.1); RED CELL DISTRIBUTION WIDTH 15.9 % (11.7-14.4)
[2020-03-10 05:27] LABS: CALCIUM 7.9 mg/dL (8.4-10.2); CREATININE, SERUM 3.52 mg/dL (0.57-1.11)
[2020-03-10 05:48] LABS: ANION GAP 16.3 mmol/L (8-16)
[2020-03-10 05:49] LABS: POTASSIUM 5.3 mmol/L (3.5-5.1)
[2020-03-10] MEDS: INSULIN REGULAR, HUMAN 100 UNIT/1 ML 3ML VIAL SQ SCH ×4 (07:30→20:33)
[2020-03-10] MEDS: FUROSEMIDE INJ 10 MG/ML 4 ML VIAL IV SCH ×2 (08:49→20:33)
[2020-03-10] MEDS: PANTOPRAZOLE SOD 40 MG TABEC PO SCH (08:49)
[2020-03-10] MEDS: CEFAZOLIN SOD 1 GM/NS 50ML 50 ML IV SCH (08:49)
[2020-03-10] MEDS: ASPIRIN 81 MG CHEW TAB PO SCH (08:49)
[2020-03-10] MEDS: HEPARIN SOD (PORCINE) 5,000 UNIT/ML VIAL SC SCH ×2 (08:55→23:16)
[2020-03-10] MEDS ORDERED: CEFAZOLIN SOD 1 GM VIAL IV SCH (09:00)
--- NOTE | 2020-03-10 17:44 | Progress Note ---
DATE: SUBJECTIVE: The patient feels better overall. She has less dyspnea. She is on nasal cannula. PHYSICAL EXAMINATION: VITAL SIGNS: The patient is afebrile. The vital signs are stable. HEENT: Shows no facial swelling or erythema. CARDIAC: Reveals regular rate and rhythm. Normal S1, S2. LUNGS: Auscultation of lungs reveals decreased breath sounds at the bases. There is no wheezing. ABDOMEN: Soft and nontender. There is no rebound or guarding. EXTREMITIES: Shows no leg edema or calf tenderness. IMPRESSION: 1. Acute on chronic renal failure. 2. Urinary tract infection with gram-negative rods. 3. Acute respiratory failure. 4. Diabetes. 5. Hypertension. 6. Anemia. PLAN: 1. Repeat chest x-ray again tomorrow to make sure the pleural fluid is improving. 2. Continue dialysis as needed. 3. Complete antibiotics for Klebsiella and Escherichia coli urinary tract infection. Judd Nicholas MD [facility]/SELENE /[id number]
--- NOTE | 2020-03-10 19:00 | NUR ---
Received bed side report, introduced self to patient. safety and fall precautions maintained as per hosptal protocols: bed in lowest position and locked, needed items beside bed, call alicia close to patient, patient instructed to use it to call nurses for any assisstance needed, patient verbalized understanding. patient is currently stable will continue to monitor. Addendum: 03/11/20 at 0415 by Kwadwo Bobby RN Note: 0200: Transfer note
[2020-03-10] MEDS: AZITHROMYCIN 500MG/NS 250 ML 250 ML IV SCH (21:00)
--- NOTE | 2020-03-10 22:21 | NUR ---
INTERNAL MEDICINE PROGRESS NOTE Coverage for: Dr. Severo Nielsen. DATE: 03/10/20 SUBJECTIVE: alw in place per renal/ didnt need bipap 2 L/min oxygen NC 99% sat eating well REVIEW OF SYSTEMS: No chest pain, no rash PHYSICAL EXAMINATION: VITAL SIGNS: Noted and reviewed per the chart record. GENERAL: no acute distress, calm HEENT: Normocephalic and atraumatic. NECK: Supple. Throat midline. LUNGS: Bilateral air entry, decreased breath sounds at bases. CARDIOVASCULAR: S1, S2. No murmurs, rubs, or gallops. ABDOMEN: Soft and nontender. EXTREMITIES: No clubbing. No cyanosis. 1 + leg edema. INTEGUMENT: No rash. No purpura. LABS: k 5.3, cr 3.5. wbc 9.5, hct 33, plt 314 IMPRESSION AND PLAN: 0. Acute respiratory failure hypoxemic, bipap on / off bipap 1. Dyspnea, mostly due to pulmonary edema. 2. Pulmonary edema/HFpEF borderline, LVEF 40-45%. Associated pleural effusions 3. Acute on chronic kidney failure. 4. Hypertension, treated emergency. 5. Diabetes. 6. Hyperlipidemia. 7. Possible pneumonia, less likely but not ruled out. 8. Urinary tract infection GNR 9. Moderate anemia. 10. Critical hyperkalemia. 11. Severe hypoalbuminemia. 12. Hyperlipidemia. 13. Diabetes. 14. Peripheral vascular disease, on history. 15. Depression. Renal consult -intermittent HD as needed -follow UOP per renal -long term care social worker HD catheter in place -Await HD placement Remove law when ok with and renal experts Oxygen by protocol if tolerated. BIPAP d/c Patient may or may not actually need a thoracentesis. Pulmonary follow Continue antibiotics for sepsis. urine culture noted ultrasound of renal system - no hydronephrosis Thank you very much, Dr. Espinosa. Please call for questions.
[2020-03-11] VITALS (8 sets, daily range): BP systolic 144–171; BP diastolic 73–90
[2020-03-11] MEDS: HYDROCODONE/APAP 7.5MG-325MG 1 EA TAB PO PRN ×2 (01:43→11:15)
[2020-03-11] MEDS: DIPHENHYDRAMINE HCL 25 MG CAP PO PRN (04:40)
--- NOTE | 2020-03-11 06:44 | NUR ---
patient endorsed to next shift for continuity of care.
[2020-03-11] MEDS: INSULIN REGULAR, HUMAN 100 UNIT/1 ML 3ML VIAL SQ SCH ×4 (07:30→21:00)
--- NOTE | 2020-03-11 07:30 | NUR ---
PATIENT IN BED RESTING WITH NO S/S OF DISTRESS. O2 IN PLACE VIA N/C, DELANEY CATHETER SRAINING CLEAR YELLOW URINE. BED IN LOWER POSITION, CALL LIGHT AT REACH.
[2020-03-11 07:37] LABS: ANION GAP 13.3 mmol/L (8-16); CALCIUM 7.9 mg/dL (8.4-10.2); CREATININE, SERUM 2.49 mg/dL (0.57-1.11); POTASSIUM 4.3 mmol/L (3.5-5.1)
[2020-03-11] MEDS: PANTOPRAZOLE SOD 40 MG TABEC PO SCH (08:00)
--- NOTE | 2020-03-11 08:34 | Diagnostic Imaging Report ---
EXAMINATION: CHEST 2 VIEWS INDICATION: Pleural effusions. COMPARISON: 03/09/2020. FINDINGS: TUBES and LINES: Right central venous catheter with distal tip projected on the right atrium. LUNGS: Bilateral pulmonary venous congestion again observed. Patchy density in the lower lobes suggestive of subsegmental atelectasis. PLEURA: Pleural effusions appear decreased, however, this could be related to positioning as prior examination was a portable exam. There is a moderate volume left pleural effusion and a small right pleural effusion.. No pneumothorax. HEART AND MEDIASTINUM: Cardiac size is mildly enlarged. BONES AND SOFT TISSUES: No acute osseous lesion. Soft tissues are unremarkable. UPPER ABDOMEN: No free air under the diaphragm. IMPRESSION: 1. Moderate left and small right pleural effusions cannot be fully compared to technical differences. 2. Interval decrease in bilateral pulmonary venous congestion. Signed by: Dr. Sherry Hong M.D. on 03/11/2020 8:31 AM
[2020-03-11] MEDS: FUROSEMIDE INJ 10 MG/ML 4 ML VIAL IV SCH ×2 (09:41→22:42)
[2020-03-11] MEDS: ASPIRIN 81 MG CHEW TAB PO SCH (09:42)
[2020-03-11] MEDS: HEPARIN SOD (PORCINE) 5,000 UNIT/ML VIAL SC SCH ×2 (09:43→22:48)
[2020-03-11] MEDS ORDERED: SODIUM CHLORIDE 0.9% 250ML 250 ML ONE (10:03)
[2020-03-11] MEDS: CEFAZOLIN SOD 1 GM/NS 50ML 50 ML IV SCH (10:29)
--- NOTE | 2020-03-11 11:26 | NUR ---
PATIENT C/O PAIN AND WAS MEDICATED ORDERED. WILL CONTINUE TO MONITOR.
--- NOTE | 2020-03-11 12:56 | Progress Note ---
DATE: Cardiology Progress Note. SUBJECTIVE: The patient feeling much better. Denies any chest pain, shortness of breath. OBJECTIVE: VITAL SIGNS: Temperature is 98.3, heart rate 87, respirations are 20, blood pressure is 158/73, oxygen saturation is 99% on 3 L nasal cannula. GENERAL: Well appearing, well built, no apparent distress. Alert and oriented x3. CARDIOVASCULAR: Regular rate and rhythm. LUNGS: Clear to auscultation. ABDOMEN: Soft, nontender, nondistended. EXTREMITIES: No clubbing, cyanosis, or edema. CARDIOVASCULAR MEDICATIONS: Reviewed. LABORATORY DATA: Reviewed. IMAGING: Telemetry monitoring shows normal sinus rhythm. IMPRESSION: 1. Acute on chronic systolic and diastolic heart failure. 2. Acute on chronic kidney disease, now on hemodialysis. 3. Hypoalbuminemia. 4. Hypertension. 5. Hyperlipidemia. 6. Pleural effusion. RECOMMENDATIONS: Continue diuretics and volume removal through hemodialysis per Nephrology. Her echocardiogram showed mild to moderately reduced ejection fraction of 40% to 45%. Avoid nephrotoxic agents at this point in time. Continue all the current cardiovascular medications. Monitor on telemetry. Lower effusion management per Pulmonary Critical Care. DO KAHLIL Fletcher/CHARYL /[id number]
--- NOTE | 2020-03-11 13:48 | NUR ---
INTERNAL MEDICINE PROGRESS NOTE Coverage for: Dr. Severo Nielsen. DATE: 03/10/20 SUBJECTIVE: law in place per renal/ didnt need bipap 2 L/min oxygen NC 99% sat eating well REVIEW OF SYSTEMS: No chest pain, no rash PHYSICAL EXAMINATION: VITAL SIGNS: Noted and reviewed per the chart record. GENERAL: no acute distress, calm HEENT: Normocephalic and atraumatic. NECK: Supple. Throat midline. LUNGS: Bilateral air entry, decreased breath sounds at bases. CARDIOVASCULAR: S1, S2. No murmurs, rubs, or gallops. ABDOMEN: Soft and nontender. EXTREMITIES: No clubbing. No cyanosis. 1 + leg edema. INTEGUMENT: No rash. No purpura. LABS: k 5.3, cr 3.5. wbc 9.5, hct 33, plt 314 IMPRESSION AND PLAN: 0. Acute respiratory failure hypoxemic, bipap on / off bipap 1. Dyspnea, mostly due to pulmonary edema. 2. Pulmonary edema/HFpEF borderline, LVEF 40-45%. Associated pleural effusions 3. Acute on chronic kidney failure. 4. Hypertension, treated emergency. 5. Diabetes. 6. Hyperlipidemia. 7. Possible pneumonia, less likely but not ruled out. 8. Urinary tract infection GNR 9. Moderate anemia. 10. Critical hyperkalemia. 11. Severe hypoalbuminemia. 12. Hyperlipidemia. 13. Diabetes. 14. Peripheral vascular disease, on history. 15. Depression. Renal consult -intermittent HD as needed -follow UOP per renal -long goods drier HD catheter in place -Await HD placement Remove law when ok with . Nephrology does not require Oxygen by protocol if tolerated. Hopefully doesnt need home O2 at discharge Patient may or may not need a thoracentesis. Pulmonary follow and decision Continue antibiotics for sepsis. urine culture noted ultrasound of renal system - no hydronephrosis Thank you very much, Dr. Espinosa. Please call for questions.
--- NOTE | 2020-03-11 13:50 | NUR ---
INTERNAL MEDICINE PROGRESS NOTE Coverage for: Dr. Severo Nielsen. DATE: 03/11/20 SUBJECTIVE: law in place per renal/ didnt need bipap 2 L/min oxygen NC 99% sat eating well REVIEW OF SYSTEMS: No chest pain, no rash PHYSICAL EXAMINATION: VITAL SIGNS: Noted and reviewed per the chart record. GENERAL: no acute distress, calm HEENT: Normocephalic and atraumatic. NECK: Supple. Throat midline. LUNGS: Bilateral air entry, decreased breath sounds at bases. CARDIOVASCULAR: S1, S2. No murmurs, rubs, or gallops. ABDOMEN: Soft and nontender. EXTREMITIES: No clubbing. No cyanosis. 1 + leg edema. INTEGUMENT: No rash. No purpura. LABS: k 4.3. cr 2.49. IMPRESSION AND PLAN: 0. Acute respiratory failure hypoxemic, bipap on / off bipap 1. Dyspnea, mostly due to pulmonary edema. 2. Pulmonary edema/HFpEF borderline, LVEF 40-45%. Associated pleural effusions 3. Acute on chronic kidney failure. ESRD 4. Hypertension, treated emergency. 5. Diabetes. 6. Hyperlipidemia. 7. Possible pneumonia, less likely but not ruled out. 8. Urinary tract infection GNR 9. Moderate anemia. 10. Critical hyperkalemia. 11. Severe hypoalbuminemia. 12. Hyperlipidemia. 13. Diabetes. 14. Peripheral vascular disease, on history. 15. Depression. Renal consult -intermittent HD as needed. Tentative HD on Thursday -follow UOP per renal -skilled nursing HD catheter in place -Await HD placement Remove law when ok with . Nephrology does not require law Oxygen by protocol if tolerated. Hopefully doesnt need home O2 at discharge Patient may or may not need a thoracentesis. Pulmonary follow and decision Continue antibiotics for sepsis. ultrasound of renal system - no hydronephrosis Thank you very much, Dr. Espinosa. Please call for questions.
--- NOTE | 2020-03-11 15:12 | Progress Note ---
DATE: SUBJECTIVE: The patient has no dyspnea. She feels better overall. PHYSICAL EXAMINATION: VITAL SIGNS: The patient is afebrile. The vital signs are stable. HEENT: Shows no facial swelling or erythema. LYMPHATIC: Shows no submandibular, cervical, or supraclavicular adenopathy. CARDIAC: Reveals regular rate and rhythm with normal S1 and S2. LUNGS: Auscultation of lungs reveals clear breath sounds bilaterally. There is no wheezing. ABDOMEN: Soft and nontender. There is no rebound or guarding. EXTREMITIES: Shows no leg edema or calf tenderness. IMPRESSION: 1. Pluts-nx-riblukv renal failure. 2. Pleural effusion secondary to renal failure. 3. Diabetes. 4. Hypertension. 5. Anemia. PLAN: 1. The patient does not need thoracentesis at this time. She is symptomatically improved and effusions are very small on x-ray. 2. Discussed need for further dialysis with Nephrology. 3. Complete p.o. antibiotics as an outpatient. Judd Nicholas MD [facility]/MODL /[id number]
--- NOTE | 2020-03-11 16:17 | NUR ---
NAVARRO ASSISTED TO THE RESTROOM AND BACK TO BED; HAD A LARGE BM. CALL LIGHT AT REACH.
[2020-03-12] VITALS (7 sets, daily range): BP systolic 134–165; BP diastolic 69–92
--- NOTE | 2020-03-12 06:55 | NUR ---
Patient endorsed to next shift fo continuity of care.
[2020-03-12] MEDS: INSULIN REGULAR, HUMAN 100 UNIT/1 ML 3ML VIAL SQ SCH ×4 (07:30→21:30)
[2020-03-12 07:44] LABS: CREATININE, SERUM 3.36 mg/dL (0.57-1.11)
[2020-03-12] MEDS: PANTOPRAZOLE SOD 40 MG TABEC PO SCH (09:11)
[2020-03-12] MEDS: CEFAZOLIN SOD 1 GM/NS 50ML 50 ML IV SCH (09:11)
[2020-03-12] MEDS: FUROSEMIDE INJ 10 MG/ML 4 ML VIAL IV SCH ×2 (09:11→21:00)
[2020-03-12] MEDS: ASPIRIN 81 MG CHEW TAB PO SCH (09:12)
[2020-03-12] MEDS: EPOETIN ALFA-EPBX 10,000 UNIT/ML VIAL SC SCH (09:18)
[2020-03-12] MEDS: HEPARIN SOD (PORCINE) 5,000 UNIT/ML VIAL SC SCH ×2 (09:18→21:00)
--- NOTE | 2020-03-12 10:21 | NUR ---
FAXED HEP C RESULTS, PENDING CHAIR. WILL GIVE TO PT WHEN GET IT EMAILED.
--- NOTE | 2020-03-12 11:52 | NUR ---
SPOKE WITH PRISCILLA AT [facility] [place], SHE STATES IT WILL BE A TUES, THURS AND SAT CHAIR BUT DOES NOT HAVE A CONFIRMED TIME, WILL SEND LETTER SOON SHE GETS THE CONFIRMATION.
[2020-03-12] MEDS: HYDROCODONE/APAP 7.5MG-325MG 1 EA TAB PO PRN (14:17)
[2020-03-12] MEDS: DIPHENHYDRAMINE HCL 25 MG CAP PO PRN (14:17)
--- NOTE | 2020-03-12 14:21 | NUR ---
PT ACCEPTED TO [facility] [place], [address], [id number], START DATE IS Thursday03/15/2020 AT 12:30 BUT TO BE THERE 30 MINUTES PRIOR FOR PAPERWORK. COPY OF LETTER PROVIDED TO PATIENT AND ONE FILED IN CHART.
--- NOTE | 2020-03-12 15:00 | NUR ---
Mcpherson catheter discontinued per physician orders, pt is due to void by 2100.
--- NOTE | 2020-03-12 15:54 | Progress Note ---
DATE: 03/12/2020 SUBJECTIVE: The patient has been seen for the following problems: 1. Acute respiratory failure, hypoxemic. 2. Dyspnea, mostly secondary to pulmonary edema. 3. Heart failure with borderline left ventricular ejection fraction of 40-45%. 4. Pulmonary edema/associated pleural effusion. 5. Qypum-xd-rgwcmbt kidney disease. 6. End-stage renal disease. 7. Hypertension to the emergency. 8. Diabetes mellitus type 2. 9. Hyperlipidemia. 10. Possible pneumonia seemed to be less likely. 11. UTI secondary to gram-negative rods. 12. Moderate anemia. 13. Hyperkalemia. 14. Severe hypoalbuminemia. 15. Peripheral vascular disease. 16. Depression. PLAN OF CARE: At this point in time is to continue hemodialysis as needed intermittently today and Renal is following the patient. The patient will need long-term hemodialysis catheter in place. The patient is being followed by and is to have her Mcpherson removed. Monitor O2. Might need O2 upon discharge. We will follow levels. Might need thoracentesis. Continue antibiotic for sepsis. Ultrasound did reveal no evidence of hydronephrosis. The patient has been on 2 L per minute of oxygen nasal cannula with adequate O2 saturation of 99%. A Mcpherson catheter has been placed per Renal/. Repeated examination basically stable at this point in time. Continue present care as advised. As far as labs are concerned. List of medications noted as of March 10. Hemoglobin was 9.6, white blood cell count 9.56, and platelet count 314,000. Chem profile as of March 12 reveals sodium 137, potassium 4.0, chloride 101, CO2 25, BUN 25, and creatinine 3.36. Continue to monitor labs as advised. MD JAIRO Spence/MODL /[id number]
--- NOTE | 2020-03-12 16:24 | Progress Note ---
DATE: 03/12/2020 Cardiology Progress Note SUBJECTIVE: The patient denies chest pain or shortness of breath. She was seen during dialysis. OBJECTIVE: VITAL SIGNS: Temperature 98.1 degrees, pulse 90, respiratory rate 18, blood pressure 146/82, and oxygen saturation 95% on room air. GENERAL: Awake, alert, in no acute distress. LUNGS: Clear to auscultation bilaterally. No wheezes or crackles. CARDIOVASCULAR: Normal rate. Regular rhythm. No murmur. Normal S1, S2. ABDOMEN: Soft, nontender. EXTREMITIES: No edema. CARDIAC MEDICATIONS: Aspirin 81 mg p.o. daily and furosemide 80 mg IV q.12 hours. LABORATORY DATA: Sodium 137, potassium 4, chloride 101, CO2 of 25, BUN 25, and creatinine 3.36. TELEMETRY: Telemetry was personally reviewed and interpreted revealing normal sinus rhythm. IMPRESSION: 1. Txkhd-in-jebsfcc systolic and diastolic heart failure. 2. Ppbwr-xu-krovqbv kidney disease, now on hemodialysis. 3. Hypertension. 4. Hyperlipidemia. 5. Pleural effusion. 6. Hypoalbuminemia. RECOMMENDATIONS: Volume management per Nephrology given initiation on hemodialysis. Echocardiogram demonstrated mild to moderately reduced systolic function with LVEF of 40-45%, currently avoiding nephrotoxic agents. Continue medical management. Monitor the patient closely on telemetry. Continue current cardiac medications. Thank you for this consult. We will continue to follow. Bianca Zendejas MD [facility]/MODL /[id number]
--- NOTE | 2020-03-12 16:44 | NUR ---
Nutrition Screen Note RD Recommendation for Physician: -Continue renal/diabetic diet Plan of Care: RD following, monitoring for tolerance and adequacy Nutrition reason for involvement: length of stay Primary Diagnose(s): acute on chronic renal failure, hyperkalemia, pulmonary edema, and volume overload PMH: Diabetes, Peripheral vascular disease, Chronic kidney disease. Ht: 62 in Wt: 146.19 lb BMI: 26.7 kg/m2 IBW:[address] Assessment: (03/12/20) Chart reviewed. Labs and meds reviewed. Pt is a 69 year old female admitted with acute on chronic renal failure, hyperkalemia, pulmonary edema, and volume overload. Pt was started on dialysis. Pt reports a good appetite and is eating most of her meals. Pt reports weight changes due to fluid and that she usually weighs 138 lbs without excess fluid. No reports of N/V/D/C or chewing/swallowing issues. Pt requested renal diet education which was provided. Pt was not interested in verbal education and stated will read provided materials at a later time. Encouraged pt to contact RD if she has questions. Will continue to monitor. Current Diet: renal/1800 ADA Malnutrition Evaluation (03/12/20) The patient does not meet criteria for a specified degree of malnutrition at this time. Will re-evaluate at follow-up as appropriate. Diet Education Needs Assessment: (03/12/20) Diet education indicated, Pt requested renal diet education which was provided. Pt was not interested in verbal education and stated will read provided materials at a later time. Encouraged pt to contact RD if she has questions. Will continue to monitor. Nutrition Care Level: low Signed: Viktoriya Palmer, RD, LD
--- NOTE | 2020-03-12 18:00 | NUR ---
Dr. Manning here to see pt and states pt will have dialysis tomorrow and be discharge after.
--- NOTE | 2020-03-12 19:50 | Progress Note ---
DATE: 03/12/2020 Renal Progress Note SUBJECTIVE: Events over the past 24 hours have been noted. The patient has no chest pain. No shortness of breath. She underwent dialysis earlier during the day. PHYSICAL EXAMINATION: VITAL SIGNS: Blood pressure 144/79, pulse 86, afebrile. GENERAL: The patient is no acute distress. HEENT: No increased JVD. The patient has a tunneled dialysis catheter in the right chest wall area. CARDIOVASCULAR: Regular rate and rhythm. LUNGS: Decreased breath sounds at the bases bilaterally. ABDOMEN: Positive bowel sounds. EXTREMITIES: No edema, cyanosis, or clubbing. LABORATORY RESULTS: Sodium 137, potassium 4, chloride 101, bicarbonate 25, BUN and creatinine 25 and 3.3 respectively. IMPRESSION: 1. New chronic kidney disease stage 5. 2. Pulmonary congestion. 3. Diabetes. 4. Hypertension. PLAN: The patient underwent dialysis today. We dialyzed using 3 potassium bath, 3.0 calcium bath. The patient tolerated the dialysis well. The patient has been set up for her outpatient [place] [facility] due to start there on , so what I will do if she got dialysis today, I will go ahead and do an abbreviated dialysis tomorrow and then she can be discharged and then she will resume her dialysis on as an outpatient. With today's dialysis session, we removed one liter. Ather MD ADRIEN Mccauley/SELENE /[id number]
--- NOTE | 2020-03-12 19:58 | NUR ---
Received pt in bed awake a/o x3. No c/o at this time, bed in low and locked position. Call light and personal items within reach. Daughter called asking if CT results had been read. No s/sx of acute distress noted at this time will cont to mon pt. Bedside report completed Addendum: 03/12/20 at 2007 by Rosa Dumont RN Delete daughter called regarding CT results being read. Wrong chart.
--- NOTE | 2020-03-12 23:42 | NUR ---
Pt has not voided s/p law removal. States does not have the urge. Bladder scan noted with 47ml. Will cont to mon and notify md in am, will notify nurse discharge planner
[2020-03-13 00:25] VITALS: BP 156/87
[2020-03-13] MEDS: DIPHENHYDRAMINE HCL 25 MG CAP PO PRN ×2 (03:20→15:10)
[2020-03-13 05:24] VITALS: BP 145/68
--- NOTE | 2020-03-13 06:27 | NUR ---
pt still noted to not have voided during night. Bladder scan result 219. Will report to oncoming shift.
[2020-03-13 06:49] LABS: ANION GAP 15.8 mmol/L (8-16); CREATININE, SERUM 2.74 mg/dL (0.57-1.11); POTASSIUM 3.8 mmol/L (3.5-5.1)
[2020-03-13] MEDS: INSULIN REGULAR, HUMAN 100 UNIT/1 ML 3ML VIAL SQ SCH ×2 (07:30→11:30)
[2020-03-13 08:00] VITALS: BP 144/82
--- NOTE | 2020-03-13 08:30 | NUR ---
Spoke with Dr. Bal to report that pt had not voided all night long and had 247ml this am per bladder scan. Pt was able to void but bladder scan still shows 209ml. Received orders to insert law catheter with leg bag.
[2020-03-13] MEDS: PANTOPRAZOLE SOD 40 MG TABEC PO SCH (08:32)
[2020-03-13] MEDS: CEFAZOLIN SOD 1 GM/NS 50ML 50 ML IV SCH (08:33)
[2020-03-13] MEDS: FUROSEMIDE INJ 10 MG/ML 4 ML VIAL IV SCH (08:33)
[2020-03-13] MEDS: ASPIRIN 81 MG CHEW TAB PO SCH (08:33)
[2020-03-13] MEDS: HEPARIN SOD (PORCINE) 5,000 UNIT/ML VIAL SC SCH (08:38)
[2020-03-13 11:33] VITALS: BP 134/71
[2020-03-13] MEDS ORDERED: HEPARIN SOD (PORCINE) 1000 UNIT/ML SDV IV PRN (12:15)
[2020-03-13] MEDS ORDERED: ALLOPURINOL100 MG PO (13:27)
--- NOTE | 2020-03-13 14:46 | NUR ---
discharge summary [id number]
[2020-03-13] MEDS: HYDROCODONE/APAP 7.5MG-325MG 1 EA TAB PO PRN (15:10)
[2020-03-13 15:32] VITALS: BP 138/84
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
--- NOTE | 2020-03-13 16:05 | Progress Note ---
DATE: 03/13/2020 Cardiology Progress note SUBJECTIVE: The patient denies chest pain or shortness of breath. She was seen on hemodialysis. OBJECTIVE: VITAL SIGNS: Temperature 98.8 degrees, pulse 89, respiratory rate 16, blood pressure 144/82, and oxygen saturation 98% on room air. GENERAL: An elderly woman. Awake, alert, in no distress. LUNGS: Clear to auscultation bilaterally. No wheezes or crackles. CARDIAC: Normal rate, regular rhythm. No murmur. Normal S1, S2. ABDOMEN: Soft, nontender. EXTREMITIES: No edema. CARDIAC MEDICATIONS: Aspirin 81 mg p.o. daily and furosemide 80 mg IV q.12 hours. LABORATORY DATA: Sodium 134, potassium 3.8, chloride 99, CO2 of 23, BUN 18, and creatinine 2.74. TELEMETRY: Telemetry was personally reviewed and interpreted revealing normal sinus rhythm. IMPRESSION: 1. Zokce-vr-wlrsfga systolic and diastolic heart failure. 2. Myzei-ss-yjxgvuv kidney disease, now on hemodialysis. 3. Hypertension. 4. Hyperlipidemia. 5. Pleural effusion. 6. Hypoalbuminemia. RECOMMENDATIONS: Volume management per Nephrology given initiation on hemodialysis. Echocardiogram demonstrated mild to moderately reduced systolic function with LVEF of 40-45%. We are currently avoiding nephrotoxic agents. Continue medical management with aspirin and clopidogrel. Resume statin. We would recommend initiation on metoprolol succinate for blood pressure control given her reduced ejection fraction. Monitor the patient closely on telemetry while admitted. Please have her follow up in clinic in 2 weeks. Thank you for this consult. We will continue to follow. Bianca Zendejas MD [facility]/MODL /[id number]
--- NOTE | 2020-03-13 16:50 | NUR ---
Pt discharged home at this time. Pt was discharged with law catheter and verbalized understanding of foely management and care. Denies any pain at time of discharge. Pt verbalized understanding of discharge instructions and follow up appointments. tessio line in place and patent. Pt will follow up with outpatient hemodialysis.
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
== END 2020-03-13 16:50 | disposition home or self-care (01) | DRG 291 ==
LOC: ER 18:41 → ERHOLD 21:08 → IMCU 22:59 → MED/SURG3 03-10 23:39
PROVIDERS: ADMIT Internal Medicine; ATTEND Internal Medicine
PROC: 5A09357 Assistance with Respiratory Ventilation, Less than 24 Consecutive Hours, Continuous Positive Airway Pressure (ICD-10-PCS; 2020-03-06)
PROC: 02HV33Z Insertion of Infusion Device into Superior Vena Cava, Percutaneous Approach (ICD-10-PCS; 2020-03-07)
PROC: B548ZZA Ultrasonography of Superior Vena Cava, Guidance (ICD-10-PCS; 2020-03-07)
PROC: 02PY33Z Removal of Infusion Device from Great Vessel, Percutaneous Approach (ICD-10-PCS; principal; 2020-03-09)
PROC: 02HV33Z Insertion of Infusion Device into Superior Vena Cava, Percutaneous Approach (ICD-10-PCS; 2020-03-09)
PROC: 0JH63XZ Insertion of Tunneled Vascular Access Device into Chest Subcutaneous Tissue and Fascia, Percutaneous Approach (ICD-10-PCS; 2020-03-09)
PROC: B5181ZA Fluoroscopy of Superior Vena Cava using Low Osmolar Contrast, Guidance (ICD-10-PCS; 2020-03-09)
DX: I13.2 Hypertensive heart and chronic kidney disease with heart failure and with stage 5 chronic kidney disease, or end stage renal disease (principal); J18.9 Pneumonia, unspecified organism; J96.01 Acute respiratory failure with hypoxia; I50.33 Acute on chronic diastolic (congestive) heart failure; N18.5 Chronic kidney disease, stage 5; I16.1 Hypertensive emergency; E87.2 Acidosis; N17.9 Acute kidney failure, unspecified; N39.0 Urinary tract infection, site not specified; E11.22 Type 2 diabetes mellitus with diabetic chronic kidney disease; E87.5 Hyperkalemia; E78.5 Hyperlipidemia, unspecified; F32.9 Major depressive disorder, single episode, unspecified; E11.51 Type 2 diabetes mellitus with diabetic peripheral angiopathy without gangrene; E88.09 Other disorders of plasma-protein metabolism, not elsewhere classified; Z86.718 Personal history of other venous thrombosis and embolism; Z90.49 Acquired absence of other specified parts of digestive tract; D63.8 Anemia in other chronic diseases classified elsewhere; B96.1 Klebsiella pneumoniae [K. pneumoniae] as the cause of diseases classified elsewhere; B96.20 Unspecified Escherichia coli [E. coli] as the cause of diseases classified elsewhere; Z79.82 Long term (current) use of aspirin; Z79.4 Long term (current) use of insulin
CPT/HCPCS: 36415; 36556; 36558; 51700; 71045; 71046; 74470; 76604; 76770; 76937; 77001; 80048; 80053; 81001; 82550; 82553; 82948; 83735; 83880; 83970; 84100; 84484; 85025; 85610; 85730; 86704; 86706; 86803; 87086; 87186; 87340; 93005; 93306; 94660; 96372; 97139; 99152; 99153; 99284; C1769; C1892; J0360; J0456; J0690; J0696; J1450; J1644; J1817; J1940; J2001; J2060; J2150; J2250; J3010; J7030; J7050; J7799; Q9967; U0002

== ENCOUNTER 2020-03-18 17:45 | Observation (INO) | payer MEDICARE, OTHER ==
[~2020-03-18] VITALS: Ht 157.5 cm; Wt 67.1 kg
[~2020-03-18 17:45] MED LIST changes: +ALLOPURINOL100 MG PO; +BYSTOLIC10 MG PO; +CALCITRIOL0.25 MCG PO; +COLCRYS0.6 MG PO; +DOXAZOSIN MESYLA2 MG PO; +FLUCONAZOLE100 MG PO; +LASIX40 MG PO; +LEVOTHYROXINE50 MCG PO; +MIRTAZAPINE15 MG PO; +NITROFURANTOIN100 MG PO; +PANTOPRAZOLE SO40 MG PO
--- OUTSIDE RECORDS SUMMARY | 2020-03-18 18:23 | XMS REPORT | Continuity of Care Document ---
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 PERIPHERAL ANGIOGRAM /C INTERVENSION Active 11/09/2018 [facility] DX: K29.70=GASTRITIS, UNSPECIFIED, WITHO Active 10/08/2018 [facility] PERIPHERAL ANGIOGRAM /C INTERVENTION Active 09/23/2018 [facility] UNK Active 0 12/05/2016 [facility] V76.51 787.99 Active 01/18/2015 [facility] 250.00-DIAB TYPE 2/401.9-HYPERTENSION/78 Active 04/14/2014 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 Depression - motion (qualifier value) Active Problem 09/2016 [place] Gastroesophageal reflux disease (disorder) Active Problem 03/06/[facility] Anemia (disorder) Resolved Problem 03/06/2019 CELESTINA [...] systemic arterial (disorder) Active Problem 03/06/[facility] Irritable colon (disorder) Act [place] Problem [place] Neuropathy (disorder) Active [facility]06[facility] Peripheral vascular disease (disorder) Active Problem legs [facility] Urinary tract infectious disease (disorder) Resolved Problem 03/06/2019 [facility] changes in bowel habits(Confirmed) Active Problem 09/2013 [facility] SCREEN MALIG NEOP-COLON Active [facility] DIGESTVE SYST SYMPTM NEC Active [facility] Medications Medication Details Route Status Patient Instructions Ordering Provider Order Date Source Alprazolam 0.5 MG Oral Tablet [Xanax] Notes: With food or milk (Same as: Xanax) Inactive 03/04/2019 [facility] Benadryl 50 mg, 2 tab, Route: PO, Drug form: TAB, ONCE, Dosing Weight 63.636, kg, Priority: STAT, Start date: 03/04/19 12:47:00 CDT, Stop date: 03/04/19 12:47:00 CDT, 0 Inactive 03/04/2019 [facility] Pepcid Notes: (Same as: Pepcid ) Can be dilute in 5-10cc NS IVP: Slow IV push over at least 2 minutes. Inactive 03/04/2019 [facility] Solu-Medrol Notes: (Same as:So sam-MEDROL, A-Methapred) Inactive 03/04/2019 [facility] normal saline 0.9% IV 1,000 mL 1,000 mL, Rate: 100 ml/hr, Infuse over: 10 hr, Route: IV, Dosing Weight 63.636 kg, Total Volume: 1,000, Start date: 03/04/19 12:47:00 CDT, Duration: 30 day, Stop date: 04/03/19 12:46:00 CDT, 1.69, m2, 0 Inactive 03/04/2019 [facility] Imodium A-D EZ Chews 2 mg =, C HEW, BID, PRN as needed for loose stool, 0 Refill(s) Active 03/04/2019 [facility] Insulin Glargine Notes: (Same as: Lantus) Do not hold insulin without contacting prescriber WASTE: F/P - Black; E - Municipal Trash Bin "single patient use only" Stable for 28 days at room temperature Expires in days from Date Inactive 12/01/2018 [facility] Bystolic Notes: (same as: Byst olic) Inactive 12/01/2018 [facility] hydrochlorothiazide 25 mg oral tablet Notes: (Same as: Hydrodiuril) With food. Inactive 12/01/2018 [facility] Furosemide 40 MG Oral Tablet [Lasix] Notes: (Same as: Lasix) May cause GI upset. Give with food or milk. Inactive 12/01/2018 [facility] Hydrochlorothiazide 25 MG / Olmesartan m edoxomil 40 MG Oral Tablet 1 tab, Route: PO, Drug Form: TAB, Dosing Weight 61.364, kg, Daily, Start date: 12/01/18 9:00:00 CDT, Duration: 30 day, Stop date: 12/30/18 9:00:00 CDT No Longer Active 12/01/2018 [facility] clopidogrel Notes: (Same As: P lavix) Inactive 12/01/2018 [facility] Citalopram 20 mg, 2 tab, Route : PO, Drug form: TAB, Daily, Dosing Weight 61.364, kg, Start date: 12/01/18 9:00:00 CDT, Duration: 30 day, Stop date: 12/30/18 9:00:00 CDT Inactive 12/01/2018 [facility] Bupropion Notes: (Same as: Elza lbutrin XL) "Do Not Crush" Inactive 12/01/2018 [facility] Benicar 40 mg, 2 tab, Route: P O, Drug form: TAB, Daily, Start date: 12/01/18 9:00:00 CDT, Duration: 30 day, Stop date: 12/30/18 9:00:00 CDT Inactive 12/01/2018 [facility] atorvastatin Notes: (Same As: Lipitor) No Longer Active 12/01/2018 [facility] Hydralazine Notes: (Same as: A presoline) Push over 5 minutes No Longer Active 12/01/2018 [facility] mesalamine 1200 MG Enteric Coated Tablet 2.4 gm, 2 tab, Route: PO, Drug form: ECTAB, BID, Dosing Weight 61.364, kg, Start date: 11/30/18 17:00:00 CDT, Duration: 30 day, Stop date: 12/30/18 9:00:00 CDT No Longer Active 11/30/2018 [facility] Hyoscyamine Notes: (Same as: L evsin) Take 30 min before meal No Longer Active 11/30/2018 [facility] Tums Notes: (Same As: Tums) Ca lcium Carbonate 500 mg = 200 mg elemental calcium Dose = mg calcium carbonate ( mg elemental calcium) No Longer Active 11/30/2018 [facility] Aspirin 81 MG Enteric Coated Tablet Notes: Do not crush or chew. (Same As: Ecotrin) No Longer Active 11/30/2018 [facility] Insulin Lispro Notes: (Same as : Humalog) Roll in palms of hands gently; Do not shake vigorously. WASTE: F/P - Black; E - Municipal Trash Bin Stable for 28 days at room temperature. Expires in days from Date No Longer Active 11/30/2018 [facility] *Please bring pt's own mesalamine to [facility] for label* *Please bring pt's own mesalamine to [facility] for label*, ATTN:MARTIN, Drug form: MISC, Route: MISC, QSHIFT, 11/30/18 16:00:00 CDT, Duration: 30 day, Stop date: 12/30/18 8:00:00 CDT No Longer Active 11/30/2018 [facility] Insulin Lispro Notes: (Same as : Humalog) Roll in palms of hands gently; Do not shake vigorously. WASTE: F/P - Black; E - Municipal Trash Bin Stable for 28 days at room temperature. Expires in days from Date No Longer Active 11/30/2018 [facility] Glucagon 1 mg, Route: IM, Drug form: PDR/INJ, PRN, Dosing Weight 61.364, kg, PRN Blood Glucose Results, Start date: 11/30/18 15:27:00 CDT, Duration: 30 day, Stop date: 12/30/18 15:26:00 CDT No Longer Active 11/30/2018 [facility] Dextrose 50% Syringe 12.5 gm, 25 mL, Route: IVP, Drug Form: INJ, Dosing Weight 61.364, kg, PRN, PRN Blood Glucose Results, Start date: 11/30/18 15:27:00 CDT, Duration: 30 day, Stop date: 12/30/18 15:26:00 CDT No Longer Active 11/30/2018 [facility] Acetaminophen 325 MG / Hydrocodone Yaz trate 5 MG Oral Tablet Notes: (Same as: [place] 325/5) Do not ex ceed 4gm/day of acetaminophen. No Longer Active 11/30/2018 [facility] Morphine Notes: (Same as:MORPh ine Sulfate) No Longer Active 11/30/2018 [facility] Ondansetron Notes: (Same as: Z ofran) No Longer Active 11/30/2018 [facility] Diphenhydramine 25 mg, 1 tab, Route: PO, Drug form: TAB, Bedtime, Dosing Weight 61.364, kg, PRN Insomnia, Start date: 11/30/18 15:24:00 CDT, Duration: 30 day, Stop date: 12/30/18 15:23:00 CDT No Longer Active 11/30/2018 [facility] Nitroglycerin Notes: (Same as: Nitroquick, Nitrostat) "Do Not Crush" Sublingual tablet No Longer Active 11/30/2018 [facility] Sodium Chloride 0.9% IV 750 mL 750 mL, Rate: 75 ml/hr, Infuse over: 10 hr, Route: IV, Dosing Weight 61.364 kg, Total Volume: 750, Start date: 11/30/18 15:24:00 CDT, Duration: 10 hr, Stop date: 12/01/18 1:23:00 CDT, 1.66, m2 No Longer Active 11/30/2018 [facility] Sodium Chloride 0.9% (Bolus) IV 250 mL, 250 ml/hr, Infuse Over: 1 hr, Route: IV, 250, Drug form: INJ, ONCE, Dosing Weight 61.364 kg, Start date: 11/30/18 15:24:00 CDT, Stop date: 11/30/18 15:24:00 CDT Inactive 11/30/2018 [facility] citalopram 20 mg oral tablet 2 0 mg = 1 tab, PO, Daily, 0 Refill(s) Active 11/30/2018 [facility] Bupropion 150 mg, PO, Daily, 0 Refill(s) Active 11/30/2018 [facility] ALIVE MULTIVITAMIN FOR WOMEN A LIVE MULTIVITAMIN FOR WOMEN, 1 tablet, Refill(s) 0 Active 11/30/2018 [facility] hyoscyamine 0.125 mg oral tablet 0.125 mg = 1 tab, PO, QID, 0 Refill(s) Active 11/26/2018 [facility] nebivolol 10 MG Oral Tablet [Bystolic] 10 mg = 1 tab, PO, Daily, 0 Refill(s) Active 11/26/2018 [facility] Morphine Notes: (Same as:MORPh ine Sulfate) Inactive 10/26/2018 [facility] Acetaminophen 325 MG / Hydrocodone Yaz trate 5 MG Oral Tablet Notes: (Same as: [place] 325/5) Do not ex ceed 4gm/day of acetaminophen. Inactive 10/26/2018 [facility] Nitroglycerin Notes: (Same as: Nitroquick, Nitrostat) "Do Not Crush" Sublingual tablet Inactive 10/26/2018 [facility] Sodium Chloride 0.9% IV 750 mL 750 mL, Rate: 75 ml/hr, Infuse over: 10 hr, Route: IV, Dosing Weight 65.909 kg, Total Volume: 750, Start date: 10/26/18 11:20:00 CDT, Duration: 10 hr, Stop date: 10/26/18 21:19:00 CDT, 1.72, m2 Inactive 10/26/2018 [facility] clopidogrel 75 mg oral tablet 75 mg = 1 tab, PO, Daily, # 90 tab, 1 Refill(s) Active 10/26/2018 [facility] Diphenhydramine 50 mg, 2 tab, Route: PO, Drug form: TAB, ONCE, Dosing Weight 65.909, kg, Priority: NOW, Start date: 10/26/18 8:24:00 CDT, Stop date: 10/26/18 8:24:00 CDT Inactive 10/26/2018 [facility] Alprazolam Notes: With food or milk (Same as: Xanax) Inactive 10/26/2018 [facility] normal saline 0.9% IV 1,000 mL 1,000 mL, Rate: 250 ml/hr, Infuse over: 4 hr, Route: IV, Dosing Weight 65.909 kg, Total Volume: 1,000, Priority: NOW, Start date: 10/26/18 7:16:00 CDT, Duration: 30 day, Stop date: 11/25/18 7:15:00 CDT, 1.72, m2 Inactive 10/26/2018 [facility] Tums 500 mg, CHEW, BID, 0 Refi ll(s) Active 10/22/2018 [facility] mesalamine 1200 MG Enteric Coated Tablet 2.4 gm = 2 tab, PO, BID, 0 Refill(s) Active 10/22/2018 [facility] gabapentin 600 MG Oral Tablet 300 mg = 0.5 tab, PO, Bedtime, 0 Refill(s) Active 10/22/2018 [facility] nebivolol 2.5 MG Oral Tablet [Bystolic] 2.5 mg = 1 tab, PO, Daily, # 30 tab, 0 Refill(s) Active 10/22/2018 [facility] Hydralazine Hydrochloride 50 MG Oral Tablet 50 mg = 1 tab, PO, TID, # 90 tab, 3 Refill(s) Active 10/22/2018 [facility] Hydrochlorothiazide 25 MG / Olmesartan m edoxomil 40 MG Oral Tablet 1 tab, PO, Daily, # 30 tab, 0 Refill(s) Active 10/22/2018 [facility] potassium chloride 10 mEq oral capsule, extended release 10 mEq = 1 cap, PO, Daily, 0 Refill(s) Active 10/22/2018 [facility] Furosemide 40 MG Oral Tablet [Lasix] 40 mg = 1 tab, PO, Daily, # 30 tab, 0 Refill(s) Active 10/22/2018 [facility] iron infusions iron infusions, IV, qWeek, Refill(s) 0 Active 10/22/2018 [facility] Nitroglycerin Notes: (Same as: Nitroquick, Nitrostat) "Do Not Crush" Sublingual tablet No Longer Active 12/09/2016 [facility] Acetaminophen 325 MG / Hydrocodone Yaz trate 5 MG Oral Tablet Notes: (Same as: [place] 325/5) Do not ex ceed 4gm/day of acetaminophen. No Longer Active 12/09/2016 [facility] Morphine Notes: (Same as:MORPh ine Sulfate) No Longer Active 12/09/2016 [facility] Sodium Chloride 0.154 MEQ/ML Injectable Solution 750 mL, Rate: 75 ml/hr, Infuse over: 10 hr, Route: IV, Dosing Weight 63.636 kg, Total Volume: 750, Start date: 12/09/16 12:10:00 CDT, Duration: 10 hr, Stop date: 12/09/16 22:09:00 CDT Inactive 12/09/2016 [facility] Keflex = 1 tab, PO, TID, 1 tab , 3 times a day, 0 Refill(s) Active 12/09/2016 [facility] Sodium Chloride 0.154 MEQ/ML Injectable Solution 500 mL, Rate: 25 ml/hr, Infuse over: 20 hr, Route: IV, Dosing Weight 60.909 kg, Total Volume: 500, Start date: 02/06/15 13:03:00, Duration: 30 day, Stop date: 03/08/15 13:02:00 Inactive 02/06/2015 [facility] Cardizem 0 Refill(s) Active 02/02/2015 [facility] valsartan 320 MG Oral Tablet [Diovan] 320 mg = 1 tab, PO, Daily, # 30 tab, 0 Refill(s) Active 02/02/2015 [facility] vilazodone hydrochloride 10 MG Oral Tablet [Viibryd] 10 mg = 1 tab, PO, Daily, 0 Refill(s) Active 02/02/2015 [facility] Unknown Home Medication 1 tab, PO, BID, Refill(s) 0 Active 02/02/2015 [facility] 0.65 ML exenatide 3.08 MG/ML Prefilled S yringe [Bydureon] 2 mg, SUB-Q, qWeek, # 4 ea, 0 Refill(s) Active 02/02/2015 [facility] Lantus 18 unit, SUB-Q, Bedtime , 0 Refill(s) Active 02/02/2015 [facility] Humalog 14 units, SUB-Q, TID-B efore Meals, 0 Refill(s) Active 02/02/2015 [facility] Allergies, Adverse Reactions, Alerts Substance Category Reaction Severity Reaction type Status Date Reported Comments Source contrast media (iodine-based) Assertion Drug aller gy Active [facility] No Known Medication Allergies Assertion Drug aller gy [facility] Immunizations No Data Provided for This Section Results Order Name Results Value Reference Range Date Interpretation Comments Source ELECTROLYTES AGAP 13.7 10.0 - 20.0 03/04/2019 [facility] ELECTROLYTES B/C Ratio 21 6 - 25 03/04/2019 [facility] ELECTROLYTES Globulin 4.9 2.7 - 4.2 03/04/2019 [facility] ELECTROLYTES A/G Ratio 0.5 0.7 - 1.6 03/04/2019 [facility] ELECTROLYTES Glucose Lvl 145 70 - 99 03/04/2019 [facility] ELECTROLYTES BUN 48 7 - 22 03/04/2019 [facility] ELECTROLYTES Creatinine Lvl 2.2 7 0.50 - 1.40 03/04/2019 [facility] ELECTROLYTES Sodium Lvl 142 135 - 145 03/04/2019 [facility] ELECTROLYTES Potassium Lvl 3.7 3.5 - 5.1 03/04/2019 [facility] ELECTROLYTES Chloride Lvl 111 95 - 109 03/04/2019 [facility] ELECTROLYTES CO2 21 24 - 32 03/04/2019 [facility] ELECTROLYTES Calcium Lvl 9.1 8.5 - 10.5 03/04/2019 [facility] ELECTROLYTES Total Protein 7.5 6.4 - 8.4 03/04/2019 [facility] ELECTROLYTES Albumin Lvl 2.6 3.5 - 5.0 03/04/2019 [facility] ELECTROLYTES ALT 15 0 - 65 03/04/2019 [facility] ELECTROLYTES AST 13 0 - 37 03/04/2019 [facility] ELECTROLYTES Alk Phos 103 39 - 136 03/04/2019 [facility] ELECTROLYTES Bili Total 0.4 0.2 - 1.3 03/04/2019 [facility] ELECTROLYTES eGFR 22 03/04/2019 Result Comment: [...] should be multiplied by the estimated BMI. [facility] HEMATOLOGY WBC 10.0 3.7 - 10.4 03/04/2019 [facility] HEMATOLOGY RBC 4.23 4.20 - 5.40 03/04/2019 [facility] HEMATOLOGY Hgb 10.4 12.0 - 16.0 03/04/2019 [facility] Hct 31.7 36.0 - 48.0 03/04/2019 [facility] MCV 75.1 80.0 - 98.0 03/04/2019 [facility] MCH 24.6 27.0 - 31.0 03/04/2019 [facility] MCHC 32.8 32.0 - 36.0 03/04/2019 [facility] RDW 16.9 11.5 - 14.5 03/04/2019 [facility] Platelet 397 133 - 450 03/04/2019 [facility] MPV 7.5 7.4 - 10.4 03/04/2019 [facility] Segs 44.6 45.0 - 75.0 03/04/2019 [facility] Lymphocytes 44.8 20.0 - 40.0 03/04/2019 [facility] Monocytes 7.1 2.0 - 12.0 03/04/2019 [facility] Eosinophils 2.7 0.0 - 4.0 03/04/2019 [facility] Basophils 0.8 0.0 - 1.0 03/04/2019 [facility] Neutrophils # 4.5 1.5 - 8.1 03/04/2019 [facility] Lymphocytes # 4.5 1.0 - 5.5 03/04/2019 [facility] Monocytes # 0.7 0.0 - 0.8 03/04/2019 [facility] Eosinophils # 0.3 0.0 - 0.5 03/04/2019 [facility] Basophils # 0.1 0.0 - 0.2 03/04/2019 [facility] Microcyte 1+ *ABN* (03/04/19 12:50 PM) None Seen 03/04/2019 [facility] CHEM PANEL Glucose Lvl 236 70 - 99 12/01/2018 [facility] CHEM PANEL BUN 58 7 - 22 12/01/2018 [facility] CHEM PANEL eGFR 21 12/01/2018 Result [...] should be multiplied by the estimated BMI. [facility] CHEM PANEL Chloride Lvl 108 95 - 109 12/01/2018 [facility] CHEM PANEL Creatinine Lvl 2.32 0.50 - 1.40 12/01/2018 [facility] CHEM PANEL Potassium Lvl 4.6 3.5 - 5.1 12/01/2018 [facility] CHEM PANEL Sodium Lvl 139 135 - 145 12/01/2018 [facility] CHEM PANEL CO2 24 24 - 32 12/01/2018 [facility] CHEM PANEL Calcium Lvl 8.8 8.5 - 10.5 12/01/2018 [facility] CHEM PANEL AGAP 11.6 10.0 - 20.0 12/01/2018 [facility] HEMATOLOGY WBC 11.2 3.7 - 10.4 12/01/2018 [facility] HEMATOLOGY RBC 4.34 4.20 - 5.40 12/01/2018 [facility] HEMATOLOGY MCH 23.8 27.0 - 31.0 12/01/2018 [facility] HEMATOLOGY MCV 77.2 80.0 - 98.0 12/01/2018 [facility] HEMATOLOGY MCHC 30.8 32.0 - 36.0 12/01/2018 [facility] HEMATOLOGY Hct 33.5 36.0 - 48.0 12/01/2018 [facility] HEMATOLOGY Hgb 10.3 12.0 - 16.0 12/01/2018 [facility] HEMATOLOGY RDW 15.3 11.5 - 14.5 12/01/2018 [facility] HEMATOLOGY MPV 7.7 7.4 - 10.4 12/01/2018 [facility] HEMATOLOGY Platelet 313 133 - 450 12/01/2018 [facility] CHEM PANEL Globulin 5.1 2.7 - 4.2 11/26/2018 [facility] CHEM PANEL A/G Ratio 0.5 0.7 - 1.6 11/26/2018 [facility] CHEM PANEL AGAP 11.0 10.0 - 20.0 11/26/2018 [facility] CHEM PANEL B/C Ratio 21 6 - 25 11/26/2018 [facility] CHEM PANEL eGFR 26 11/26/2018 Result [...] should be multiplied by the estimated BMI. [facility] CHEM PANEL Alk Phos 143 39 - 136 11/26/2018 [facility] CHEM PANEL AST 21 0 - 37 11/26/2018 [facility] CHEM PANEL ALT 23 0 - 65 11/26/2018 [facility] CHEM PANEL Bili Total 0.3 0.2 - 1.3 11/26/2018 [facility] CHEM PANEL BUN 42 7 - 22 11/26/2018 [facility] CHEM PANEL Glucose Lvl 213 70 - 99 11/26/2018 [facility] CHEM PANEL Potassium Lvl 5.0 3.5 - 5.1 11/26/2018 [facility] CHEM PANEL Sodium Lvl 136 135 - 145 11/26/2018 [facility] CHEM PANEL Creatinine Lvl 1.98 0.50 - 1.40 11/26/2018 [facility] CHEM PANEL Total Protein 7.9 6.4 - 8.4 11/26/2018 [facility] CHEM PANEL Albumin Lvl 2.8 3.5 - 5.0 11/26/2018 [facility] CHEM PANEL Calcium Lvl 9.4 8.5 - 10.5 11/26/2018 [facility] CHEM PANEL Chloride Lvl 105 95 - 109 11/26/2018 [facility] CHEM PANEL CO2 25 24 - 32 11/26/2018 [facility] HEMATOLOGY WBC 9.9 3.7 - 10.4 11/26/2018 [facility] HEMATOLOGY RDW 15.1 11.5 - 14.5 11/26/2018 [facility] HEMATOLOGY RBC 4.84 4.20 - 5.40 11/26/2018 [facility] HEMATOLOGY MCHC 31.5 32.0 - 36.0 11/26/2018 [facility] MCV 76.9 80.0 - 98.0 11/26/2018 [facility] MCH 24.2 27.0 - 31.0 11/26/2018 [facility] Hgb 11.7 12.0 - 16.0 11/26/2018 [facility] Hct 37.2 36.0 - 48.0 11/26/2018 [facility] Platelet 367 133 - 450 11/26/2018 [facility] MPV 7.7 7.4 - 10.4 11/26/2018 [facility] Eosinophils # 0.2 0.0 - 0.5 11/26/2018 [facility] Microcyte 1+ *ABN* (11/26/18 1:14 PM) None Seen 11/26/2018 [facility] Basophils # 0.1 0.0 - 0.2 11/26/2018 [facility] Monocytes # 0.6 0.0 - 0.8 11/26/2018 [facility] Lymphocytes # 3.4 1.0 - 5.5 11/26/2018 [facility] Neutrophils # 5.7 1.5 - 8.1 11/26/2018 [facility] Monocytes 6.2 2.0 - 12.0 11/26/2018 [facility] Eosinophils 2.3 0.0 - 4.0 11/26/2018 [facility] Basophils 0.6 0.0 - 1.0 11/26/2018 [facility] Lymphocytes 33.8 20.0 - 40.0 11/26/2018 [facility] Segs 57.1 45.0 - 75.0 11/26/2018 [facility] CHEM PANEL eGFR 34 10/22/2018 Result [...] should be multiplied by the estimated BMI. [facility] CHEM PANEL Sodium Lvl 138 135 - 145 10/22/2018 [facility] CHEM PANEL Creatinine Lvl 1.58 0.50 - 1.40 10/22/2018 [facility] CHEM PANEL BUN 32 7 - 22 10/22/2018 [facility] CHEM PANEL Glucose Lvl 236 70 - 99 10/22/2018 [facility] CHEM PANEL CO2 21 24 - 32 10/22/2018 [facility] CHEM PANEL Total Protein 7.8 6.4 - 8.4 10/22/2018 [facility] CHEM PANEL Albumin Lvl 2.6 3.5 - 5.0 10/22/2018 [facility] CHEM PANEL Calcium Lvl 9.1 8.5 - 10.5 10/22/2018 [facility] CHEM PANEL Chloride Lvl 110 95 - 109 10/22/2018 [facility] CHEM PANEL Potassium Lvl 4.9 3.5 - 5.1 10/22/2018 [facility] CHEM PANEL ALT 19 0 - 65 10/22/2018 [facility] CHEM PANEL AST 16 0 - 37 10/22/2018 [facility] CHEM PANEL Bili Total 0.4 0.2 - 1.3 10/22/2018 [facility] CHEM PANEL Alk Phos 148 39 - 136 10/22/2018 [facility] CHEM PANEL B/C Ratio 20 6 - 25 10/22/2018 [facility] CHEM PANEL Globulin 5.2 2.7 - 4.2 10/22/2018 [facility] CHEM PANEL A/G Ratio 0.5 0.7 - 1.6 10/22/2018 [facility] CHEM PANEL AGAP 11.9 10.0 - 20.0 10/22/2018 [facility] HEMATOLOGY MPV 7.4 7.4 - 10.4 10/22/2018 [facility] HEMATOLOGY Platelet 430 133 - 450 10/22/2018 [facility] HEMATOLOGY MCV 76.0 80.0 - 98.0 10/22/2018 [facility] HEMATOLOGY RDW 15.8 11.5 - 14.5 10/22/2018 [facility] MCH 25.0 27.0 - 31.0 10/22/2018 [facility] MCHC 32.8 32.0 - 36.0 10/22/2018 [facility] HEMATOLOGY RBC 4.31 4.20 - 5.40 10/22/2018 [facility] Hct 32.8 36.0 - 48.0 10/22/2018 [facility] Hgb 10.8 12.0 - 16.0 10/22/2018 [facility] WBC 9.9 3.7 - 10.4 10/22/2018 [facility] Microcyte 1+ *ABN* (10/22/18 8:11 AM) None Seen 10/22/2018 [facility] Eosinophils 2.4 0.0 - 4.0 10/22/2018 [facility] Monocytes 4.8 2.0 - 12.0 10/22/2018 [facility] Segs 58.2 45.0 - 75.0 10/22/2018 [facility] Lymphocytes 34.0 20.0 - 40.0 10/22/2018 [facility] Basophils 0.6 0.0 - 1.0 10/22/2018 [facility] Lymphocytes # 3.4 1.0 - 5.5 10/22/2018 [facility] Monocytes # 0.5 0.0 - 0.8 10/22/2018 [facility] [facility] Neutrophils # 5.7 1.5 - 8.1 10/22/2018 [facility] Eosinophils # 0.2 0.0 - 0.5 10/22/2018 [facility] Basophils # 0.1 0.0 - 0.2 10/22/2018 [facility] ELECTROLYTES Chloride Lvl 102 95 - 109 02/02/2015 [facility] ELECTROLYTES CO2 31 24 - 32 02/02/2015 [facility] ELECTROLYTES Calcium Lvl 8.8 8.5 - 10.5 02/02/2015 [facility] ELECTROLYTES AGAP 11.7 10.0 - 20.0 02/02/2015 [facility] ELECTROLYTES Sodium Lvl 141 135 - 145 02/02/2015 [facility] ELECTROLYTES Glucose Lvl 234 70 - 99 02/02/2015 [facility] ELECTROLYTES Potassium Lvl 3.7 3.5 - 5.1 02/02/2015 [facility] ELECTROLYTES BUN 20 7 - 22 02/02/2015 [facility] ELECTROLYTES Creatinine Lvl 0.8 0.5 - 1.4 02/02/2015 [facility] ELECTROLYTES eGFR 79 02/02/2015 Result Comment: [...] should be multiplied by the estimated BMI. [facility] Pathology Reports No Data Provided for This Section Diagnostic Reports Report Value Date Source Brain wo contrast MRI PATIENT NAME: ELSIE LOAIZA : 1950; Age: 67 years y/o Female MR: [id number] STUDY: Brain wo contrast MRI 06/18/2017 10:23 AM [employer] ORDERING PHYSICIAN: Vaibhav Jarrett MD CLINICAL INDICATION: [...] . IMPRESSION: Delayed gastric emptying. SL:13 2014 [facility] Consultation Notes No Data Provided for This Section Discharge Summaries No Data Provided for This Section History and Physicals No Data Provided for This Section Vital Signs Vital Sign Value Date Comments Source Height 157.48 cm 03/04/2019 [facility] Weight 63.636 03/04/2019 [facility] BMI Calculated 25.66 03/04/2019 [facility] Heart Rate 72 12/01/2018 [facility] Systolic (mm Hg) 90 12/01/2018 [facility] Diastolic (mm Hg) 56 12/01/2018 [facility] Respitory Rate 18 12/01/2018 [facility] Temperature Oral (F) 98.5 F 12/01/2018 [facility] Temperature Oral (F) 98.7 F 12/01/2018 [facility] Systolic (mm Hg) 126 12/01/2018 [facility] Diastolic (mm Hg) 62 12/01/2018 [facility] Respitory Rate 16 12/01/2018 [facility] Heart Rate 71 12/01/2018 [facility] Systolic (mm Hg) 123 12/01/2018 [facility] Diastolic (mm Hg) 68 12/01/2018 [facility] Temperature Oral (F) 97.7 F 12/01/2018 [facility] Respitory Rate 18 12/01/2018 [facility] Heart Rate 65 12/01/2018 [facility] Weight 61.364 11/26/2018 [facility] BMI Calculated 24.74 11/26/2018 [facility] Height 157.48 cm 11/26/2018 [facility] Systolic (mm Hg) 136 10/26/2018 [facility] Diastolic (mm Hg) 62 10/26/2018 [facility] Systolic (mm Hg) 148 10/26/2018 [facility] Diastolic (mm Hg) 80 10/26/2018 [facility] Systolic (mm Hg) 152 10/26/2018 [facility] Diastolic (mm Hg) 65 10/26/2018 [facility] Temperature Oral (F) 98.0 F 10/26/2018 [facility] Respitory Rate 19 10/26/2018 [facility] BMI Calculated 26.15 10/22/2018 [facility] Weight 65.909 10/22/2018 [facility] Height 158.75 cm 10/22/2018 [facility] Heart Rate 83 10/22/2018 [facility] Temperature Oral (F) 97.8 F 10/22/2018 [facility] Respitory Rate 20 10/22/2018 [facility] Heart Rate 87 12/10/2016 [facility] Temperature Oral (F) 97.4 F 12/10/2016 [facility] Respitory Rate 18 12/10/2016 [facility] Systolic (mm Hg) 123 12/10/2016 [facility] Diastolic (mm Hg) 74 12/10/2016 [facility] Temperature Oral (F) 98.2 F 12/10/2016 [facility] Respitory Rate 16 12/10/2016 [facility] Systolic (mm Hg) 160 12/10/2016 [facility] Diastolic (mm Hg) 84 12/10/2016 [facility] Respitory Rate 16 12/10/2016 [facility] Temperature Oral (F) 97.6 F 12/10/2016 [facility] Systolic (mm Hg) 163 12/10/2016 [facility] Diastolic (mm Hg) 89 12/10/2016 [facility] Height 157.48 cm 12/09/2016 [facility] Weight 63.636 12/09/2016 [facility] BMI Calculated 25.66 12/09/2016 [facility] Systolic (mm Hg) 162 02/06/2015 [facility] Diastolic (mm Hg) 95 02/06/2015 [facility] Respitory Rate 12 02/06/2015 [facility] Systolic (mm Hg) 145 02/06/2015 [facility] Diastolic (mm Hg) 95 02/06/2015 [facility] Respitory Rate 15 02/06/2015 [facility] Systolic (mm Hg) 145 02/06/2015 [facility] Diastolic (mm Hg) 121 02/06/2015 [facility] Respitory Rate 15 02/06/2015 [facility] Heart Rate 99 02/06/2015 [facility] Weight 60.909 02/02/2015 [facility] BMI Calculated 24.56 02/02/2015 [facility] Height 157.48 cm 02/02/2015 [facility] Temperature Oral (F) 97.8 F 02/02/2015 [facility] Heart Rate 88 02/02/2015 [facility] Encounters Location Location Details Encounter Type Encounter Number Reason For Visit Attending Provider ADM Date DC Date Status Source [facility] Outpatient [id number] Edgar Bowden 2014 04/20/2014 [facility] Bed[facility] [id number] Edgar Bowden 02/06/2015 02/06/2015 [facility] Bed[facility] Outpatient [id number] Vaibhav Jarrett 12/09/2016 12/10/2016 [facility] [place] [facility] [id number] Vaibhav Jarrett 06/18/2017 06/19/2017 CELESTINA Nugent [facility] Bedded Outpatient [id number] Vaibhav Jarrett 10/26/2018 10/27/2018 [facility] Bed[facility] Outpatient [id number] Vaibhav Jarrett 11/30/2018 12/01/2018 [facility] Bedded Outpatient [id number] Vaibhav Jarrett 03/04/2019 03/04/2019 [facility] Procedures Procedure Code Date Perfomer Comments Source Angiogram [id number] 10/26/2018 [facility] Rotational atherectomy [id number] 12/09/2016 [facility] Colonoscopy [id number] 07/20/[id number] 07/20/2012 [facility] Removal of spinal cord lesion [id number] 07/20/[facility] Tub[id number] 07/20/[facility] [id number] [facility] Tonsillectomy [id number] [facility] Assessment and Plan Assessment and Plan Date [...] two weeks. 3. Continue current medications. 12/10/2016 [facility] Plan of Care No Data Provided for This Section Social History Social History Date Source Social History TypeResponse Alcohol Never Substance Abuse Use: None. Smoking Status Never smoker; Exposure to Tobacco Smoke None; Cigarette Smoking Last 365 Days No; Reg Smoking Cessation Counseling No entered on: 03/04/19 03/04/2019 [facility] Social History TypeResponse Substance Abuse 1 Alcohol Never2 Smoking Status Never smoker; Exposure to Tobacco Smoke None; Cigarette Smoking Last 365 Days No; Reg Smoking Cessation Counseling No [id number] 07/19/2013 CELESTINA Nugent Family History No Data Provided for This Section Advance Directives No Data Provided for This Section Functional Status No Data Provided for This Section
--- OUTSIDE RECORDS SUMMARY | 2020-03-18 18:24 | XMS REPORT | Continuity of Care Document ---
Author Author [facility] t Organization [facility] Address [address] [place] [address] Phone Unavailable Care Team Providers Care Warp Tier Name Role Phone MD Kylie FANG PCP Rylie VARGAS Attphys Unavailable Meredith Jarrett Attphys MIKE BAL Attphys Unavailable Harish Bowden Attphys Rylie VARGAS Admphymeredith Unavailable Payers Payer Name Policy Type Policy Number Effective Date Expiration Date Meredith Castle [id number] 2018 [id number]00 [facility] Cdc Review Covid19 [id number] [facility] Problems Condition Name Condition Details Condition Category Status Onset Date Resolution Date Last Treatment Date Treating Clinician Comments Source PERIPHERAL GERRI PHERAL Active 02/24/2019 [facility] Active 2019-02-24 00:00:00 2019-03-10 14:14:00 Marquez Clinton PERIPHERAL ANGIOGRAM /C INTERVENSION PERIPHERAL ANGIOGRAM /C INTERVENSION Active 11/09/2018 [facility] Diagnosis Ac tive 2018-11-09 00:00:00 2018-11-30 17:32:00 Armen Clinton DX: K29.70=GASTRITIS, UNSPECIFIED, WITHO DX: K29.70=GASTRITIS, UNSPECIFIED, WITHO Active 10/08/2018 [facility] Active 2018-10-08 00:00:00 2018-11-15 15:53:00 Marquez Clinton PERIPHERAL ANGIOGRAM /C INTERVENTION PERIPHERAL ANGIOGRAM /C INTERVENTION Active 09/23/2018 [facility] Diagnosis Ac tive 2018-09-23 00:00:00 2018-10-26 06:09:00 [facility] UNK UNK Active 12/05/2016 [facility] Active 2016-12-05 00:00:00 2016-12-10 10:07:00 [facility] V76.51 787.99 V76. 51 787.99 Active 01/18/2015 [facility] Active 2015-01-18 00:00:00 2015-02-06 12:31:00 Marquez Clinton 250.00-DIAB TYPE 2/401.9-HYPERTENSION/78 250.00-DIAB TYPE 2/401.9-HYPERTENSION/78 Active 04/14/2014 [facility] Diagnosis A ctive 2014-04-14 00:00:00 2014 08:04:00 [facility] [place] Urinary tract infection Problem Active [facility] Acute renal failure superimposed on chronic kidney disease P roblem Active [facility] Hyperkalemia Problem Active [facility] Hypervolemia Problem Active [facility] Pulmonary edema Problem Active [facility] Anemia (disorder) Anem ia (disorder) Resolved Problem 03/06/2019 [facility] Resolved 2019-03-06 21:58:03 [facility] Heart murmur (finding) Hear t murmur (finding) Resolved Problem 03/06/2019 [facility] Resolved 2019-03-06 21:58:03 [facility] Hypercholesterolemia (disorder) Hypercholesterolemia (disorder) Resolved Problem 03/06/2019 [facility] Resolved 2019-03-06 21:58:03 [facility] Depression - motion (qualifier value) Depression - motion (qualifier value) Active Problem 06/21/2017 JAYJAY Packera, [facility] Problem Active 2017-06-21 02:10:55 [facility] Gastroesophageal reflux disease (disorder) Gastroesophageal reflux disease (disorder) Active Problem 03/06/2019 CELESTINA Nugent [facility] Problem Active 2019-03-06 21:58:03 [facility] Anxiety (finding) Anxi ety (finding) Active Problem 03/06/2019 PARAGJerry Jovanna [facility] Problem Active 2019-03-06 21:58:03 [facility] Diabetes mellitus (disorder) D iabetes mellitus (disorder) Active Problem 03/06/2019 PARAGJerry Jovanna [facility] Problem Active 2019-03-06 21:58:03 [facility] Diabetes mellitus type 2 (disorder) Diabetes mellitus type 2 (disorder) Active Problem 03/06/2019 CELESTINA Nugent [facility] Problem Active 2019-03-06 21:58:03 Yisel lCinton Hypertensive disorder, systemic arterial (disorder) Hypertensive disorder, systemic arterial (disorder) Active Problem 03/06/2019 PARAGJerry Jovanna [facility] Problem Active 2019-03-06 21:58:03 [facility] Irritable colon (disorder) Irr itable colon (disorder) Active Problem 03/06/2019 PARAGJerry Jovanna [facility] Problem Active 2019-03-06 21:58:03 [facility] Neuropathy (disorder) Neur opathy (disorder) Active Problem 03/06/2019 CELESTINA Nugent [facility] Problem Active 2019-03-06 21:58:03 [facility] Peripheral vascular disease (disorder) Peripheral vascular disease (disorder) Active Problem 03/06/2019 legs CELESTINA Nugent [facility] Problem Active 2019-03-06 21:58:03 Christiano Clinton changes in bowel habits(Confirmed) changes in bowel habits(Confirmed) Active Problem 04/21/2014 [facility] Problem Active 2014-04-21 22:04:05 [facility] SCREEN MALIG NEOP-COLON SCRE EN MALIG NEOP-COLON Active [facility] Diagnosis Active 2015-02-06 12:31:00 [facility] DIGESTVE SYST SYMPTM NEC DIGE STVE SYST SYMPTM NEC Active [facility] Diagnosis Active 2015-02-06 12:31:00 [facility] History of Past Illness Condition Name Condition Details Condition Category Status Onset Date Resolution Date Last Treatment Date Treating Clinician Comments Source 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 Problem 03/06/2019 [facility] Resolved 2002-07-20 00:00:00 2019-03-06 21:58:03 2 21:58:03 Marquez Clinton Allergies, Adverse Reactions, Alerts Allergy Name Allergy Type Status Severity Reaction(s) Onset Date Inacti ve Date Treating Clinician Comments Source No Known Allergies DA Active U 2019-02-01 00:00:00 [facility] No Known Allergies DA Active U 2018-07-10 00:00:00 [facility] No Known Allergies DA Active U 2018-02-01 00:00:00 [facility] contrast media (iodine-based) contrast media (iodine-based) Active Marquez Clinton No Known Medication Allergies No Known Medication Allergies Active Marquez Clinton Social History Social Habit Start Date Stop Date Quantity Comments Source Social History 2013-07-19 18:03:47 2013-07-19 18:03:47 Marquez Clinton Sex Ass[birth year] At 1950 00:00:00 1950 00:00:00 Female [facility] Medications Ordered Medication Name Filled Medication Name Start Date Stop Da te Current Medication? Ordering Clinician Indication Dosage Frequency Signature (SIG) Comments Components Source Allopurinol Allopurinol 2020-03-13 13:27:00 Yes 1 00 Three Times Daily With Meals [facility] Alprazolam 0.5 MG Oral Tablet [Xanax] 2019-03-04 [...] date: 04/03/19 12:46:00 CDT, 1.69, m2, 0 [facility] Imodium A-D EZ Chews 2019-03-04 12:02:00 Yes 2 mg =, CHEW, BID, PRN as needed for loose stool, 0 Refill(s) M faby Clinton Insulin Glargine 2018-12-01 14:00:00 No Notes: (Same as: Lantus) Do not hold insulin without contacting prescriber WASTE: F/P - Black; E - [employer] Trash [facility] "single patient use only" Stable for 28 days at room temperature Expires in days from [facility] 2018-12-01 14:00:00 No Notes: [facility] Marquez Apodacaann hydrochlorothiazide 25 mg oral tablet 2018-12-01 14:00:00 N o Notes: (Same as: Hydrodiuril) With food. [facility] Furosemide 40 MG Oral Tablet [Lasix] 2018-12-01 14:00:00 No Notes: (Same as: Lasix) May cause GI upset. Give with food or milk. [facility] [place] Hydrochlorothiazide 25 MG / Olmesartan medoxomil 40 MG Oral Tablet 2018-12-01 14:00:00 No 1 tab, Rou te: PO, Drug Form: TAB, Dosing Weight 61.364, kg, Daily, Start date: 12/01/18 9:00:00 CDT, Duration: 30 day, Stop date: 12/30/18 9:00:00 CDT [facility] [place] clopidogrel 2018-12-01 14:00:00 No Notes: ( Same As: Plavix) [facility] [place] Citalopram 2018-12-01 14:00:00 No 20 mg, 2 tab, Route: PO, Drug form: TAB, Daily, Dosing Weight 61.364, kg, Start date: 12/01/18 9:00:00 CDT, Duration: 30 day, Stop date: 12/30/18 9:00:00 CDT [facility] Bupropion 2018-12-01 14:00:00 No Notes: (Same as: Wellbutrin XL) "Do Not Crush" [facility] Benicar 2018-12-01 14:00:00 No 40 mg, 2 tab, Route: PO, Drug form: TAB, Daily, Start date: 12/01/18 9:00:00 CDT, Duration: 30 day, Stop date: 12/30/18 9:00:00 CDT [facility] atorvastatin 2018-12-01 02:00:00 No Notes: (Same As: Lipitor) [facility] Hydralazine 2018-12-01 01:29:00 No Notes: (Same as: Apresoline) Push over 5 minutes [facility] mesalamine 1200 MG Enteric Coated Tablet 2018-11-30 22:00:00 No 2.4 gm, 2 tab, Route: PO, Drug form: ECTAB, BID, Dosing Weight 61.364, kg, Start date: 11/30/18 17:00:00 CDT, Duration: 30 day, Stop date: 12/30/18 9:00:00 CDT [facility] Hyoscyamine 2018-11-30 22:00:00 No Notes: (Same as: Levsin) Take 30 min before meal [facility] Tums 2018-11-30 22:00:00 No Notes: (Same As: Tums) Calcium Carbonate 500 mg = 200 mg elemental calcium Dose = mg calcium carbonate ( mg elemental calcium) [facility] Aspirin 81 MG Enteric Coated Tablet 2018-11-30 22:00:00 No Notes: Do not crush or chew. (Same As: Ecotrin) [facility] Insulin Lispro 2018-11-30 21:30:00 No Notes: (Same as: Humalog) Roll in palms of hands gently; Do not shake vigorously. WASTE: F/P - Black; E - [facility] Trash [facility] Stable for 28 days at room temperature. Expires in days from Date [facility] Blaine mayorga *Please bring pt's own mesalamine to pharmacy for label* 2018-11-30 21:00:00 No *Please bring pt's own mesalamine to pharmacy for label*, ATTN:RN, Drug form: MISC, Route: MISC, QSHIFT, 11/30/18 16:00:00 CDT, Duration: 30 day, Stop date: 12/30/18 8:00:00 CDT [facility] Insulin Lispro 2018-11-30 20:27:00 No Notes: (Same as: Humalog) Roll in palms of hands gently; Do not shake vigorously. WASTE: F/P - Black; E - Municipal Trash Bin Stable for 28 days at room temperature. Expires in days from Date [facility] Blaine mayorga Glucagon 2018-11-30 20:27:00 No 1 mg, Route: IM, Drug form: PDR/INJ, PRN, Dosing Weight 61.364, kg, PRN Blood Glucose Results, Start date: 11/30/18 15:27:00 CDT, Duration: 30 day, Stop date: 12/30/18 15:26:00 CDT [facility] Dextrose 50% Syringe 2018-11-30 20:27:00 No 12.5 gm, 25 mL, Route: IVP, Drug Form: INJ, Dosing Weight 61.364, kg, PRN, PRN Blood Glucose Results, Start date: 11/30/18 15:27:00 CDT, Duration: 30 day, Stop date: 12/30/18 15:26:00 CDT [facility] Acetaminophen 325 MG / Hydrocodone Bitartrate 5 MG Oral Tabl et 2018-11-30 20:24:00 No Notes: (Sa me as: Lewis 325/5) Do not exceed 4gm/day of acetaminophen. [facility] Morphine 2018-11-30 20:24:00 No Not es: (Same as:MORPhine Sulfate) [facility] Ondansetron 2018-11-30 20:24:00 No Notes: ( Same as: Zofran) Marquez Apodacaann Diphenhydramine 2018-11-30 20:24:00 No 25 mg, 1 tab, Route: PO, Drug form: TAB, Bedtime, Dosing Weight 61.364, kg, PRN Insomnia, Start date: 11/30/18 15:24:00 CDT, Duration: 30 day, Stop date: 12/30/18 15:23:00 CDT [facility] Nitroglycerin 2018-11-30 20:24:00 No Notes: (Same as:Nitroquick, Nitrostat) "Do Not Crush" Sublingual tablet Marquez Apodacaann Sodium Chloride 0.9% IV 750 mL 2018-11-30 20:24:00 No 750 mL, Rate: 75 ml/hr, Infuse over: 10 hr, Route: IV, Dosing Weight 61.364 kg, Total Volume: 750, Start date: 11/30/18 15:24:00 CDT, Duration: 10 hr, Stop date: 12/01/18 1:23:00 CDT, 1.66, m2 [facility] Sodium Chloride 0.9% (Bolus) IV 2018-11-30 20:24:00 No 250 mL, 250 ml/hr, Infuse Over: 1 hr, Route: IV, 250, Drug form: INJ, ONCE, Dosing Weight 61.364 kg, Start date: 11/30/18 15:24:00 CDT, Stop date: 11/30/18 15:24:00 CDT [facility] citalopram 20 mg oral tablet 2018-11-30 19:22:00 Yes 20 mg = 1 tab, PO, Daily, 0 Refill(s) [facility] Bupropion 2018-11-30 19:22:00 Yes 15 0 mg, PO, Daily, 0 Refill(s) [facility] ALIVE MULTIVITAMIN FOR WOMEN 2018-11-30 19:22:00 Yes ALIVE MULTIVITAMIN FOR WOMEN, 1 tablet, Refill(s) 0 [facility] hyoscyamine 0.125 mg oral tablet 2018-11-26 17:59:00 Yes 0.125 mg = 1 tab, PO, QID, 0 Refill(s) [facility] felipe nebivolol 10 MG Oral Tablet [Bystolic] 2018-11-26 17:56:00 Yes 10 mg = 1 tab, PO, Daily, 0 Refill(s) Airam Clinton Morphine 2018-10-26 16:20:00 No Not es: (Same as:MORPhine Sulfate) Marquez Clinton Acetaminophen 325 MG / Hydrocodone Bitartrate 5 MG Oral Tabl et 2018-10-26 16:20:00 No Notes: (Sa me as: Lewis 325/5) Do not exceed 4gm/day of acetaminophen. [facility] Nitroglycerin 2018-10-26 16:20:00 No Notes: (Same as:Nitroquick, Nitrostat) "Do Not Crush" Sublingual tablet [facility] [place] Sodium Chloride 0.9% IV 750 mL 2018-10-26 16:20:00 No 750 mL, Rate: 75 ml/hr, Infuse over: 10 hr, Route: IV, Dosing Weight 65.909 kg, Total Volume: 750, Start date: 10/26/18 11:20:00 CDT, Duration: 10 hr, Stop date: 10/26/18 21:19:00 CDT, 1.72, m2 [facility] clopidogrel 75 mg oral tablet 2018-10-26 16:19:00 Yes 75 mg = 1 tab, PO, Daily, # 90 tab, 1 Refill(s) Josereji al Oz Diphenhydramine 2018-10-26 13:24:00 Yes 50 mg, 2 tab, Route: PO, Drug form: TAB, ONCE, Dosing Weight 65.909, kg, Priority: NOW, Start date: 10/26/18 8:24:00 CDT, Stop date: 10/26/18 8:24:00 CDT [facility] Alprazolam 2018-10-26 13:24:00 Yes Notes: With food or milk (Same as: Xanax) [facility] normal saline 0.9% IV 1,000 mL 2018-10-26 [...] PO, TID, # 90 tab, 3 Refill(s) [facility] Hydrochlorothiazide 25 MG / Olmesartan medoxomil 40 MG Oral Tablet 2018-10-22 13:02:00 Yes 1 tab, PO, Daily, # 30 tab, 0 Refill(s) [facility] potassium chloride 10 mEq oral capsule, extended release 2018-10-22 13:02:00 Yes 10 mEq = 1 cap, PO, Daily, 0 Ref ill(s) [facility] Furosemide 40 MG Oral Tablet [Lasix] 2018-10-22 13:01:00 Ye s 40 mg = 1 tab, PO, Daily, # 30 tab, 0 Refill(s) [facility] iron infusions 2018-10-22 13:00:00 Yes iron infusions, IV, qWeek, Refill(s) 0 [facility] Cefuroxime Axetil (Ceftin) 250 Mg TABLET Cefuroxime Ax etil (Ceftin) 250 Mg TABLET 2017-01-01 08:59:00 2018-03-24 00:00:00 No 250 Twi ce A Day [facility] Nitroglycerin 2016-12-09 17:10:00 No Notes: (Same as:Nitroquick, Nitrostat) "Do Not Crush" Sublingual tablet [facility] Acetaminophen 325 MG / Hydrocodone Bitartrate 5 MG Oral Tabl et 2016-12-09 17:10:00 No Notes: (Sa me as: Lewis 325/5) Do not exceed 4gm/day of acetaminophen. Marquez Clinton Morphine 2016-12-09 17:10:00 No Not es: (Same as:MORPhine Sulfate) Marquez Clinton Sodium Chloride 0.154 MEQ/ML Injectable Solution 2016-12-09 17:1 0:00 No 750 mL, Rate: 75 ml/hr, Infu se over: 10 hr, Route: IV, Dosing Weight 63.636 kg, Total Volume: 750, Start date: 12/09/16 12:10:00 CDT, Duration: 10 hr, Stop date: 12/09/16 22:09:00 CDT Marquez felipe Keflex 2016-12-09 15:29:00 Yes = 1 tab, PO, TID, 1 tab, 3 times a day, 0 Refill(s) Marquez Clinton Sodium Chloride 0.154 MEQ/ML Injectable Solution 2015-02-06 18:0 3:00 No 500 mL, Rate: 25 ml/hr, Infu se over: 20 hr, Route: IV, Dosing Weight 60.909 kg, Total Volume: 500, Start date: 02/06/15 13:03:00, Duration: 30 day, Stop date: 03/08/15 13:02:00 Marquez [facility] Cardizem 2015-02-02 16:16:00 Yes 0 Refill(s) [facility] [place] valsartan 320 MG Oral Tablet [Diovan] 2015-02-02 16:16:00 Y es 320 mg = 1 tab, PO, Daily, # 30 tab, 0 Refill(s) [facility] vilazodone hydrochloride 10 MG Oral Tablet [Viibryd] 2 16:16:00 Yes 10 mg = 1 tab, PO, Daily, 0 Refill(s) Marquez Oz Unknown Home Medication 2015-02-02 16:16:00 Yes 1 tab, PO, BID, Refill(s) 0 Marquez Clinton 0.65 ML exenatide 3.08 MG/ML Prefilled Syringe [Bydureon] 2015-02-02 16:15:00 Yes 2 mg, SUB-Q, qWeek, # 4 ea, 0 Re fill(s) Marquez Apodacaann Lantus 2015-02-02 16:14:00 Yes 18 un it, SUB-Q, Bedtime, 0 Refill(s) [facility] [place] Humalog 2015-02-02 16:13:00 Yes 14 units, SUB-Q, TID-Before Meals, 0 Refill(s) Marquez Clinton Aspirin (Aspir 81) 81 Mg TABLET. Aspirin (Aspir 81) 81 Mg TABLET. Yes 81 Daily [facility] Atorvastatin Calcium Atorvastatin Calcium Yes 10 Today At 9:00PM [facility] Calcitriol Calcitriol Yes .25 Daily [facility] Citalopram Hydrobromide (Citalopram Hbr) 20 Mg TABLET Citalopram Hydrobromide (Citalopram Hbr) 20 Mg TABLET Yes 10 Daily [facility] Clopidogrel Bisulfate (Clopidogrel) 75 Mg TABLET Clopi dogrel Bisulfate (Clopidogrel) 75 Mg TABLET Yes 75 Daily [facility] Colchicine (Colcrys) 0.6 Mg TABLET Colchicine (Colcrys) 0.6 Mg TABLET Yes .6 Daily as needed for Gout [facility] Diphenhydramine Hcl (Benadryl) 25 Mg CAPSULE Diphenhyd ramine Hcl (Benadryl) 25 Mg CAPSULE Yes 25 Every 12 Hours as needed fo r Allergy [facility] Doxazosin Mesylate Doxazosin Mesylate Yes 4 Da zhen [facility] Furosemide (Lasix) 40 Mg TABLET Furosemide (Lasix) 40 Mg TABLET Yes 40 Daily [facility] Hydrocodone Bit/Acetaminophen (Lewis 5-325 Tablet) 1 E ach TABLET Hydrocodone Bit/Acetaminophen (Lewis 5-325 Tablet) 1 Each TABLET Yes 1 [facility] Insulin Npl/Insulin Lispro (Humalog Mix 75-25 Kwikpen) 100 Unit/1 Ml INSULN.PEN Insulin Npl/Insulin Lispro (Humalog Mix 75-25 Kwikpen) 100 Unit/1 Ml INSULN.PEN Yes [facility] Levothyroxine Sodium Levothyroxine Sodium Yes 50 Daily [facility] Nebivolol Hcl (Bystolic) 10 Mg TABLET Nebivolol Hcl (Bystolic) 10 M g TABLET Yes 5 Daily [facility] Pantoprazole Sodium (Protonix) 40 Mg TABLET. Pantopr azole Sodium (Protonix) 40 Mg TABLET. Yes 40 Twice A Day [facility] Allopurinol Allopurinol 2020-03-13 00:00:00 No 100 D aily [facility] Bupropion Hcl (Bupropion Xl) 150 Mg TAB.ER.24H Bupropi on Hcl (Bupropion Xl) 150 Mg TAB.ER.24H 2020-03-13 00:00:00 No 150 Daily [facility] Fluconazole Fluconazole 2020-03-13 00:00:00 No 150 [facility] Gabapentin Gabapentin 2020-03-13 00:00:00 No 600 Bed time [facility] Loperamide Hcl (Imodium*) 2 Mg CAP Loperamide Hcl (Imodium*) 2 M g CAP 2020-03-13 00:00:00 No 2 [facility] Mirtazapine Mirtazapine 2020-03-13 00:00:00 No 15 B edtime [facility] Nitrofurantoin Macrocrystal (Nitrofurantoin) 100 Mg CA PSULE Nitrofurantoin Macrocrystal (Nitrofurantoin) 100 Mg CAPSULE 2020-03-13 00:00:00 No 100 Daily [facility] Omeprazole Omeprazole 2020-03-07 00:00:00 No 20 [facility] Trulicity Trulicity 2020-03-07 00:00:00 No 1.5 Weekl y [facility] Atorvastatin Calcium Atorvastatin Calcium 2018-03-24 00:00:00 No 10 Today At 9:00PM [facility] Biotin Biotin 2018-03-24 00:00:00 No 1000 Daily [facility] Collagenase Clostridium Hist. (Santyl) 15 Gm OINT...G. Collagenase Clostridium Hist. (Santyl) 15 Gm OINT...G. 2018-03-24 00:00:00 No 1 Bedtime [facility] Cyanocobalamin (Vitamin B-12) 1,000 Mcg TAB Cyanocobal wilson (Vitamin B-12) 1,000 Mcg TAB 2018-03-24 00:00:00 No 1000 Daily [facility] Ferrous Sulfate (Ferosul) 325 Mg TABLET Ferrous Sulfate (Diandra osul) 325 Mg TABLET 2018-03-24 00:00:00 No 325 Daily [facility] Liraglutide (Victoza 2-Devante) 0.6 Mg/0.1 Ml PEN.INJCTR L iraglutide (Victoza 2-Devante) 0.6 Mg/0.1 Ml PEN.INJCTR 2018-03-24 00:00:00 No 18 Daily [facility] Pregabalin (Lyrica) 50 Mg CAP Pregabalin (Lyrica) 50 Mg CAP 2018-03-24 00:00:00 No 50 Daily [facility] Vital Signs Vital Name Observation Time Observation Value Comments Source Body Temperature 2020-03-13 15:32:00 98.1 [degF] [facility] Weight 2020-03-06 23:30:00 146.19 [lb_av] [facility] BMI (Body Mass Index) 2020-03-06 23:30:00 26.7 kg/m2 [facility] Height 2019-03-04 12:04:00 157.48 cm [facility] Weight 2019-03-04 12:04:00 [facility] BMI Calculated 2019-03-04 12:04:00 Sara al [place] Heart Rate 2018-12-01 12:33:00 [facility] [place] Systolic (mm Hg) 2018-12-01 12:33:00 Christiano rial [place] Diastolic (mm Hg) 2018-12-01 12:33:00 Mem orial [facility] Respitory Rate 2018-12-01 12:33:00 Sara al [place] Temperature Oral (F) 2018-12-01 12:33:00 98.5 F [facility] Temperature Oral (F) 2018-12-01 08:12:00 98.7 F [facility] [place] Systolic (mm Hg) 2018-12-01 08:12:00 Christiano rial [place] Diastolic (mm Hg) 2018-12-01 08:12:00 Mem orial [place] Respitory Rate 2018-12-01 08:12:00 Memori al [place] Heart Rate 2018-12-01 08:12:00 [facility] [place] Systolic (mm Hg) 2018-12-01 04:09:00 Christiano rial [place] Diastolic (mm Hg) 2018-12-01 04:09:00 Mem orial [place] Temperature Oral (F) 2018-12-01 04:09:00 97.7 F [facility] [place] Respitory Rate 2018-12-01 04:09:00 Memori al [place] Heart Rate 2018-12-01 04:09:00 [facility] [place] Weight 2018-11-26 17:54:00 [facility] BMI Calculated 2018-11-26 17:54:00 [facility] [place] Height 2018-11-26 17:54:00 157.48 cm [facility] [place] Systolic (mm Hg) 2018-10-26 23:30:00 Christiano rial [place] Diastolic (mm Hg) 2018-10-26 23:30:00 Mem [facility] Systolic (mm Hg) 2018-10-26 23:00:00 Christiano rial [place] Diastolic (mm Hg) 2018-10-26 23:00:00 Mem [facility] Systolic (mm Hg) 2018-10-26 22:30:00 Christiano rial [place] Diastolic (mm Hg) 2018-10-26 22:30:00 Mem orial [place] Temperature Oral (F) 2018-10-26 12:22:00 98.0 F [facility] [place] Respitory Rate 2018-10-26 12:22:00 Mem[facility] [place] BMI Calculated 2018-10-22 13:07:00 Memori al [facility] Weight 2018-10-22 13:07:00 [facility] [place] Height 2018-10-22 13:07:00 158.75 cm [facility] Heart Rate 2018-10-22 13:07:00 [facility] Temperature Oral (F) 2018-10-22 13:07:00 97.8 F [facility] [place] Respitory Rate 2018-10-22 13:07:00 Memori al [facility] Heart Rate 2016-12-10 12:42:00 [facility] [place] Temperature Oral (F) 2016-12-10 12:42:00 97.4 F [facility] [place] Respitory Rate 2016-12-10 12:42:00 Memori al [facility] Systolic (mm Hg) 2016-12-10 12:42:00 Christiano rial [facility] Diastolic (mm Hg) 2016-12-10 12:42:00 Mem orial [place] Temperature Oral (F) 2016-12-10 09:00:00 98.2 F [facility] Respitory Rate 2016-12-10 09:00:00 Memori al [facility] Systolic (mm Hg) 2016-12-10 09:00:00 Christiano rial [facility] Diastolic (mm Hg) 2016-12-10 09:00:00 Mem orial [place] Respitory Rate 2016-12-10 05:00:00 Memori al [facility] Temperature Oral (F) 2016-12-10 05:00:00 97.6 F [facility] Systolic (mm Hg) 2016-12-10 05:00:00 Christiano rial [facility] Diastolic (mm Hg) 2016-12-10 05:00:00 Mem orial [place] Height 2016-12-09 17:26:00 157.48 cm [facility] [place] Weight 2016-12-09 17:26:00 [facility] [place] BMI Calculated 2016-12-09 17:26:00 Memori al [place] Systolic (mm Hg) 2015-02-06 20:21:00 [facility] [place] Diastolic (mm Hg) 2015-02-06 20:21:00 [facility] [place] Respitory Rate 2015-02-06 20:21:00 [facility] [place] Systolic (mm Hg) 2015-02-06 20:06:00 [facility] [place] Diastolic (mm Hg) 2015-02-06 20:06:00 [facility] [place] Respitory Rate 2015-02-06 20:06:00 [facility] [place] Systolic (mm Hg) 2015-02-06 19:51:00 [facility] [place] Diastolic (mm Hg) 2015-02-06 19:51:00 [facility] Respitory Rate 2015-02-06 19:51:00 [facility] [place] Heart Rate 2015-02-06 18:59:00 [facility] [place] Weight 2015-02-02 15:50:00 [facility] BMI Calculated 2015-02-02 15:50:00 [facility] Height 2015-02-02 15:50:00 157.48 cm [facility] [place] Temperature Oral (F) 2015-02-02 15:50:00 97.8 F [facility] Heart Rate 2015-02-02 15:50:00 [facility] Procedures Procedure Date / Time Performed Performing Clinician [facility] X-ray of chest, two views 2020-03-11 00:00:00 [facility] Ultrasound, renal 2020-03-07 00:00:00 [facility] Ultrasound of chest including mediastinum 2020-03-07 00:00:00 [facility] Ultrasound guidance for vascular access 2020-03-07 00:00:00 [facility] Angiogram 2018-10-26 05:00:00 [facility] Rotational atherectomy 2016-12-09 05:00:00 Yisel [facility] Colonoscopy 2013-07-20 00:00:00 [facility] Cholecystectomy 2012-07-20 00:00:00 [facility] Removal of spinal cord lesion 2002-07-20 00:00:00 [facility] Tubal ligation 1995-07-20 00:00:00 [facility] Cataract surgery [facility] n Tonsillectomy [facility] Plan of Care Planned Activity Planned Date Details Comments Source Instructions Hemodialysis [facility] Instructions Urinary Tract Infection - Women [facility] Encounters Start Date/Time End Date/Time Encounter [facility] Ad[facility] Encounter ID Source 2020-03-06 21:08:00 2020-03-13 16:50:00 Discharged Inpatient 1 BREE VARGAS [facility] [id number] I [facility] 2019-03-04 11:35:00 2019-03-04 15:00:00 Outpatient Vaibhav Jarrett [facility] [id number] 2019-03-04 13:00:00 2019-03-04 13:00:00 Outpatient [facility] CAR [id number] [facility] 2018-11-30 10:43:00 2018-12-01 13:45:00 Outpatient Vaibhav Jarrett [facility] [id number] 2018-11-30 10:43:00 2018-11-30 10:43:00 Outpatient [facility] CAR [id number] [facility] 2018-10-26 06:09:00 2018-10-26 19:30:00 [id number] 2018-10-26 06:09:00 2018-10-26 06:09:00 Outpatient [facility] CAR [id number] [facility] 2017-06-18 09:23:00 2017-06-18 23:59:00 Outpatient Amber Jarrett [facility] [id number] 2016-12-09 09:50:00 2016-12-10 10:54:00 Outpatient Vaibhav Jarrett [facility] [id number] 2015-02-06 12:29:00 2015-02-06 15:29:00 [facility] [id number] 2014 07:56:00 2014 23:59:00 Outpatient Edgar Bowden [facility] [id number] Results Test Description Test Time Test Comments Results Result Comments Source Capillary blood glucose measurement by glucometer (mas s/volume) 2020-03-13 06:57:00 Test Item Bedside Glucose (test code = 91529-7) 122 70-120 Meter ID: [id number] sodium measurement (moles/volume)2020-03-13 05:40:00* Test Item Value Reference Range Interpretation Comments Sodium Level (test code = 2951-2) 134 136-145 [facility] potassium measurement (moles/volume)2020-03-13 05:40:00* Test Item Value Reference Range Interpretation Comments Potassium Level (test code = 2823-3) 3.8 3.5-5.1 [facility] chloride measurement (moles/volume)2020-03-13 05:40:00* Test Item Value Reference Range Interpretation Comments Chloride Level (test code = 2075-0) 99 98-107 [facility] plasma carbon dioxide, total measurement (moles/volume)2020-03-13 05:40:00* Test Item Value Reference Range Interpretation Comments Carbon Dioxide Level (test code = 2028-9) 23 22-29 [facility] plasma anion ehj9525-79-28 05:40:00* Test Item Value Reference Range Interpretation Comments Anion Gap (test code = 74808-2) 15.8 8-16 [facility] urea nitrogen measurement (mass/volume)2020-03-13 05:40:00* Test Item Value Reference Range Interpretation Comments Blood Urea Nitrogen (test code = 3094-0) 18 7- [facility] creatinine measurement (mass/volume)2020-03-13 05:40:00* Test Item Value Reference Range Interpretation Comments Creatinine (test code = 2160-0) 2.74 0.57-1.11 [facility] plasma urea nitrogen/creatinine mass [id number] 05:40:00* Test Item Value Reference Range Interpretation Comments BUN/Creatinine Ratio (test code = 3097-3) 7 - [facility] CenterEstimated glomerular filtration rate (GFR) azmrizgwzngbl8815-26-38 05:40:00* Test Item Value Reference Range Interpretation Comments Estimat Glomerular Filtration Rate (test code = 499750242) 17 >60 Ranges were taken from the National Kidney Disease Education Program and the [facility] literature.Reference ranges:60 or greater: Elltba48-46 ( for 3 consecutive months): Chronic kidney disease 15 or less: Kidney failureMemorial Hermann [facility]lands Medical CenterGlucose hortqflnnmx0008-45-42 05:40:00* Test Item Value Reference Range Interpretation Comments Glucose Level (test code = IBP0495) 123 74-118 [facility] plasma calcium measurement (mass/volume)2020-03-13 05:40:00* Test Item Value Reference Range Interpretation Comments Calcium Level (test code = 91574-2) 8.0 8.4-10.2 [facility] CenterCHEST 2 [id number] 08:26:00 [facility] [address] [place] [address] Patient Name: ELSIE LOAIZA MR #: [id number] : 1950 Age/Sex: 69/F Req #: [id number] Adm Physician: BREE VARGAS MD Ordered by: VALERI CAMARGO MD Report #: [id number] Location: MED/SURG3 Room/Bed: [facility] Procedure: [id number] DX/CHEST 2 EWS Exam Date: 03/11/20 Exam Time: 807 REPORT STATUS: Signed EXAMINATION: CHEST 2 VIEWS INDICATION: Pleural effusions. COMPARISON: 03/09/2020. FINDINGS: TUBES and LINES: Right central venous catheter with distal tip projected on the right atrium. LUNGS: Bilateral pulmonary venous congest ion again observed. Patchy density in the lower lobes suggestive of subsegment al atelectasis. PLEURA: Pleural effusions appear decreased, however, this could be related to positioning as prior examination was a portable exam. Ther e is a moderate volume left pleural effusion and a small right pleural effusio n.. No pneumothorax. HEART AND MEDIASTINUM: Cardiac size is mildly enla rged. BONES AND SOFT TISSUES: No acute osseous lesion. Soft tissues a re unremarkable. UPPER ABDOMEN: No free air under the diaphragm. IMPRESSION: 1. Moderate left and small right pleural effusions cannot be fully compared to technical differences. 2. Interval decrease in bilatera l pulmonary venous congestion. Signed by: Dr. Sherry Nelson M.D. on 03/11/2020 8:31 AM Dictated By: LANI NELSON MD, MD Electronically S igned By: LANI NELSON MD, MD on 03/11/20830 Transcribed By: ANSELMO on 02/18 COPY TO: VALERI CAMARGO MD Blood leukocytes automated count (number/volume)2020-03-10 04:30:00* Test Item Value Reference Range Interpretation Comments White Blood Count (test code = 6690-2) 9.56 4.8-10.8 [facility] CenterBlood erythrocytes automated count (number/volume)2020-03-10 04:30:00* Test Item Value Reference Range Interpretation Comments Red Blood Count (test code = 789-8) 3.86 3.6-5.1 [facility] CenterBlood hemoglobin measurement (moles/volume)2020-03-10 04:30:00* Test Item Value Reference Range Interpretation Comments Hemoglobin (test code = 11978-7) 9.6 12.0-16.0 [facility] CenterAutomated blood hematocrit (volume fraction)2020-03-10 04:30:00* Test Item Value Reference Range Interpretation Comments Hematocrit (test code = 4544-3) 33.4 34.2-44.1 [facility] CenterAutomated erythrocyte mean corpuscular rxpeaw4407-37-71 04:30:00* Test Item Value Reference Range Interpretation Comments Mean Corpuscular Volume (test code = 787-2) 86.5 81-99 [facility] CenterAutomated erythrocyte mean corpuscular hemoglobin (mass per erythrocyte)2020-03-10 04:30:00* Test Item Value Reference Range Interpretation Comments Mean Corpuscular Hemoglobin (test code = 785-6) 24.9 28-32 [facility] CenterAutomated erythrocyte mean corpuscular hemoglobin concentration measurement (mass/volume)2020-03-10 04:30:00* Test Item Value Reference Range Interpretation Comments Mean Corpuscular Hemoglobin Concent (test code = 786-4) 28.7 31-35 [facility] CenterRDW DelWc-Ijc2240-18-22 04:30:00* Test Item Value Reference Range Interpretation Comments Red Cell Distribution Width (test code = 23899-2) 15.9 11.7 -14.4 [facility] CenterAutomated blood platelet count (count/volume)2020-03-10 04:30:00* Test Item Value Reference Range Interpretation Comments Platelet Count (test code = 777-3) 314 140-360 [facility] segmented neutrophil count as percentage of total fdhywfjznj1782-53-32 04:30:00* Test Item Value Reference Range Interpretation Comments Neutrophils (%) (Auto) (test code = 92248-6) 42.2 38.7-80.0 [facility] CenterAutomated blood lymphocyte count as percentage ot total zqbrsyshmx4768-31-42 04:30:00* Test Item Value Reference Range Interpretation Comments Lymphocytes (%) (Auto) (test code = 736-9) 40.3 18.0-39.1 [facility] CenterAutomated blood monocyte count as percentage of total akwowvgysq6382-87-70 04:30:00* Test Item Value Reference Range Interpretation Comments Monocytes (%) (Auto) (test code = 5905-5) 9.0 4.4-11.3 [facility] CenterAutomated blood eosinophil count as percentage of total nlfgneyuzq8747-26-46 04:30:00* Test Item Value Reference Range Interpretation Comments Eosinophils (%) (Auto) (test code = 713-8) 7.1 0.0-6.0 [facility] CenterAutomated blood basophil count as percentage of total aexyllaioq8169-74-61 04:30:00* Test Item Value Reference Range Interpretation Comments Basophils (%) (Auto) (test code = 706-2) 0.8 0.0-1.0 [facility] CenterFluoroscopic procedure less than one hour zjhlsbto2632-77-89 04:30:00* Test Item Value Reference Range Interpretation Comments IM GRANULOCYTES % (test code = IM GRANULOCYTES %) 0.6 0.0- 1.0 [facility] CenterAutomated blood neutrophil count 2020-03-10 04:30:00* Test Item Value Reference Range Interpretation Comments Neutrophils # (Auto) (test code = 751-8) 4.0 2.1-6.9 [facility] CenterBlood lymphocytes count (number/volume) 2020-03-10 04:30:00* Test Item Value Reference Range Interpretation Comments Lymphocytes # (Auto) (test code = 54269-8) 3.9 1.0-3.2 [facility] CenterBlood monocytes automated count (number/volume)2020-03-10 04:30:00* Test Item Value Reference Range Interpretation Comments Monocytes # (Auto) (test code = 742-7) 0.9 0.2-0.8 [facility] CenterAutomated blood eosinophil count 2020-03-10 04:30:00* Test Item Value Reference Range Interpretation Comments Eosinophils # (Auto) (test code = 711-2) 0.7 0.0-0.4 [facility] CenterAutomated blood basophil count (count/volume)2020-03-10 04:30:00* Test Item Value Reference Range Interpretation Comments Basophils # (Auto) (test code = 704-7) 0.1 0.0-0.1 [facility] CenterFluoroscopic procedure less than one hour qjspqpwv5711-07-18 04:30:00* Test Item Value Reference Range Interpretation Comments Absolute Immature Granulocyte (auto (malathi t code = Absolute Immature Granulocyte (auto) 0.06 0-0.1 [facility] CenterIR [id number] 14:49:00 [place] [address] Patient Name: ELSIE LOAIZA MR #: [id number] : 1950 Age/Sex: 69/F Req #: [id number] Adm Physician: BREE VARGAS MD Ordered by: ARIADNE DA SILVA MD Report #: [id number] Location: [facility]/Bed: [place] [address] Procedure: [id number] DX/IR CONS ULT Exam Date: Exam Time: REPORT STATUS: Signed PROCEDURE: Conversion of non-tunne led to tunneled dialysis catheter Procedural Personnel Attending physicia n(s): Chacho Tristan MD Fellow physician(s): None Resident physician(s): None Advanced practice provider(s): None Pre-procedure diagnosis: ESRD Post-p rocedure diagnosis: Same Indication: Performance of hemodialysis Additional clinical history: None Complications: No immediate complications. IMPR ESSION: Conversion of right-sided internal jugular non-tunneled temporary d ialysis catheter for a tunneled dialysis catheter, with tip in the expected lo cation of the right atrium. Plan: The catheter may be used immediat stephen. PROC EDURE SUMMARY: - Temporary central venous catheter removal - Tunneled centra l venous catheter insertion with fluoroscopic guidance - Additional procedure( s): None PROCEDURE DETAILS: Pre-procedure History and imaging of apolinar tral venous access reviewed (QCDR): Yes Consent: Informed consent for the pro cedure including risks, benefits and alternatives was obtained and time-out wa s performed prior to the procedure. Preparation (MIPS): The site was prepared and draped using all elements of maximal sterile barrier technique including s terile gloves, sterile gown, cap, mask, large sterile sheet, sterile ultrasoun d probe cover, hand hygiene and cutaneous antisepsis with 2% chlorhexidine. Medical reason for site preparation exception (MIPS): Not applicable Anest hesia/sedation Level of anesthesia/sedation: Moderate sedation (conscious carlita tion) 1mg Versed, 50mcg fentanyl Anesthesia/sedation administered by: Aliya licea trained observer under attending supervision with continuous monitoring of the patient?s level of consciousness and physiologic status Total intra-s ervice sedation time (minutes): 30 Catheter exchange Local anesthesia was administered. A wire was passed through the indwelling central venous cathete r and into the central veins. The catheter was removed, and a peel-away sheath was placed. An incision was made near the venous access site and the catheter was tunneled subcutaneously to the venous access site. The catheter was advan sapphire via a peel-away sheath into the vein under fluoroscopic guidance. Catheter tip location was fluoroscopically verified and a permanent image was stored. Catheter placed: Covidien Palindrome 19cm tip to cuff Catheter size (Kosovan) : 15 Kosovan Catheter flush: Heparin (1000 units/mL) Closure The access site was closed and a sterile bandage was applied. Access site closure techniq ue: Tissue adhesive Catheter securement technique: Non-absorbable suture Contrast Contrast agent: None Contrast volume (mL): NA Radiation Dose Fluoroscopy time (minutes): 0.0 Reference air kerma (mGy): 0.4 Additi onal Details Additional description of procedure: None Equipment details: No ne Specimens removed: Temporary central venous catheter Estimated blood loss (mL): Less than 10 Standardized report: SIR_TunneledCatheterConversion_v3 Attestation Signer name: Chacho Tristan MD I attest that I was present for th e entire procedure. I reviewed the stored images and agree with the report as written. Signed by: Chacho Tristan MD on 03/09/2020 2:51 PM Dictated By: CHACHO TRISTAN MD 50 Transc ribed By: ANSELMO on 03/09/201450 COPY TO: ARIADNE DA SILVA MD [facility] OR [id number] 14:49:00 [place] [address] Patient Name: ELSIE LOAIZA MR #: [id number] : 1950 Age/Sex: 69/F Req #: [id number] [facility] Physician: BREE VARGAS MD Ordered by: ARIADNE DA SILVA MD Report #: [id number] Location: [facility] Room/Bed: [place] [address] Procedure: [id number] IR/DANTE G UI CENT KASHIF PLMT OR REM Exam Date: 03/09/20 Exam Markus e: 1350 REPORT STATUS: Signed [place] OCEDURE: Conversion of non-tunneled to tunneled dialysis catheter Procedura l Personnel Attending physician(s): Chacho Tristan MD Fellow physician(s): None Resident physician(s): None Advanced practice provider(s): None Pre-pr ocedure diagnosis: ESRD Post-procedure diagnosis: Same Indication: Performan ce of hemodialysis Additional clinical history: None Complications: No im mediate complications. IMPRESSION: Conversion of right-sided internal jugular non-tunneled temporary dialysis catheter for a tunneled dialysis ying ter, with tip in the expected location of the right atrium. Plan: T he catheter may be used immediately. PROCEDURE SUMMARY: - Temporary central venous cath eter removal - Tunneled central venous catheter insertion with fluoroscopic gu idance - Additional procedure(s): None PROCEDURE DETAILS: Pre-proced ure History and imaging of central venous access reviewed (QCDR): Yes Conse nt: Informed consent for the procedure including risks, benefits and alternati ves was obtained and time-out was performed prior to the procedure. Preparatio n (MIPS): The site was prepared and draped using all elements of maximal steri le barrier technique including sterile gloves, sterile gown, cap, mask, large sterile sheet, sterile ultrasound probe cover, hand hygiene and cutaneous anti sepsis with 2% chlorhexidine. Medical reason for site preparation exception ( MIPS): Not applicable Anesthesia/sedation Level of anesthesia/sedation: M oderate sedation (conscious sedation) 1mg Versed, 50mcg fentanyl Anesthesia/ sedation administered by: Independent trained observer under attending supervi echo with continuous monitoring of the patient?s level of consciousness and ph ysiologic status Total intra-service sedation time (minutes): 30 Catheter exchange Local anesthesia was administered. A wire was passed through the ind welling central venous catheter and into the central veins. The catheter was r emoved, and a peel-away sheath was placed. An incision was made near the venou s access site and the catheter was tunneled subcutaneously to the venous acces s site. The catheter was advanced via a peel-away sheath into the vein under fluoroscopic guidance. Catheter tip location was fluoroscopically verified and a permanent image was stored. Catheter placed: Covidien Palindrome 19cm tip to cuff Catheter size (Kosovan): 15 Kosovan Catheter flush: Heparin (1000 unit s/mL) Closure The access site was closed and a sterile bandage was applie d. Access site closure technique: Tissue adhesive Catheter securement techni que: Non-absorbable suture Contrast Contrast agent: None Contrast volum e (mL): NA Radiation Dose Fluoroscopy time (minutes): 0.0 Reference a ir kerma (mGy): 0.4 Additional Details Additional description of procedu re: None Equipment details: None Specimens removed: Temporary central venous catheter Estimated blood loss (mL): Less than 10 Standardized report: SIR_T unneledCatheterConversion_v3 Attestation Signer name: Chacho Tristan MD I attest that I was present for the entire procedure. I reviewed the stored imag es and agree with the report as written. Signed by: Chacho Tristan MD on 2019 2:51 PM Dictated By: CHACHO TRISTAN MD 50 Transcribed By: ANSELMO on 03/09/201450 COPY TO : ARIADNE DA SILVA MD TUNNELLED CVC INSERT W/O [id number] 14:49:00 [place] [address] Patient Name: ELSIE LOAIZA MR #: [id number] : 1950 Age/Sex: 69/F Req #: [id number] Adm Physician: BREE VARGAS MD Ordered by: ARIADNE DA SILVA MD Report #: [id number] Location: [facility]/Bed: [facility] 1981 Procedure: [id number] IR/MOI ED CVC INSERT W/O PORT Exam Date: Exam Time: REPORT STATUS: Signed PROCEDURE: Conv ersion of non-tunneled to tunneled dialysis catheter Procedural Personnel Attending physician(s): Chacho Tristan MD Fellow physician(s): None Resident p hyjosecian(s): None Advanced practice provider(s): None Pre-procedure diagn osis: ESRD Post-procedure diagnosis: Same Indication: Performance of hemodia lysis Additional clinical history: None Complications: No immediate compl ications. IMPRESSION: Conversion of right-sided internal jugular non-t unneled temporary dialysis catheter for a tunneled dialysis catheter, with tip in the expected location of the right atrium. Plan: The catheter m ay be used immediately. PROCEDURE SUMMARY: - Temporary central venous catheter removal - Tunneled central venous catheter insertion with fluoroscopic guidance - Ad ditional procedure(s): None PROCEDURE DETAILS: Pre-procedure History and imaging of central venous access reviewed (QCDR): Yes Consent: Informed consent for the procedure including risks, benefits and alternatives was obtai jermain and time-out was performed prior to the procedure. Preparation (MIPS): The site was prepared and draped using all elements of maximal sterile barrier te chnique including sterile gloves, sterile gown, cap, mask, large sterile sheet , sterile ultrasound probe cover, hand hygiene and cutaneous antisepsis with 2 % chlorhexidine. Medical reason for site preparation exception (MIPS): Not ap plicable Anesthesia/sedation Level of anesthesia/sedation: Moderate sedat ion (conscious sedation) 1mg Versed, 50mcg fentanyl Anesthesia/sedation admi nistered by: Independent trained observer under attending supervision with con tinuous monitoring of the patient?s level of consciousness and physiologic sta tus Total intra-service sedation time (minutes): 30 Catheter exchange L ocal anesthesia was administered. A wire was passed through the indwelling apolinar tral venous catheter and into the central veins. The catheter was removed, and a peel-away sheath was placed. An incision was made near the venous access si te and the catheter was tunneled subcutaneously to the venous access site. The catheter was advanced via a peel-away sheath into the vein under fluoroscopic guidance. Catheter tip location was fluoroscopically verified and a permanent image was stored. Catheter placed: [employer]is Pharm[employer]rome 19cm tip to cuff Cat heter size (Kosovan): 15 Kosovan Catheter flush: Heparin (1000 units/mL) Cl osure The access site was closed and a sterile bandage was applied. Access s ite closure technique: Tissue adhesive Catheter securement technique: Non-abso rbable suture Contrast Contrast agent: None Contrast volume (mL): NA Radiation Dose Fluoroscopy time (minutes): 0.0 Reference air kerma (mGy ): 0.4 Additional Details Additional description of procedure: None Eq uipment details: None Specimens removed: Temporary central venous catheter E stimated blood loss (mL): Less than 10 Standardized report: SIR_TunneledCathet erConversion_v3 Attestation Signer name: Chacho Tristan MD I attest that I was present for the entire procedure. I reviewed the stored images and agree with the report as written. Signed by: Chacho Tristan MD on 03/09/2020 2:51 PM Dictated By: CHACHO TRISTAN MD 1451 COPY TO: Rao DA SILVA MD CHEST SINGLE (PORTABLE)2020-03-09 08:46:00 [place] [address] Patient Name: ELSIE LOAIZA MR #: [id number] : 1950 Age/Sex: 69/F Req #: [id number] Adm Physician: BREE VARGAS MD Ordered by: ERIKA KYLE MD Report #: [id number] Location: [facility] oom/Bed: [facility] 198-1 Procedure: [id number] DX/CHEST SINGLE (PORTABLE) Exam Date: 03/09/20 Exam Time: 051 8 REPORT STATUS: Signed EXAMINAT ION: CHEST SINGLE (PORTABLE) INDICATION: CHF COMPARISON: Chest ra diograph of 03/08/2020 FINDINGS: LINES/TUBES:Right IJ temporary di alysis catheter terminates at the superior cavoatrial junction. LUNGS:The lung volumes are low. There is perihilar fullness and indistinctness of the p ulmonary vasculature. Bibasilar patchy opacities. PLEURA:Bilateral pleural effusions, slightly increased on the left compared to the prior day. MEDI ASTINUM:Cardiomediastinal silhouette is stably enlarged. BONES/SOFT TISSUES :No acute osseous injury. ABDOMEN:No free air under the diaphragm. IMPRESSION: Unchanged cardiomegaly and pulmonary edema. Bilateral pleural eff usions, slightly increased on the left compared to the prior day. Signed by: Chacho Tristan MD on 03/09/2020 8:47 AM Dictated By: CHACHO TRISTAN MD Elect ronically Signed By: CHACHO TRISTAN MD on 03/09/20846 Transcribed By: ANSELMO on 03/09/20846 COPY TO: ERIKA KYLE MD, ABI Serum or plasma total bilirubin measurement (mass/volume)2020-03-09 04:53:00* Test Item Value Reference Range Interpretation Comments Total Bilirubin (test code = 1975-2) 0.1 0.2-1.2 [facility] CenterFluoroscopic procedure less than one hour [id number] 04:53:00* Test Item Value Reference Range Interpretation Comments Aspartate Amino Transf (AST/SGOT) (test code = Aspartate Amino Transf (AST/SGOT)) 10 5-34 [facility] alanine aminotransferase measurement (enzymatic activity/volume)2020-03-09 04:53:00* Test Item Value Reference Range Interpretation Comments Alanine Aminotransferase (ALT/SGPT) (test code = 1742-6) 7 0-55 [facility] or plasma protein measurement (mass/volume)2020-03-09 04:53:00* Test Item Value Reference Range Interpretation Comments Total Protein (test code = 2885-2) 5.6 6.5-8.1 [facility] or plasma albumin measurement (mass/volume)2020-03-09 04:53:00* Test Item Value Reference Range Interpretation Comments Albumin (test code = 1751-7) 1.9 3.5-5.0 [facility] CenterPlasma globulin measurement (mass/volume) 2020-03-09 04:53:00* Test Item Value Reference Range Interpretation Comments Globulin (test code = 41417-8) 3.7 2.3-3.5 [facility] or plasma albumin/globulin mass pppjg1207-54-27 04:53:00* Test Item Value Reference Range Interpretation Comments Albumin/Globulin Ratio (test code = 1759-0) 0.5 0.8-2.0 [facility] or plasma alkaline phosphatase measurement (enzymatic activity/volume)2020-03-09 04:53:00* Test Item Value Reference Range Interpretation Comments Alkaline Phosphatase (test code = 6768-6) 89 40-150 [facility] hepatitis B virus surface antibody assay by radioimmunoassay (units/volume)2020-03-08 10:00:00* Test Item Value Reference Range Interpretation Comments Hepatitis B Surface Antibody, Quant (test code = 5194-6) <3.1 Immunity>9.9 Status of Immunity Anti-HBs Level Inconsistent with Immunity 0.0 - 9.9Consistent with Immunity >9.9[facility] or plasma hepatitis B virus core antibody detection by mybwyrwhgqj1249-66-68 10:00:00* Test Item Value Reference Range Interpretation Comments Hepatitis B Core Total Antibody (test code = 49778-3) Negative Negative Performed at: - [facility] [id number] Director: Ricardo Reddy MD, Phone: [phone] Health Southwest Fort Wortherum or plasma hepatitis B virus surface antigen detection by immunoassay 2020-03-08 10:00:00* Test Item Value Reference Range Interpretation Comments Hepatitis B Surface Antigen (test code = 5196-1) Negative Negat antelmo [facility]2020-03-08 08:16:00 [place] [address] Patient Name: ELSIE LOAIZA MR #: [id number] : 1950 Age/Sex: 69/F Req #: [id number] Adm Physician: BREE VARGAS MD Ordered by: ERIKA KYLE MD Report #: [id number] Location: [facility] Room/Bed: [place] [address] Procedure: [id number] DX/CHEST SINGLE (PORTABLE) Exam Date: 03/08/20 Exam Time: 061 0 REPORT STATUS: Signed Examinat ion: Single AP view of the chest. COMPARISON: 03/07/2020 INDICATION: Pl eural effusions DISCUSSION: Interval placement of a right interna l jugular high flow central venous catheter, with the tip projecting over the expected region of the upper right atrium. Lungs remain reasonably well inflated. Overall stable appearance of prominent pulmonary interstitial markin gs and moderate bilateral pleural effusions. No new consolidation or pneumotho rax. Stable mild enlargement of the cardiomediastinal silhouette. No acute osseous abnormalities. IMPRESSION: Interval placement of a rig ht internal jugular approach high flow central venous catheter positioned as d escribed. Stable findings of interstitial pulmonary edema and moderate bila teral pleural effusions. Signed by: Dr. Maurilio Rose M.D. on 03/08/2020 8:20 AM Dictated By: MAURILIO ROSE MD 9 Transcribed By: ANSELMO on 03/08/20819 COPY T O: ERIKA KYLE MD, [facility] US GUIDANCE FOR VASCULAR [id number] 07:58:00 [place] [address] Patient Name: ELSIE LOAIZA MR #: [id number] : 1950 Age/Sex: 69/F Req #: [id number] Adm Physician: BREE VARGAS MD Ordered by: JOSE GAMBLE MD Report #: [id number] Location: [facility] Room/Bed: [place] [address] Procedure: [id number] US/US NEELA DANCE FOR VASCULAR ACCES Exam Date: 03/07/20 Exam Ti me: 1649 REPORT STATUS: Signed N on-tunneled trialysis Catheter Insertion History: Chronic kidney disease with fluid overload acquiring hemodialysis. Modality: Fluoroscopy and sonography. Sedation: None. Radio Engineer: Armne Wild MD. Chief Underwriter: None. Approach: Right internal jugular vein Estimated blood loss: < 5 cc. Specimen: None. Fluoroscopy Time: 0.1 min. Reference Air Kerma (Ka, r): 1.33 mGy. Technique: Informed written consent was obtained. Discussion of risks, benefits, and alternatives were made with the patient. The patient expressed understanding and agreed to proceed. A universal timeout was performed prior to starting the procedure. All elements maximal sterile barrier technique was utilized for this procedure, including utilization of sterile scrub solution for skin prep, a large sterile sheet to cover the areas of the patient that were not prepped, and hand hygiene, mask, head covering, and sterile gown for performing radiologist and scrub technologist. Initial ultrasound images demonstrate patent and compressible right internal jugular, which was punctured under direct real-time ultrasound guidance with a micropuncture needle. An ultrasound image was saved to PACS. A microwire and sheath were placed. A 0.035 inch wire was placed through the sheath into the IVC. The tract was serially dilated. The 15 cm trialysis catheter was placed over the wire with its distal tip terminating in the superior right atrium. The ports were flushed and aspirated easily following placement. The lumens were locked with heparin. The catheter was sutured to the skin to secure its placement. Vital signs were monitored throughout the procedure by a nurse, and remained s table. The patient tolerated the procedure well and left the department in th e same condition. Results: Spot radiograph of the chest demons trates the new non-tunneled trialysis catheter to lie in the expected position with its tip overlying the right atrium. Impression: Successful, uncomplicated placement of a right in ternal jugular non-tunneled trialysis catheter using sonographic and fluorosco pic guidance. The catheter is ready for immediate use. Signed by: Armen Wild MD on 03/08/2020 8:00 AM Dictated By: ANTON WILD MD Electr onically Signed By: ANTON WILD MD on 03/08/20799 Transcribed By: ANSELMO britt 03/08/20799 COPY TO: JOSE GAMBLE MD NON-TUNNELLED CVC CATH [id number] 07:58:00 [place] [address] Patient Name: ELSIE LOAIZA MR #: [id number] : 1950 Age/Sex: 69/F Req #: [id number] Adm Physician: BREE VARGAS MD Ordered by: JOSE GAMBLE MD Report #: [id number] Location: [facility] Room/Bed: [facility] 198-1 Procedure: [id number] IR/NON-TU NNELLED CVC CATH PLACMNT Exam Date: 03/07/20 Exam Ti me: 1645 REPORT STATUS: Signed N on-tunneled trialysis Catheter Insertion History: Chronic kidney disease with fluid overload acquiring hemodialysis. Modality: Fluoroscopy and sonography. Sedation: None. Radio Engineer: Armen Wild MD. Chief Underwriter: None. Approach: Right internal jugular vein Estimated blood loss: < 5 cc. Specimen: None. Fluoroscopy Time: 0.1 min. Reference Air Kerma (Ka, r): 1.33 mGy. Technique: Informed written consent was obtained. Discussion of risks, benefits, and alternatives were made with the patient. The patient expressed understanding and agreed to proceed. A universal timeout was performed prior to starting the procedure. All elements maximal sterile barrier technique was utilized for this procedure, including utilization of sterile scrub solution for skin prep, a large sterile sheet to cover the areas of the patient that were not prepped, and hand hygiene, mask, head covering, and sterile gown for performing radiologist and scrub technologist. Initial ultrasound images demonstrate patent and compressible right internal jugular, which was punctured under direct real-time ultrasound guidance with a micropuncture needle. An ultrasound image was saved to PACS. A microwire and sheath were placed. A 0.035 inch wire was placed through the sheath into the IVC. The tract was serially dilated. The 15 cm trialysis catheter was placed over the wire with its distal tip terminating in the superior right atrium. The ports were flushed and aspirated easily following placement. The lumens were locked with heparin. The catheter was sutured to the skin to secure its placement. Vital signs were monitored throughout the procedure by a nurse, and remained s table. The patient tolerated the procedure well and left the department in th e same condition. Results: Spot radiograph of the chest demons trates the new non-tunneled trialysis catheter to lie in the expected position with its tip overlying the right atrium. Impression: Successful, uncomplicated placement of a right in ternal jugular non-tunneled trialysis catheter using sonographic and fluorosco pic guidance. The catheter is ready for immediate use. Signed by: Armen Wild MD on 03/08/2020 8:00 AM Dictated By: ANTON WILD MD Electr onically Signed By: ANTON WILD MD on 03/08/20799 Transcribed By: ANSELMO britt 03/08/20799 COPY TO: JOSE GAMBLE MD Phosphorus pfpbrtkyepe3010-77-35 04:10:00* Test Item Value Reference Range Interpretation Comments Phosphorus Level (test code = RLM3810) 3.9 2.3-4.7 [facility] or plasma magnesium measurement (mass/volume)2020-03-08 04:10:00* Test Item Value Reference Range Interpretation Comments Magnesium Level (test code = 14315-1) 1.2 1.3-2.1 [facility] or plasma intact pararthyroid hormone measurement (mass/volume)2020-03-08 04:10:00* Test Item Value Reference Range Interpretation Comments Parathyroid Hormone (test code = 2731-8) 208 15-65 [facility] or plasma calcium measurement (mass/volume)2020-03-08 04:10:00* Test Item Value Reference Range Interpretation Comments Calcium (Send out) (test code = 65677-1) 7.7 8.7-10.3 [facility] CenterFluoroscopic procedure less than one hour kkbxcble9951-08-84 04:10:00* Test Item Value Reference Range Interpretation Comments Parathyroid Hormone Interpretation (test code = Parathyroid Hormone Interpretation) Comment . Interpretation Intact PTH Calcium (pg/mL) (mg/dL)Normal 15 - 65 8.6 - 10.2Pr imary Hyperparathyroidism >65 >10.2Secondary Hyperparathyroidism >65 <10.2Non-Parathyroid Hypercalcemia <65 >10.2Hypoparathyroidism <15 < 8.6Non- Parathyroid Hypocalcemia 15 - 65 < 8.6Performed at: [facility] [id number] Director: Ricardo Reddy MD, Phone: [phone] at: [facility] [id number] Director: José Miguel Vasquez MD, Phone: [phone] Health Southwest Fort Wortherum hepatitis C virus antibody detection 2020-03-07 20:47:00* Test Item Value Reference Range Interpretation Comments Hepatitis C Antibody (test code = 77226-7) <0.1 0.0-0.9 Negative: < 0.8 Indeterminate: 0.8 - 0.9 Positive: > 0.9 The CDC recommends that a positive HCV antibody result be followed up with a HCV Nucleic Acid Amplification test (531306).Performed at: [facility] [id number] Director: Ricardo Reddy MD, Phone: [phone] Health Southwest Fort Wortherum or plasma creatine kinase measurement (enzymatic activity/volume)2020-03-07 14:11:00* Test Item Value Reference Range Interpretation Comments Creatine Kinase (test code = 2157-6) 82 29-168 [facility] or plasma creatine kinase MB measurement (mass/volume)2020-03-07 14:11:00* Test Item Value Reference Range Interpretation Comments Creatine Kinase MB (test code = 81954-0) 2.80 0-5.0 [facility] CenterTroponin I measurement by highly sensitive enzyme vcenslelmfz3674-42-54 14:11:00* Test Item Value Reference Range Interpretation Comments Troponin I (test code = 56072-8) 0.144 0-0.300 [facility] CenterUS CHEST (INCL MEDIASTINUM)2020-03-07 14:00:00 [place] [address] Patient Name: ELSIE LOAIZA MR #: [id number] : 1950 Age/Sex: 69/F Req #: [id number] Adm Physician: BREE VARGAS MD Ordered by: ERIKA KYLE MD Report #: [id number] Location: [facility] Room/Bed: [place] [address] Procedure: [id number] US/US LUCINA ST (INCL MEDIASTINUM) Exam Date: 03/07/20 Exam Time: 1322 REPORT STATUS: Signed Ultr asound chest History: Evaluate for pleural effusion. Comparison: est x-ray dated the same day. Discussion: Focused ultrasound images of the chest were obtained. Moderate left and small right pleural effusions are no ravinder. IMPRESSION: Moderate left and small right pleural effusions. Signed by: Anton Widl MD on 03/07/2020 2:02 PM Dictated By: ANTON RIZVI MD 140 Transcribed By: ANSELMO on 03/07/20 140 COPY TO: ERIKA KYLE MD, [facility] RENAL RETROPERITONEAL [id number] 08:48:00 [place] [address] Patient Name: ELSIE LOAIZA MR #: [id number] : 1950 Age/Sex: 69/F Req #: [id number] Adm Physician: BREE VARGAS MD Ordered by: CHELO OCASIO MD Report #: [id number] Location: [facility] Room/Bed: [place] [address] Procedure: [id number] US/U S RENAL RETROPERITONEAL COMP Exam Date: 03/07/20 Rashid ramirez Time: 0808 REPORT STATUS: Signed Renal ultrasound. History: Renal failure. Comparison: 12/31/2016. Discussion: Transverse and longitudinal images of the kidneys were obtaine d demonstrating normal renal sizes and echogenicities. There is no evidence of hydronephrosis, mass, or renal calculus. The right kidney measures 8.7 cm and the left kidney measures 9.7 cm in length. The urinary bladder is decompresse d by a Mcpherson catheter. There is no evidence of free fluid. IMPRESSION: Unremarkable renal ultrasound. Negative for hydronephrosis. Signed by: Anton Wild MD on 03/07/2020 8:49 AM Dictated By: ANTON WILD MD Elect ronically Signed By: ANTON WILD MD on 03/07/20848 Transcribed By: ANSELMO on 03/07/2049 COPY TO: CHELO OCASIO MD CHEST SINGLE (PORTABLE)2020-03-07 08:39:00 [place] [address] Patient Name: ELSIE LOAIZA MR #: [id number] : 1950 Age/Sex: 69/F Req #: [id number] Adm Physician: BREE VARGAS MD Ordered by: ERIKA KYLE MD Report #: [id number] Location: [facility] Room/Bed: [place] [address] Procedure: [id number] DX/CHEST SINGLE (PORTABLE) Exam Date: 03/07/20 Exam Time: 074 5 REPORT STATUS: Signed TECHNIQU E: Frontal view of the chest. INDICATION: CHF [id number] COMPARISON: Prior day. DISCUSSION: Limited evaluation due to portable te chnique. Lines and hardware: Overlying EKG leads are noted. Heart and med iastinum: Stable cardiomegaly and central gastric congestion. Lungs and pleura : Interstitial markings are more prominent with ill-defined interstitial opaci ties in the perihilar regions. Stable hazy opacities at the lung base with rina nting of the costophrenic angles. Soft tissues and bones: No acute abnormality . IMPRESSION: Interval increase in interstitial opacities and prominen t pulmonary vascular concerning for worsening fluid overload/pulmonary edema. Stable cardiomegaly, central vascular congestion and left greater than right p leural effusions. Signed by: Anton Wild MD on 03/07/2020 8:40 AM Dictated By: ANTON WILD MD 0840 Transcribed By: ANSELMO on 03/07/20 0840 COPY TO: ERIKA ZEE MD, ABI Fluoroscopic procedure less than one hour duration 2020-03-06 22:27:00* Test Item Value Reference Range Interpretation Comments Coronavirus (PCR) (test code = Coronavirus (PCR)) NOT DETECTED NOTD ETECTED [employer] Aptima SARS-CoV-2 assay is a nucleic amplification test intended for the qualitative detection of RNA from SARS-CoV-2 from nasopharyngeal (SENIOR ASIC DESIGN ENGINEER) specimens . It is used under Emergency Use Authorization (EUA) by FDA.A positive result is indicative of the presence of SARS-CoV-2 RNA. Clinical correlation with patient history and other diagnostic information is necessary to determine patient infe ction status.A negative (Not Detected) result does not preclude SARS-CoV-2 infec tion. Clinical Correlation with patient history and other diagnostic information should be used in patient management decisions.Invalid: Unable to generate a va lid result on this specimen. Please submit a new specimen for reprat testing oc clinically indicated.Tesing performed by:[facility] [address] [place] [id number], Chelo Chase MD, PhD [facility] CenterUrine color azshvmptazwsp0759-86-83 20:32:00* Test Item Value Reference Range Interpretation Comments Urine Color (test code = 5778-6) YELLOW YELLOW [facility] CenterUrine hxtamkc1816-73-86 20:32:00* Test Item Value Reference Range Interpretation Comments Urine Clarity (test code = 06340-3) CLOUDY CLEAR [facility] gravity of Urine by Test strip 2020-03-06 20:32:00* Test Item Value Reference Range Interpretation Comments Urine Specific [place] (test code = 5811-5) 1.025 1.010-1.02 5 [facility] CenterUrine pH measurement by automated test dtord9932-50-30 20:32:00* Test Item Value Reference Range Interpretation Comments Urine pH (test code = 03166-4) 6 5-7 [facility] CenterUrine leukocyte esterase detection by vytojrwt6652-84-21 20:32:00* Test Item Value Reference Range Interpretation Comments Urine Leukocyte Esterase (test code = 5799-2) 1+ NEGATIVE [facility] CenterUrine nitrite ayturplsr8194-47-94 20:32:00* Test Item Value Reference Range Interpretation Comments Urine Nitrite (test code = 48098-8) NEGATIVE NEGATIVE [facility] CenterUrine protein measurement by test strip (mass/volume)2020-03-06 20:32:00* Test Item Value Reference Range Interpretation Comments Urine Protein (test code = 5804-0) >=300 NEGATIVE [facility] CenterUrine glucose yoepjanvz6478-51-20 20:32:00* Test Item Value Reference Range Interpretation Comments Urine Glucose (UA) (test code = 2349-9) 1+ NEGATIVE [facility] CenterUrine ketones detection by automated test xtews0570-68-92 20:32:00* Test Item Value Reference Range Interpretation Comments Urine Ketones (test code = 80725-8) NEGATIVE NEGATIVE [facility] CenterUrine urobilinogen measurement by test strip (mass/volume)2020-03-06 20:32:00* Test Item Value Reference Range Interpretation Comments Urine Urobilinogen (test code = 61300-7) 0.2 0.2-1 [facility] CenterUrine total bilirubin measurement (mass/volume)2020-03-06 20:32:00* Test Item Value Reference Range Interpretation Comments Urine Bilirubin (test code = 1978-6) NEGATIVE NEGATIVE [facility] CenterUrine erythrocytes dmcdeggwu7463-73-87 20:32:00* Test Item Value Reference Range Interpretation Comments Urine Blood (test code = 91035-2) 3+ NEGATIVE [facility] CenterAutomated urine sediment leukocyte count by microscopy (number/high power field)2020-03-06 20:32:00* Test Item Value Reference Range Interpretation Comments Urine WBC (test code = 5821-4) >50 0-5 [facility] CenterErythrocytes detection in urine sediment by light igynyjsnnu9168-87-01 20:32:00* Test Item Value Reference Range Interpretation Comments Urine RBC (test code = 93700-2) 11-20 0-5 [facility] CenterBacteria detection in urine sediment by light rupwcrpzlq7685-42-55 20:32:00* Test Item Value Reference Range Interpretation Comments Urine Bacteria (test code = 16017-9) MANY NONE [facility] CenterEpithelial cells detection in urine sediment by light eedwmdrfcl1161-19-75 20:32:00* Test Item Value Reference Range Interpretation Comments Urine Epithelial Cells (test code = 51585-3) FEW NONE [facility] CenterBacterial urine xscrask9654-95-03 20:32:00* Test Item Value Reference Range Interpretation Comments Urine Culture (test code = 630-4) KLEBSIELLA PNEUMONIAE [facility] CenterProthrombin time (PT) in platelet poor plasma by coagulation edzqu8252-72-67 19:35:00* Test Item Value Reference Range Interpretation Comments Prothrombin Time (test code = 5902-2) 13.5 11.9-14.5 [facility] CenterINR in Platelet poor plasma by Coagulation mzfky6923-67-38 19:35:00* Test Item Value Reference Range Interpretation Comments Prothromb Time International Ratio (test code = 6301-6) 0.98 Oral Anticoagulant Therapy INR Values:1. Low Intensity Therapy 1.5 - 2.02 . Moderate Intensity Therapy 2.0 - 3.03. High Intensity Therapy(1) 2.5 - 3. 54. High Intensity Therapy(2) 3.0 - 4.05. Panic Value INR > 5.0 [facility] CenterActivated partial thromboplastin time (aPTT) in platelet poor plasma by coagulation xjwag9221-44-87 19:35:00* Test Item Value Reference Range Interpretation Comments Activated Partial Thromboplast Time (test code = 74316-4) 30.7 23.8-35.5 [facility] CenterCHES SINGLE (PORTABLE)2020-03-06 19:33:00 [facility] [address] [place] [address] Patient Name: ELSIE LOAIZA MR #: [id number] : 1950 Age/Sex: 69/F Req #: [id number] Adm Physician: BREE VARGAS MD Ordered by: CHELO OCASIO MD Report #: [id number] Location: [facility] Room/Bed: [place] [address] Procedure: [id number] DX/C HEST SINGLE (PORTABLE) Exam Date: 03/06/20 Exam Time : 1899 REPORT STATUS: Signed Exa mination: Single AP view of the chest. COMPARISON: Chest 2 views 03/24/2018 INDICATION: Shortness of breath today IMPRESSION: 1. Lines a nd Tubes: None 2. Lungs are mildly hypoinflated. Bilateral predominantly gerri hilar interstitial opacities, left greater than right suggesting interstitial edema. Small to moderate bilateral pleural effusions, left greater than right, and likely associated compressive atelectasis of bilateral lower lobes. 3. Cardiomediastinal silhouette is obscured. Central pulmonary venous congesti on. 4. No acute bony abnormalities. Signed by: Job Hawkins on 03/06/2020 7:34 PM Dictated By: CRYSTAL CONROY MD Electronically Si gned By: CRYSTAL CONROY MD on 03/06/201933 Transcribed By: ANSELMO on 03/06/201933 COPY TO: CHELO OCASIO MD BNP Iop-sSii4217-04-18 19:15:00* Test Item Value Reference Range Interpretation Comments B-Type Natriuretic Peptide (test code = 68772-7) 7073.4 0-100 [facility]- US RETROPERITONEAL BHL3171-74-68 09:59:00 Name: ELSIE LOAIZA [facility] : 1950 Age/S: 69 / F [address] Unit #: [id number] Loc: [place] [address] Phys: Mike Bal MD Acct: [id number] Dis Date: Status: REG CLI PHONE #: [phone] Exam Date: 09/13/2019 0949 FAX #: [phone] Reason: N18.9 EXAMS: CPT CODE: [id number] US [place] [address] HISTORY: Chronic kidney disease. COMPARISON: Renal ultrasound from March 14, [address] abdomen and pelvis from July 11, 2018. Bilateral renal ultrasound: Both kidneys are free from hydronephrosis. Lobular contour. Slightly prominent medullary pyramids bilaterally with mildly hyperechogenic kidneys may suggest chronic medical renal disease. No calyceal stones are visible on either side. No perinephric collections noted. Right kidney measured 10.4 x 5 x 5.2 cm. [...] calcifications within the wall without nodules. Location: [facility]. at 0959 Reported and signed by: Mario Richards M.D. CC: Mike Bal MD; Aldo Chau MD Technologist: JEANNIE GONZALEZ RT(R),RDMS Trnscb Date/Time: 09/13/2019 (0959) t.KELLR.TH4 Orig Print D/T: S: 09/13/2019 (1002) Probe: PAGE 1 Signed Report [id number] 16:48:00* Test Item Value Reference Range Interpretation Comments GLUBED (test code = GLUBED) 300 mg/dL 74-106 H Performed by certified graduating machine operator at [facility] [id number] 12:03:00* Test Item Value Reference Range Interpretation Comments GLUBED (test code = GLUBED) 244 mg/dL 74-106 H Performed by certified graduating machine operator at [facility] BASIC METABOLIC [id number] 07:02:00* Test Item Value Reference Range Interpretation [...] CA) 8.8 mg/dL 8.5-10.1 N BASIC METABOLIC [id number] 06:48:00* Test Item Value Reference Range Interpretation [...] CALCIUM (test code = CA) mg/dL 8.5-10.1 [id number] 06:04:00* Test Item Value Reference Range Interpretation Comments GLUBED (test code = GLUBED) 199 mg/dL 74-106 H Performed by certified graduating machine operator at [facility] UR PROTEIN [id number] 23:02:00* Test Item Value Reference Range Interpretation Comments UR PROTEIN RANDOM (test code = PROTU) 532.3 mg/dL 0.0-11.9 H Protein levels may be falsely elevated in patients withelevated level of aminoglycoside antibiotics in CSF and inhighly concentrated urine specimens. If false elevation issuspected, contact lab for alternated testing technique. UR CREATININE [id number] 23:02:00* Test Item Value Reference Range Interpretation Comments UR CREATININE RANDOM (test code = CREATU) 78.0 mg/dL 30-125 N URINALYSIS [id number] 22:53:00* Test Item Value Reference Range Interpretation [...] 1.001-1.035 UA BLOOD DIPSTICK (test code = RINA) 0.2 mg/dL (2+) mg/dL NEGATIVE A UA [...] NONE A Urine Source? VoidedUR SMEAR EOSINOPHIL [id number] 22:53:00* Test Item Value Reference Range Interpretation Comments UR SMEAR EOSINOPHIL COUNT (test code = EOSCTU) 5-10 EOS/100 WBCs per HPF NONE SEEN Urine Source? VoidedURINALYSIS [id number] 22:41:00* Test Item Value Reference Range Interpretation [...] 1.001-1.035 UA BLOOD DIPSTICK (test code = RINA) 0.2 mg/dL (2+) mg/dL NEGATIVE A UA [...] NONE A Urine Source? VoidedUR SMEAR EOSINOPHIL [id number] 22:41:00* Test Item Value Reference Range Interpretation Comments UR SMEAR EOSINOPHIL COUNT (test code = EOSCTU) per HPF NONE SE EN Urine Source? VoidedURINALYSIS [id number] 22:33:00* Test Item Value Reference Range Interpretation [...] 1.001-1.035 UA BLOOD DIPSTICK (test code = RINA) 0.2 mg/dL (2+) mg/dL NEGATIVE A UA [...] HPF NONE Urine Source? VoidedUR SMEAR EOSINOPHIL [id number] 22:33:00* Test Item Value Reference Range Interpretation Comments UR SMEAR EOSINOPHIL COUNT (test code = EOSCTU) per HPF NONE SE EN Urine Source? Voided- [place] RETRO [id number] 20:16:00 Name: ELSIE LOAIZA [facility] : 1950 Age/S: 68 / F [address] Unit #: [id number] Loc: [place] [address] Phys: Natalie Ratliff MD Acct: [id number] Dis Date: Status: ADM IN PHONE #: [phone] Exam Date: 03/14/20191956 FAX #: [phone] Reason: john EXAMS: CPT CODE: [id number] RETRO LTD 37611 EXAM: Ultrasound retroperitoneum, limited; INFORMATION: Acute kidney [...] and signed by: Jaron Moffett M.D. CC: Bree Vargas MD; Natalie Ratliff MD Technologist: Amber Vazquez Trnwvb Date/Time: 03/14/20 (2015) Francesca.GRW Orig Print D/T: S: 03/14/2019 (2018) Probe: PAGE 1 Signed Report [id number] 17:22:00* Test Item Value Reference Range Interpretation Comments GLUBED (test code = GLUBED) 233 mg/dL 74-106 H Performed by certified graduating machine operator at [facility] - MRI BRAIN W/O [id number] 17:17:00 FAX: Miki Montesinos MD [phone] [place]: [address] St: ADM Name: ELSIE SON [facility] : [birth year] Age/S: 68/F [address] Unit #: [id number] Loc: V.2064 [place] [address] Phys: Miki Montesinos MD Acct: [id number] Dis Date: Status: ADM IN PHONE #: [phone] Exam Date: 03/14/2019 1636 FAX #: [phone] Reason: slurred speech EXAMS: CPT CODE: [id number] MRI BRAIN W/O CONTRAST 66930 EXAM: MRI of the brain without con [...] chronic isch emic white matter changes. at 8560 Reported and signed by: Jaron Moffett M.D. CC: Miki Montesinos MD Technologist: DAVID RIVASRT - MRI Trnscrd Date/Time/By: 2018 (0556) : By: KeerthiGRW Orig Print D/T: S: 03/14/2019 (4321) PAGE 1 Signed Report [id number] 11:35:00* Test Item Value Reference Range Interpretation Comments GLUBED (test code = GLUBED) 243 mg/dL 74-106 H Performed by certified graduating machine operator at [facility] [id number] 06:31:00* Test Item Value Reference Range Interpretation Comments GLUBED (test code = GLUBED) 189 mg/dL 74-106 H Performed by certified graduating machine operator at [facility] [id number] 02:29:00* Test Item Value Reference Range Interpretation [...] FESAT) 16.26 % 13-45 N THYROID PROFILE W/[id number] 02:29:00* Test Item Value Reference Range Interpretation [...] 5.5 mIU/mL HYPER : < 0.35 mIU/mL [id number] 02:29:00* Test Item Value Reference Range Interpretation [...] interpreted taking into account the patients history. [id number]-[id number] 02:13:00* Test Item Value Reference Range Interpretation Comments TROPONIN-I (test code = TROPI) <0.015 ng/mL 0-0.045 N COMMENTS TO DIRT BIKE MECHANIC: COLLECT 3 HOURS AFTER PREVIOUS SAMPLECOMPREHENSIVE METABOLIC [id number] 02:12:00* Test Item Value Reference Range Interpretation [...] reference range due to change in reagent. [id number] 02:12:00* Test Item Value Reference Range Interpretation Comments MAGNESIUM (test code = MAG) 1.5 mg/dL 1.8-2.4 L [id number] 02:12:00* Test Item Value Reference Range Interpretation Comments GLYCOSYLATED HEMOGLOBIN (HA1C) (test code = GLYHGB) 9.8 % HbA1 4. 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: COLLECT 3 HOURS AFTER PREVIOUS [id number] 21:11:00* Test Item Value Reference Range Interpretation Comments GLUBED (test code = GLUBED) 411 mg/dL 74-106 H Performed by certified graduating machine operator at [facility] BASIC METABOLIC [id number] 17:13:00* Test Item Value Reference Range Interpretation [...] mg/dL 74-106 H RE SULTS CALLED TO [id number] BY NAVARRO 03/13/19 1710 BLOOD UREA NITROGEN [...] code = CA) 8.7 mg/dL 8.5-10.1 N [id number] 17:13:00* Test Item Value Reference Range Interpretation Comments TROPONIN-I (test code = TROPI) <0.015 ng/mL 0-0.045 N BASIC METABOLIC [id number] 17:12:00* Test Item Value Reference Range Interpretation [...] mg/dL 74-106 H RE SULTS CALLED TO [id number] BY [employer].DAVID 03/13/19 1710 BLOOD UREA NITROGEN (test code [...] code = CA) 8.7 mg/dL 8.5-10.1 N [id number] 17:12:00* Test Item Value Reference Range Interpretation Comments TROPONIN-I (test code = TROPI) ng/mL 0-0.045 BASIC METABOLIC [id number] 17:11:00* Test Item Value Reference Range Interpretation [...] mg/dL 74-106 H RE SULTS CALLED TO [id number] BY [employer].DAVID 03/13/19 1710 BLOOD UREA NITROGEN (test code [...] code = CA) 8.7 mg/dL 8.5-10.1 N [id number] 17:11:00* Test Item Value Reference Range Interpretation Comments TROPONIN-I (test code = TROPI) ng/mL 0-0.045 [id number] 17:11:00* Test Item Value Reference Range Interpretation [...] ANADDITIONAL CHARGE TO THE PATIENT. BASIC METABOLIC [id number] 17:10:00* Test Item Value Reference Range Interpretation [...] code = CA) 8.7 mg/dL 8.5-10.1 N [id number]-[id number] 17:10:00* Test Item Value Reference Range Interpretation Comments TROPONIN-I (test code = TROPI) ng/mL 0-0.045 BASIC METABOLIC [id number] 17:07:00* Test Item Value Reference Range Interpretation [...] CALCIUM (test code = CA) mg/dL 8.5-10.1 SLMMXUBM-[id number] 17:07:00* Test Item Value Reference Range Interpretation Comments TROPONIN-I (test code = TROPI) ng/mL 0-0.045 PROTHROMBIN [id number] 16:59:00* Test Item Value Reference Range Interpretation Comments PROTHROMBIN TIME PATIENT (test code = PTP) 11.4 seconds 9.0-14.0 N RESULTS CALLED TO [id number] BY JOHN 03/13/19 165 INTERNATIONAL NORMAL RATIO (test code = INR) [...] (2.5-3.5) IS PATIENT ON ANTICOAGULANTS? NTHROMBOPLASTIN TIME [id number] 16:59:00* Test Item Value Reference Range Interpretation Comments THROMBOPLASTIN TIME PARTIAL (test code = PTT) 32.2 seconds 25.0-36. 5 N IS PATIENT ON ANTICOAGULANTS? N- XR CHEST 1 [id number] 16:58:00 FAX: Miki Montesinos MD [phone] [place]: B St: PRE Name: Eric DAYORNANTONIOELSIE [facility] : [birth year] Age/S: 68/F [address] [facility] Unit #: [id number] Loc: [place] [address] Phys: Miki Montesinos MD Acct: [id number] Dis Date: Status: PRE ER PHONE #: [phone] Exam Date: 03/13/2019 1640 FAX #: [phone] Reason: CODE STROKE EXAMS: CPT CODE: [id number] XR CHEST 1 V 61440 REASON FOR EXAM: CODE STRO KE Exam Order Date: 03/13/2019 4:32 PM Ordering M.DGamal: Miki Montesinos MD PROCEDURE: - XR CHEST [...] IMPRESSION: No ac chrissy cardiopulmonary process. at 4936 Reported and signed by: Silverio zavaleta MD CC: Miki Montesinos MD Technologist: RAY HORTA RT(R) Trnscrd Tristian e/Time/By: 03/13/2019 (9714) : By: [email or web address] Orig Print D/T: S: 2018 (3528) PAGE 1 Signed Report CBC W/AUTO [id number] 16:56:00* Test Item Value Reference Range Interpretation [...] REQUIRED (test code = MDIFF) NO PROTHROMBIN [id number] 16:56:00* Test Item Value Reference Range Interpretation [...] (2.5-3.5) IS PATIENT ON ANTICOAGULANTS? NTHROMBOPLASTIN TIME [id number] 16:56:00* Test Item Value Reference Range Interpretation Comments THROMBOPLASTIN TIME PARTIAL (test code = PTT) 32.2 seconds 25.0-36. 5 N IS PATIENT ON ANTICOAGULANTS? N- CT HEAD/BRAIN W/O [id number] 16:47:00 Name: ELSIE LOAIZA [facility] : 1950 Age/S: 68 / F [address] Unit #: [id number] Loc: [place] [address] Phys: Brian Montesinos MD Acct: [id number] Di s Date: Status: PRE ER PHONE #: Exam Date: 03/13/2019 1631 FAX #: [phone] Reason: confusion, speech problem EXAMS: CPT CODE: [id number] CT HEAD/BRAIN W/O CONT 38915 HISTORY: confusion, spee ch problem TECHNIQUE: Noncontrast [...] by Silverio Au MD on 2018 at 7065 Reported and signed by: Silverio Au MD PAGE 1 Signed Report (CONTINUED) Name: ELSIE LOAIZA [facility] B: 1950 Age/S: 68 / F [address] Unit #: [id number] Loc: [place] [address] Phys: Ra duong Montesinos MD Acct: [id number] D is Date: Status: PRE ER PHONE #: [phone] Exam Date: 03/13/2019 1635 FAX #: Reason: confusion, speech problem EXAMS: CPT CODE: [id number] CT HEAD/BRAI N W/O CONT 44422 <Continued> CC: iMki Montesinos MD Technologist:Gabi Traylor RT(R),CT; CTDI: DLP: Trnscb Date/Time: 03/13/2019 (1646) t.SDR.RR31 Orig Print D/T: S: 03/13/2019 (2164) PAGE 2 Signed Report [id number] 17:50:0013.7[facility] BANBHPSYGZHU7552-41-47 17:50:00* Test Item Value Reference Range Interpretation Comments B/C Ratio (test code = B/C Ratio) 21 1 6-25 [facility] NlqfhycDUXCYVPKKRHJ3290-82-85 17:50:004.9[facility] HermannELECTROLYTES 2019-03-04 17:50:00* Test Item Value Reference Range Interpretation Comments A/G Ratio (test code = A/G Ratio) 0.5 1 0.7-1.6 [facility] VxkhdxgMKKADVFYFCQY3401-20-49 17:50:49223Lkgbmtae HermannELECTROLYTES 2019-03-04 17:50:0048[facility] ZtonocyZXWPMHHEXJVE9335-76-69 17:50:002.27[facility] QuxynegJNAHXMCYLTIX9524-04-29 17:50:61741Ftcjltxn JcjsqrsNWNAYDHTZJUK6512-64-47 17:50:003.7[facility] VnzzmapJGIIRJPZBVZS4735-80-65 17:50:57319Snyzhozz Oz BQQELXJIZCLA0932-79-22 17:50:0021[facility] ZosjwwsLDHTAMVNTQLT8969-58-58 17:50:00 9.1[facility] ZozgojmIJEYMZOJWPQV4468-74-03 17:50:007.5[facility] SVCMRHAPYISF7565-98-14 17:50:002.6[facility] HntorltIREURELMNCQZ1290-24-20 17:50:0015[facility] FzyzzfeVHPFWZTUETKO0130-69-08 17:50:0013[facility] FJWMVSOLTPMD9617-88-39 17:50:70845Yctdftib JkwyncfYQKOHOMOSSUN0304-93-96 17:50:000.4[facility] GbvjixfRXBHBWFFLPSU6953-91-58 17:50:0022[facility] AAKPTSESHN6000-72-34 17:50:0010.0[facility] VrjhvrgQNVQESOGQD8013-45-58 17:50:00 4.23[facility] ZlcpxfvEPDWUYHBPM4273-73-26 17:50:0010.4[facility] HermannHEMATOLOGY 2019-03-04 17:50:0031.7[facility] AyxbrekTOLKOTXULE2101-43-97 17:50:0075.1[facility] LrsacgeOGACUCGKWM0895-49-44 17:50:00* Test Item Value Reference Range Interpretation Comments MCH (test code = MCH) 24.6 pg 27.0-31.0 [facility] KcltccsTFUDUVCLHL2775-89-56 17:50:0032.8[facility] HermannHEMATOLOGY 2019-03-04 17:50:0016.9[facility] ZpaywhgLXOKINZWSX7351-56-66 17:50:13469Ewoakbqo AaljstpLVAVJWXOAD4018-22-86 17:50:007.5[facility] NvwsmxbUMQUULIJSG1831-94-25 17:50:0044.6[facility] ZhozwztNPMELJBQYH0359-72-75 17:50:0044.8[facility] TSATDQWHHG7581-31-26 17:50:007.1[facility] XirnjzwTZTFDBGDQT9460-50-51 17:50:002.7 [facility] SjhttodFHEJSTNRGQ8880-99-40 17:50:000.8[facility] HermannHEMATOLOGY 2019-03-04 17:50:004.5[facility] NkoojifKUIFSYMVWD8029-27-68 17:50:004.5[facility] AxodvfbZQNTKEYMWZ3779-45-44 17:50:000.7[facility] UfqeqdeYJXIRXMYKC5271-38-97 17:50:000.3[facility] ErknecwFODHXEFZTD8091-60-50 17:50:000.1[facility] TZGWTMDLQY7911-85-52 17:50:001+ *ABN*(03/04/19 12:50 PM)[facility] URINALYSIS MXPQSRCM5578-38-70 17:10:00* Test Item Value Reference Range Interpretation [...] 1.001-1.035 UA BLOOD DIPSTICK (test code = RINA) 0.2 mg/dL (2+) mg/dL NEGATIVE A UA [...] Urine Source? Clean Catch- CT HEAD/BRAIN W/O REWC9450-29-55 12:54:00 Name: ELSIE LOAIZA [facility] : 1950 Age/S: 68 / F [address] Unit #: [id number] Loc: [place] [address] Phys: Shorty Chinchilla DO Acct: [id number] Di s Date: Status: REG ER PHONE #: [phone] Exam Date: 02/01/2019 1230 FAX #: Reason: Headache EXAMS: CPT CODE: [id number] CT HEAD/BRAIN W/O CONT 33185 HISTORY: Headaches. COMPARISON: July 10, 2018. CT [...] ischemic disea se and atrophy . at 9754 Reported and signed by : Mario Richards M.D. CC: Shorty Chinchilla DO Technologist:Alfredo Cabello RT(R),(MR),(CT) CTDI: DLP: Tr nscb Date/Time: 02/01/2019 (6604) tTAZR.TH4 Orig Print D/ T: S: 02/01/2019 (6517) PAGE 1 Signed Report CBC W/AUTO [id number] 12:44:00* Test Item Value Reference Range Interpretation [...] NRBC#) 0.00 K/mm3 0.0-0.1 N BASIC METABOLIC [id number] 12:39:00* Test Item Value Reference Range Interpretation [...] CA) 8.9 mg/dL 8.5-10.1 N BASIC METABOLIC FOJBD9956-76-69 12:33:00* Test Item Value Reference Range Interpretation [...] (test code = CA) mg/dL 8.5-10.1 CHEM OBYLD5210-22-50 08:11:65490Tfwokxlg HermannCHEM UBNLO8395-40-04 08:11:0058 [facility] HermannCHEM TVHRP2716-60-85 08:11:0021[facility] HermannCHEM PANEL 2018-12-01 08:11:39968Svwywqzr HermannCHEM CRUPD8235-60-38 08:11:002.32[facility] HermannCHEM VHNGL9197-75-91 08:11:004.6[facility] HermannCHEM EOCHK3478-57-87 08:11:98410Ibucticj HermannCHEM FUKVU3942-41-07 08:11:0024[facility] HermannCHEM PVNBT8602-86-41 08:11:008.8[facility] HermannCHEM XDYUA7070-24-42 08:11:0011.6 Memorial QcrpemkLVOSYGPWFT5167-64-49 08:11:0011.2[facility] HermannHEMATOLOGY 2018-12-01 08:11:004.34[facility] CcnyvhkFKYSTKXGDJ0396-43-93 08:11:00* Test Item Value Reference Range Interpretation Comments MCH (test code = MCH) 23.8 pg 27.0-31.0 [facility] HbvermaMXCUDDRZNY3130-20-72 08:11:0077.2[facility] HermannHEMATOLOGY 2018-12-01 08:11:0030.8[facility] UjkedgsKHLGRHINKM0154-94-97 08:11:0033.5[facility] OesebklWQBXZQWAZZ0884-98-71 08:11:0010.3[facility] XfjnzgxAZAQFJDQTD8235-57-19 08:11:0015.3[facility] GikaopbFFAHAHESYN1012-83-77 08:11:007.7[facility] JSWWSOYIGM3262-70-25 08:11:94402Ffbchoqa HermannCHEM NEYVP3448-66-03 18:14:005.1 [facility] HermannCHEM SUTNS1223-25-36 18:14:00* Test Item Value Reference Range Interpretation Comments A/G Ratio (test code = A/G Ratio) 0.5 1 0.7-1.6 [facility] HermannCHEM ETGHO3066-50-47 18:14:0011.0[facility] HermannCHEM PANEL 2018-11-26 18:14:00* Test Item Value Reference Range Interpretation Comments B/C Ratio (test code = B/C Ratio) 21 1 6-25 [facility] HermannCHEM LKPQP4123-75-53 18:14:0026[facility] HermannCHEM PANEL 2018-11-26 18:14:20126Vcecjupd HermannCHEM XQSRD6213-57-49 18:14:0021[facility] HermannCHEM VWGYA3703-21-91 18:14:0023[facility] HermannCHEM JJLDR8544-02-08 18:14:000.3[facility] HermannCHEM ARHQY5224-66-31 18:14:0042[facility] HermannCHEM YIDRL5071-75-79 18:14:17247Hwnsddky HermannCHEM EZJZZ3373-46-44 18:14:005.0 [facility] HermannCHEM XTHHC5298-92-86 18:14:93731Cktbczee HermannCHEM PANEL 2018-11-26 18:14:001.98[facility] HermannCHEM VKDLZ4721-06-86 18:14:007.9[facility] HermannCHEM GQODP3655-92-37 18:14:002.8[facility] HermannCHEM ARLCN9003-78-16 18:14:009.4[facility] HermannCHEM NLMED3403-11-48 18:14:17079Vmdzimak HermannCHEM LYETX7211-66-19 18:14:0025[facility] WhhoteqPYNUIYIBBJ7297-79-13 18:14:009.9 [facility] OeibdnwAVJVPXILSF3021-62-70 18:14:0015.1[facility] HermannHEMATOLOGY 2018-11-26 18:14:004.84[facility] QhdkkkyPUYZOVSTRU7367-14-65 18:14:0031.5[facility] AqrsbyfGFBSAGBYWW4086-80-80 18:14:0076.9[facility] MnqwtreGQTGPZFMMZ1291-61-03 18:14:00* Test Item Value Reference Range Interpretation Comments MCH (test code = MCH) 24.2 pg 27.0-31.0 [facility] OsnredaJMRZLQMFEC1497-85-52 18:14:0011.7[facility] HermannHEMATOLOGY 2018-11-26 18:14:0037.2[facility] TdattjxWCPTFDKZPK1223-62-79 18:14:66600Ibzvlhya OltvapsRXQOQSMYLR8981-68-50 18:14:007.7[facility] HiaxbldOLDRFMOYAK4602-06-55 18:14:000.2[facility] BokqikoLOPUROPOWY0087-44-50 18:14:001+ *ABN*(11/26/18 1:14 PM)[facility] TlcfjjhXATOQZAJEJ9184-15-44 18:14:000.1[facility] HermannHEMATOLOGY 2018-11-26 18:14:000.6[facility] TgbfrkyRFBFGGZNQG4646-07-00 18:14:003.4[facility] SuhgkgfBNSCHSWLYM2300-88-31 18:14:005.7[facility] DqaecmjMWHMCHXKDS3505-20-64 18:14:006.2[facility] UiqlwnmHNUYBFLAJL6355-42-41 18:14:002.3[facility] VHBYWSZYTI4457-78-61 18:14:000.6[facility] CikhcqjZYTGQJXEGF7460-03-38 18:14:00 33.8[facility] LfddmxbUMBRLGXFLN3260-11-48 18:14:0057.1[facility] HermannCHEM PANEL 2018-10-22 13:11:0034Mem[facility] HermannCHEM ACDUD6470-39-06 13:11:47605Axfvhgsr HermannCHEM OGNDL5557-26-65 13:11:001.58[facility] HermannCHEM FYRHQ1217-04-85 13:11:0032[facility] HermannCHEM TYVFK2766-11-31 13:11:29810Dtgpzdid HermannCHEM JWXQF3080-03-23 13:11:0021[facility] HermannCHEM MYRHE3256-63-84 13:11:007.8 [facility] HermannCHEM THDEQ8324-43-75 13:11:002.6[facility] HermannCHEM PANEL 2018-10-22 13:11:009.1[facility] HermannCHEM VVOCU4574-87-47 13:11:63791Ebkjhzpx HermannCHEM UDPWX0691-69-64 13:11:004.9[facility] HermannCHEM HTGJA9444-17-90 13:11:0019[facility] HermannCHEM NYFPE7493-59-11 13:11:0016[facility] HermannCHEM WEGEU8180-87-24 13:11:000.4[facility] HermannCHEM PBAID9132-14-92 13:11:89409 [facility] HermannCHEM IATST2287-32-79 13:11:00* Test Item Value Reference Range Interpretation Comments B/C Ratio (test code = B/C Ratio) 20 1 6-25 [facility] HermannCHEM DLFKB7622-53-60 13:11:005.2[facility] HermannCHEM PANEL 2018-10-22 13:11:00* Test Item Value Reference Range Interpretation Comments A/G Ratio (test code = A/G Ratio) 0.5 1 0.7-1.6 [facility] HermannCHEM KNQWP7938-25-18 13:11:0011.9[facility] HermannHEMATOLOGY 2018-10-22 13:11:007.4[facility] FuepaokTOFYRONXSW4333-03-31 13:11:13310Detrkbhz VxhvfwkPIFNQAFKLC0668-62-51 13:11:0076.0[facility] WpwvhdgWGEILIQOIC3158-40-39 13:11:0015.8[facility] KdunywiPRRVPZSNBS9949-62-91 13:11:00* Test Item Value Reference Range Interpretation Comments MCH (test code = MCH) 25.0 pg 27.0-31.0 [facility] DniqvgeXDKXVQIZHW4637-09-09 13:11:0032.8[facility] HermannHEMATOLOGY 2018-10-22 13:11:004.31[facility] WoavmlkCRFTYQKTGP2727-40-57 13:11:0032.8[facility] LkdiingIYZBTPBGHH8963-05-98 13:11:0010.8[facility] TjonawcHQOEXSGDYJ6284-47-57 13:11:009.9[facility] NyesfhyGHPNJFRSFG8731-19-07 13:11:001+ *ABN*(10/22/18 8:11 AM) [facility] LppdbacMHDUGLPBBT7713-49-10 13:11:002.4[facility] HermannHEMATOLOGY 2018-10-22 13:11:004.8[facility] JqyecciNTVCJMMSBF0123-28-09 13:11:0058.2[facility] SfyvoywFKRNXEQRZV6099-46-49 13:11:0034.0[facility] HefdmpcKMMVXSATTH5914-89-81 13:11:000.6[facility] DbipmbxZKTTSOCAKS1697-69-69 13:11:003.4[facility] Zo HSYVWUFPIV8376-64-02 13:11:000.5[facility] LjaestbOOUMVHKRJL1701-50-30 13:11:005.7 [facility] AyncovaVTNNPHDVNJ6781-20-71 13:11:000.2[facility]annHEMATOLOGY 2018-10-22 13:11:000.1[facility] HermannCHEST 2 BMXFE9088-14-54 13:03:00 [place] [id number] Patient Name: ELSIE LOAIZA MR #: [id number] : 1950 Age/Sex: 67/F Req #: [id number] Adm Physician: Ordered by: MIKE BAL MD Report #: [id number] Location: OR Room/Be d: Procedure: [id number] DX/CHEST 2 VIEWS Exam Date: 03/24/18 Exam [...] on 03/24/2018 1:06 PM Dictated By: MAURILIO ROSE MD Electronically Fiordaliza d By: MAURILIO ROSE MD on 03/24/18 1306 Transcribed By: ANSELMO on 03/24/18 130 6 COPY TO: MIKE BAL MD CMWEIGOOVRMK8497-91-91 16:03:19963 [facility] PhrmarqFZVGSASPFYPS1425-69-24 16:03:0031[facility]annELECTROLYTES 2015-02-02 16:03:008.8[facility] WlytwojHISVAPMSXBXH6007-75-21 16:03:0011.7 [facility] AmmcmqtTYYHAPJEWEUG6468-77-44 16:03:27321Zcjcqntu HermannELECTROLYTES 2015-02-02 16:03:66203Mshrfrsb ZtninxoLJWUZTXNFYUA0142-98-49 16:03:003.7[facility] GkqomuwDUOHYPZGJKUF7675-36-94 16:03:0020[facility] LpujgkpBWATMTWWVVWC2066-23-42 16:03:000.8[facility] HiobmvaPBLFHKUPPHJM7946-49-31 16:03:0079[facility] [place]
[2020-03-18 18:38] LABS: BASOPHILS # (AUTO) 0.1 (0.0-0.1); EOSINOPHILS # (AUTO) 0.7 (0.0-0.4); EOSINOPHILS % 6.1 % (0.0-6.0); HEMATOCRIT 33.4 % (34.2-44.1); HEMOGLOBIN 9.6 g/dL (12.0-16.0); LYMPHOCYTES # (AUTO) 4.2 (1.0-3.2); LYMPHOCYTES % 38.1 % (18.0-39.1); MEAN CORPUSCULAR HEMOGLOBIN 25.3 pg (28-32); MEAN CORPUSCULAR HGB CONC 28.7 g/dL (31-35); MEAN CORPUSCULAR VOLUME 88.1 fL (81-99); MONOCYTES # (AUTO) 0.7 (0.2-0.8); MONOCYTES % 6.2 % (4.4-11.3); NEUTROPHILS # (AUTO) 5.2 (2.1-6.9); NEUTROPHILS % 48.1 % (38.7-80.0); PLATELET COUNT 310 x10e3/uL (140-360); RED BLOOD COUNT 3.79 x10e6/uL (3.6-5.1); RED CELL DISTRIBUTION WIDTH 16.4 % (11.7-14.4)
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
[2020-03-18] MEDS ORDERED: LORAZEPAM INJ 2 MG/ML VIAL ONE (18:53)
[2020-03-18 19:00] LABS: ALBUMIN 2.5 g/dL (3.5-5.0); ALBUMIN/GLOBULIN RATIO 0.6 (0.8-2.0); ANION GAP 18.5 mmol/L (8-16); CALCIUM 8.2 mg/dL (8.4-10.2); CREATININE, SERUM 3.68 mg/dL (0.57-1.11); POTASSIUM 4.5 mmol/L (3.5-5.1)
[2020-03-18] MEDS ORDERED: LORAZEPAM INJ 2 MG/ML VIAL IV ONE (19:00)
--- NOTE | 2020-03-18 19:06 | NUR ---
Updated spouse on pt condition.
--- NOTE | 2020-03-18 19:20 | Diagnostic Imaging Report ---
EXAMINATION: CHEST SINGLE (PORTABLE) INDICATION: sob, eval for pulmonary edema COMPARISON: Radiograph dated 03/11/2020 FINDINGS: TUBES and LINES: Duel lumen central venous catheter projects over the right atrium. LUNGS: AND PLEURA: Low lung volumes. Pulmonary vessels are distended and indistinct. Patchy perihilar opacities. Confluent left base opacity. Blunting the right costophrenic angle. HEART AND MEDIASTINUM: The heart is enlarged. BONES AND SOFT TISSUES: No acute osseous lesion. Soft tissues are unremarkable. UPPER ABDOMEN: No free air under the diaphragm. IMPRESSION: Cardiomegaly with pulmonary edema and small pleural effusions. Infection less favored. Signed by: Brett Alves MD on 03/18/2020 7:17 PM
[2020-03-18 19:23] LABS: CREATINE KINASE MB 2.1 ng/mL (0-5.0)
[2020-03-18] MEDS ORDERED: SODIUM CHLORIDE FLUSH 10 ML SYR INJ PRN (19:45)
[2020-03-18] MEDS ORDERED: ONDANSETRON HCL INJ 2MG/ML 2ML 2 MG/ML VIAL IV PRN (19:45)
[2020-03-18] MEDS ORDERED: DEXTROSE 50% SYRINGE 50 ML IV PRN (19:45)
--- OUTSIDE RECORDS SUMMARY | 2020-03-18 19:51 | XMS REPORT | Continuity of Care Document ---
Author Author [facility] t Organization [facility] Address [address] [place] [address] Phone Unavailable Care Team Providers Care Associate Account Executive Name Role Phone MD Kylie FANG PCP Wesley OCASIO Attphys Unavailable Rylie VARGAS Attphys Unavailable Wilfrido Jarrett Attphys MIKE BAL Attphys Unavailable Harish Bowden Attphys Rylie VARGAS Admphys Unavailable Payers Payer Name Policy Type Policy Number Effective Date Expiration Date Wilfrido Savage [employer] [id number] 2018 00:00:00 [facility] [id number] 2015 00:00:00 [facility] Cdc Review Covid19 [id number] [facility] Problems Condition Name Condition Details Condition Category Status Onset Date Resolution Date Last Treatment Date Treating Clinician Comments Source PERIPHERAL GERRI PHERAL Active 02/24/2019 [facility] Active 2019-02-24 00:00:00 2019-03-10 14:14:00 Marquez Clinton PERIPHERAL ANGIOGRAM /C INTERVENSION PERIPHERAL ANGIOGRAM /C INTERVENSION Active 11/09/2018 [facility] Diagnosis Ac tive 2018-11-09 00:00:00 2018-11-30 17:32:00 [facility]: K29.70=GASTRITIS, UNSPECIFIED, WITHO DX: K29.70=GASTRITIS, UNSPECIFIED, WITHO Active 10/08/2018 [facility] Active 2018-10-08 00:00:00 2018-11-15 15:53:00 [facility] PERIPHERAL ANGIOGRAM /C INTERVENTION PERIPHERAL ANGIOGRAM /C INTERVENTION Active 09/23/2018 [facility] Diagnosis Ac tive 2018-09-23 00:00:00 2018-10-26 06:09:00 [facility] UNK UNK Active 12/05/2016 [facility] Active 2016-12-05 00:00:00 2016-12-10 10:07:00 [facility] [place] V76.51 787.99 V76. 51 787.99 Active 01/18/2015 [facility] Active 2015-01-18 00:00:00 2015-02-06 12:31:00 [facility] 250.00-DIAB TYPE 2/401.9-HYPERTENSION/78 250.00-DIAB TYPE 2/401.9-HYPERTENSION/78 Active 04/14/2014 [facility] Diagnosis A ctive 2014-04-14 00:00:00 2014 08:04:00 [facility] Urinary tract infection Problem Active [facility] Acute renal failure superimposed on chronic kidney disease P roblem Active [facility] Hyperkalemia Problem Active [facility] Hypervolemia Problem Active [facility] Pulmonary edema Problem Active [facility] Anemia (disorder) Anem ia (disorder) Resolved Problem 03/06[facility]2019 [facility] Resolved 2019-03-06 21:58:03 [facility] Heart murmur (finding) Hear t murmur (finding) Resolved Problem 03/06/2019 [facility] Resolved 2019-03-06 21:58:03 [facility] Hypercholesterolemia (disorder) Hypercholesterolemia (disorder) Resolved Problem 03/06/2019 [facility] Resolved 2019-03-06 21:58:03 [facility] Depression - motion (qualifier value) Depression - motion (qualifier value) Active Problem 06/21/2017 [facility] Active 2017-06-21 02:10:55 [facility] Gastroesophageal reflux disease (disorder) Gastroesophageal reflux disease (disorder) Active Problem 03/06/2019 [facility] Active 2019-03-06 21:58:03 [facility] Anxiety (finding) Anxi ety (finding) Active Problem 03/06/2019 CELESTINA Nugent [facility] Problem Active 2019-03-06 21:58:03 [facility] Diabetes mellitus (disorder) D iabetes mellitus (disorder) Active Problem 03/06/2019 CELESTINA Nugent [facility] Problem Active 2019-03-06 21:58:03 [facility] Diabetes mellitus type 2 (disorder) Diabetes mellitus type 2 (disorder) Active Problem 03/06/2019 CELESTINA Nugent [facility] Problem Active 2019-03-06 21:58:03 Yisel Clinton Hypertensive disorder, systemic arterial (disorder) Hypertensive disorder, systemic arterial (disorder) Active Problem 03/06[facility]2019 [facility] Active 2019-03-06 21:58:03 [facility] Irritable colon (disorder) Irr itable colon (disorder) Active Problem 03/06/2019 CELESTINA Nugent [facility] Problem Active 2019-03-06 21:58:03 [facility] Neuropathy (disorder) Neur opathy (disorder) Active Problem 03/06/2019 [facility] Active 2019-03-06 21:58:03 [facility] Peripheral vascular disease (disorder) Peripheral vascular disease (disorder) Active Problem 03/06/2019 legs CELESTINA Nugent [facility] Problem Active 2019-03-06 21:58:03 Christiano Clinton changes in bowel habits(Confirmed) changes in bowel habits(Confirmed) Active Problem 04/21/2014 [facility] Problem Active 2014-04-21 22:04:05 [facility] SCREEN MALIG NEOP-COLON SCRE EN MALIG NEOP-COLON Active [facility] Diagnosis Active 2015-02-06 12:31:00 [facility] DIGESTVE SYST SYMPTM NEC DIGE STVE SYST SYMPTM NEC Active [facility] Diagnosis Active 2015-02-06 12:31:00 [facility] History of Past Illness Condition Name Condition Details Condition Category Status Onset Date Resolution Date Last Treatment Date Treating Clinician Comments Source 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 Problem 03/06/2019 [facility]olved 2002-07-20 00:00:00 2019-03-06 21:58:03 2 21:58:03 Marquez Clinton Allergies, Adverse Reactions, Alerts Allergy Name Allergy Type Status Severity Reaction(s) Onset Date Inacti ve Date Treating Clinician Comments Source No Known Allergies DA Active U 2019-02-01 00:00:00 [facility] No Known Allergies DA Active U 2018-07-10 00:00:00 [facility] No Known Allergies DA Active U 2018-02-01 00:00:00 [facility] contrast media (iodine-based) contrast media (iodine-based) Active Marquez Clinton No Known Medication Allergies No Known Medication Allergies Active Marquez Clinton Social History Social Habit Start Date Stop Date Quantity Comments Source Social History 2013-07-19 18:03:47 2013-07-19 18:03:47 Marquez Clinton Sex Ass[birth year] At 1950 00:00:00 1950 00[birth year]00:00 Female [facility] Medications Ordered Medication Name Filled Medication Name Start Date Stop Da te Current Medication? Ordering Clinician Indication Dosage Frequency Signature (SIG) Comments Components Source Allopurinol Allopurinol 2020-03-13 13:27:00 Yes 1 00 Three Times Daily With Meals [facility] Alprazolam 0.5 MG Oral Tablet [Xanax] 2019-03-04 [...] 04/03/19 12:46:00 CDT, 1.69, m2, 0 Memor iawesley Clinton Imodium A-D EZ Chews 2019-03-04 12:02:00 Yes 2 mg =, CHEW, BID, PRN as needed for loose stool, 0 Refill(s) M emoririssa Clinton Insulin Glargine 2018-12-01 14:00:00 No Notes: (Same as: Lantus) Do not hold insulin without contacting prescriber WASTE: F/P - Black; E - Municipal Trash Bin "single patient use only" Stable for 28 days at room temperature Expires in days from Date Marquez Wing 2018-12-01 14:00:00 No Notes: (clark e as: Maciej) Mar[facility] [place] hydrochlorothiazide 25 mg oral tablet 2018-12-01 14:00:00 N o Notes: (Same as: Hydrodiuril) With food. Yisel Clinton Furosemide 40 MG Oral Tablet [Lasix] 2018-12-01 14:00:00 No Notes: (Same as: Lasix) May cause GI upset. Give with food or milk. Marquez Clinton Hydrochlorothiazide 25 MG / Olmesartan medoxomil 40 MG Oral Tablet 2018-12-01 14:00:00 No 1 tab, Rou te: PO, Drug Form: TAB, Dosing Weight 61.364, kg, Daily, Start date: 12/01/18 9:00:00 CDT, Duration: 30 day, Stop date: 12/30/18 9:00:00 CDT [facility] clopidogrel 2018-12-01 14:00:00 No Notes: ( Same As: Plavix) [facility] Citalopram 2018-12-01 14:00:00 No 20 mg, 2 tab, Route: PO, Drug form: TAB, Daily, Dosing Weight 61.364, kg, Start date: 12/01/18 9:00:00 CDT, Duration: 30 day, Stop date: 12/30/18 9:00:00 CDT [facility] Bupropion 2018-12-01 14:00:00 No Notes: (Same as: Wellbutrin XL) "Do Not Crush" [facility] Benicar 2018-12-01 14:00:00 No 40 mg, 2 tab, Route: PO, Drug form: TAB, Daily, Start date: 12/01/18 9:00:00 CDT, Duration: 30 day, Stop date: 12/30/18 9:00:00 CDT [facility] atorvastatin 2018-12-01 02:00:00 No Notes: (Same As: Lipitor) [facility] Hydralazine 2018-12-01 01:29:00 No Notes: (Same as: Apresoline) Push over 5 minutes [facility] mesalamine 1200 MG Enteric Coated Tablet 2018-11-30 22:00:00 No 2.4 gm, 2 tab, Route: PO, Drug form: ECTAB, BID, Dosing Weight 61.364, kg, Start date: 11/30/18 17:00:00 CDT, Duration: 30 day, Stop date: 12/30/18 9:00:00 CDT [facility] Hyoscyamine 2018-11-30 22:00:00 No Notes: (Same as: Levsin) Take 30 min before meal [facility] Tums 2018-11-30 22:00:00 No Notes: (Same As: Tums) Calcium Carbonate 500 mg = 200 mg elemental calcium Dose = mg calcium carbonate ( mg elemental calcium) [facility] Aspirin 81 MG Enteric Coated Tablet 2018-11-30 22:00:00 No Notes: Do not crush or chew. (Same As: Ecotrin) [facility] [place] Insulin Lispro 2018-11-30 21:30:00 No Notes: (Same as: Humalog) Roll in palms of hands gently; Do not shake vigorously. WASTE: F/P - Black; E - Municipal Trash Bin Stable for 28 days at room temperature. Expires in days from Date [facility] Blaine mayorga *Please bring pt's own mesalamine to pharmacy for label* 2018-11-30 21:00:00 No *Please bring pt's own mesalamine to pharmacy for label*, ATTN:RN, Drug form: MISC, Route: MISC, QSHIFT, 11/30/18 16:00:00 CDT, Duration: 30 day, Stop date: 12/30/18 8:00:00 CDT [facility] Insulin Lispro 2018-11-30 20:27:00 No Notes: (Same as: Humalog) Roll in palms of hands gently; Do not shake vigorously. WASTE: F/P - Black; E - Municipal Trash Bin Stable for 28 days at room temperature. Expires in days from [facility] 2018-11-30 20:27:00 No 1 mg, Route: IM, Drug form: PDR/INJ, PRN, Dosing Weight 61.364, kg, PRN Blood Glucose Results, Start date: 11/30/18 15:27:00 CDT, Duration: 30 day, Stop date: 12/30/18 15:26:00 CDT [facility] Dextrose 50% Syringe 2018-11-30 20:27:00 No 12.5 gm, 25 mL, Route: IVP, Drug Form: INJ, Dosing Weight 61.364, kg, PRN, PRN Blood Glucose Results, Start date: 11/30/18 15:27:00 CDT, Duration: 30 day, Stop date: 12/30/18 15:26:00 CDT [facility] Acetaminophen 325 MG / Hydrocodone Bitartrate 5 MG Oral Tabl et 2018-11-30 20:24:00 No Notes: (Sa me as: [place] 325/5) Do not exceed 4gm/day of acetaminophen. [facility] Morphine 2018-11-30 20:24:00 No Not es: (Same as:MORPhine Sulfate) [facility] Ondansetron 2018-11-30 20:24:00 No Notes: ( Same as: Zofran) Marquez Clinton Diphenhydramine 2018-11-30 20:24:00 No 25 mg, 1 tab, Route: PO, Drug form: TAB, Bedtime, Dosing Weight 61.364, kg, PRN Insomnia, Start date: 11/30/18 15:24:00 CDT, Duration: 30 day, Stop date: 12/30/18 15:23:00 CDT [facility] Oz Nitroglycerin 2018-11-30 20:24:00 No Notes: (Same as:Nitroquick, Nitrostat) "Do Not Crush" Sublingual tablet Marquez Clinton Sodium Chloride 0.9% IV 750 mL 2018-11-30 20:24:00 No 750 mL, Rate: 75 ml/hr, Infuse over: 10 hr, Route: IV, Dosing Weight 61.364 kg, Total Volume: 750, Start date: 11/30/18 15:24:00 CDT, Duration: 10 hr, Stop date: 12/01/18 1:23:00 CDT, 1.66, m2 [facility] Sodium Chloride 0.9% (Bolus) IV 2018-11-30 20:24:00 No 250 mL, 250 ml/hr, Infuse Over: 1 hr, Route: IV, 250, Drug form: INJ, ONCE, Dosing Weight 61.364 kg, Start date: 11/30/18 15:24:00 CDT, Stop date: 11/30/18 15:24:00 CDT [facility] citalopram 20 mg oral tablet 2018-11-30 19:22:00 Yes 20 mg = 1 tab, PO, Daily, 0 Refill(s) [facility] Bupropion 2018-11-30 19:22:00 Yes 15 0 mg, PO, Daily, 0 Refill(s) Marquez Clinton ALIVE MULTIVITAMIN FOR WOMEN 2018-11-30 19:22:00 Yes ALIVE MULTIVITAMIN FOR WOMEN, 1 tablet, Refill(s) 0 [facility] hyoscyamine 0.125 mg oral tablet 2018-11-26 17:59:00 Yes 0.125 mg = 1 tab, PO, QID, 0 Refill(s) [facility]quez [facility] destinee nebivolol 10 MG Oral Tablet [Bystolic] 2018-11-26 17:56:00 Yes 10 mg = 1 tab, PO, Daily, 0 Refill(s) Airam Clinton Morphine 2018-10-26 16:20:00 No Not es: (Same as:MORPhine Sulfate) Marquez Clinton Acetaminophen 325 MG / Hydrocodone Bitartrate 5 MG Oral Tabl et 2018-10-26 16:20:00 No Notes: (Sa me as: [place] 325/5) Do not exceed 4gm/day of acetaminophen. Marquez Clinton Nitroglycerin 2018-10-26 16:20:00 No Notes: (Same as:Nitroquick, Nitrostat) "Do Not Crush" Sublingual tablet Marquez Clinton Sodium Chloride 0.9% IV 750 mL 2018-10-26 16:20:00 No 750 mL, Rate: 75 ml/hr, Infuse over: 10 hr, Route: IV, Dosing Weight 65.909 kg, Total Volume: 750, Start date: 10/26/18 11:20:00 CDT, Duration: 10 hr, Stop date: 10/26/18 21:19:00 CDT, 1.72, m2 Marquez Clinton clopidogrel 75 mg oral tablet 2018-10-26 16:19:00 [...] PO, TID, # 90 tab, 3 Refill(s) [facility] Oz Hydrochlorothiazide 25 MG / Olmesartan medoxomil 40 MG Oral Tablet 2018-10-22 13:02:00 Yes 1 tab, PO, Daily, # 30 tab, 0 Refill(s) [facility] potassium chloride 10 mEq oral capsule, extended release 2018-10-22 13:02:00 Yes 10 mEq = 1 cap, PO, Daily, 0 Ref ill(s) [facility] Furosemide 40 MG Oral Tablet [Lasix] 2018-10-22 13:01:00 Ye s 40 mg = 1 tab, PO, Daily, # 30 tab, 0 Refill(s) [facility] iron infusions 2018-10-22 13:00:00 Yes iron infusions, IV, qWeek, Refill(s) 0 [facility] Cefuroxime Axetil (Ceftin) 250 Mg TABLET Cefuroxime Ax etil (Ceftin) 250 Mg TABLET 2017-01-01 08:59:00 2018-03-24 00:00:00 No 250 Twi ce A Day [facility] Nitroglycerin 2016-12-09 17:10:00 No Notes: (Same as:Nitroquick, Nitrostat) "Do Not Crush" Sublingual tablet [facility] Acetaminophen 325 MG / Hydrocodone Bitartrate 5 MG Oral Tabl et 2016-12-09 17:10:00 No Notes: (Sa me as: [place] 325/5) Do not exceed 4gm/day of acetaminophen. [facility] Morphine 2016-12-09 17:10:00 No Not es: (Same [...] tab, 3 times a day, 0 Refill(s) [facility] Sodium Chloride 0.154 MEQ/ML Injectable Solution 2015-02-06 18:0 3:00 No 500 mL, Rate: 25 ml/hr, Infu se over: 20 hr, Route: IV, Dosing Weight 60.909 kg, Total Volume: 500, Start date: 02/06/15 13:03:00, Duration: 30 day, Stop date: 03/08/15 13:02:00 Marquez Clinton Cardizem 2015-02-02 16:16:00 Yes 0 Refill(s) [facility] valsartan 320 MG Oral Tablet [Diovan] 2015-02-02 16:16:00 Y es 320 mg = 1 tab, PO, Daily, # 30 tab, 0 Refill(s) [facility] vilazodone hydrochloride 10 MG Oral Tablet [Viibryd] 2 16:16:00 Yes 10 mg = 1 tab, PO, Daily, 0 Refill(s) Marquez [facility]ann Unknown Home Medication 2015-02-02 16:16:00 Yes 1 tab, PO, BID, Refill(s) 0 Marquez Oz 0.65 ML exenatide 3.08 MG/ML Prefilled Syringe [Bydureon] 2015-02-02 16:15:00 Yes 2 mg, SUB-Q, qWeek, # 4 ea, 0 Re fill(s) Marquez Clinton Lantus 2015-02-02 16:14:00 Yes 18 un it, SUB-Q, Bedtime, 0 Refill(s) [facility] Humalog 2015-02-02 16:13:00 Yes 14 units, SUB-Q, TID-Before Meals, 0 Refill(s) Marquez Oz Aspirin (Aspir 81) 81 Mg TABLET. Aspirin (Aspir 81) 81 Mg TABLET. Yes 81 Daily [facility] Atorvastatin Calcium Atorvastatin Calcium Yes 10 Today At 9:00PM [facility] Calcitriol Calcitriol Yes .25 Daily [facility] Citalopram Hydrobromide (Citalopram Hbr) 20 Mg TABLET Citalopram Hydrobromide (Citalopram Hbr) 20 Mg TABLET Yes 10 Daily [facility] Clopidogrel Bisulfate (Clopidogrel) 75 Mg TABLET Clopi dogrel Bisulfate (Clopidogrel) 75 Mg TABLET Yes 75 Daily [facility] Colchicine (Colcrys) 0.6 Mg TABLET Colchicine (Colcrys) 0.6 Mg TABLET Yes .6 Daily as needed for Gout [facility] Diphenhydramine Hcl (Benadryl) 25 Mg CAPSULE Diphenhyd ramine Hcl (Benadryl) 25 Mg CAPSULE Yes 25 Every 12 Hours as needed fo r Allergy [facility] Doxazosin Mesylate Doxazosin Mesylate Yes 4 Da zhen [facility] Furosemide (Lasix) 40 Mg TABLET Furosemide (Lasix) 40 Mg TABLET Yes 40 Daily [facility] Hydrocodone Bit/Acetaminophen ([place] 5-325 Tablet) 1 E ach TABLET Hydrocodone Bit/Acetaminophen ([place] 5-325 Tablet) 1 Each TABLET Yes 1 [facility] Insulin Npl/Insulin Lispro (Humalog Mix 75-25 Kwikpen) 100 Unit/1 Ml INSULN.PEN Insulin Npl/Insulin Lispro (Humalog Mix 75-25 Kwikpen) 100 Unit/1 Ml INSULN.PEN Yes [facility] Levothyroxine Sodium Levothyroxine Sodium Yes 50 Daily [facility] Nebivolol Hcl (Bystolic) 10 Mg TABLET Nebivolol Hcl (Bystolic) 10 M g TABLET Yes 5 Daily [facility] Pantoprazole Sodium (Protonix) 40 Mg TABLET. Pantopr azole Sodium (Protonix) 40 Mg TABLET. Yes 40 Twice A Day [facility] Allopurinol Allopurinol 2020-03-13 00:00:00 No 100 D aily [facility] Bupropion Hcl (Bupropion Xl) 150 Mg TAB.ER.24H Bupropi on Hcl (Bupropion Xl) 150 Mg TAB.ER.24H 2020-03-13 00:00:00 No 150 Daily [facility] Fluconazole Fluconazole 2020-03-13 00:00:00 No 150 [facility] Gabapentin Gabapentin 2020-03-13 00:00:00 No 600 Bed time [facility] Loperamide Hcl (Imodium*) 2 Mg CAP Loperamide Hcl (Imodium*) 2 M g CAP 2020-03-13 00:00:00 No 2 [facility] Mirtazapine Mirtazapine 2020-03-13 00:00:00 No 15 B edtime [facility] Nitrofurantoin Macrocrystal (Nitrofurantoin) 100 Mg CA PSULE Nitrofurantoin Macrocrystal (Nitrofurantoin) 100 Mg CAPSULE 2020-03-13 00:00:00 No 100 Daily [facility] Omeprazole Omeprazole 2020-03-07 00:00:00 No 20 [facility] Trulicity Trulicity 2020-03-07 00:00:00 No 1.5 Weekl y [facility] Atorvastatin Calcium Atorvastatin Calcium 2018-03-24 00:00:00 No 10 Today At 9:00PM [facility] Biotin Biotin 2018-03-24 00:00:00 No 1000 Daily [facility] Collagenase Clostridium Hist. (Santyl) 15 Gm OINT...G. Collagenase Clostridium Hist. (Santyl) 15 Gm OINT...G. 2018-03-24 00:00:00 No 1 Bedtime [facility] Cyanocobalamin (Vitamin B-12) 1,000 Mcg TAB Cyanocobal wilson (Vitamin B-12) 1,000 Mcg TAB 2018-03-24 00:00:00 No 1000 Daily [facility] Ferrous Sulfate (Ferosul) 325 Mg TABLET Ferrous Sulfate (Diandra osul) 325 Mg TABLET 2018-03-24 00:00:00 No 325 Daily [facility] Liraglutide (Victoza 2-Devante) 0.6 Mg/0.1 Ml PEN.INJCTR L iraglutide (Victoza 2-Devante) 0.6 Mg/0.1 Ml PEN.INJCTR 2018-03-24 00:00:00 No 18 Daily [facility] Pregabalin (Lyrica) 50 Mg CAP Pregabalin (Lyrica) 50 Mg CAP 2018-03-24 00:00:00 No 50 Daily [facility] Vital Signs Vital Name Observation Time Observation Value Comments Source Body Temperature 2020-03-13 15:32:00 98.1 [degF] [facility] Weight 2020-03-06 23:30:00 146.19 [lb_av] [facility] BMI (Body Mass Index) 2020-03-06 23:30:00 26.7 kg/m2 [facility] Height 2019-03-04 12:04:00 157.48 cm [facility] Weight 2019-03-04 12:04:00 [facility] BMI Calculated 2019-03-04 12:04:00 Sara [facility] [place] Heart Rate 2018-12-01 12:33:00 [facility] [place] Systolic (mm Hg) 2018-12-01 12:33:00 Christiano rial Oz Diastolic (mm Hg) 2018-12-01 12:33:00 Mem orial [place] Respitory Rate 2018-12-01 12:33:00 Sara al [place] Temperature Oral (F) 2018-12-01 12:33:00 98.5 F [facility] [place] Temperature Oral (F) 2018-12-01 08:12:00 98.7 F [facility] Systolic (mm Hg) 2018-12-01 08:12:00 Christiano rial Oz Diastolic (mm Hg) 2018-12-01 08:12:00 Mem o[facility] [place] Respitory Rate 2018-12-01 08:12:00 Memori al [place] Heart Rate 2018-12-01 08:12:00 [facility] Systolic (mm Hg) 2018-12-01 04:09:00 Christiano rial Oz Diastolic (mm Hg) 2018-12-01 04:09:00 Mem orial [place] Temperature Oral (F) 2018-12-01 04:09:00 97.7 F [facility] Respitory Rate 2018-12-01 04:09:00 Memori al [place] Heart Rate 2018-12-01 04:09:00 [facility] Weight 2018-11-26 17:54:00 [facility] [place] BMI Calculated 2018-11-26 17:54:00 [facility] [place] Height 2018-11-26 17:54:00 157.48 cm [facility] [place] Systolic (mm Hg) 2018-10-26 23:30:00 Christiano rial Oz Diastolic (mm Hg) 2018-10-26 23:30:00 Mem orial [place] Systolic (mm Hg) 2018-10-26 23:00:00 Christiano rial Oz Diastolic (mm Hg) 2018-10-26 23:00:00 Mem orial Oz Systolic (mm Hg) 2018-10-26 22:30:00 Christiano rial Oz Diastolic (mm Hg) 2018-10-26 22:30:00 Mem orial [place] Temperature Oral (F) 2018-10-26 12:22:00 98.0 F [facility] Respitory Rate 2018-10-26 12:22:00 Memori [facility] [place] BMI Calculated 2018-10-22 13:07:00 [facility] [place] Weight 2018-10-22 13:07:00 [facility] [place] Height 2018-10-22 13:07:00 158.75 cm [facility] [place] Heart Rate 2018-10-22 13:07:00 [facility] Temperature Oral (F) 2018-10-22 13:07:00 97.8 F [facility] [place] Respitory Rate 2018-10-22 13:07:00 Memori [facility] [place] Heart Rate 2016-12-10 12:42:00 [facility] [place] Temperature Oral (F) 2016-12-10 12:42:00 97.4 F [facility] [place] Respitory Rate 2016-12-10 12:42:00 Memori al Oz Systolic (mm Hg) 2016-12-10 12:42:00 Christiano rial [place] Diastolic (mm Hg) 2016-12-10 12:42:00 Mem orial [place] Temperature Oral (F) 2016-12-10 09:00:00 98.2 F [facility] Respitory Rate 2016-12-10 09:00:00 Memori [facility] [place] Systolic (mm Hg) 2016-12-10 09:00:00 Christiano rial [place] Diastolic (mm Hg) 2016-12-10 09:00:00 Mem orial [place] Respitory Rate 2016-12-10 05:00:00 Memori al Oz Temperature Oral (F) 2016-12-10 05:00:00 97.6 F [facility] [place] Systolic (mm Hg) 2016-12-10 05:00:00 Christiano rial [place] Diastolic (mm Hg) 2016-12-10 05:00:00 Mem orial Oz Height 2016-12-09 17:26:00 157.48 cm [facility] [place] Weight 2016-12-09 17:26:00 [facility] BMI Calculated 2016-12-09 17:26:00 Memori al Oz Systolic (mm Hg) 2015-02-06 20:21:00 Christiano rial [place] Diastolic (mm Hg) 2015-02-06 20:21:00 Mem orial Oz Respitory Rate 2015-02-06 20:21:00 Memori al Oz Systolic (mm Hg) 2015-02-06 20:06:00 Christiano rial [place] Diastolic (mm Hg) 2015-02-06 20:06:00 Mem orial [place] Respitory Rate 2015-02-06 20:06:00 Memori al Oz Systolic (mm Hg) 2015-02-06 19:51:00 Christiano rial [place] Diastolic (mm Hg) 2015-02-06 19:51:00 Mem orial Oz Respitory Rate 2015-02-06 19:51:00 Memori [facility] [place] Heart Rate 2015-02-06 18:59:00 [facility] Weight 2015-02-02 15:50:00 [facility] [place] BMI Calculated 2015-02-02 15:50:00 Memori al Oz Height 2015-02-02 15:50:00 157.48 cm [facility] Temperature Oral (F) 2015-02-02 15:50:00 97.8 F [facility] Heart Rate 2015-02-02 15:50:00 [facility] Procedures Procedure Date / Time Performed Performing Clinician [facility] e X-ray of chest, two views 2020-03-11 00:00:00 [facility] Ultrasound, renal 2020-03-07 00:00:00 [facility] Ultrasound of chest including mediastinum 2020-03-07 00:00:00 [facility] Ultrasound guidance for vascular access 2020-03-07 00:00:00 [facility] Angiogram 2018-10-26 05:00:00 [facility] Rotational atherectomy 2016-12-09 05:00:00 Yisel Clinton Colonoscopy 2013-07-20 00:00:00 [facility] Cholecystectomy 2012-07-20 00:00:00 [facility] Removal of spinal cord lesion 2002-07-20 00:00:00 [facility] Tubal ligation 1995-07-20 00:00:00 [facility] Cataract surgery [facility] n Tonsillectomy [facility] Plan of Care Planned Activity Planned Date Details Comments Source Instructions Hemodialysis [facility] Instructions Urinary Tract Infection - Women [facility] Encounters Start Date/Time End Date/Time Encounter Type Admission Type Attendi [facility] Care Department Encounter ID Source 2020-03-06 21:08:00 2020-03-13 16:50:00 Discharged Inpatient 1 BREE VARGSA [facility] [id number] I [facility] 2019-03-04 11:35:00 2019-03-04 15:00:00 Outpatient Vaibhav Jarrett [facility] [id number] 2019-03-04 13:00:00 2019-03-04 13:00:00 Outpatient MHSE CAR [address] [facility] 2018-11-30 10:43:00 2018-12-01 13:45:00 Outpatient Vaibhav Jarrett MHSE [facility] [id number] 2018-11-30 10:43:00 2018-11-30 10:43:[address] [facility]SE CAR [address] [facility] 2018-10-26 06:09:00 2018-10-26 19:30:00 Outpatient Vaibhav Jarrett MH MHSE [id number] 2018-10-26 06:09:00 2018-10-26 06:09:00 [address] MHSE CAR [address] [facility] 2017-06-18 09:23:00 2017-06-18 23:59:00 Outpatient Luiza Amber [facility] [id number] 2016-12-09 09:50:00 2016-12-10 10:54:00 Outpatient Vaibhav Jarrett SE SE [id number] 2015-02-06 12:29:00 2015-02-06 15:29:00 [facility] [id number] 2014 07:56:00 2014 23:59:[address] [id number] Results Test Description Test Time Test Comments Results Result Comments Source CHEST SINGLE (PORTABLE) 2020-03-18 19:14:00 [place] [address] Patient Name: ELSIE LOAIZA MR #: [id number] : 1950 Age/Sex: 69/F Req #: [id number] Adm Physician: Ordered by: CHELO OCASIO MD Report #: [id number] Location: ER Room/Bed: Procedure: [id number] DX/CHEST SINGLE (PORTABLE) Exam Date: 03/18/20 Exam Time: 1820 REPORT STATUS: Signed EXAMINATION: CHEST SINGLE (PORTABLE) INDICATION: sob, eval for pulmonary edema COMPARISON: Radiograph dated 03/11/2020 FINDINGS: TUBES and LINES: Duel lumen central venous catheter projects over the right atrium. LUNGS: AND PLEURA: Low lung volumes. Pulmonary vessels are distended and indistinct. Patchy perihilar opacities. Confluent left base opacity. Blunting the right costophrenic angle. HEART AND MEDIASTINUM: The heart is enlarged. BONES AND SOFT TISSUES: No acute osseous lesion. Soft tissues are unremarkable. UPPER ABDOMEN: No free air under the diaphragm. IMPRESSION: Cardiomegaly with pulmonary edema and small pleural effusions. Infection less favored. Signed by: Spencer Alves MD on 03/18/2020 7:17 PM Dictated By: SPENCER ALVES MD 16 Transcribed By: ANSELMO on 03/18/201916 COPY TO: CHELO OCASIO MD Capillary blood glucose measurement by glucometer (mas s/volume) 2020-03-13 06:57:00 Test Item Bedside Glucose (test code = 87145-7) 122 70-120 Meter ID: [id number] Rollins Brookerum or plasma sodium measurement (moles/volume)2020-03-13 05:40:00* Test Item Value Reference Range Interpretation Comments Sodium Level (test code = 2951-2) 134 136-145 [facility] or plasma potassium measurement (moles/volume)2020-03-13 05:40:00* Test Item Value Reference Range Interpretation Comments Potassium Level (test code = 2823-3) 3.8 3.5-5.1 [facility] or plasma chloride measurement (moles/volume)2020-03-13 05:40:00* Test Item Value Reference Range Interpretation Comments Chloride Level (test code = 2075-0) 99 98-107 [facility] or plasma carbon dioxide, total measurement (moles/volume)2020-03-13 05:40:00* Test Item Value Reference Range Interpretation Comments Carbon Dioxide Level (test code = 2028-9) 23 22-29 [facility] or plasma anion sak9558-56-18 05:40:00* Test Item Value Reference Range Interpretation Comments Anion Gap (test code = 27540-6) 15.8 8-16 [facility] or plasma urea nitrogen measurement (mass/volume)2020-03-13 05:40:00* Test Item Value Reference Range Interpretation Comments Blood Urea Nitrogen (test code = 3094-0) 18 - [facility] or plasma creatinine measurement (mass/volume)2020-03-13 05:40:00* Test Item Value Reference Range Interpretation Comments Creatinine (test code = 2160-0) 2.74 0.57-1.11 [facility] or plasma urea nitrogen/creatinine mass rzpfd8138-60-27 05:40:00* Test Item Value Reference Range Interpretation Comments BUN/Creatinine Ratio (test code = 3097-3) 7 01-11 [facility] CenterEstimated glomerular filtration rate (GFR) rrxdryulhtcjf2139-24-87 05:40:00* Test Item Value Reference Range Interpretation Comments Estimat Glomerular Filtration Rate (test code = 620880592) 17 >60 Ranges were taken from the National Kidney Disease Education Program and the [facility] literature.Reference ranges:60 or greater: Scjhxm46-91 ( for 3 consecutive months): Chronic kidney disease 15 or less: Kidney failureEnnis Regional Medical CenterGlucose vhygcowbtkm7262-03-83 05:40:00* Test Item Value Reference Range Interpretation Comments Glucose Level (test code = SSA3617) 123 74-118 [facility] or plasma calcium measurement (mass/volume)2020-03-13 05:40:00* Test Item Value Reference Range Interpretation Comments Calcium Level (test code = 81553-3) 8.0 8.4-10.2 [facility] CenterCHEST 2 LRQWP3887-53-62 08:26:00 [facility] [address] [address] Patient Name: ELSIE LOAIZA MR #: [id number] : 1950 Age/Sex: 69/F Req #: [id number] Adm Physician: BREE VARGAS MD Ordered by: VALERI CAMARGO MD Report #: [id number] Location: MED/SURG3 Room/Bed: 287-1 Procedure: [id number] DX/CHEST 2 EWS Exam Date: 03/11/20 Exam Time: 08 REPORT STATUS: Signed EXAMINATION: CHEST 2 VIEWS [...] Count (test code = 6690-2) 9.56 4.8-10.8 [facility] CenterBlood erythrocytes automated count (number/volume)2020-03-10 04:30:00* Test Item Value Reference Range Interpretation Comments Red Blood Count (test code = 789-8) 3.86 3.6-5.1 [facility] CenterBlood hemoglobin measurement (moles/volume)2020-03-10 04:30:00* Test Item Value Reference Range Interpretation Comments Hemoglobin (test code = 17729-0) 9.6 12.0-16.0 [facility] CenterAutomated blood hematocrit (volume fraction)2020-03-10 04:30:00* Test Item Value Reference Range Interpretation Comments Hematocrit (test code = 4544-3) 33.4 34.2-44.1 [facility] CenterAutomated erythrocyte mean corpuscular gcndqt5395-18-56 04:30:00* Test Item Value Reference Range Interpretation Comments Mean Corpuscular Volume (test code = 787-2) 86.5 81-99 [facility] CenterAutomated erythrocyte mean corpuscular hemoglobin (mass per erythrocyte)2020-03-10 04:30:00* Test Item Value Reference Range Interpretation Comments Mean Corpuscular Hemoglobin (test code = 785-6) 24.9 28-32 [facility] CenterAutomated erythrocyte mean corpuscular hemoglobin concentration measurement (mass/volume)2020-03-10 04:30:00* Test Item Value Reference Range Interpretation Comments Mean Corpuscular Hemoglobin Concent (test code = 786-4) 28.7 31-35 [facility] CenterRDW FpgJy-Npg7319-25-22 04:30:00* Test Item Value Reference Range Interpretation Comments Red Cell Distribution Width (test code = 86718-3) 15.9 11.7 -14.4 [facility] CenterAutomated blood platelet count (count/volume)2020-03-10 04:30:00* Test Item Value Reference Range Interpretation Comments Platelet Count (test code = 777-3) 314 140-360 [facility]ed [facility] segmented neutrophil count as percentage of total nuxbprmmza3632-99-59 04:30:00* Test Item Value Reference Range Interpretation Comments Neutrophils (%) (Auto) (test code = 00978-3) 42.2 38.7-80.0 [facility] CenterAutomated blood lymphocyte count as percentage ot total onkggshufk9003-67-21 04:30:00* Test Item Value Reference Range Interpretation Comments Lymphocytes (%) (Auto) (test code = 736-9) 40.3 18.0-39.1 [facility] CenterAutomated blood monocyte count as percentage of total itlygjheiw5737-62-64 04:30:00* Test Item Value Reference Range Interpretation Comments Monocytes (%) (Auto) (test code = 5905-5) 9.0 4.4-11.3 [facility] CenterAutomated blood eosinophil count as percentage of total ingctngakc6955-95-46 04:30:00* Test Item Value Reference Range Interpretation Comments Eosinophils (%) (Auto) (test code = 713-8) 7.1 0.0-6.0 [facility] CenterAutomated blood basophil count as percentage of total aiwzyfibqh1688-16-56 04:30:00* Test Item Value Reference Range Interpretation Comments Basophils (%) (Auto) (test code = 706-2) 0.8 0.0-1.0 [facility] CenterFluoroscopic procedure less than one hour zmrfkfqc4277-59-91 04:30:00* Test Item Value Reference Range Interpretation Comments IM GRANULOCYTES % (test code = IM GRANULOCYTES %) 0.6 0.0- 1.0 [facility] CenterAutomated blood neutrophil count 2020-03-10 04:30:00* Test Item Value Reference Range Interpretation Comments Neutrophils # (Auto) (test code = 751-8) 4.0 2.1-6.9 [facility] CenterBlood lymphocytes count (number/volume) 2020-03-10 04:30:00* Test Item Value Reference Range Interpretation Comments Lymphocytes # (Auto) (test code = 72324-9) 3.9 1.0-3.2 [facility] CenterBlood monocytes automated count (number/volume)2020-03-10 04:30:00* Test Item Value Reference Range Interpretation Comments Monocytes # (Auto) (test code = 742-7) 0.9 0.2-0.8 [facility] CenterAutomated blood eosinophil count 2020-03-10 04:30:00* Test Item Value Reference Range Interpretation Comments Eosinophils # (Auto) (test code = 711-2) 0.7 0.0-0.4 [facility] CenterAutomated blood basophil count (count/volume)2020-03-10 04:30:00* Test Item Value Reference Range Interpretation Comments Basophils # (Auto) (test code = 704-7) 0.1 0.0-0.1 [facility] CenterFluoroscopic procedure less than one hour wcrnzcjb1864-22-17 04:30:00* Test Item Value Reference Range Interpretation Comments Absolute Immature Granulocyte (auto (malathi t code = Absolute Immature Granulocyte (auto) 0.06 0-0.1 [facility] CenterIR RPRNORU2664-27-56 14:49:00 [place] [address] Patient Name: ELSIE LOAIZA MR #: [id number] : 1950 Age/Sex: 69/F Req #: [id number] Adm Physician: BREE VARGAS MD Ordered by: ARIADNE DA SILVA MD Report #: [id number] Location: [facility]/Bed: [place] [address] Procedure: [id number] DX/IR CONS ULT Exam Date: Exam Time: [...] a permanent image was stored. Catheter placed: [employer] 19cm tip to cuff Catheter size (Comoran) : 15 Com[place]an Catheter flush: Heparin (1000 units/mL) Closure The [...] 03/09/201450 COPY TO: ARIADNE DA SILVA MD CENT KASHIF PLMT OR RTT2338-29-44 14:49:00 [place] [address] Patient Name: ELSIE LOAIZA MR #: [id number] : 1950 Age/Sex: 69/F Req #: [id number] Adm Physician: BREE VARGAS MD Ordered by: ARIADNE DA SILVA MD Report #: [id number] Location: [facility] Room/Bed: [place] [address] Procedure: IR/DANTE WRIGHT CENT KASHIF PLMT OR REM Exam Date: 03/09/20 Exam Markus e: 1350 REPORT STATUS: Signed IA OCEDURE: Conversion of non-tunneled to tunneled dialysis [...] Palindrome 19cm tip to cuff Catheter size (Comoran): 15 [place] Catheter flush: Heparin (1000 unit s/mL) Closure [...] TRISTAN MD 50 Transcribed By: ANSELMO on 03/09/20 145 COPY TO : ARIADNE DA SILVA MD TUNNELLED CVC INSERT W/O CWUZ6943-29-06 14:49:00 [place] [address] Patient Name: ELSIE LOAIZA MR #: [id number] : 1950 Age/Sex: 69/F Req #: [id number] Adm Physician: BREE VARGAS MD Ordered by: ARIADNE DA SILVA MD Report #: [id number] Location: [facility]/Bed: [facility] 198 Procedure: [id number] IR/MOI ED CVC INSERT W/O PORT Exam Date: Exam Time: REPORT STATUS: Signed PROCEDURE: Conv ersion of non-tunneled to tunneled dialysis catheter Procedural Personnel Attending physician(s): Chacho Tristan MD Fellow physician(s): None Resident p beulahcian(s): None Advanced practice provider(s): None Pre-procedure diagn [...] a permanent image was stored. Catheter placed: [employer] 19cm tip to cuff Cat heter size (Comoran): 15 Comoran Catheter flush: Heparin (1000 units/mL) Cl osure [...] PM Dictated By: CHACHO TRISTAN MD 50 COPY TO: Rao DA SILVA MD CHEST SINGLE (PORTABLE)2020-03-09 08:46:00 [place] [address] Patient Name: ELSIE LOAIZA MR #: [id number] : 1950 Age/Sex: 69/F Req #: [id number] Adm Physician: BREE VARGAS MD Ordered by: ERIKA KYLE MD Report #: [id number] Location: [facility]/Bed: [place] [address] Procedure: [id number] DX/CHEST SINGLE (PORTABLE) Exam Date: 03/09/20 Exam [...] on 03/09/20846 COPY TO: ERIKA KYLE MD, ABIM Serum or plasma total bilirubin measurement (mass/volume)2020-03-09 04:53:00* Test Item Value Reference Range Interpretation Comments Total Bilirubin (test code = 1975-2) 0.1 0.2-1.2 [facility] CenterFluoroscopic procedure less than one hour xobezmfr1944-39-06 04:53:00* Test Item Value Reference Range Interpretation Comments Aspartate Amino Transf (AST/SGOT) (test code = Aspartate Amino Transf (AST/SGOT)) 10 5-34 [facility] or plasma alanine aminotransferase measurement (enzymatic activity/volume)2020-03-09 04:53:00* Test Item Value Reference Range Interpretation Comments Alanine Aminotransferase (ALT/SGPT) (test code = 1742-6) 7 0-55 [facility] or plasma protein measurement (mass/volume)2020-03-09 04:53:00* Test Item Value Reference Range Interpretation Comments Total Protein (test code = 2885-2) 5.6 6.5-8.1 [facility] or plasma albumin measurement (mass/volume)2020-03-09 04:53:00* Test Item Value Reference Range Interpretation Comments Albumin (test code = 1751-7) 1.9 3.5-5.0 [facility] CenterPlasma globulin measurement (mass/volume) 2020-03-09 04:53:00* Test Item Value Reference Range Interpretation Comments Globulin (test code = 12817-5) 3.7 2.3-3.5 [facility] or plasma albumin/globulin mass ghnwj4652-43-80 04:53:00* Test Item Value Reference Range Interpretation Comments Albumin/Globulin Ratio (test code = 1759-0) 0.5 0.8-2.0 [facility] or plasma alkaline phosphatase measurement (enzymatic activity/volume)2020-03-09 04:53:00* Test Item Value Reference Range Interpretation Comments Alkaline Phosphatase (test code = 6768-6) 89 40-150 [facility] hepatitis B virus surface antibody assay by radioimmunoassay (units/volume)2020-03-08 10:00:00* Test Item Value Reference Range Interpretation Comments Hepatitis B Surface Antibody, Quant (test code = 5194-6) <3.1 Immunity>9.9 Status of Immunity Anti-HBs Level Inconsistent with Immunity 0.0 - 9.9Consistent with Immunity >9.9CCitizens Medical Centererum or plasma hepatitis B virus core antibody detection by imxxaqlvebt8458-57-53 10:00:00* Test Item Value Reference Range Interpretation Comments Hepatitis B Core Total Antibody (test code = 10065-6) Negative Negative Performed at: HD - [facility] [address] [place], [place] [id number] Director: Ricardo Reddy MD, Phone: [phone] Rollins Brookerum or plasma hepatitis B virus surface antigen detection by immunoassay 2020-03-08 10:00:00* Test Item Value Reference Range Interpretation Comments Hepatitis B Surface Antigen (test code = 5196-1) Negative Negat antelmo [facility]2020-03-08 08:16:00 [facility] [address] [place] [address] Patient Name: ELSIE LOAIZA MR #: [id number] : 1950 Age/Sex: 69/F Req #: [id number] Adm Physician: BREE VARGAS MD Ordered by: ERIKA KYLE MD Report #: [id number] Location: [facility] Room/Bed: [place] [address] Procedure: [id number] DX/CHEST SINGLE (PORTABLE) Exam Date: 03/08/20 Exam [...] 03/08/20819 COPY T O: ERIKA KYLE MD, [facility] GUIDANCE FOR VASCULAR HWLHA1351-58-51 07:58:00 [place] [address] Patient Name: ELSIE LOAIZA MR #: [id number] : 1950 Age/Sex: 69/F Req #: [id number] Adm Physician: BREE VARGAS MD Ordered by: JOSE GAMBLE MD Report #: [id number] Location: [facility] Room/Bed: [place] [address] Procedure: [id number] US/ NEELA DANCE FOR VASCULAR ACCES Exam Date: 03/07/20 Exam Ti me: 1649 REPORT STATUS: Signed N on-tunneled trialysis Catheter Insertion History: Chronic kidney disease with fluid overload acquiring hemodialysis. Modality: Fluoroscopy and sonography. Sedation: None. Roofer Metal: Armen Wild MD. Superintendent Service: None. Approach: Right internal jugular vein Estimated [...] TO: JOSE GAMBLE MD NON-TUNNELLED CVC CATH MFICJJV1206-66-01 07:58:00 [place] [address] Patient Name: ELSIE LOAIZA MR #: [id number] : 1950 Age/Sex: 69/F Req #: [id number] Adm Physician: BREE VARGAS MD Ordered by: JOSE GAMBLE MD Report #: [id number] Location: [facility] Room/Bed: [place] [address] Procedure: [id number] IR/NON-TU NNELLED CVC CATH PLACMNT Exam Date: 03/07/20 Exam Ti me: 6299 REPORT STATUS: Signed N on-tunneled trialysis Catheter Insertion History: Chronic kidney disease with fluid overload acquiring hemodialysis. Modality: Fluoroscopy and sonography. Sedation: None. Roofer Metal: Armen Wild MD. Superintendent Service: None. Approach: Right internal jugular vein Estimated [...] 03/08/20799 COPY TO: JOSE GAMBLE MD Phosphorus xhdwerqulpp6483-21-12 04:10:00* Test Item Value Reference Range Interpretation Comments Phosphorus Level (test code = PLJ3857) 3.9 2.3-4.7 [facility] or plasma magnesium measurement (mass/volume)2020-03-08 04:10:00* Test Item Value Reference Range Interpretation Comments Magnesium Level (test code = 25491-2) 1.2 1.3-2.1 [facility] or plasma intact pararthyroid hormone measurement (mass/volume)2020-03-08 04:10:00* Test Item Value Reference Range Interpretation Comments Parathyroid Hormone (test code = 2731-8) 208 15-65 [facility] or plasma calcium measurement (mass/volume)2020-03-08 04:10:00* Test Item Value Reference Range Interpretation Comments Calcium (Send out) (test code = 16006-6) 7.7 8.7-10.3 [facility] CenterFluoroscopic procedure less than one hour dkmvviot5651-88-24 04:10:00* Test Item Value Reference Range Interpretation Comments Parathyroid Hormone Interpretation (test code = Parathyroid Hormone Interpretation) Comment . Interpretation Intact PTH Calcium (pg/mL) (mg/dL)Normal 15 - 65 8.6 - 10.2Pr imary Hyperparathyroidism >65 >10.2Secondary Hyperparathyroidism >65 <10.2Non-Parathyroid Hypercalcemia <65 >10.2Hypoparathyroidism <15 < 8.6Non- Parathyroid Hypocalcemia 15 - 65 < 8.6Performed at: [facility] [place][NOTE 2] [address] [id number] Director: Ricardo Reddy MD, Phone: [phone] at: [facility] LabCoKessler Institute for RehabilitationOkamxlbtol[address] [place], [place] [id number] Director: José Miguel Vasuqez MD, Phone: [phone] Rollins Brookerum hepatitis C virus antibody detection 2020-03-07 20:47:00* Test Item Value Reference Range Interpretation Comments Hepatitis C Antibody (test code = 95854-2) <0.1 0.0-0.9 Negative: < 0.8 Indeterminate: 0.8 - 0.9 Positive: > 0.9 The CDC recommends that a positive HCV antibody result be followed up with a HCV Nucleic Acid Amplification test (229544).Performed at: - [facility] [address] [place] [id number] Director: Ricardo Reddy MD, Phone: [phone] Rollins Brookerum or plasma creatine kinase measurement (enzymatic activity/volume)2020-03-07 14:11:00* Test Item Value Reference Range Interpretation Comments Creatine Kinase (test code = 2157-6) 82 29-168 [facility] or plasma creatine kinase MB measurement (mass/volume)2020-03-07 14:11:00* Test Item Value Reference Range Interpretation Comments Creatine Kinase MB (test code = 70446-5) 2.80 0-5.0 [facility] CenterTroponin I measurement by highly sensitive enzyme seyqutisvme1208-18-46 14:11:00* Test Item Value Reference Range Interpretation Comments Troponin I (test code = 74590-4) 0.144 0-0.300 [facility] CenterUS CHEST (INCL MEDIASTINUM)2020-03-07 14:00:00 [facility] [address] [place] [address] Patient Name: ELSIE LOAIZA MR #: [id number] : 1950 Age/Sex: 69/F Req #: [id number] Adm Physician: BREE VARGAS MD Ordered by: ERIKA KYLE MD Report #: [id number] Location: [facility] Room/Bed: [facility] 198-1 Procedure: [id number] US/US LUCINA ST (INCL MEDIASTINUM) Exam Date: 03/07/20 Exam Time: 1322 REPORT STATUS: Signed Ultr asound chest History: Evaluate for pleural effusion. Comparison: est x-ray dated the same day. Discussion: Focused ultrasound images of the chest were obtained. Moderate left and small right pleural effusions are no ravinder. IMPRESSION: Moderate left and small right pleural effusions. Signed by: Anton Wild MD on 03/07/2020 2:02 PM Dictated By: ANTON RIZVI MD 01 Transcribed By: ANSELMO on 03/07/201401 COPY TO: ERIKA KYLE MD, [facility] RENAL RETROPERITONEAL ZKHY1809-49-63 08:48:00 [place] [address] Patient Name: ELSIE LOAIZA MR #: [id number] : 1950 Age/Sex: 69/F Req #: [id number] [facility] Physician: BREE VARGAS MD Ordered by: CHELO OCASIO MD Report #: [id number] Location: [facility] Room/Bed: [facility] 198-1 Procedure: [id number] US/U S RENAL RETROPERITONEAL COMP Exam Date: 03/07/20 Rashid m Time: 0808 REPORT STATUS: Signed Renal ultrasound. [...] AM Dictated By: ANTON WILD MD Elect [facility] Signed By: ANTON WILD MD on 03/07/20848 Transcribed By: ANSELMO on 03/07/20848 COPY TO: CHELO OCASIO MD CHEST SINGLE (PORTABLE)2020-03-07 08:39:00 [place] [address] Patient Name: ELSIE LOAIZA MR #: [id number] : 1950 Age/Sex: 69/F Req #: [id number] [facility] Physician: BREE VARGAS MD Ordered by: ERIKA KYLE MD Report #: [id number] Location: [facility] Room/Bed: [place] [address] Procedure: [id number] DX/CHEST SINGLE (PORTABLE) Exam Date: 03/07/20 Exam Time: 074 5 REPORT STATUS: Signed TECHNIQU E: Frontal view of the chest. INDICATION: CHF [id number] COMPARISON: Prior day. DISCUSSION: Limited evaluation [...] 8:40 AM Dictated By: ANTON WILD MD 9 Transcribed By: ANSELMO on 03/07/20839 COPY TO: ERIKA ZEE MD, ABI Fluoroscopic procedure less than one hour duration 2020-03-06 22:27:00* Test Item Value Reference Range Interpretation Comments Coronavirus (PCR) (test code = Coronavirus (PCR)) NOT DETECTED NOTD ETECTED Expa Aptima SARS-CoV-2 assay is a nucleic amplification test intended for the qualitative detection of RNA from SARS-CoV-2 from nasopharyngeal (FABRIC MACHINE OPERATOR) specimens . It is used under Emergency [...] for reprat testing oc clinically indicated.Tesing performed by:[facility] [address] [place] [id number] [id number], Chelo Chase MD, PhD [facility] CenterUrine color xxusuvvmvspsi9326-21-85 20:32:00* Test Item Value Reference Range Interpretation Comments Urine Color (test code = 5778-6) YELLOW YELLOW [facility] CenterUrine dklasnz0370-15-96 20:32:00* Test Item Value Reference Range Interpretation Comments Urine Clarity (test code = 43821-3) CLOUDY CLEAR [facility] Brook[facility] gravity of Urine by Test strip 2020-03-06 20:32:00* Test Item Value Reference Range Interpretation Comments Urine Specific [place] (test code = 5811-5) 1.025 1.010-1.02 5 [facility] CenterUrine pH measurement by automated test wofuw2192-66-53 20:32:00* Test Item Value Reference Range Interpretation Comments Urine pH (test code = 53043-5) 6 5-7 [facility] CenterUrine leukocyte esterase detection by loihdoyj6371-30-61 20:32:00* Test Item Value Reference Range Interpretation Comments Urine Leukocyte Esterase (test code = 5799-2) 1+ NEGATIVE [facility] nitrite gchpcyhwb6007-46-25 20:32:00* Test Item Value Reference Range Interpretation Comments Urine Nitrite (test code = 67486-6) NEGATIVE NEGATIVE [facility] protein measurement by test strip (mass/volume)2020-03-06 20:32:00* Test Item Value Reference Range Interpretation Comments Urine Protein (test code = 5804-0) >=300 NEGATIVE [facility] glucose gzmhdiyxv2924-56-99 20:32:00* Test Item Value Reference Range Interpretation Comments Urine Glucose (UA) (test code = 2349-9) 1+ NEGATIVE [facility] CenterU[facility] ketones detection by automated test nzwmc2433-33-17 20:32:00* Test Item Value Reference Range Interpretation Comments Urine Ketones (test code = 30233-5) NEGATIVE NEGATIVE [facility] Center[facility] urobilinogen measurement by test strip (mass/volume)2020-03-06 20:32:00* Test Item Value Reference Range Interpretation Comments Urine Urobilinogen (test code = 31326-0) 0.2 0.2-1 [facility] total bilirubin measurement (mass/volume)2020-03-06 20:32:00* Test Item Value Reference Range Interpretation Comments Urine Bilirubin (test code = 1978-6) NEGATIVE NEGATIVE [facility] CenterU[facility] erythrocytes dxffilqzc4294-34-27 20:32:00* Test Item Value Reference Range Interpretation Comments Urine Blood (test code = 08800-0) 3+ NEGATIVE [facility] CenterAutomated urine sediment leukocyte count by microscopy (number/high power field)2020-03-06 20:32:00* Test Item Value Reference Range Interpretation Comments Urine WBC (test code = 5821-4) >50 0-5 [facility] CenterErythrocytes detection in urine sediment by light lqagbewcjq7789-73-29 20:32:00* Test Item Value Reference Range Interpretation Comments Urine RBC (test code = 15017-0) 11-20 0-5 [facility] CenterBacteria detection in urine sediment by light pcppqtudzx8777-74-01 20:32:00* Test Item Value Reference Range Interpretation Comments Urine Bacteria (test code = 89975-4) MANY NONE [facility] CenterEpithelial cells detection in urine sediment by light etyvfipjrg6284-83-97 20:32:00* Test Item Value Reference Range Interpretation Comments Urine Epithelial Cells (test code = 37633-1) FEW NONE [facility] CenterBacterial urine stlhmly6631-76-04 20:32:00* Test Item Value Reference Range Interpretation Comments Urine Culture (test code = 630-4) KLEBSIELLA PNEUMONIAE [facility] CenterProthrombin time (PT) in platelet poor plasma by coagulation brucm2470-61-92 19:35:00* Test Item Value Reference Range Interpretation Comments Prothrombin Time (test code = 5902-2) 13.5 11.9-14.5 [facility] CenterINR in Platelet poor plasma by Coagulation apfjf0366-25-97 19:35:00* Test Item Value Reference Range Interpretation Comments Prothromb Time International Ratio (test code = 6301-6) 0.98 Oral Anticoagulant Therapy INR Values:1. Low Intensity Therapy 1.5 - 2.02 . Moderate Intensity Therapy 2.0 - 3.03. High Intensity Therapy(1) 2.5 - 3. 54. High Intensity Therapy(2) 3.0 - 4.05. Panic Value INR > 5.0 [facility] CenterActivated partial thromboplastin time (aPTT) in platelet poor plasma by coagulation twdam7493-20-77 19:35:00* Test Item Value Reference Range Interpretation Comments Activated Partial Thromboplast Time (test code = 84502-9) 30.7 23.8-35.5 [facility] CenterCHEST SINGLE (PORTABLE)2020-03-06 19:33:00 [facility] [address] [address] Patient Name: ELSIE LOAIZA MR #: [id number] : 1950 Age/Sex: 69/F Req #: [id number] Adm Physician: BREE VARGAS MD Ordered by: CHELO OCASIO MD Report #: [id number] Location: [facility] Room/Bed: [place] [address] Procedure: [id number] DX/C HEST SINGLE (PORTABLE) Exam Date: 03/06/20 Exam Time : 1900 REPORT STATUS: Signed Exa mination: Single AP [...] 03/06/201933 COPY TO: CHELO OCASIO MD BNP Lut-fUnx7503-61-18 19:15:00* Test Item Value Reference Range Interpretation Comments B-Type Natriuretic Peptide (test code = 98045-7) 7073.4 0-100 [facility]- US RETROPERITONEAL KOF0463-97-25 09:59:00 Name: ELSIE LOAIZA [facility] : 1950 Age/S: 69 / F [address] Unit #: [id number] Loc: [place] [address] Phys: Mike Bal MD Acct: [id number] Dis Date: Status: REG CLI PHONE #: [phone] Exam Date: 09/13/201949 FAX #: [phone] Reason: N18.9 EXAMS: CPT CODE: [id number] [place] RETR[place]ONEAL COM 75048 HISTORY: Chronic kidney disease. COMPARISON: Renal ultrasound [...] calcifications within the wall without nodules. Location: [facility]. at 0959 Reported and signed by: Mario Richards M.D. CC: Mike Bal MD; Aldo Chau MD Technologist: JEANNIE GONZALEZ RT(R),RDMS Trnnvb Date/Time: 09/13/2019 (0959) [email or web address].TH4 Orig Print D/T: S: 09/13/2019 (1002) Probe: PAGE 1 Signed Report [id number] 16:48:00* Test Item Value Reference Range Interpretation Comments GLUBED (test code = GLUBED) 300 mg/dL 74-106 H Performed by certified grinder operator external tool at [facility] AIJNMA5050-57-53 12:03:00* Test Item Value Reference Range Interpretation Comments GLUBED (test code = GLUBED) 244 mg/dL 74-106 H Performed by certified grinder operator external tool at [facility] BASIC METABOLIC DCZRI7165-76-42 07:02:00* Test Item Value Reference Range Interpretation [...] CA) 8.8 mg/dL 8.5-10.1 N BASIC METABOLIC SDMHV5254-25-24 06:48:00* Test Item Value Reference Range Interpretation [...] CALCIUM (test code = CA) mg/dL 8.5-10.1 BKODET5405-54-80 06:04:00* Test Item Value Reference Range Interpretation Comments GLUBED (test code = GLUBED) 199 mg/dL 74-106 H Performed by certified grinder operator external tool at [facility] UR PROTEIN GRACWV4546-33-36 23:02:00* Test Item Value Reference Range Interpretation Comments UR PROTEIN RANDOM (test code = PROTU) 532.3 mg/dL 0.0-11.9 H Protein levels may be falsely elevated in patients withelevated level of aminoglycoside antibiotics in CSF and inhighly concentrated urine specimens. If false elevation issuspected, contact lab for alternated testing technique. UR CREATININE QCSDZZ1958-87-77 23:02:00* Test Item Value Reference Range Interpretation Comments UR CREATININE RANDOM (test code = CREATU) 78.0 mg/dL 30-125 N URINALYSIS FGIGCUDG9277-02-06 22:53:00* Test Item Value Reference Range Interpretation [...] NONE A Urine Source? VoidedUR SMEAR EOSINOPHIL HGZBP7256-47-76 22:53:00* Test Item Value Reference Range Interpretation Comments UR SMEAR EOSINOPHIL COUNT (test code = EOSCTU) 5-10 EOS/100 WBCs per HPF NONE SEEN Urine Source? VoidedURINALYSIS PMKLELMH1226-96-95 22:41:00* Test Item Value Reference Range Interpretation [...] NONE A Urine Source? VoidedUR SMEAR EOSINOPHIL YAIAC2490-81-98 22:41:00* Test Item Value Reference Range Interpretation Comments UR SMEAR EOSINOPHIL COUNT (test code = EOSCTU) per HPF NONE SE EN Urine Source? VoidedURINALYSIS FCWSGCSB3201-07-57 22:33:00* Test Item Value Reference Range Interpretation [...] HPF NONE Urine Source? VoidedUR SMEAR EOSINOPHIL HRSVU3709-96-09 22:33:00* Test Item Value Reference Range Interpretation Comments UR SMEAR EOSINOPHIL COUNT (test code = EOSCTU) per HPF NONE SE EN Urine Source? Voided- US RETRO UIT1343-90-13 20:16:00 Name: FADIAELSIE ASADJEROMY [facility] : 1950 Age/S: 68 / F [address] Unit #: [id number] Loc: [place] [address] Phys: Natalie Ratliff MD Acct: [id number] Dis Date: Status: ADM IN PHONE #: [phone] Exam Date: 03/14/20191956 FAX #: [phone] Reason: john EXAMS: CPT CODE: [id number] RETRO LTD 55273 EXAM: Ultrasound retroperitoneum, limited; INFORMATION: Acute kidney [...] of the kidneys and the bladder. at 2015 Reported and signed by: Jaron Moffett M.D. CC: Bree Vargas MD; Natalie Ratliff MD Technologist: Amber Vazquez Trnscb Date/Time: 03/14/20 (2015) [email or web address].GRW Orig Print D/T: S: 03/14/2019 (2018) Probe: PAGE 1 Signed Report [id number] 17:22:00* Test Item Value Reference Range Interpretation Comments GLUBED (test code = GLUBED) 233 mg/dL 74-106 H Performed by certified grinder operator external tool at [facility] - MRI BRAIN W/O RHNKCCIT0543-25-15 17:17:00 FAX: Miki Montesinos MD [phone] [place]: B St: ADM Name: ELSIE SON [facility] : [birth year] Age/S: 68/F [address] Unit #: [id number] Loc: V.5 [place] [address] Phys: Miki Montesinos MD Acct: [id number] Dis Date: Status: ADM IN PHONE #: [phone] Exam Date: 03/14/2019 1636 FAX #: [phone] Reason: slurred speech EXAMS: CPT CODE: [id number] MRI BRAIN W/O CONTRAST 54685 EXAM: MRI of the brain without con [...] chronic isch emic white matter changes. at 4080 Reported and signed by: Jaron Moffett M.D. CC: Miki Montesinos MD Technologist: DAVID RIVAS,RT - MRI Trnscrd Date/Time/By: 2018 (2046) : By: KeerthiGRW Orig Print D/T: S: 03/14/2019 (9701) PAGE 1 Signed Report [id number] 11:35:00* Test Item Value Reference Range Interpretation Comments GLUBED (test code = GLUBED) 243 mg/dL 74-106 H Performed by certified grinder operator external tool at [facility] FZHUDZ1870-39-27 06:31:00* Test Item Value Reference Range Interpretation Comments GLUBED (test code = GLUBED) 189 mg/dL 74-106 H Performed by certified grinder operator external tool at [facility] PJFDSTBOKM0422-17-87 02:29:00* Test Item Value Reference Range Interpretation [...] FESAT) 16.26 % 13-45 N THYROID PROFILE W/LRQ6149-25-86 02:29:00* Test Item Value Reference Range Interpretation [...] 5.5 mIU/mL HYPER : < 0.35 mIU/mL TQFGUMDJ2381-66-68 02:29:00* Test Item Value Reference Range Interpretation [...] interpreted taking into account the patients history. DWVCGSQA-T8939-56-26 02:13:00* Test Item Value Reference Range Interpretation Comments TROPONIN-I (test code = TROPI) <0.015 ng/mL 0-0.045 N COMMENTS TO SOLAR MAINTENANCE TECHNICIAN: COLLECT 3 HOURS AFTER PREVIOUS SAMPLECOMPREHENSIVE METABOLIC EPHQA0633-86-69 02:12:00* Test Item Value Reference Range Interpretation [...] reference range due to change in reagent. APBEQJWVP2215-12-71 02:12:00* Test Item Value Reference Range Interpretation Comments MAGNESIUM (test code = MAG) 1.5 mg/dL 1.8-2.4 L IZQS9B7391-26-82 02:12:00* Test Item Value Reference Range Interpretation Comments GLYCOSYLATED HEMOGLOBIN (HA1C) (test code = GLYHGB) 9.8 % HbA1 4. 8-6.0 H ESTIMATED AVERAGE GLUCOSE (test code = EAG) 235 MG/DL COMPREHENSIVE METABOLIC FNYPR3363-40-43 02:00:00* Test Item Value Reference Range Interpretation [...] TOTAL (test code = ALKP) IUnit/L 45-117 BFZBFDHNV0745-19-90 02:00:00* Test Item Value Reference Range Interpretation Comments MAGNESIUM (test code = MAG) mg/dL 1.8-2.4 JWRXYNRC-A5438-58-25 22:21:00* Test Item Value Reference Range Interpretation Comments TROPONIN-I (test code = TROPI) <0.015 ng/mL 0-0.045 N COMMENTS TO SOLAR MAINTENANCE TECHNICIAN: COLLECT 3 HOURS AFTER PREVIOUS JUEZGAXZHQYZ4925-14-31 21:11:00* Test Item Value Reference Range Interpretation Comments GLUBED (test code = GLUBED) 411 mg/dL 74-106 H Performed by certified grinder operator external tool at [facility] BASIC METABOLIC FHTKE5898-80-68 17:13:00* Test Item Value Reference Range Interpretation [...] mg/dL 74-106 H RE SULTS CALLED TO [id number] BY V.LAB.DAVID 03/13/19 1710 BLOOD UREA NITROGEN (test code [...] code = CA) 8.7 mg/dL 8.5-10.1 N [id number]-[id number] 17:13:00* Test Item Value Reference Range Interpretation Comments TROPONIN-I (test code = TROPI) <0.015 ng/mL 0-0.045 N BASIC METABOLIC WGDBN0648-22-59 17:12:00* Test Item Value Reference Range Interpretation [...] mg/dL 74-106 H RE SULTS CALLED TO [id number] BY Bringrr.DAVID 03/13/19 1710 BLOOD UREA NITROGEN (test code [...] code = CA) 8.7 mg/dL 8.5-10.1 N TZHVNJQU-S8021-45-25 17:12:00* Test Item Value Reference Range Interpretation Comments TROPONIN-I (test code = TROPI) ng/mL 0-0.045 BASIC METABOLIC EZSVP0720-45-58 17:11:00* Test Item Value Reference Range Interpretation [...] mg/dL 74-106 H RE SULTS CALLED TO [id number] BY Bringrr.DAVID 03/13/19 1710 BLOOD UREA NITROGEN (test code [...] code = CA) 8.7 mg/dL 8.5-10.1 N ENQEULIW-P7570-15-25 17:11:00* Test Item Value Reference Range Interpretation Comments TROPONIN-I (test code = TROPI) ng/mL 0-0.045 FXICZFY5550-44-10 17:11:00* Test Item Value Reference Range Interpretation [...] ANADDITIONAL CHARGE TO THE PATIENT. BASIC METABOLIC KTSWQ3216-76-04 17:10:00* Test Item Value Reference Range Interpretation [...] code = CA) 8.7 mg/dL 8.5-10.1 N JXSKSBFX-Y8331-29-25 17:10:00* Test Item Value Reference Range Interpretation Comments TROPONIN-I (test code = TROPI) ng/mL 0-0.045 BASIC METABOLIC LHRMB6306-78-75 17:07:00* Test Item Value Reference Range Interpretation [...] CALCIUM (test code = CA) mg/dL 8.5-10.1 NFTCYZBP-V7665-17-25 17:07:00* Test Item Value Reference Range Interpretation Comments TROPONIN-I (test code = TROPI) ng/mL 0-0.045 PROTHROMBIN XTQU8807-91-88 16:59:00* Test Item Value Reference Range Interpretation Comments PROTHROMBIN TIME PATIENT (test code = PTP) 11.4 seconds 9.0-14.0 N RESULTS CALLED TO [id number] BY JOHN 03/13/19 1659 INTERNATIONAL NORMAL RATIO (test code [...] (2.5-3.5) IS PATIENT ON ANTICOAGULANTS? NTHROMBOPLASTIN TIME YGTWGJP3375-56-61 16:59:00* Test Item Value Reference Range Interpretation Comments THROMBOPLASTIN TIME PARTIAL (test code = PTT) 32.2 seconds 25.0-36. 5 N IS PATIENT ON ANTICOAGULANTS? N- XR CHEST 1 [id number] 16:58:00 FAX: Miki Montesinos MD [phone] [place]: B St: PRE Name: ELSIE SON [facility] : [birth year] Age/S: 68/F [address] Unit #: [id number] Loc: [place] [address] Phys: Miki Montesinos MD Acct: [id number] Dis Date: Status: PRE ER PHONE #: [phone] Exam Date: 03/13/2019 [facility] FAX #: [phone] Reason: CODE STROKE EXAMS: CPT CODE: [id number] XR CHEST 1 V 50649 REASON FOR EXAM: CODE STRO KE Exam Order Date: 03/13/2019 4:32 PM Ordering MSal: Miki Montesinos MD PROCEDURE: - XR CHEST [...] IMPRESSION: No ac chrissy cardiopulmonary process. at 7355 Reported and signed by: Silverio zavaleta MD CC: Miki Montesinos MD Technologist: RAY HORTA RT(R) Trnscrd Tristian e/Time/By: 03/13/2019 (7429) : By: KeerthiRR31 Orig Print D/T: S: 2018 (3710) PAGE 1 Signed Report CBC W/AUTO [id number] 16:56:00* Test Item Value Reference Range Interpretation [...] REQUIRED (test code = MDIFF) NO PROTHROMBIN [id number] 16:56:00* Test Item Value Reference Range Interpretation [...] (2.5-3.5) IS PATIENT ON ANTICOAGULANTS? NTHROMBOPLASTIN TIME TJRWCHU0416-96-88 16:56:00* Test Item Value Reference Range Interpretation Comments THROMBOPLASTIN TIME PARTIAL (test code = PTT) 32.2 seconds 25.0-36. 5 N IS PATIENT ON ANTICOAGULANTS? N- CT HEAD/BRAIN W/O [id number] 16:47:00 Name: ELSIE LOAIZA BONNY [facility] : 1950 Age/S: 68 / F [address] Unit #: [id number] Loc: [place] [address] Phys: Brian Montesinos MD Acct: [id number] Di s Date: Status: PRE ER PHONE #: Exam Date: 03/13/2019 1635 FAX #: [phone] Reason: confusion, speech problem EXAMS: CPT CODE: [id number] CT HEAD/BRAIN W/O CONT 31467 HISTORY: confusion, spee ch problem TECHNIQUE: Noncontrast [...] by Silverio Au MD on 2018 at 8981 Reported and signed by: Silverio Au MD PAGE 1 Signed Report (CONTINUED) Name: FADIAELSIEJEFFREY DRAPER [facility] B: 1950 Age/S: 68 / F [address] Unit #: [id number] Loc: [place] [address] Phys: Ra duong Montesinos MD Acct: [id number] D is Date: Status: PRE ER PHONE #: [phone] Exam Date: 03/13/2019 1635 FAX #: Reason: confusion, speech problem EXAMS: CPT CODE: [id number] CT HEAD/BRAI N W/O CONT 99791 <Continued> CC: Miki Montesinos MD Technologist:Gabi Traylor RT(R),CT; CTDI: DLP: Trnscb Date/Time: 03/13/2019 (1054) t.SDR.RR31 Orig Print D/T: S: 03/13/2019 (0708) PAGE 2 Signed Report [id number] 17:50:0013.7[facility] KSIABSYJSCUC5964-93-72 17:50:00* Test Item Value Reference Range Interpretation Comments B/C Ratio (test code = B/C Ratio) 21 1 6-25 [facility] PzfrslcESJQVYEEHNLV5223-73-46 17:50:004.9[facility] HermannELECTROLYTES 2019-03-04 17:50:00* Test Item Value Reference Range Interpretation Comments A/G Ratio (test code = A/G Ratio) 0.5 1 0.7-1.6 [facility] KmlfirnHQNQMCKPROGJ6764-96-10 17:50:19812Ixvhdpza HermannELECTROLYTES 2019-03-04 17:50:0048[facility] CpgilkrDRTPMWHZGQIQ3672-58-25 17:50:002.27[facility] ZvjuahmMIZKTGUTAJNA3886-98-30 17:50:49801Ukvwhmzg SjxwsbbEDKDDTMYODKJ0235-95-62 17:50:003.7[facility] IfpvjweNWNEKPSZKUWX7104-84-84 17:50:72436Hmshprso [place] OPKGMVHHPBIS4788-00-44 17:50:0021[facility] DdfwxybRDAHMVGUIAXQ4489-53-61 17:50:00 9.1[facility] RropytwMATCKXCPOSVO7039-67-36 17:50:007.5[facility] RLFGDAENHIDD8040-38-87 17:50:002.6[facility] WqilwikZGWFLUVAHYBK1132-33-87 17:50:0015[facility] KcsfcznCJYORUSSQFNX9271-01-24 17:50:0013[facility] KUEFGSRRSSMS9675-00-41 17:50:90126Itlpvvrn ZnoczvjIHPZMSUNPDHL3808-96-56 17:50:000.4[facility] WumjjvfHPTPBTWWODVY7877-37-54 17:50:0022[facility] TIZKGWFDRI6308-39-08 17:50:0010.0[facility] AtyawseUZABCNMAYW6962-86-56 17:50:00 4.23[facility] VfzyezaGMEJVTEGHC8556-98-87 17:50:0010.4[facility] HermannHEMATOLOGY 2019-03-04 17:50:0031.7[facility] SjpsgjjRBPPLSDWFZ6835-13-01 17:50:0075.1[facility] KudppjwAVOOLGFKAD0312-27-12 17:50:00* Test Item Value Reference Range Interpretation Comments MCH (test code = MCH) 24.6 pg 27.0-31.0 [facility] LvwsojcPVKAENFGDN2962-23-59 17:50:0032.8[facility] HermannHEMATOLOGY 2019-03-04 17:50:0016.9[facility] HqolatoEPSRCYWSCF6155-95-02 17:50:55891Xwczlriw HsnqshrCNEPBMOZVL0947-39-85 17:50:007.5[facility] FjkfeciTASUWXZFDX5116-41-14 17:50:0044.6[facility] DwqrgxkVPDKMSWVXI4063-94-28 17:50:0044.8[facility] FYPWUJJQGX9973-69-10 17:50:007.1[facility] IdncjooRVQGXLELAW9860-31-05 17:50:002.7 [facility] OzzhzvgRQDVCKQQJF3688-02-63 17:50:000.8[facility] HermannHEMATOLOGY 2019-03-04 17:50:004.5[facility] YyminxiCOVVSTIZER9905-87-37 17:50:004.5[facility] GmnayguABMAHEDPIU7066-28-00 17:50:000.7[facility] PqwwlwzOCCMRBNYXJ8981-63-73 17:50:000.3[facility] SwgcvjuHXMEKGMEHM5848-35-79 17:50:000.1[facility] ITKLAWVIZU3375-72-38 17:50:001+ *ABN*(03/04/19 12:50 PM)[facility] URINALYSIS OPEMAYRD1905-29-56 17:10:00* Test Item Value Reference Range Interpretation [...] Urine Source? Clean Catch- CT HEAD/BRAIN W/O ZFLT3683-35-70 12:54:00 Name: FADIAELSIEJEFFREY DRAPER [facility] : 1950 Age/S: 68 / F [address] Unit #: [id number] Loc: [place] [address] Phys: Shorty Chinchilla DO Acct: [id number] Di s Date: Status: REG ER PHONE #: Exam Date: 02/01/2019 1230 FAX #: Reason: Headache EXAMS: CPT CODE: [id number] CT HEAD/BRAIN W/O CONT 30410 HISTORY: Headaches. COMPARISON: July 10, 2018. CT [...] RT(R),(MR),(CT) CTDI: DLP: Tr nscb Date/Time: 02/01/2019 (9644) t.KELLR.TH4 Orig Print D/ T: S: 02/01/2019 (2773) PAGE 1 Signed Report CBC W/AUTO [id number] 12:44:00* Test Item Value Reference Range Interpretation [...] NRBC#) 0.00 K/mm3 0.0-0.1 N BASIC METABOLIC GCHFK5922-44-31 12:39:00* Test Item Value Reference Range Interpretation [...] CA) 8.9 mg/dL 8.5-10.1 N BASIC METABOLIC JPZPI7656-98-32 12:33:00* Test Item Value Reference Range Interpretation [...] (test code = CA) mg/dL 8.5-10.1 CHEM ZPNWN7156-01-80 08:11:13848Lgulicwq HermannCHEM QDAAX9510-24-30 08:11:0058 [facility] HermannCHEM PISKQ7177-01-11 08:11:0021[facility] HermannCHEM PANEL 2018-12-01 08:11:87492Sjglotem HermannCHEM ZYBPW7752-67-57 08:11:002.32[facility] HermannCHEM FVYYM8697-57-41 08:11:004.6[facility] HermannCHEM GDPEP4117-34-01 08:11:47816Rippvtps HermannCHEM PSIQO7660-99-77 08:11:0024[facility] HermannCHEM XPZYC3358-03-48 08:11:008.8[facility] HermannCHEM CUTHM2558-53-02 08:11:0011.6 [facility] DujwhepFTGOVLWLUY1285-34-81 08:11:0011.2[facility] HermannHEMATOLOGY 2018-12-01 08:11:004.34[facility] WxdhpbiQDBFQVUVUI4838-49-80 08:11:00* Test Item Value Reference Range Interpretation Comments MCH (test code = MCH) 23.8 pg 27.0-31.0 Memorial XdzqkinMVCPKCOEXL1435-06-23 08:11:0077.2[facility] HermannHEMATOLOGY 2018-12-01 08:11:0030.8[facility] AsqzozmESOLWFSPFA0813-89-71 08:11:0033.5[facility] CpszmxyQMAPMUYXIG4425-64-47 08:11:0010.3[facility] RjvfzcoVINSLPRSGV9192-34-71 08:11:0015.3[facility] GdpqeykZXZZXSYUHV1079-13-90 08:11:007.7[facility] TVJRPEOKNZ6921-95-48 08:11:50230Wlufguze HermannCHEM THFVA3288-30-17 18:14:005.1 [facility] HermannCHEM ISXAB3560-40-72 18:14:00* Test Item Value Reference Range Interpretation Comments A/G Ratio (test code = A/G Ratio) 0.5 1 0.7-1.6 [facility] HermannCHEM TRQUJ0992-06-64 18:14:0011.0[facility] HermannCHEM PANEL 2018-11-26 18:14:00* Test Item Value Reference Range Interpretation Comments B/C Ratio (test code = B/C Ratio) 21 1 6-25 [facility] HermannCHEM PXDIF9736-46-47 18:14:0026[facility] HermannCHEM PANEL 2018-11-26 18:14:85059Iutuczvn HermannCHEM RYMCG0396-95-95 18:14:0021[facility] HermannCHEM KRRAQ8073-34-63 18:14:0023[facility] HermannCHEM QOHTL0675-96-77 18:14:000.3[facility] HermannCHEM FXGDN9629-06-95 18:14:0042[facility] HermannCHEM YXECN7749-96-57 18:14:95156Lsszczaa HermannCHEM TMTHJ9338-46-33 18:14:005.0 [facility] HermannCHEM RMNAK2940-75-28 18:14:68129Ktsxnmoh HermannCHEM PANEL 2018-11-26 18:14:001.98[facility] HermannCHEM FKMJN0049-70-30 18:14:007.9[facility] HermannCHEM IAELH0122-36-98 18:14:002.8[facility] HermannCHEM ODTZT6806-01-96 18:14:009.4[facility] HermannCHEM RWCTD4893-13-48 18:14:22270Kotagaro HermannCHEM LPHUU2527-04-58 18:14:0025[facility] JjkjwrwKXJYQACPVA0103-01-62 18:14:009.9 Memorial WmzqausVBCJPREBUA4647-91-24 18:14:0015.1[facility] HermannHEMATOLOGY 2018-11-26 18:14:004.84[facility] RxhobbqYEJNAJZKRC4667-73-27 18:14:0031.5[facility] ErxuqngJPCRFQLZCY5446-02-28 18:14:0076.9[facility] QvnfhopPNZMOILVAL4897-61-46 18:14:00* Test Item Value Reference Range Interpretation Comments MCH (test code = MCH) 24.2 pg 27.0-31.0 [facility] XftiqjzRHSFEAJDBT8494-81-86 18:14:0011.7[facility] HermannHEMATOLOGY 2018-11-26 18:14:0037.2[facility] LzsifnpKAXTJNYKEI7754-57-90 18:14:42931Umqibxas DdcsxbgIEDBAISXUA8272-57-31 18:14:007.7[facility] VbmdaieMDZUYJDBFX1432-28-73 18:14:000.2[facility] PkqirsvERLCDSPXDG3431-75-40 18:14:001+ *ABN*(11/26/18 1:14 PM)[facility] LasfaqsYVECAHSGFK5047-16-62 18:14:000.1[facility]annHEMATOLOGY 2018-11-26 18:14:000.6[facility] SuzqksyBDOEPKVWMJ1804-36-76 18:14:003.4[facility] EonqfneOWGPQCITEW5109-66-95 18:14:005.7[facility] RxfhydzIPTILVPOIG9122-13-55 18:14:006.2[facility] RynpdswTOHUAUVKDW3893-11-01 18:14:002.3[facility] TGQEPSGKEK5392-10-66 18:14:000.6[facility] ZgrpangCDOENIUVRP1239-59-97 18:14:00 33.8[facility] KsshqkbATAERWOERT2440-24-70 18:14:0057.1[facility] HermannCHEM PANEL 2018-10-22 13:11:0034[facility] HermannCHEM GDIOP4390-32-10 13:11:66601Ctmkxzpo HermannCHEM EQMEF8063-93-43 13:11:001.58[facility] HermannCHEM DQEBC6467-53-70 13:11:0032[facility]annCHEM EZFAR4303-39-57 13:11:91966Qcumkopp HermannCHEM YCOQX5439-98-65 13:11:0021[facility] HermannCHEM YXCMC3907-77-47 13:11:007.8 [facility]annCHEM GDZUP7548-68-46 13:11:002.6[facility] HermannCHEM PANEL 2018-10-22 13:11:009.1[facility]annCHEM VXMOJ9819-20-20 13:11:91130Pcjqwwra HermannCHEM EVHQA4625-47-08 13:11:004.9[facility] HermannCHEM MBJHN6511-68-89 13:11:0019[facility] HermannCHEM RRDXT3669-85-05 13:11:0016[facility] HermannCHEM RUDGV7805-83-78 13:11:000.4[facility]annCHEM YRHAF7683-04-61 13:11:74776 [facility]annCHEM FYQUL0146-54-88 13:11:00* Test Item Value Reference Range Interpretation Comments B/C Ratio (test code = B/C Ratio) 20 1 6-25 [facility]annCHEM IDINI6942-04-29 13:11:005.2[facility]annCHEM PANEL 2018-10-22 13:11:00* Test Item Value Reference Range Interpretation Comments A/G Ratio (test code = A/G Ratio) 0.5 1 0.7-1.6 [facility]annCHEM PLKTT3536-04-65 13:11:0011.9[facility]annHEMATOLOGY 2018-10-22 13:11:007.4[facility] LjruongMOAMWKXVHY5312-31-76 13:11:85475Ozvcxccd LbzydaaGVHWDGFLYL0199-32-52 13:11:0076.0[facility] YaazbnpGXYJXIKAFX2654-63-33 13:11:0015.8[facility] PcuwxogGWPKZOQKPN2399-03-53 13:11:00* Test Item Value Reference Range Interpretation Comments MCH (test code = MCH) 25.0 pg 27.0-31.0 [facility] TlbaamnPWFFSQKAQW9692-36-49 13:11:0032.8[facility]annHEMATOLOGY 2018-10-22 13:11:004.31[facility] JbzisprYHCJADGEYS5868-03-49 13:11:0032.8[facility] MllbdswVTKWETANJF7787-60-64 13:11:0010.8[facility] PdxsqusCYUOQZIBFB5986-21-45 13:11:009.9[facility] HhlzevvDLLUXRJMPG0845-48-62 13:11:001+ *ABN*(10/22/18 8:11 AM) [facility] PfjkaduVASYQLPIWE2318-94-78 13:11:002.4[facility]annHEMATOLOGY 2018-10-22 13:11:004.8[facility] QdygljvZSSQAWSIQV6422-82-78 13:11:0058.2[facility] EranghtUXNXCHTYJQ9849-04-02 13:11:0034.0[facility] QxtbdkvLLVNGSWQFJ0124-14-39 13:11:000.6[facility] VoyirltUAZUCJIBGL9866-41-15 13:11:003.4[facility] YKPCDADJIL9637-15-10 13:11:000.5[facility] QqaayzzJHGWQKBTUV6105-74-65 13:11:005.7 [facility] DuefxjhVUBVRPODIX3888-34-37 13:11:000.2[facility]annHEMATOLOGY 2018-10-22 13:11:000.1[facility] HermannCHEST 2 CIIXO1602-79-71 13:03:00 [facility] [address] [place] [address] Patient Name: ELSIE LOAIZA MR #: [id number] : 1950 Age/Sex: 67/F Req #: [id number] Adm Physician: Ordered by: MIKE BAL MD Report #: [id number] Location: OR Room/Be d: Procedure: 2014-1498 DX/CHEST 2 VIEWS Exam Date: 03/24/18 Exam [...] 130 6 COPY TO: MIKE BAL MD RHIKSOKLPJFF8480-07-65 16:03:65283 [facility] DdhurwrGNHVWNZNKXAE7099-21-04 16:03:0031[facility]annELECTROLYTES 2015-02-02 16:03:008.8[facility] CyybwbyZDJFFQGNVCCT7529-35-44 16:03:0011.7 [facility] GlnaeqtZGRTGPXTPYGW1473-67-08 16:03:64415Eyfacplk HermannELECTROLYTES 2015-02-02 16:03:09476Hbuzkczi MzcwzacVDSPJESMRTEY8606-34-20 16:03:003.7[facility] LgwzrdaYBZGMVGQUZDE0530-09-71 16:03:0020[facility] EqjwbbnIJZBKKNLJXPV8689-39-77 16:03:000.8[facility] JlrpzgrTOPLGLQSKEGR1198-35-28 16:03:0079[facility]
--- OUTSIDE RECORDS SUMMARY | 2020-03-18 19:51 | XMS REPORT | Continuity of Care Document ---
Author Author [employer] Organization [employer] Address Unknown Phone Unavailable Care Team Providers Care Substation Technician Name Role Phone Identity [employer] Unavailable Un available Problems Problem Status Onset Date Classification Date Reported Comments Source PERIPHERAL Active 02/24/2019 [facility] PERIPHERAL ANGIOGRAM /C INTERVENSION Active 11/09/2018 [facility] DX: K29.70=GASTRITIS, UNSPECIFIED, WITHO Active 10/08/2018 [facility] PERIPHERAL ANGIOGRAM /C INTERVENTION Active 09/23/2018 [facility] UNK Active 0 12/05/2016 [facility] V76.51 787.99 Active 01/18/2015 [facility] 250.00-DIAB TYPE 2/401.9-HYPERTENSION/78 Active 04/14/2014 [facility] 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 Problem 03/06[facility] Depression - motion (qualifier value) Active Problem 09/2016 [facility] [place] Gastroesophageal reflux disease (disorder) Active Problem 03/06/2019 [facility] Anemia (disorder) Resolved Problem 03/06/2019 CELESTINA [...] systemic arterial (disorder) Active Problem 03/06/2019 [facility] Irritable colon (disorder) Act ant[place] Problem [facility] [place] Neuropathy (disorder) Active [facility]06[facility] Peripheral vascular disease (disorder) Active Problem [facility] [facility] Urinary tract infectious disease (disorder) Resolved Problem 03/06/2019 [facility] changes in bowel habits(Confirmed) Active Problem 09/2013 [facility] SCREEN MALIG NEOP-COLON Active [facility] DIGESTVE SYST SYMPTM NEC Active [facility] Medications Medication Details Route Status Patient Instructions Ordering Provider Order Date Source Alprazolam 0.5 MG Oral Tablet [Xanax] Notes: With food or milk (Same as: Xanax) Inactive 03/04/2019 [facility] Benadryl 50 mg, 2 tab, Route: PO, Drug form: TAB, ONCE, Dosing Weight 63.636, kg, Priority: STAT, Start date: 03/04/19 12:47:00 CDT, Stop date: 03/04/19 12:47:00 CDT, 0 Inactive 03/04/2019 [facility] Pepcid Notes: (Same as: Pepcid ) Can be dilute in 5-10cc NS IVP: Slow IV push over at least 2 minutes. Inactive 03/04/2019 [facility] Solu-Medrol Notes: (Same as:So sam-MEDROL, A-Methapred) Inactive 03/04/2019 [facility] normal saline 0.9% IV 1,000 mL 1,000 mL, Rate: 100 ml/hr, Infuse over: 10 hr, Route: IV, Dosing Weight 63.636 kg, Total Volume: 1,000, Start date: 03/04/19 12:47:00 CDT, Duration: 30 day, Stop date: 04/03/19 12:46:00 CDT, 1.69, m2, 0 Inactive 03/04/2019 [facility] Imodium A-D EZ Chews 2 mg =, C HEW, BID, PRN as needed for loose stool, 0 Refill(s) Active 03/04/2019 [facility] Insulin Glargine Notes: (Same as: Lantus) Do not hold insulin without contacting prescriber WASTE: F/P - Black; E - Municipal Trash Bin "single patient use only" Stable for 28 days at room temperature Expires in days from Date Inactive 12/01/2018 [facility] Bystolic Notes: (same as: Byst olic) Inactive 12/01/2018 [facility] hydrochlorothiazide 25 mg oral tablet Notes: (Same as: Hydrodiuril) With food. Inactive 12/01/2018 [facility] Furosemide 40 MG Oral Tablet [Lasix] Notes: (Same as: Lasix) May cause GI upset. Give with food or milk. Inactive 12/01/2018 [facility] Hydrochlorothiazide 25 MG / Olmesartan m edoxomil 40 MG Oral Tablet 1 tab, Route: PO, Drug Form: TAB, Dosing Weight 61.364, kg, Daily, Start date: 12/01/18 9:00:00 CDT, Duration: 30 day, Stop date: 12/30/18 9:00:00 CDT No Longer Active 12/01/2018 [facility] clopidogrel Notes: (Same As: P lavix) Inactive 12/01/2018 [facility] Citalopram 20 mg, 2 tab, Route : PO, Drug form: TAB, Daily, Dosing Weight 61.364, kg, Start date: 12/01/18 9:00:00 CDT, Duration: 30 day, Stop date: 12/30/18 9:00:00 CDT Inactive 12/01/2018 [facility] Bupropion Notes: (Same as: Elza lbutrin XL) "Do Not Crush" Inactive 12/01/2018 [facility] Benicar 40 mg, 2 tab, Route: P O, Drug form: TAB, Daily, Start date: 12/01/18 9:00:00 CDT, Duration: 30 day, Stop date: 12/30/18 9:00:00 CDT Inactive 12/01/2018 [facility] atorvastatin Notes: (Same As: Lipitor) No Longer Active 12/01/2018 [facility] Hydralazine Notes: (Same as: A presoline) Push over 5 minutes No Longer Active 12/01/2018 [facility] mesalamine 1200 MG Enteric Coated Tablet 2.4 gm, 2 tab, Route: PO, Drug form: ECTAB, BID, Dosing Weight 61.364, kg, Start date: 11/30/18 17:00:00 CDT, Duration: 30 day, Stop date: 12/30/18 9:00:00 CDT No Longer Active 11/30/2018 [facility] Hyoscyamine Notes: (Same as: L evsin) Take 30 min before meal No Longer Active 11/30/2018 [facility] Tums Notes: (Same As: Tums) Ca lcium Carbonate 500 mg = 200 mg elemental calcium Dose = mg calcium carbonate ( mg elemental calcium) No Longer Active 11/30/2018 [facility] Aspirin 81 MG Enteric Coated Tablet Notes: Do not crush or chew. (Same As: Ecotrin) No Longer Active 11/30/2018 [facility] Insulin Lispro Notes: (Same as : Humalog) Roll in palms of hands gently; Do not shake vigorously. WASTE: F/P - Black; E - Municipal Trash Bin Stable for 28 days at room temperature. Expires in days from Date No Longer Active 11/30/2018 [facility] *Please bring pt's own mesalamine to [facility] for label* *Please bring pt's own mesalamine to [facility] for label*, ATTN:MARTIN, Drug form: MISC, Route: MISC, QSHIFT, 11/30/18 16:00:00 CDT, Duration: 30 day, Stop date: 12/30/18 8:00:00 CDT No Longer Active 11/30/2018 [facility] Insulin Lispro Notes: (Same as : Humalog) Roll in palms of hands gently; Do not shake vigorously. WASTE: F/P - Black; E - Municipal Trash Bin Stable for 28 days at room temperature. Expires in days from Date No Longer Active 11/30/2018 [facility] Glucagon 1 mg, Route: IM, Drug form: PDR/INJ, PRN, Dosing Weight 61.364, kg, PRN Blood Glucose Results, Start date: 11/30/18 15:27:00 CDT, Duration: 30 day, Stop date: 12/30/18 15:26:00 CDT No Longer Active 11/30/2018 [facility] Dextrose 50% Syringe 12.5 gm, 25 mL, Route: IVP, Drug Form: INJ, Dosing Weight 61.364, kg, PRN, PRN Blood Glucose Results, Start date: 11/30/18 15:27:00 CDT, Duration: 30 day, Stop date: 12/30/18 15:26:00 CDT No Longer Active 11/30/2018 [facility] Acetaminophen 325 MG / Hydrocodone Yaz trate 5 MG Oral Tablet Notes: (Same as: [place] 325/5) Do not ex ceed 4gm/day of acetaminophen. No Longer Active 11/30/2018 [facility] Morphine Notes: (Same as:MORPh ine Sulfate) No Longer Active 11/30/2018 [facility] Ondansetron Notes: (Same as: Z ofran) No Longer Active 11/30/2018 [facility] Diphenhydramine 25 mg, 1 tab, Route: PO, Drug form: TAB, Bedtime, Dosing Weight 61.364, kg, PRN Insomnia, Start date: 11/30/18 15:24:00 CDT, Duration: 30 day, Stop date: 12/30/18 15:23:00 CDT No Longer Active 11/30/2018 [facility] Nitroglycerin Notes: (Same as: Nitroquick, Nitrostat) "Do Not Crush" Sublingual tablet No Longer Active 11/30/2018 [facility] Sodium Chloride 0.9% IV 750 mL 750 mL, Rate: 75 ml/hr, Infuse over: 10 hr, Route: IV, Dosing Weight 61.364 kg, Total Volume: 750, Start date: 11/30/18 15:24:00 CDT, Duration: 10 hr, Stop date: 12/01/18 1:23:00 CDT, 1.66, m2 No Longer Active 11/30/2018 [facility] Sodium Chloride 0.9% (Bolus) IV 250 mL, 250 ml/hr, Infuse Over: 1 hr, Route: IV, 250, Drug form: INJ, ONCE, Dosing Weight 61.364 kg, Start date: 11/30/18 15:24:00 CDT, Stop date: 11/30/18 15:24:00 CDT Inactive 11/30/2018 [facility] citalopram 20 mg oral tablet 2 0 mg = 1 tab, PO, Daily, 0 Refill(s) Active 11/30/2018 [facility] Bupropion 150 mg, PO, Daily, 0 Refill(s) Active 11/30/2018 [facility] ALIVE MULTIVITAMIN FOR WOMEN A LIVE MULTIVITAMIN FOR WOMEN, 1 tablet, Refill(s) 0 Active 11/30/2018 [facility] hyoscyamine 0.125 mg oral tablet 0.125 mg = 1 tab, PO, QID, 0 Refill(s) Active 11/26/2018 [facility] nebivolol 10 MG Oral Tablet [Bystolic] 10 mg = 1 tab, PO, Daily, 0 Refill(s) Active 11/26/2018 [facility] Morphine Notes: (Same as:MORPh ine Sulfate) Inactive 10/26/2018 [facility] Acetaminophen 325 MG / Hydrocodone Yaz trate 5 MG Oral Tablet Notes: (Same as: [place] 325/5) Do not ex ceed 4gm/day of acetaminophen. Inactive 10/26/2018 [facility] Nitroglycerin Notes: (Same as: Nitroquick, Nitrostat) "Do Not Crush" Sublingual tablet Inactive 10/26/2018 [facility] Sodium Chloride 0.9% IV 750 mL 750 mL, Rate: 75 ml/hr, Infuse over: 10 hr, Route: IV, Dosing Weight 65.909 kg, Total Volume: 750, Start date: 10/26/18 11:20:00 CDT, Duration: 10 hr, Stop date: 10/26/18 21:19:00 CDT, 1.72, m2 Inactive 10/26/2018 [facility] clopidogrel 75 mg oral tablet 75 mg = 1 tab, PO, Daily, # 90 tab, 1 Refill(s) Active 10/26/2018 [facility] Diphenhydramine 50 mg, 2 tab, Route: PO, Drug form: TAB, ONCE, Dosing Weight 65.909, kg, Priority: NOW, Start date: 10/26/18 8:24:00 CDT, Stop date: 10/26/18 8:24:00 CDT Inactive 10/26/2018 [facility] Alprazolam Notes: With food or milk (Same as: Xanax) Inactive 10/26/2018 [facility] normal saline 0.9% IV 1,000 mL 1,000 mL, Rate: 250 ml/hr, Infuse over: 4 hr, Route: IV, Dosing Weight 65.909 kg, Total Volume: 1,000, Priority: NOW, Start date: 10/26/18 7:16:00 CDT, Duration: 30 day, Stop date: 11/25/18 7:15:00 CDT, 1.72, m2 Inactive 10/26/2018 [facility] Tums 500 mg, CHEW, BID, 0 Refi ll(s) Active 10/22/2018 [facility] mesalamine 1200 MG Enteric Coated Tablet 2.4 gm = 2 tab, PO, BID, 0 Refill(s) Active 10/22/2018 [facility] gabapentin 600 MG Oral Tablet 300 mg = 0.5 tab, PO, Bedtime, 0 Refill(s) Active 10/22/2018 [facility] nebivolol 2.5 MG Oral Tablet [Bystolic] 2.5 mg = 1 tab, PO, Daily, # 30 tab, 0 Refill(s) Active 10/22/2018 [facility] Hydralazine Hydrochloride 50 MG Oral Tablet 50 mg = 1 tab, PO, TID, # 90 tab, 3 Refill(s) Active 10/22/2018 [facility] Hydrochlorothiazide 25 MG / Olmesartan m edoxomil 40 MG Oral Tablet 1 tab, PO, Daily, # 30 tab, 0 Refill(s) Active 10/22/2018 [facility] potassium chloride 10 mEq oral capsule, extended release 10 mEq = 1 cap, PO, Daily, 0 Refill(s) Active 10/22/2018 [facility] Furosemide 40 MG Oral Tablet [Lasix] 40 mg = 1 tab, PO, Daily, # 30 tab, 0 Refill(s) Active 10/22/2018 [facility] iron infusions iron infusions, IV, qWeek, Refill(s) 0 Active 10/22/2018 [facility] Nitroglycerin Notes: (Same as: Nitroquick, Nitrostat) "Do Not Crush" Sublingual tablet No Longer Active 12/09/2016 [facility] Acetaminophen 325 MG / Hydrocodone Yaz trate 5 MG Oral Tablet Notes: (Same as: [place] 325/5) Do not ex ceed 4gm/day of acetaminophen. No Longer Active 12/09/2016 [facility] Morphine Notes: (Same as:MORPh ine Sulfate) No Longer Active 12/09/2016 [facility] Sodium Chloride 0.154 MEQ/ML Injectable Solution 750 mL, Rate: 75 ml/hr, Infuse over: 10 hr, Route: IV, Dosing Weight 63.636 kg, Total Volume: 750, Start date: 12/09/16 12:10:00 CDT, Duration: 10 hr, Stop date: 12/09/16 22:09:00 CDT Inactive 12/09/2016 [facility] Keflex = 1 tab, PO, TID, 1 tab , 3 times a day, 0 Refill(s) Active 12/09/2016 [facility] Sodium Chloride 0.154 MEQ/ML Injectable Solution 500 mL, Rate: 25 ml/hr, Infuse over: 20 hr, Route: IV, Dosing Weight 60.909 kg, Total Volume: 500, Start date: 02/06/15 13:03:00, Duration: 30 day, Stop date: 03/08/15 13:02:00 Inactive 02/06/2015 [facility] Cardizem 0 Refill(s) Active 02/02/2015 [facility] valsartan 320 MG Oral Tablet [Diovan] 320 mg = 1 tab, PO, Daily, # 30 tab, 0 Refill(s) Active 02/02/2015 [facility] vilazodone hydrochloride 10 MG Oral Tablet [Viibryd] 10 mg = 1 tab, PO, Daily, 0 Refill(s) Active 02/02/2015 [facility] Unknown Home Medication 1 tab, PO, BID, Refill(s) 0 Active 02/02/2015 [facility] 0.65 ML exenatide 3.08 MG/ML Prefilled S yringe [Bydureon] 2 mg, SUB-Q, qWeek, # 4 ea, 0 Refill(s) Active 02/02/2015 [facility] Lantus 18 unit, SUB-Q, Bedtime , 0 Refill(s) Active 02/02/2015 [facility] Humalog 14 units, SUB-Q, TID-B efore Meals, 0 Refill(s) Active 02/02/2015 [facility] Allergies, Adverse Reactions, Alerts Substance Category Reaction Severity Reaction type Status Date Reported Comments Source contrast media (iodine-based) Assertion Drug aller gy Active [facility] No Known Medication Allergies Assertion Drug aller gy [facility] Immunizations No Data Provided for This Section Results Order Name Results Value Reference Range Date Interpretation Comments Source ELECTROLYTES AGAP 13.7 10.0 - 20.0 03/04/2019 [facility] ELECTROLYTES B/C Ratio 21 6 - 25 03/04/2019 [facility] ELECTROLYTES Globulin 4.9 2.7 - 4.2 03/04/2019 [facility] ELECTROLYTES A/G Ratio 0.5 0.7 - 1.6 03/04/2019 [facility] ELECTROLYTES Glucose Lvl 145 70 - 99 03/04/2019 [facility] ELECTROLYTES BUN 48 7 - 22 03/04/2019 [facility] ELECTROLYTES Creatinine Lvl 2.2 7 0.50 - 1.40 03/04/2019 [facility] ELECTROLYTES Sodium Lvl 142 135 - 145 03/04/2019 [facility] ELECTROLYTES Potassium Lvl 3.7 3.5 - 5.1 03/04/2019 [facility] ELECTROLYTES Chloride Lvl 111 95 - 109 03/04/2019 [facility] ELECTROLYTES CO2 21 24 - 32 03/04/2019 [facility] ELECTROLYTES Calcium Lvl 9.1 8.5 - 10.5 03/04/2019 [facility] ELECTROLYTES Total Protein 7.5 6.4 - 8.4 03/04/2019 [facility] ELECTROLYTES Albumin Lvl 2.6 3.5 - 5.0 03/04/2019 [facility] ELECTROLYTES ALT 15 0 - 65 03/04/2019 [facility] ELECTROLYTES AST 13 0 - 37 03/04/2019 [facility] ELECTROLYTES Alk Phos 103 39 - 136 03/04/2019 [facility] ELECTROLYTES Bili Total 0.4 0.2 - 1.3 03/04/2019 [facility] ELECTROLYTES eGFR 22 03/04/2019 Result Comment: [...] should be multiplied by the estimated BMI. [facility] HEMATOLOGY WBC 10.0 3.7 - 10.4 03/04/2019 [facility] HEMATOLOGY RBC 4.23 4.20 - 5.40 03/04/2019 [facility] HEMATOLOGY Hgb 10.4 12.0 - 16.0 03/04/2019 [facility] Hct 31.7 36.0 - 48.0 03/04/2019 [facility] MCV 75.1 80.0 - 98.0 03/04/2019 [facility] MCH 24.6 27.0 - 31.0 03/04/2019 [facility] MCHC 32.8 32.0 - 36.0 03/04/2019 [facility] RDW 16.9 11.5 - 14.5 03/04/2019 [facility] Platelet 397 133 - 450 03/04/2019 [facility] MPV 7.5 7.4 - 10.4 03/04/2019 [facility] Segs 44.6 45.0 - 75.0 03/04/2019 [facility] Lymphocytes 44.8 20.0 - 40.0 03/04/2019 [facility] Monocytes 7.1 2.0 - 12.0 03/04/2019 [facility] Eosinophils 2.7 0.0 - 4.0 03/04/2019 [facility] Basophils 0.8 0.0 - 1.0 03/04/2019 [facility] Neutrophils # 4.5 1.5 - 8.1 03/04/2019 [facility] Lymphocytes # 4.5 1.0 - 5.5 03/04/2019 [facility] Monocytes # 0.7 0.0 - 0.8 03/04/2019 [facility] Eosinophils # 0.3 0.0 - 0.5 03/04/2019 [facility] Basophils # 0.1 0.0 - 0.2 03/04/2019 [facility] Microcyte 1+ *ABN* (03/04/19 12:50 PM) None Seen 03/04/2019 [facility] CHEM PANEL Glucose Lvl 236 70 - 99 12/01/2018 [facility] CHEM PANEL BUN 58 7 - 22 12/01/2018 [facility] CHEM PANEL eGFR 21 12/01/2018 Result [...] should be multiplied by the estimated BMI. [facility] CHEM PANEL Chloride Lvl 108 95 - 109 12/01/2018 [facility] CHEM PANEL Creatinine Lvl 2.32 0.50 - 1.40 12/01/2018 [facility] CHEM PANEL Potassium Lvl 4.6 3.5 - 5.1 12/01/2018 [facility] CHEM PANEL Sodium Lvl 139 135 - 145 12/01/2018 [facility] CHEM PANEL CO2 24 24 - 32 12/01/2018 [facility] CHEM PANEL Calcium Lvl 8.8 8.5 - 10.5 12/01/2018 [facility] CHEM PANEL AGAP 11.6 10.0 - 20.0 12/01/2018 [facility] HEMATOLOGY WBC 11.2 3.7 - 10.4 12/01/2018 [facility] HEMATOLOGY RBC 4.34 4.20 - 5.40 12/01/2018 [facility] HEMATOLOGY MCH 23.8 27.0 - 31.0 12/01/2018 [facility] HEMATOLOGY MCV 77.2 80.0 - 98.0 12/01/2018 [facility] HEMATOLOGY MCHC 30.8 32.0 - 36.0 12/01/2018 [facility] HEMATOLOGY Hct 33.5 36.0 - 48.0 12/01/2018 [facility] HEMATOLOGY Hgb 10.3 12.0 - 16.0 12/01/2018 [facility] HEMATOLOGY RDW 15.3 11.5 - 14.5 12/01/2018 [facility] HEMATOLOGY MPV 7.7 7.4 - 10.4 12/01/2018 [facility] HEMATOLOGY Platelet 313 133 - 450 12/01/2018 [facility] CHEM PANEL Globulin 5.1 2.7 - 4.2 11/26/2018 [facility] CHEM PANEL A/G Ratio 0.5 0.7 - 1.6 11/26/2018 [facility] CHEM PANEL AGAP 11.0 10.0 - 20.0 11/26/2018 [facility] CHEM PANEL B/C Ratio 21 6 - 25 11/26/2018 [facility] CHEM PANEL eGFR 26 11/26/2018 Result [...] should be multiplied by the estimated BMI. [facility] CHEM PANEL Alk Phos 143 39 - 136 11/26/2018 [facility] CHEM PANEL AST 21 0 - 37 11/26/2018 [facility] CHEM PANEL ALT 23 0 - 65 11/26/2018 [facility] CHEM PANEL Bili Total 0.3 0.2 - 1.3 11/26/2018 [facility] CHEM PANEL BUN 42 7 - 22 11/26/2018 [facility] CHEM PANEL Glucose Lvl 213 70 - 99 11/26/2018 [facility] CHEM PANEL Potassium Lvl 5.0 3.5 - 5.1 11/26/2018 [facility] CHEM PANEL Sodium Lvl 136 135 - 145 11/26/2018 [facility] CHEM PANEL Creatinine Lvl 1.98 0.50 - 1.40 11/26/2018 [facility] CHEM PANEL Total Protein 7.9 6.4 - 8.4 11/26/2018 [facility] CHEM PANEL Albumin Lvl 2.8 3.5 - 5.0 11/26/2018 [facility] CHEM PANEL Calcium Lvl 9.4 8.5 - 10.5 11/26/2018 [facility] CHEM PANEL Chloride Lvl 105 95 - 109 11/26/2018 [facility] CHEM PANEL CO2 25 24 - 32 11/26/2018 [facility] HEMATOLOGY WBC 9.9 3.7 - 10.4 11/26/2018 [facility] HEMATOLOGY RDW 15.1 11.5 - 14.5 11/26/2018 [facility] HEMATOLOGY RBC 4.84 4.20 - 5.40 11/26/2018 [facility] HEMATOLOGY MCHC 31.5 32.0 - 36.0 11/26/2018 [facility] MCV 76.9 80.0 - 98.0 11/26/2018 [facility] MCH 24.2 27.0 - 31.0 11/26/2018 [facility] Hgb 11.7 12.0 - 16.0 11/26/2018 [facility] Hct 37.2 36.0 - 48.0 11/26/2018 [facility] Platelet 367 133 - 450 11/26/2018 [facility] MPV 7.7 7.4 - 10.4 11/26/2018 [facility] Eosinophils # 0.2 0.0 - 0.5 11/26/2018 [facility] Microcyte 1+ *ABN* (11/26/18 1:14 PM) None Seen 11/26/2018 [facility] Basophils # 0.1 0.0 - 0.2 11/26/2018 [facility] Monocytes # 0.6 0.0 - 0.8 11/26/2018 [facility] Lymphocytes # 3.4 1.0 - 5.5 11/26/2018 [facility] Neutrophils # 5.7 1.5 - 8.1 11/26/2018 [facility] Monocytes 6.2 2.0 - 12.0 11/26/2018 [facility] Eosinophils 2.3 0.0 - 4.0 11/26/2018 [facility] Basophils 0.6 0.0 - 1.0 11/26/2018 [facility] Lymphocytes 33.8 20.0 - 40.0 11/26/2018 [facility] Segs 57.1 45.0 - 75.0 11/26/2018 [facility] CHEM PANEL eGFR 34 10/22/2018 Result [...] should be multiplied by the estimated BMI. [facility] CHEM PANEL Sodium Lvl 138 135 - 145 10/22/2018 [facility] CHEM PANEL Creatinine Lvl 1.58 0.50 - 1.40 10/22/2018 [facility] CHEM PANEL BUN 32 7 - 22 10/22/2018 [facility] CHEM PANEL Glucose Lvl 236 70 - 99 10/22/2018 [facility] CHEM PANEL CO2 21 24 - 32 10/22/2018 [facility] CHEM PANEL Total Protein 7.8 6.4 - 8.4 10/22/2018 [facility] CHEM PANEL Albumin Lvl 2.6 3.5 - 5.0 10/22/2018 [facility] CHEM PANEL Calcium Lvl 9.1 8.5 - 10.5 10/22/2018 [facility] CHEM PANEL Chloride Lvl 110 95 - 109 10/22/2018 [facility] CHEM PANEL Potassium Lvl 4.9 3.5 - 5.1 10/22/2018 [facility] CHEM PANEL ALT 19 0 - 65 10/22/2018 [facility] CHEM PANEL AST 16 0 - 37 10/22/2018 [facility] CHEM PANEL Bili Total 0.4 0.2 - 1.3 10/22/2018 [facility] CHEM PANEL Alk Phos 148 39 - 136 10/22/2018 [facility] CHEM PANEL B/C Ratio 20 6 - 25 10/22/2018 [facility] CHEM PANEL Globulin 5.2 2.7 - 4.2 10/22/2018 [facility] CHEM PANEL A/G Ratio 0.5 0.7 - 1.6 10/22/2018 [facility] CHEM PANEL AGAP 11.9 10.0 - 20.0 10/22/2018 [facility] HEMATOLOGY MPV 7.4 7.4 - 10.4 10/22/2018 [facility] HEMATOLOGY Platelet 430 133 - 450 10/22/2018 [facility] HEMATOLOGY MCV 76.0 80.0 - 98.0 10/22/2018 [facility] HEMATOLOGY RDW 15.8 11.5 - 14.5 10/22/2018 [facility] MCH 25.0 27.0 - 31.0 10/22/2018 [facility] MCHC 32.8 32.0 - 36.0 10/22/2018 [facility] HEMATOLOGY RBC 4.31 4.20 - 5.40 10/22/2018 [facility] Hct 32.8 36.0 - 48.0 10/22/2018 [facility] Hgb 10.8 12.0 - 16.0 10/22/2018 [facility] WBC 9.9 3.7 - 10.4 10/22/2018 [facility] Microcyte 1+ *ABN* (10/22/18 8:11 AM) None Seen 10/22/2018 [facility] Eosinophils 2.4 0.0 - 4.0 10/22/2018 [facility] Monocytes 4.8 2.0 - 12.0 10/22/2018 [facility] Segs 58.2 45.0 - 75.0 10/22/2018 [facility] Lymphocytes 34.0 20.0 - 40.0 10/22/2018 [facility] Basophils 0.6 0.0 - 1.0 10/22/2018 [facility] Lymphocytes # 3.4 1.0 - 5.5 10/22/2018 [facility] Monocytes # 0.5 0.0 - 0.8 10/22/2018 [facility] Neutrophils # 5.7 1.5 - 8.1 10/22/2018 [facility] Eosinophils # 0.2 0.0 - 0.5 10/22/2018 [facility] Basophils # 0.1 0.0 - 0.2 10/22/2018 [facility] ELECTROLYTES Chloride Lvl 102 95 - 109 02/02/2015 [facility] ELECTROLYTES CO2 31 24 - 32 02/02/2015 [facility] ELECTROLYTES Calcium Lvl 8.8 8.5 - 10.5 02/02/2015 [facility] ELECTROLYTES AGAP 11.7 10.0 - 20.0 02/02/2015 [facility] ELECTROLYTES Sodium Lvl 141 135 - 145 02/02/2015 [facility] ELECTROLYTES Glucose Lvl 234 70 - 99 02/02/2015 [facility] ELECTROLYTES Potassium Lvl 3.7 3.5 - 5.1 02/02/2015 [facility] ELECTROLYTES BUN 20 7 - 22 02/02/2015 [facility] ELECTROLYTES Creatinine Lvl 0.8 0.5 - 1.4 02/02/2015 [facility] ELECTROLYTES eGFR 79 02/02/2015 Result Comment: [...] should be multiplied by the estimated BMI. [facility] Pathology Reports No Data Provided for This Section Diagnostic Reports Report Value Date Source Brain wo contrast MRI PATIENT NAME: ELSIE LOAIZA : 1950; Age: 67 years y/o Female MR: [id number] STUDY: Brain wo contrast MRI 06/18/2017 10:23 AM LIGHTER ORDERING PHYSICIAN: Vaibhav Jarrett MD CLINICAL INDICATION: [...] . IMPRESSION: Delayed gastric emptying. SL:13 2014 [facility] Consultation Notes No Data Provided for This Section Discharge Summaries No Data Provided for This Section History and Physicals No Data Provided for This Section Vital Signs Vital Sign Value Date Comments Source Height 157.48 cm 03/04/2019 [facility] Weight 63.636 03/04/2019 [facility] BMI Calculated 25.66 03/04/2019 [facility] Heart Rate 72 12/01/2018 [facility] Systolic (mm Hg) 90 12/01/2018 [facility] Diastolic (mm Hg) 56 12/01/2018 [facility] Respitory Rate 18 12/01/2018 [facility] Temperature Oral (F) 98.5 F 12/01/2018 [facility] Temperature Oral (F) 98.7 F 12/01/2018 [facility] Systolic (mm Hg) 126 12/01/2018 [facility] Diastolic (mm Hg) 62 12/01/2018 [facility] Respitory Rate 16 12/01/2018 [facility] Heart Rate 71 12/01/2018 [facility] Systolic (mm Hg) 123 12/01/2018 [facility] Diastolic (mm Hg) 68 12/01/2018 [facility] Temperature Oral (F) 97.7 F 12/01/2018 [facility] Respitory Rate 18 12/01/2018 [facility] Heart Rate 65 12/01/2018 [facility] Weight 61.364 11/26/2018 [facility] BMI Calculated 24.74 11/26/2018 [facility] Height 157.48 cm 11/26/2018 [facility] Systolic (mm Hg) 136 10/26/2018 [facility] Diastolic (mm Hg) 62 10/26/2018 [facility] Systolic (mm Hg) 148 10/26/2018 [facility] Diastolic (mm Hg) 80 10/26/2018 [facility] Systolic (mm Hg) 152 10/26/2018 [facility] Diastolic (mm Hg) 65 10/26/2018 [facility] Temperature Oral (F) 98.0 F 10/26/2018 [facility] Respitory Rate 19 10/26/2018 [facility] BMI Calculated 26.15 10/22/2018 [facility] Weight 65.909 10/22/2018 [facility] Height 158.75 cm 10/22/2018 [facility] Heart Rate 83 10/22/2018 [facility] Temperature Oral (F) 97.8 F 10/22/2018 [facility] Respitory Rate 20 10/22/2018 [facility] Heart Rate 87 12/10/2016 [facility] Temperature Oral (F) 97.4 F 12/10/2016 [facility] Respitory Rate 18 12/10/2016 [facility] Systolic (mm Hg) 123 12/10/2016 [facility] Diastolic (mm Hg) 74 12/10/2016 [facility] Temperature Oral (F) 98.2 F 12/10/2016 [facility] Respitory Rate 16 12/10/2016 [facility] Systolic (mm Hg) 160 12/10/2016 [facility] Diastolic (mm Hg) 84 12/10/2016 [facility] Respitory Rate 16 12/10/2016 [facility] Temperature Oral (F) 97.6 F 12/10/2016 [facility] Systolic (mm Hg) 163 12/10/2016 [facility] Diastolic (mm Hg) 89 12/10/2016 [facility] Height 157.48 cm 12/09/2016 [facility] Weight 63.636 12/09/2016 [facility] BMI Calculated 25.66 12/09/2016 [facility] Systolic (mm Hg) 162 02/06/2015 [facility] Diastolic (mm Hg) 95 02/06/2015 [facility] Respitory Rate 12 02/06/2015 [facility] Systolic (mm Hg) 145 02/06/2015 [facility] Diastolic (mm Hg) 95 02/06/2015 [facility] Respitory Rate 15 02/06/2015 [facility] Systolic (mm Hg) 145 02/06/2015 [facility] Diastolic (mm Hg) 121 02/06/2015 [facility] Respitory Rate 15 02/06/2015 [facility] Heart Rate 99 02/06/2015 [facility] Weight 60.909 02/02/2015 [facility] BMI Calculated 24.56 02/02/2015 [facility] Height 157.48 cm 02/02/2015 [facility] Temperature Oral (F) 97.8 F 02/02/2015 [facility] Heart Rate 88 02/02/2015 [facility] Encounters Location Location Details Encounter Type Encounter Number Reason For Visit Attending Provider ADM Date DC Date Status Source [facility] Outpatient [id number] Edgar Bowden 2014 04/20/2014 [facility] Bedded Outpatient [id number] Edgar Bowden 02/06/2015 02/06/2015 [facility] Bedded Outpatient [id number] Vaibhav Jarrett 12/09/2016 12/10/2016 [facility] [place] [facility] [id number] Vaibhav Jarrett 06/18/2017 06/19/2017 CELESTINA Nugent [facility] Bedded Outpatient [id number] Vaibhav Jarrett 10/26/2018 10/27/2018 [facility] Bedded Outpatient [id number] Vaibhav Jarrett 11/30/2018 12/01/2018 [facility] Bedded Outpatient [id number] Vaibhav Jarrett 03/04/2019 03/04/2019 [facility] Procedures Procedure Code Date Perfomer Comments Source Angiogram [id number] 10/26/2018 [facility] Rotational atherectomy [id number] 12/09/2016 [facility] Colonoscopy [id number] 07/20/2013 [facility] Cholecystectomy [id number] 07/20/2012 [facility] Removal of spinal cord lesion [id number] 07/20/2002 [facility] Tubal ligation [id number] 07/20/1995 [facility]ar[facility] [id number] [facility] Tonsillectomy [id number] [facility] Assessment and Plan Assessment and Plan Date [...] two weeks. 3. Continue current medications. 12/10/2016 [facility] Plan of Care No Data Provided for This Section Social History Social History Date Source Social History TypeResponse Alcohol Never Substance Abuse Use: None. Smoking Status Never smoker; Exposure to Tobacco Smoke None; Cigarette Smoking Last 365 Days No; Reg Smoking Cessation Counseling No entered on: 03/04/19 03/04/2019 [facility] Social History TypeResponse Substance Abuse 1 Alcohol Never2 Smoking Status Never smoker; Exposure to Tobacco Smoke None; Cigarette Smoking Last 365 Days No; Reg Smoking Cessation Counseling No [id number] 07/19/2013 CELESTINA Nugent Family History No Data Provided for This Section Advance Directives No Data Provided for This Section Functional Status No Data Provided for This Section
--- NOTE | 2020-03-18 20:08 | NUR ---
BGL 127MG/DL, PT REFUSED INSULIN 4 UNIT SUBCU PER SLIDING SCALE. PT STATES, IF SHE TAKES THE INSULIN IT WILL DROP SUGAR 20 PTS OR MORE LOWER
[2020-03-18] MEDS: INSULIN REGULAR, HUMAN 100 UNIT/1 ML 3ML VIAL SQ SCH (20:14)
[2020-03-18 20:47] LABS: HYPOCHROMASIA MODERATE; RBC MORPHOLOGY COMMENT ABNORMAL
[2020-03-18 22:30] VITALS: BP 181/89
--- NOTE | 2020-03-18 22:30 | NUR ---
RECEIVED PATIENT FROM ER. PATIENT IS RESTING IN BED. PATIENT C/O SOB WITH O2 AT 4L, O2 SAT AT 98%. PATIENT IS HAVING ACCESSORY MUSCLE BREATHING. CALLED DR BRAVO. ORDER RECEIVED FOR LASIX AT THIS TIME.
[2020-03-18] MEDS: FUROSEMIDE INJ 10 MG/ML 4 ML VIAL IV SCH (22:57)
--- NOTE | 2020-03-18 23:24 | History and Physical ---
HISTORY OF PRESENT ILLNESS: A 69-year-old lady, who presented to the emergency department was brought by EMS with increased shortness of breath since early in the morning. The patient is known to have a history of chronic renal failure and need her dialysis appointment in view of . Also, saturation in the emergency room department was of 93%. The patient did have a chest x-ray done with evidence of cardiomegaly with pulmonary edema and small pleural effusion. A laboratory data disclosed; hemoglobin 9.6, white blood cell count 10.90, and platelet count 310,000. Sodium 137, potassium 4.5, chloride 102, CO2 21, BUN 31, and creatinine 3.608. PAST MEDICAL HISTORY: The patient is known to have a history of hypertension, diabetes mellitus, UTIs, anemia, depression, and hyperlipidemia. In addition, history of DVT and PE. History of chronic kidney disease. PAST SURGICAL HISTORY: Previous cholecystectomy, back surgery, and cataract removal. 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 surgery from leg clots, which were removed. in the right eye noted. This is visible. problems as mentioned previously, anemia, also neuropathy in feet. SOCIAL HISTORY: No tobacco, no alcohol abuse that I am aware. FAMILY HISTORY: Noncontributory. ALLERGIES: NO KNOWN ALLERGIES. REVIEW OF SYSTEMS: As initially reported in the ER. CONSTITUTIONAL: No reports symptoms. CARDIOVASCULAR: No reported chest pain, PND, swelling in the legs . RESPIRATORY: Complains of shortness of breath as mentioned in the history of present illness. No hemoptysis was reported. GI: No reported abdominal pain, nausea, or vomiting. No diarrhea. No hematemesis. No melena. GENITOURINARY: No dysuria, hematuria, or frequency. NEUROLOGIC: No focal weakness. MUSCULOSKELETAL: . MEDICATIONS: At the time of admission as per medication list. PHYSICAL EXAMINATION: GENERAL: Revealed the patient is well developed, in no apparent distress. HEENT: Head is normocephalic and atraumatic. Extraocular movements are intact. NECK: Supple. No JVD. Thyroid was not enlarged. LUNGS: Rales noted. HEART: Regular rate and rhythm. ABDOMEN: Soft and nontender. EXTREMITIES: No edema. NEURO: 2+ pedal edema. LABORATORY DATA: Noted. EKG, sinus rhythm, no acute changes. ASSESSMENT: A 69-year-old lady admitted with shortness of breath and chest x-rays consistent with pulmonary edema. The patient was admitted to the hospital with the following impression: 1. Pulmonary edema. 2. Volume overload. 3. End-stage renal disease. 4. History of hypertension. 5. History of diabetes mellitus. 6. History of anemia. 7. History of depression. 8. History of DVT and PE. PLAN OF CARE: Monitor blood pressure and pulse. Monitor O2 saturation. Reconcile home medications. Consult Pulmonary. We will proceed to review old records, as the patient was recently discharged on March 13, 2020. The patient at that time was discharged home . She did remain in the hospital from March 06 until March 14. At that time, she presented with a pulmonary edema and acute kidney injury. She did have a Mcpherson catheter placed at this time. The patient did receive antibiotics at that time. Culture revealed evidence of Klebsiella pneumoniae and E. coli, sensitive to strains. Empirically placed on antibiotic for pneumonia. The patient at that time did have temporary dialysis line that was placed that was subsequently converted to access. The patient at that time was followed up with Dr. Akers. The patient does follow up with the patient's primary care physician, Dr. Aldo Espinosa. The goal of treatment and hospitalization is to go ahead and resume the patient's medications and consult Pulmonary. Glycemic control. We will review home medications. MD JAIRO Spence/SELENE /[id number]
--- NOTE | 2020-03-18 23:43 | NUR ---
DR BRAVO ROUNDED. WANTED PATIENT TO HAVE STAT DIALYSIS. 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 AWAITING FOR MD TO CALL BACK
[2020-03-18] MEDS ORDERED: DIPHENHYDRAMINE HCL 25 MG CAP PO PRN (23:45)
[2020-03-18] MEDS ORDERED: HYDROCODONE/APAP 5MG-325MG TAB PO PRN (23:45)
[2020-03-18] MEDS ORDERED: COLCHICINE 0.6 MG TAB PO PRN (23:45)
[2020-03-18 23:52] LABS: ABG HCO3 25 mmol/L (22-26); ABG PCO2 39 mmHg (35-45); ABG PH 7.41 (7.35-7.45); ABG PO2 86 mmHg (80-105); ABG TCO2 26
[2020-03-19] VITALS (7 sets, daily range): BP systolic 138–181; BP diastolic 47–89
--- NOTE | 2020-03-19 00:10 | NUR ---
SPOKE TO DR NEAL THAT DR BRAVO REQUESTED FOR PATIENT TO HAVE STAT DIALYSIS. DR NEAL WANTED TO CONSULT WITH DR BRAVO. DR. BRAVO'S PHONE NUMBER WAS GIVEN TO DR NEAL
--- NOTE | 2020-03-19 00:20 | NUR ---
DR NEAL CALLED BACK AND GAVE ORDER FOR DIALYSIS STAT
--- NOTE | 2020-03-19 00:40 | NUR ---
NOTIFIED CHARGE NURSE. CHARGE NURSE SPOKE WITH DIALYSIS CENTER TO HAVE STAT DIALYSIS PER DR NEAL
--- NOTE | 2020-03-19 00:44 | NUR ---
SPOKE TO DIALYSIS NURSE AND RELATED THE MESSAGE FROM DR NEAL. DIALYSIS NURSE SAID HE WOULD BE AT THE HOSPITAL SOON POSSIBLE
--- NOTE | 2020-03-19 01:00 | NUR ---
OBTAINED CONSENT FORM FOR HEMODIALYSIS
--- NOTE | 2020-03-19 02:00 | NUR ---
DIALYSIS NURSE IS HERE TO START DIALYSIS
[2020-03-19] MEDS ORDERED: HEPARIN SOD (PORCINE) 1000 UNIT/ML SDV ONE (02:09)
[2020-03-19] MEDS ORDERED: SODIUM CHLORIDE 0.9% 1000ML 1,000 ML ONE (02:09)
--- NOTE | 2020-03-19 04:45 | NUR ---
DIALYSIS IS DONE AT THIS TIME. PATIENT PUT OUT 2.8L. VITAL SIGN STABLE AT THIS TIME. PATIENT IS FEELING MUCH BETTER. PATIENT DENIES OF ANY SOB AT THIS TIME. CONTINUE TO MONITOR CLOSELY
[2020-03-19] MEDS: LEVOTHYROXINE SODIUM 50 MCG TAB PO SCH (06:08)
[2020-03-19] MEDS: FUROSEMIDE INJ 10 MG/ML 4 ML VIAL IV SCH ×3 (06:08→20:38)
[2020-03-19 07:02] LABS: BASOPHILS # (AUTO) 0.1 (0.0-0.1); BASOPHILS % 0.9 % (0.0-1.0); EOSINOPHILS # (AUTO) 0.2 (0.0-0.4); EOSINOPHILS % 1.3 % (0.0-6.0); HEMATOCRIT 36.3 % (34.2-44.1); HEMOGLOBIN 10.3 g/dL (12.0-16.0); LYMPHOCYTES # (AUTO) 2.1 (1.0-3.2); LYMPHOCYTES % 17.6 % (18.0-39.1); MEAN CORPUSCULAR HEMOGLOBIN 25.4 pg (28-32); MEAN CORPUSCULAR HGB CONC 28.4 g/dL (31-35); MEAN CORPUSCULAR VOLUME 89.4 fL (81-99); MONOCYTES # (AUTO) 0.6 (0.2-0.8); MONOCYTES % 4.8 % (4.4-11.3); NEUTROPHILS # (AUTO) 8.8 (2.1-6.9); NEUTROPHILS % 74.9 % (38.7-80.0); PLATELET COUNT 298 x10e3/uL (140-360); RED BLOOD COUNT 4.06 x10e6/uL (3.6-5.1); RED CELL DISTRIBUTION WIDTH 16.3 % (11.7-14.4)
--- NOTE | 2020-03-19 07:10 | NUR ---
RCD PT AT BED PT IS ALERT AND ORIENTED RESTING ON BED IV PATENT BY SALINE FLUSH DELANEY DRAINING BY GRAVITY ,BED LOW AND LOCKED CALL LIGHT IN REACH
[2020-03-19] MEDS: INSULIN REGULAR, HUMAN 100 UNIT/1 ML 3ML VIAL SQ SCH ×4 (07:30→21:18)
[2020-03-19 07:32] LABS: ALBUMIN 2.8 g/dL (3.5-5.0); ALBUMIN/GLOBULIN RATIO 0.7 (0.8-2.0); ANION GAP 20.8 mmol/L (8-16); CALCIUM 8.3 mg/dL (8.4-10.2); CREATININE, SERUM 3.77 mg/dL (0.57-1.11); POTASSIUM 4.8 mmol/L (3.5-5.1)
[2020-03-19] MEDS: ALLOPURINOL 100 MG TAB PO SCH ×3 (08:00→16:39)
--- NOTE | 2020-03-19 08:05 | Diagnostic Imaging Report ---
EXAMINATION: CHEST SINGLE (PORTABLE) INDICATION: EVAL PULMONARY EDEMA COMPARISON: Radiograph from 03/18/2020. FINDINGS: Dual lumen central venous catheter projects over the right atrium. The heart is enlarged. Pulmonary vasculature is distended and indistinct. Patchy bilateral perihilar opacities. Hazy right base opacity. Confluent left base opacity. No pneumothorax. IMPRESSION: Cardiomegaly with pulmonary edema and small pleural effusions. Findings appear mildly improved when compared to prior study. Infection not excluded. Signed by: Brett Alves MD on 03/19/2020 8:02 AM
[2020-03-19] MEDS: DOXAZOSIN MESYLATE 2 MG TAB PO SCH ×2 (09:00→10:38)
[2020-03-19] MEDS ORDERED: FUROSEMIDE 40 MG TAB PO SCH (09:00)
[2020-03-19] MEDS: ASPIRIN 81 MG CHEW TAB PO SCH (09:00)
[2020-03-19] MEDS: CITALOPRAM HYDROBROMIDE 20 MG TAB PO SCH (09:00)
[2020-03-19] MEDS: CALCITRIOL 0.25 MCG CAP PO SCH (09:00)
[2020-03-19] MEDS: PANTOPRAZOLE SOD 40 MG TABEC PO SCH ×2 (09:00→16:39)
[2020-03-19] MEDS: NEBIVOLOL 10 MG TAB PO SCH (09:00)
[2020-03-19] MEDS: CLOPIDOGREL BISULFATE 75 MG TAB PO SCH (09:00)
--- NOTE | 2020-03-19 10:30 | NUR ---
AC TO DIALYSIS NURSE NOT DOING THE DIALYSIS ON TODAY ,BECAUSE SHE FINISHED THIS MORNING
[2020-03-19] MEDS: METRONIDAZOLE 500 MG TAB PO SCH ×2 (13:45→20:38)
--- NOTE | 2020-03-19 13:45 | NUR ---
pt have diarrhea for 5 times paged and notified dr Nielsen got new orders
[2020-03-19] MEDS ORDERED: LOPERAMIDE HCL 2 MG CAP PO ONE (14:00)
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
--- NOTE | 2020-03-19 18:47 | NUR ---
PT RESTING ON BED BED SIDE REPORT GIVEN TO ONCOMING NURSE
--- NOTE | 2020-03-19 20:57 | NUR ---
during pm medication pass, skin check performed, patient c/o itching BLE, SEVERAL SCABS SEEN DIFFERENT STAGES OF HEALING, PT STATES " I HAVE BEEN SCRATCHING", PRN BENADRYL GIVEN, PT C/O PAIN IN GLUTEAL FOLDS, CARE GIVEN, AREA CLEANSED AND BARRIER CREAM APPLIED TO PREVENT FURTHER SKIN BREAKDOWN R/T MULTIPLE EPISODES OF DIARRHEA, C-DIFF PENDING
[2020-03-19] MEDS ORDERED: ATORVASTATIN 10 MG TAB PO SCH (21:00)
[2020-03-20] VITALS: BP 138/62
[2020-03-20] MEDS: METRONIDAZOLE 500 MG TAB PO SCH ×2 (06:50→14:44)
[2020-03-20] MEDS: FUROSEMIDE INJ 10 MG/ML 4 ML VIAL IV SCH ×2 (06:50→14:44)
[2020-03-20] MEDS: LEVOTHYROXINE SODIUM 50 MCG TAB PO SCH (06:50)
[2020-03-20] MEDS ORDERED: SODIUM CHLORIDE 0.9% 1000ML 2,000 ML ONE (08:41)
[2020-03-20] MEDS: ALLOPURINOL 100 MG TAB PO SCH ×3 (09:16→16:54)
[2020-03-20] MEDS: ASPIRIN 81 MG CHEW TAB PO SCH (09:16)
[2020-03-20] MEDS: CALCITRIOL 0.25 MCG CAP PO SCH (09:17)
[2020-03-20] MEDS: NEBIVOLOL 10 MG TAB PO SCH (09:17)
[2020-03-20] MEDS: PANTOPRAZOLE SOD 40 MG TABEC PO SCH ×2 (09:17→16:54)
[2020-03-20] MEDS: CITALOPRAM HYDROBROMIDE 20 MG TAB PO SCH (09:17)
[2020-03-20] MEDS: DOXAZOSIN MESYLATE 2 MG TAB PO SCH (09:17)
[2020-03-20] MEDS: CLOPIDOGREL BISULFATE 75 MG TAB PO SCH (09:17)
[2020-03-20] MEDS: INSULIN REGULAR, HUMAN 100 UNIT/1 ML 3ML VIAL SQ SCH ×3 (09:21→16:56)
[2020-03-20 09:57] VITALS: BP 134/67
[2020-03-20 10:26] VITALS: BP 134/67
[2020-03-20] MEDS ORDERED: SODIUM CHLORIDE 0.9% 250ML 500 ML IV PRN (11:45)
[2020-03-20] MEDS ORDERED: HEPARIN SOD (PORCINE) 1000 UNIT/ML SDV IV PRN (11:45)
[2020-03-20] MEDS ORDERED: SODIUM CHLORIDE 0.9% 1000ML 2,000 ML IV PRN (11:45)
[2020-03-20 13:10] VITALS: BP 114/65
--- NOTE | 2020-03-20 15:00 | NUR ---
patient's law removed.
--- NOTE | 2020-03-20 17:00 | NUR ---
paged attending for discharge. Dr. Nielsen will be here to discharge patient this evening.
[2020-03-20 17:17] VITALS: BP 93/55
--- NOTE | 2020-03-20 17:36 | NUR ---
Nutrition Screen Note RD Recommendation for Physician: - Recommend adding Renal diet restrictions Plan of Care: RD following, monitoring for tolerance and adequacy Nutrition reason for involvement: DX- ESRD Primary Diagnose(s): ESRD, pulmonary edema, volume overload PMH: HTN, DM, UTIs, ESRD on HD Ht: 62 in Wt: 148 lb BMI: 27.1 kg/m2 IBW: [address] Assessment: (03/20/20) 69 YOF admitted for ESRD, pt with missed HD and admitted for emergent HD. Pt recently admitted and seen by RD last week. Pt reports good appetite and po intake. No wt loss noted. Pt declined any additional education, no questions regarding materials provided last week. Chart reviewed. Labs and meds reviewed. Pt pending discharge this evening. Will continue to monitor. Current Diet: 1800 ADA Malnutrition Evaluation (03/20/20) The patient does not meet criteria for a specified degree of malnutrition at this time. Will re-evaluate at follow-up as appropriate. Diet Education Needs Assessment: Diet education not indicated. Diet tolerance: tolerating po Nutrition Care Level: Low Signed: Natasha Castorena RD, LD, [facility]
--- NOTE | 2020-03-20 20:15 | NUR ---
Pt AAOx4. Resp even and unlabored. Skin warm and dry to touch. Denies any pain or discomfort at this time. Discharge instructions given to patient and verbalized understanding. Pt taken by wheelchair to private vehicle. Met by grandson.
== END 2020-03-20 20:10 | disposition home or self-care (01) ==
LOC: ER 18:20 → INTOOBSV 19:40 → ERHOLD 19:40 → MED/SURG2 22:33
PROVIDERS: ADMIT Internal Medicine; ATTEND Internal Medicine
DX: E87.70 Fluid overload, unspecified (principal); E11.22 Type 2 diabetes mellitus with diabetic chronic kidney disease; I12.0 Hypertensive chronic kidney disease with stage 5 chronic kidney disease or end stage renal disease; N18.6 End stage renal disease; Z99.2 Dependence on renal dialysis; E11.42 Type 2 diabetes mellitus with diabetic polyneuropathy; Z87.440 Personal history of urinary (tract) infections; Z86.19 Personal history of other infectious and parasitic diseases; D64.9 Anemia, unspecified; F32.9 Major depressive disorder, single episode, unspecified; Z86.718 Personal history of other venous thrombosis and embolism; Z86.711 Personal history of pulmonary embolism; E78.5 Hyperlipidemia, unspecified; N25.81 Secondary hyperparathyroidism of renal origin; Z11.59 Encounter for screening for other viral diseases; Z79.82 Long term (current) use of aspirin; Z79.4 Long term (current) use of insulin
CPT/HCPCS: 36415; 36600; 71045; 80053; 82550; 82553; 82805; 82948; 83880; 84484; 85025; 86705; 86706; 87045; 87340; 87493; 90962; 93005; 96372; 99285; G0378; J1644; J1817; J1940; J2060; J7030; U0002

== ENCOUNTER 2020-06-24 14:19 | Inpatient (IN) | payer MEDICARE, OTHER ==
[~2020-06-24] VITALS: Ht 157.5 cm; Wt 67.1 kg
[2020-06-24] MEDS ORDERED: NITROGLYCERIN 2% OINT 1 GM PKT TOP ONE (14:45)
[2020-06-24 15:21] LABS: BASOPHILS # (AUTO) 0.1 (0.0-0.1); BASOPHILS % 0.8 % (0.0-1.0); EOSINOPHILS # (AUTO) 0.3 (0.0-0.4); EOSINOPHILS % 3.2 % (0.0-6.0); HEMATOCRIT 39.5 % (34.2-44.1); HEMOGLOBIN 11.3 g/dL (12.0-16.0); LYMPHOCYTES # (AUTO) 3.4 (1.0-3.2); MEAN CORPUSCULAR HEMOGLOBIN 23.9 pg (28-32); MEAN CORPUSCULAR HGB CONC 28.6 g/dL (31-35); MEAN CORPUSCULAR VOLUME 83.5 fL (81-99); MONOCYTES # (AUTO) 0.5 (0.2-0.8); MONOCYTES % 5.4 % (4.4-11.3); NEUTROPHILS # (AUTO) 5.7 (2.1-6.9); NEUTROPHILS % 56.2 % (38.7-80.0); PLATELET COUNT 372 x10e3/uL (140-360); RED BLOOD COUNT 4.73 x10e6/uL (3.6-5.1); RED CELL DISTRIBUTION WIDTH 16.5 % (11.7-14.4)
[2020-06-24 15:29] LABS: INR 0.98; PROTHROMBIN TIME 13.5 seconds (11.9-14.5)
[2020-06-24 15:30] LABS: PARTIAL THROMBOPLASTIN TIME 32.6 seconds (23.8-35.5)
[2020-06-24 15:36] LABS: CLARITY,URINE HAZY (CLEAR); COLOR,URINE YELLOW (YELLOW); KETONES,URINE NEGATIVE (NEGATIVE); LEUKOCYTE ESTERASE ,URINE SMALL (NEGATIVE); NITRITE,URINE NEGATIVE (NEGATIVE); PROTEIN,URINE DIPSTICK >=300 (NEGATIVE); URINE UROBILINOGEN 0.2 mg/dL (0.2 - 1)
[2020-06-24 15:39] LABS: AMORPHOUS SEDIMENT,URINE FEW (FEW); BACTERIA,URINE FEW /HPF; EPITHELIAL CELLS,URINE FEW /LPF; WBC,URINE (MAN) >50 /HPF (0-5)
[2020-06-24 15:44] LABS: ALBUMIN 3.2 g/dL (3.5-5.0); ALBUMIN/GLOBULIN RATIO 0.8 (0.8-2.0); ANION GAP 13.7 mmol/L (8-16); CALCIUM 9.3 mg/dL (8.4-10.2); CREATININE, SERUM 3.15 mg/dL (0.57-1.11); MAGNESIUM 1.9 MG/DL (1.3-2.1); POTASSIUM 3.7 mmol/L (3.5-5.1)
[2020-06-24 15:52] LABS: CREATINE KINASE MB 2.4 ng/mL (0-5.0)
[2020-06-24] MEDS ORDERED: HYDRALAZINE HCL 20 MG/ML VIAL IV STA (16:26)
[2020-06-24] MEDS ORDERED: MORPHINE SULFATE 2 MG/ML SYR 1ML IV PRN (16:30)
[2020-06-24] MEDS ORDERED: ONDANSETRON HCL INJ 2MG/ML 2ML 2 MG/ML VIAL IV PRN (16:30)
[2020-06-24 17:57] VITALS: BP 152/74
[2020-06-24 17:58] VITALS: BP 152/74
[2020-06-24] MEDS ORDERED: MULTIPLE VITAM1 EAC1 PO (18:03)
[2020-06-24] MEDS ORDERED: LOPERAMIDE2 MG PO (18:03)
[2020-06-24] MEDS ORDERED: POLYETHYLENE G500 G3 PO (18:03)
[2020-06-24] MEDS ORDERED: OZEMPIC0.25 MG/0. SC (18:03)
[2020-06-24] MEDS ORDERED: METOPROLOL SUCC50 MG PO (18:03)
[2020-06-24] MEDS ORDERED: ACETAMINOPHEN650 MG PO (18:03)
[2020-06-24] MEDS ORDERED: DEXTROSE 50% SYRINGE 50 ML IV PRN (18:30)
[2020-06-24 18:38] VITALS: BP 152/74
[2020-06-24 20:00] VITALS: BP 166/66
[2020-06-24 20:26] VITALS: BP 166/66
[2020-06-24] MEDS: INSULIN REGULAR, HUMAN 100 UNIT/1 ML 3ML VIAL SQ SCH (20:50)
[2020-06-24 23:04] LABS: CREATINE KINASE MB 2.4 ng/mL (0-5.0)
[2020-06-25] VITALS (8 sets, daily range): BP systolic 100–198; BP diastolic 48–96
[2020-06-25] MEDS ORDERED: ACETAMINOPHEN 325 MG TAB PO PRN (01:00)
[2020-06-25] MEDS ORDERED: POLYETHYLENE GLYCOL 3350 17 GM PACK PO PRN (01:00)
[2020-06-25] MEDS ORDERED: DEXTROSE 50% SYRINGE 50 ML IV PRN (01:15)
[2020-06-25 05:49] LABS: BASOPHILS # (AUTO) 0.1 (0.0-0.1); BASOPHILS % 0.9 % (0.0-1.0); EOSINOPHILS # (AUTO) 0.6 (0.0-0.4); HEMATOCRIT 35.3 % (34.2-44.1); HEMOGLOBIN 10.3 g/dL (12.0-16.0); LYMPHOCYTES # (AUTO) 2.7 (1.0-3.2); LYMPHOCYTES % 33.4 % (18.0-39.1); MEAN CORPUSCULAR HEMOGLOBIN 24.2 pg (28-32); MEAN CORPUSCULAR HGB CONC 29.2 g/dL (31-35); MEAN CORPUSCULAR VOLUME 82.9 fL (81-99); MONOCYTES # (AUTO) 0.5 (0.2-0.8); MONOCYTES % 6.6 % (4.4-11.3); NEUTROPHILS # (AUTO) 4.2 (2.1-6.9); NEUTROPHILS % 51.7 % (38.7-80.0); PLATELET COUNT 339 x10e3/uL (140-360); RED BLOOD COUNT 4.26 x10e6/uL (3.6-5.1); RED CELL DISTRIBUTION WIDTH 16.5 % (11.7-14.4)
[2020-06-25 06:14] LABS: ALBUMIN 2.7 g/dL (3.5-5.0); ALBUMIN/GLOBULIN RATIO 0.8 (0.8-2.0); ANION GAP 14.6 mmol/L (8-16); CALCIUM 8.8 mg/dL (8.4-10.2); CHOL/HDL RATIO 3.3 (3.0-3.6); CREATININE, SERUM 3.43 mg/dL (0.57-1.11); POTASSIUM 3.6 mmol/L (3.5-5.1)
[2020-06-25 06:52] LABS: CREATINE KINASE MB 2.1 ng/mL (0-5.0)
[2020-06-25] MEDS ORDERED: INSULIN REGULAR, HUMAN 100 UNIT/1 ML 3ML VIAL SQ SCH (07:30)
[2020-06-25] MEDS: CALCITRIOL 0.25 MCG CAP PO SCH (09:00)
[2020-06-25] MEDS ORDERED: ASPIRIN 81 MG ENTERIC COATED PO SCH (09:00)
[2020-06-25] MEDS ORDERED: LEVOTHYROXINE SODIUM 50 MCG TAB PO SCH (09:00)
[2020-06-25] MEDS: LEVOTHYROXINE SODIUM 50 MCG TAB PO SCH (09:03)
[2020-06-25] MEDS: ASPIRIN 81 MG CHEW TAB PO SCH (09:04)
[2020-06-25] MEDS: DOXAZOSIN MESYLATE 2 MG TAB PO SCH (09:04)
[2020-06-25] MEDS: FUROSEMIDE 40 MG TAB PO SCH (09:06)
[2020-06-25] MEDS: CITALOPRAM HYDROBROMIDE 20 MG TAB PO SCH (09:06)
[2020-06-25] MEDS: CLOPIDOGREL BISULFATE 75 MG TAB PO SCH (09:06)
[2020-06-25] MEDS: PANTOPRAZOLE SOD 40 MG TABEC PO SCH ×2 (09:07→16:45)
[2020-06-25] MEDS: METOPROLOL SUCCINATE 50 MG TAB XL PO SCH ×2 (09:07→16:41)
[2020-06-25] MEDS: ALLOPURINOL 100 MG TAB PO SCH (09:08)
[2020-06-25] MEDS: INSULIN REGULAR, HUMAN 100 UNIT/1 ML 3ML VIAL SQ SCH ×4 (10:12→21:00)
[2020-06-25] MEDS: HYDRALAZINE HCL 20 MG/ML VIAL IV PRN (11:06)
[2020-06-25 13:20] LABS: CREATINE KINASE MB 1.7 ng/mL (0-5.0)
[2020-06-25] MEDS: HYDROCODONE/APAP 5MG-325MG TAB PO PRN (16:46)
[2020-06-25] MEDS: ATORVASTATIN 10 MG TAB PO SCH (21:32)
[2020-06-25] MEDS: BISMUTH SUBSALICYLATE 262 MG/15 ML 8OZ BTL PO PRN (21:33)
[2020-06-26] VITALS (8 sets, daily range): BP systolic 103–174; BP diastolic 60–72
[2020-06-26] MEDS: HYDROCODONE/APAP 5MG-325MG TAB PO PRN (00:27)
[2020-06-26] MEDS: LOPERAMIDE HCL 2 MG CAP PO PRN (00:27)
[2020-06-26] MEDS: BISMUTH SUBSALICYLATE 262 MG/15 ML 8OZ BTL PO PRN (01:31)
[2020-06-26] MEDS: LEVOTHYROXINE SODIUM 50 MCG TAB PO SCH (05:14)
[2020-06-26 06:07] LABS: ALBUMIN 2.7 g/dL (3.5-5.0); ANION GAP 12.7 mmol/L (8-16); CALCIUM 8.3 mg/dL (8.4-10.2); CREATININE, SERUM 3.93 mg/dL (0.57-1.11); POTASSIUM 3.7 mmol/L (3.5-5.1)
[2020-06-26] MEDS: INSULIN REGULAR, HUMAN 100 UNIT/1 ML 3ML VIAL SQ SCH ×4 (07:30→21:00)
[2020-06-26] MEDS: DOXAZOSIN MESYLATE 2 MG TAB PO SCH (08:19)
[2020-06-26] MEDS: METOPROLOL SUCCINATE 50 MG TAB XL PO SCH ×2 (08:19→16:45)
[2020-06-26] MEDS: CALCITRIOL 0.25 MCG CAP PO SCH (08:29)
[2020-06-26] MEDS: PANTOPRAZOLE SOD 40 MG TABEC PO SCH ×2 (08:32→16:45)
[2020-06-26] MEDS: FUROSEMIDE 40 MG TAB PO SCH (08:32)
[2020-06-26] MEDS: CITALOPRAM HYDROBROMIDE 20 MG TAB PO SCH (08:32)
[2020-06-26] MEDS: CLOPIDOGREL BISULFATE 75 MG TAB PO SCH (08:32)
[2020-06-26] MEDS: ASPIRIN 81 MG CHEW TAB PO SCH (08:32)
[2020-06-26] MEDS: ALLOPURINOL 100 MG TAB PO SCH (08:32)
[2020-06-26] MEDS ORDERED: ALLOPURINOL100 MG PO (12:06)
[2020-06-26] MEDS ORDERED: PLAVIX75 MG PO (12:06)
[2020-06-26] MEDS ORDERED: CARDURA2 MG PO (12:06)
[2020-06-26] MEDS ORDERED: ACETAMINOPHEN325 M1 PO (12:06)
[2020-06-26] MEDS ORDERED: CELEXA20 MG PO (12:06)
[2020-06-26] MEDS ORDERED: FUROSEMIDE40 MG PO (12:06)
[2020-06-26] MEDS ORDERED: LIPITOR10 MG PO (12:06)
[2020-06-26] MEDS ORDERED: ROCALTROL0.25 MCG PO (12:06)
[2020-06-26] MEDS ORDERED: PROTONIX40 MG/ML PO (12:06)
[2020-06-26] MEDS ORDERED: TOPROL XL50 MG PO (12:06)
[2020-06-26] MEDS ORDERED: SYNTHROID50 MCG PO (12:06)
[2020-06-26] MEDS ORDERED: ASPIRIN CHEW81 MG PO (12:06)
[2020-06-26] MEDS ORDERED: OZEMPIC0.25 MG/0. SC (12:15)
[2020-06-26] MEDS ORDERED: HUMALOG MI100 UNIT/2 SQ (12:15)
[2020-06-26] MEDS ORDERED: ONDANSETRON HCL 4 MG ORAL DISINTEGRATING TAB PO PRN (13:30)
[2020-06-26] MEDS ORDERED: SODIUM CHLORIDE 0.9% 1000ML 2,000 ML IV PRN (18:45)
[2020-06-26] MEDS ORDERED: HEPARIN SOD (PORCINE) 1000 UNIT/ML SDV IV PRN (18:45)
[2020-06-26] MEDS: ATORVASTATIN 10 MG TAB PO SCH (21:31)
[2020-06-27] VITALS (8 sets, daily range): BP systolic 108–196; BP diastolic 61–83
[2020-06-27] MEDS: HYDROCODONE/APAP 5MG-325MG TAB PO PRN (02:05)
[2020-06-27] MEDS: HYDRALAZINE HCL 20 MG/ML VIAL IV PRN (03:27)
[2020-06-27] MEDS ORDERED: QUETIAPINE FUMARATE 25 MG TAB PO PRN (04:15)
[2020-06-27] MEDS: LEVOTHYROXINE SODIUM 50 MCG TAB PO SCH (05:39)
[2020-06-27] MEDS: INSULIN REGULAR, HUMAN 100 UNIT/1 ML 3ML VIAL SQ SCH ×4 (07:30→20:30)
[2020-06-27] MEDS: ASPIRIN 81 MG CHEW TAB PO SCH (08:59)
[2020-06-27] MEDS: FLUCONAZOLE 100 MG TAB PO SCH (09:00)
[2020-06-27] MEDS: METOPROLOL SUCCINATE 50 MG TAB XL PO SCH ×2 (09:00→17:02)
[2020-06-27] MEDS: CLOPIDOGREL BISULFATE 75 MG TAB PO SCH (09:00)
[2020-06-27] MEDS: FUROSEMIDE 40 MG TAB PO SCH (09:00)
[2020-06-27] MEDS: DOXAZOSIN MESYLATE 2 MG TAB PO SCH (09:00)
[2020-06-27] MEDS: CITALOPRAM HYDROBROMIDE 20 MG TAB PO SCH (09:00)
[2020-06-27] MEDS: ALLOPURINOL 100 MG TAB PO SCH (09:00)
[2020-06-27] MEDS: CALCITRIOL 0.25 MCG CAP PO SCH (09:00)
[2020-06-27] MEDS: PANTOPRAZOLE SOD 40 MG TABEC PO SCH ×2 (09:00→17:02)
[2020-06-27] MEDS: ATORVASTATIN 10 MG TAB PO SCH (20:54)
[2020-06-28] VITALS (8 sets, daily range): BP systolic 89–168; BP diastolic 59–83
[2020-06-28] MEDS: LEVOTHYROXINE SODIUM 50 MCG TAB PO SCH (05:49)
[2020-06-28] MEDS: INSULIN REGULAR, HUMAN 100 UNIT/1 ML 3ML VIAL SQ SCH ×4 (08:33→20:45)
[2020-06-28] MEDS: CITALOPRAM HYDROBROMIDE 20 MG TAB PO SCH (08:48)
[2020-06-28] MEDS: ALLOPURINOL 100 MG TAB PO SCH (08:48)
[2020-06-28] MEDS: FLUCONAZOLE 100 MG TAB PO SCH (08:48)
[2020-06-28] MEDS: CLOPIDOGREL BISULFATE 75 MG TAB PO SCH (08:48)
[2020-06-28] MEDS: PANTOPRAZOLE SOD 40 MG TABEC PO SCH ×2 (08:48→17:15)
[2020-06-28] MEDS: ASPIRIN 81 MG CHEW TAB PO SCH (08:48)
[2020-06-28] MEDS: DOXAZOSIN MESYLATE 2 MG TAB PO SCH (09:00)
[2020-06-28] MEDS: FUROSEMIDE 40 MG TAB PO SCH (09:00)
[2020-06-28] MEDS: METOPROLOL SUCCINATE 50 MG TAB XL PO SCH ×2 (09:00→16:54)
[2020-06-28] MEDS: DIPHENHYDRAMINE HCL 25 MG CAP PO PRN (15:37)
[2020-06-28] MEDS: CALCITRIOL 0.25 MCG CAP PO SCH (17:15)
[2020-06-28] MEDS: ATORVASTATIN 10 MG TAB PO SCH (20:43)
[2020-06-29] VITALS (9 sets, daily range): BP systolic 144–178; BP diastolic 66–87
[2020-06-29] MEDS: HYDROCODONE/APAP 5MG-325MG TAB PO PRN ×2 (02:54→11:41)
[2020-06-29] MEDS: LEVOTHYROXINE SODIUM 50 MCG TAB PO SCH (05:25)
[2020-06-29] MEDS: INSULIN REGULAR, HUMAN 100 UNIT/1 ML 3ML VIAL SQ SCH ×4 (07:30→21:00)
[2020-06-29] MEDS: ASPIRIN 81 MG CHEW TAB PO SCH (09:57)
[2020-06-29] MEDS: DOXAZOSIN MESYLATE 2 MG TAB PO SCH (09:58)
[2020-06-29] MEDS: CLOPIDOGREL BISULFATE 75 MG TAB PO SCH (09:59)
[2020-06-29] MEDS: PANTOPRAZOLE SOD 40 MG TABEC PO SCH ×2 (09:59→16:51)
[2020-06-29] MEDS: FLUCONAZOLE 100 MG TAB PO SCH (09:59)
[2020-06-29] MEDS: FUROSEMIDE 40 MG TAB PO SCH (09:59)
[2020-06-29] MEDS: CITALOPRAM HYDROBROMIDE 20 MG TAB PO SCH (09:59)
[2020-06-29] MEDS: ALLOPURINOL 100 MG TAB PO SCH (10:00)
[2020-06-29] MEDS: CALCITRIOL 0.25 MCG CAP PO SCH (10:00)
[2020-06-29] MEDS: METOPROLOL SUCCINATE 50 MG TAB XL PO SCH ×2 (10:01→16:52)
[2020-06-29] MEDS: LOPERAMIDE HCL 2 MG CAP PO PRN (21:32)
[2020-06-29] MEDS: ATORVASTATIN 10 MG TAB PO SCH (21:32)
[2020-06-29] MEDS: HYDRALAZINE HCL 20 MG/ML VIAL IV PRN (23:48)
[2020-06-30] VITALS (7 sets, daily range): BP systolic 132–193; BP diastolic 64–91
[2020-06-30] MEDS: LEVOTHYROXINE SODIUM 50 MCG TAB PO SCH (05:56)
[2020-06-30] MEDS: INSULIN REGULAR, HUMAN 100 UNIT/1 ML 3ML VIAL SQ SCH ×4 (07:30→21:00)
[2020-06-30 07:49] LABS: BASOPHILS # (AUTO) 0.1 (0.0-0.1); BASOPHILS % 0.8 % (0.0-1.0); EOSINOPHILS # (AUTO) 0.5 (0.0-0.4); EOSINOPHILS % 4.5 % (0.0-6.0); HEMATOCRIT 35.5 % (34.2-44.1); HEMOGLOBIN 10.2 g/dL (12.0-16.0); LYMPHOCYTES % 38.3 % (18.0-39.1); MEAN CORPUSCULAR HEMOGLOBIN 23.8 pg (28-32); MEAN CORPUSCULAR HGB CONC 28.7 g/dL (31-35); MEAN CORPUSCULAR VOLUME 82.8 fL (81-99); MONOCYTES # (AUTO) 0.6 (0.2-0.8); MONOCYTES % 5.7 % (4.4-11.3); NEUTROPHILS # (AUTO) 5.2 (2.1-6.9); NEUTROPHILS % 50.3 % (38.7-80.0); PLATELET COUNT 323 x10e3/uL (140-360); RED BLOOD COUNT 4.29 x10e6/uL (3.6-5.1)
[2020-06-30 08:06] LABS: ANION GAP 12.1 mmol/L (8-16); CALCIUM 8.6 mg/dL (8.4-10.2); CREATININE, SERUM 3.7 mg/dL (0.57-1.11); POTASSIUM 4.1 mmol/L (3.5-5.1)
[2020-06-30] MEDS: FLUCONAZOLE 100 MG TAB PO SCH (08:30)
[2020-06-30] MEDS: METOPROLOL SUCCINATE 50 MG TAB XL PO SCH ×2 (09:00→17:00)
[2020-06-30] MEDS: FUROSEMIDE 40 MG TAB PO SCH (09:00)
[2020-06-30] MEDS: DOXAZOSIN MESYLATE 2 MG TAB PO SCH (09:00)
[2020-06-30] MEDS: ASPIRIN 81 MG CHEW TAB PO SCH (09:21)
[2020-06-30] MEDS: CITALOPRAM HYDROBROMIDE 20 MG TAB PO SCH (09:21)
[2020-06-30] MEDS: CLOPIDOGREL BISULFATE 75 MG TAB PO SCH (09:22)
[2020-06-30] MEDS: CALCITRIOL 0.25 MCG CAP PO SCH (09:22)
[2020-06-30] MEDS: PANTOPRAZOLE SOD 40 MG TABEC PO SCH ×2 (09:22→17:18)
[2020-06-30] MEDS: ALLOPURINOL 100 MG TAB PO SCH (09:22)
[2020-06-30] MEDS ORDERED: HEPARIN SOD (PORCINE) 1000 UNIT/ML SDV IV PRN (16:45)
[2020-06-30] MEDS: ATORVASTATIN 10 MG TAB PO SCH (20:25)
[2020-06-30] MEDS: LOPERAMIDE HCL 2 MG CAP PO PRN (20:25)
[2020-07-01] VITALS (8 sets, daily range): BP systolic 121–176; BP diastolic 54–79
[2020-07-01] MEDS: HYDROCODONE/APAP 5MG-325MG TAB PO PRN ×2 (01:50→17:34)
[2020-07-01] MEDS: HYDRALAZINE HCL 20 MG/ML VIAL IV PRN (01:50)
[2020-07-01] MEDS: LEVOTHYROXINE SODIUM 50 MCG TAB PO SCH (06:18)
[2020-07-01] MEDS: INSULIN REGULAR, HUMAN 100 UNIT/1 ML 3ML VIAL SQ SCH ×4 (07:30→20:26)
[2020-07-01] MEDS: ASPIRIN 81 MG CHEW TAB PO SCH (08:52)
[2020-07-01] MEDS: DOXAZOSIN MESYLATE 2 MG TAB PO SCH (08:53)
[2020-07-01] MEDS: CITALOPRAM HYDROBROMIDE 20 MG TAB PO SCH (08:54)
[2020-07-01] MEDS: CLOPIDOGREL BISULFATE 75 MG TAB PO SCH (08:55)
[2020-07-01] MEDS: PANTOPRAZOLE SOD 40 MG TABEC PO SCH ×2 (08:55→17:21)
[2020-07-01] MEDS: ALLOPURINOL 100 MG TAB PO SCH (08:55)
[2020-07-01] MEDS: FUROSEMIDE 40 MG TAB PO SCH (08:55)
[2020-07-01] MEDS: METOPROLOL SUCCINATE 50 MG TAB XL PO SCH ×2 (08:55→17:21)
[2020-07-01] MEDS: CALCITRIOL 0.25 MCG CAP PO SCH (08:55)
[2020-07-01] MEDS: ATORVASTATIN 10 MG TAB PO SCH (21:52)
[2020-07-02] VITALS (9 sets, daily range): BP systolic 95–184; BP diastolic 65–77
[2020-07-02] MEDS: LEVOTHYROXINE SODIUM 50 MCG TAB PO SCH (05:51)
[2020-07-02] MEDS: INSULIN REGULAR, HUMAN 100 UNIT/1 ML 3ML VIAL SQ SCH ×4 (07:30→21:05)
[2020-07-02] MEDS: ASPIRIN 81 MG CHEW TAB PO SCH (08:19)
[2020-07-02] MEDS: DOXAZOSIN MESYLATE 2 MG TAB PO SCH (08:20)
[2020-07-02] MEDS: FUROSEMIDE 40 MG TAB PO SCH (08:20)
[2020-07-02] MEDS: CITALOPRAM HYDROBROMIDE 20 MG TAB PO SCH (08:20)
[2020-07-02] MEDS: CLOPIDOGREL BISULFATE 75 MG TAB PO SCH (08:21)
[2020-07-02] MEDS: METOPROLOL SUCCINATE 50 MG TAB XL PO SCH ×2 (08:21→16:32)
[2020-07-02] MEDS: PANTOPRAZOLE SOD 40 MG TABEC PO SCH ×2 (08:21→16:31)
[2020-07-02] MEDS: ALLOPURINOL 100 MG TAB PO SCH (08:21)
[2020-07-02] MEDS: CALCITRIOL 0.25 MCG CAP PO SCH (08:21)
[2020-07-02] MEDS: LOSARTAN POTASSIUM 25 MG TAB PO SCH (18:10)
[2020-07-02] MEDS: ATORVASTATIN 10 MG TAB PO SCH (20:53)
[2020-07-02] MEDS: HYDRALAZINE HCL 20 MG/ML VIAL IV PRN (21:10)
[2020-07-03] MEDS ORDERED: HYDROCODONE/APAP 5MG-325MG TAB PO PRN
[2020-07-03 04:51] VITALS: BP 143/62
[2020-07-03] MEDS: DIPHENHYDRAMINE HCL 25 MG CAP PO PRN (05:02)
[2020-07-03] MEDS: LEVOTHYROXINE SODIUM 50 MCG TAB PO SCH (05:43)
[2020-07-03 07:41] VITALS: BP 144/61
[2020-07-03 08:20] VITALS: BP 144/61
[2020-07-03] MEDS: INSULIN REGULAR, HUMAN 100 UNIT/1 ML 3ML VIAL SQ SCH ×3 (08:30→16:30)
[2020-07-03] MEDS: DOXAZOSIN MESYLATE 2 MG TAB PO SCH (09:00)
[2020-07-03] MEDS: LOSARTAN POTASSIUM 25 MG TAB PO SCH (09:00)
[2020-07-03] MEDS: METOPROLOL SUCCINATE 50 MG TAB XL PO SCH ×2 (09:00→17:00)
[2020-07-03] MEDS: FUROSEMIDE 40 MG TAB PO SCH (09:00)
[2020-07-03] MEDS: ASPIRIN 81 MG CHEW TAB PO SCH (09:37)
[2020-07-03] MEDS: CALCITRIOL 0.25 MCG CAP PO SCH (09:38)
[2020-07-03] MEDS: CITALOPRAM HYDROBROMIDE 20 MG TAB PO SCH (09:38)
[2020-07-03] MEDS: PANTOPRAZOLE SOD 40 MG TABEC PO SCH ×2 (09:38→17:52)
[2020-07-03] MEDS: CLOPIDOGREL BISULFATE 75 MG TAB PO SCH (09:38)
[2020-07-03] MEDS: ALLOPURINOL 100 MG TAB PO SCH (09:38)
[2020-07-03 11:21] VITALS: BP 170/68
[2020-07-03 11:59] LABS: BASOPHILS # (AUTO) 0.1 (0.0-0.1); BASOPHILS % 0.7 % (0.0-1.0); EOSINOPHILS # (AUTO) 0.4 (0.0-0.4); EOSINOPHILS % 4.1 % (0.0-6.0); HEMATOCRIT 33.2 % (34.2-44.1); HEMOGLOBIN 9.6 g/dL (12.0-16.0); LYMPHOCYTES # (AUTO) 3.7 (1.0-3.2); LYMPHOCYTES % 36.9 % (18.0-39.1); MEAN CORPUSCULAR HEMOGLOBIN 24.1 pg (28-32); MEAN CORPUSCULAR HGB CONC 28.9 g/dL (31-35); MEAN CORPUSCULAR VOLUME 83.4 fL (81-99); MONOCYTES # (AUTO) 0.6 (0.2-0.8); MONOCYTES % 6.4 % (4.4-11.3); NEUTROPHILS # (AUTO) 5.1 (2.1-6.9); NEUTROPHILS % 51.6 % (38.7-80.0); PLATELET COUNT 306 x10e3/uL (140-360); RED BLOOD COUNT 3.98 x10e6/uL (3.6-5.1); RED CELL DISTRIBUTION WIDTH 16.7 % (11.7-14.4)
[2020-07-03] MEDS ORDERED: MANNITOL 25% 12.5GM/50 ML VIAL IV PRN (12:00)
[2020-07-03] MEDS ORDERED: ALBUMIN 25% 12.5GM 0.25 GM/ML BTL IV PRN (12:00)
[2020-07-03] MEDS ORDERED: SODIUM CHLORIDE 0.9% 250ML 500 ML IV PRN (12:00)
[2020-07-03] MEDS ORDERED: HEPARIN SOD (PORCINE) 1000 UNIT/ML SDV IV PRN (12:00)
[2020-07-03 12:17] LABS: ANION GAP 15.1 mmol/L (8-16); CALCIUM 8.3 mg/dL (8.4-10.2); CREATININE, SERUM 4.51 mg/dL (0.57-1.11); POTASSIUM 4.1 mmol/L (3.5-5.1)
[2020-07-03 15:19] VITALS: BP 114/70
== END 2020-07-03 21:33 | DRG 291 ==
LOC: ER 14:34 → ERHOLD 16:26 → MED/SURG 17:48 → MED/SURG2 06-25 17:05 → OBSVTOIN 06-28 10:06
PROVIDERS: ADMIT Internal Medicine; ATTEND Internal Medicine
PROC: 5A1D70Z Performance of Urinary Filtration, Intermittent, Less than 6 Hours Per Day (ICD-10-PCS; principal; 2020-06-26)
DX: I13.2 Hypertensive heart and chronic kidney disease with heart failure and with stage 5 chronic kidney disease, or end stage renal disease (principal); N18.6 End stage renal disease; I50.23 Acute on chronic systolic (congestive) heart failure; I16.1 Hypertensive emergency; J81.1 Chronic pulmonary edema; B37.49 Other urogenital candidiasis; E11.22 Type 2 diabetes mellitus with diabetic chronic kidney disease; Z99.2 Dependence on renal dialysis; E11.51 Type 2 diabetes mellitus with diabetic peripheral angiopathy without gangrene; Z79.899 Other long term (current) drug therapy; E78.5 Hyperlipidemia, unspecified; I25.10 Atherosclerotic heart disease of native coronary artery without angina pectoris; Z86.718 Personal history of other venous thrombosis and embolism; Z79.01 Long term (current) use of anticoagulants; F32.9 Major depressive disorder, single episode, unspecified; Z20.828 Contact with and (suspected) exposure to other viral communicable diseases; E11.40 Type 2 diabetes mellitus with diabetic neuropathy, unspecified; D63.1 Anemia in chronic kidney disease; Z95.1 Presence of aortocoronary bypass graft
CPT/HCPCS: 36415; 70450; 71045; 80048; 80053; 80061; 81001; 82040; 82550; 82553; 82948; 83735; 83880; 84484; 85025; 85610; 85730; 86705; 86706; 87086; 87340; 90962; 93005; 96372; 97139; 99251; 99285; G0378; J0360; J1644; J1817; J2270; J7030; U0002

== ENCOUNTER 2020-10-11 08:14 | Emergency (ER) | payer MEDICARE, OTHER ==
[~2020-10-11] VITALS: Ht 157.5 cm; Wt 67.1 kg
[~2020-10-11 08:14] MED LIST changes: +ACETAMINOPHEN325 M1 PO; +ACETAMINOPHEN650 MG PO; +ASPIRIN CHEW81 MG PO; +CARDURA2 MG PO; +CELEXA20 MG PO; +FUROSEMIDE40 MG PO; +HUMALOG MI100 UNIT/2 SQ; +LIPITOR10 MG PO; +LOPERAMIDE2 MG PO; +METOPROLOL SUCC50 MG PO; +MULTIPLE VITAM1 EAC1 PO; +OZEMPIC0.25 MG/0. SC; +PLAVIX75 MG PO; +POLYETHYLENE G500 G3 PO; +PROTONIX40 MG/ML PO; +ROCALTROL0.25 MCG PO; +SYNTHROID50 MCG PO; +TOPROL XL50 MG PO
[2020-10-11] MEDS ORDERED: CIPROFLOXACIN 500 MG TAB PO SCH (08:32)
[2020-10-11] MEDS ORDERED: CLONIDINE HCL 0.1 MG TAB PO STA (08:32)
[2020-10-11 09:39] LABS: CLARITY,URINE TURBID (CLEAR); COLOR,URINE RED (YELLOW); LEUKOCYTE ESTERASE ,URINE LARGE (NEGATIVE); NITRITE,URINE POSITIVE (NEGATIVE)
[2020-10-11 09:40] LABS: KETONES,URINE 1+ (NEGATIVE); PROTEIN,URINE DIPSTICK >=300 (NEGATIVE); URINE UROBILINOGEN 1 mg/dL (0.2 - 1)
[2020-10-11 09:41] LABS: BACTERIA,URINE MANY /HPF; RBC,URINE >50 /HPF (0-5); WBC,URINE (MAN) >50 /HPF (0-5)
[2020-10-11 09:42] LABS: EPITHELIAL CELLS,URINE FEW /LPF
[2020-10-11] MEDS ORDERED: TRAMADOL HCL 50 MG TAB PO STA (09:46)
[2020-10-11] MEDS ORDERED: CIPRO500 MG PO (09:48)
[2020-10-11] MEDS ORDERED: ULTRAM 50MG50 MG PO (09:48)
[2020-10-11] MEDS ORDERED: TRAMADOL HCL 50 MG TAB ONE (10:00)
== END 2020-10-11 09:56 | disposition home or self-care (01) ==
LOC: ER 08:30
DX: R10.30 Lower abdominal pain, unspecified (principal); R30.0 Dysuria; N39.0 Urinary tract infection, site not specified; I12.0 Hypertensive chronic kidney disease with stage 5 chronic kidney disease or end stage renal disease; E11.22 Type 2 diabetes mellitus with diabetic chronic kidney disease; N18.6 End stage renal disease; E78.5 Hyperlipidemia, unspecified; Z95.1 Presence of aortocoronary bypass graft
CPT/HCPCS: 81001; 87086; 87186; 99283

== ENCOUNTER 2021-05-30 06:50 | Inpatient (IN) | payer MEDICARE, OTHER ==
[~2021-05-30] VITALS: Ht 157.5 cm; Wt 67.1 kg
[~2021-05-30 06:50] MED LIST changes: +CIPRO500 MG PO; +ULTRAM 50MG50 MG PO
[2021-05-30 07:43] LABS: BASOPHILS % 0.2 % (0.0-1.0); EOSINOPHILS # (AUTO) 0.1 (0.0-0.4); EOSINOPHILS % 0.8 % (0.0-6.0); HEMATOCRIT 29.2 % (34.2-44.1); HEMOGLOBIN 8.8 g/dL (12.0-16.0); LYMPHOCYTES # (AUTO) 1.6 (1.0-3.2); LYMPHOCYTES % 13.1 % (18.0-39.1); MEAN CORPUSCULAR HEMOGLOBIN 24.2 pg (28-32); MEAN CORPUSCULAR HGB CONC 30.1 g/dL (31-35); MEAN CORPUSCULAR VOLUME 80.4 fL (81-99); MONOCYTES # (AUTO) 0.6 (0.2-0.8); MONOCYTES % 4.7 % (4.4-11.3); NEUTROPHILS % 80.5 % (38.7-80.0); PLATELET COUNT 308 x10e3/uL (140-360); RED BLOOD COUNT 3.63 x10e6/uL (3.6-5.1); RED CELL DISTRIBUTION WIDTH 21.5 % (11.7-14.4)
[2021-05-30 07:53] LABS: INR 1.06; PROTHROMBIN TIME 14.7 seconds (11.9-14.5)
[2021-05-30 07:54] LABS: PARTIAL THROMBOPLASTIN TIME 31.6 seconds (23.8-35.5)
[2021-05-30 08:03] LABS: ALBUMIN 2.5 g/dL (3.5-5.0); ALBUMIN/GLOBULIN RATIO 0.5 (0.8-2.0); CALCIUM 7.9 mg/dL (8.4-10.2); CREATININE, SERUM 5.29 mg/dL (0.57-1.11); MAGNESIUM 1.7 MG/DL (1.3-2.1)
[2021-05-30 08:18] LABS: CREATINE KINASE MB 2.1 ng/mL (0-5.0)
[2021-05-30 08:44] LABS: CLARITY,URINE TURBID (CLEAR); COLOR,URINE YELLOW (YELLOW); KETONES,URINE TRACE (NEGATIVE); LEUKOCYTE ESTERASE ,URINE LARGE (NEGATIVE); NITRITE,URINE NEGATIVE (NEGATIVE); PROTEIN,URINE DIPSTICK >=300 (NEGATIVE); URINE UROBILINOGEN 0.2 mg/dL (0.2 - 1)
[2021-05-30 08:47] LABS: BACTERIA,URINE FEW /HPF; EPITHELIAL CELLS,URINE FEW /LPF; RBC,URINE >50 /HPF (0-5); WBC,URINE (MAN) >50 /HPF (0-5)
[2021-05-30] MEDS: CEFTRIAXONE 1 GM in SODIUM CHLORIDE 0.9% 50ML 50 ML IV SCH ×2 (08:52→21:45)
[2021-05-30] MEDS ORDERED: ONDANSETRON HCL INJ 2MG/ML 2ML 2 MG/ML VIAL IV PRN (09:30)
[2021-05-30] MEDS ORDERED: HYDRALAZINE HCL25 MG PO (10:55)
[2021-05-30] MEDS ORDERED: GABAPENTIN300 MG PO (10:55)
[2021-05-30] MEDS ORDERED: METOPROLOL TAR100 MG PO (10:55)
[2021-05-30] MEDS ORDERED: FUROSEMIDE40 MG PO (10:55)
[2021-05-30] MEDS ORDERED: COLCHICINE0.6 M1 PO (10:55)
[2021-05-30] MEDS ORDERED: PREVALITE PACKET4 GM PO (10:55)
[2021-05-30] MEDS ORDERED: LOSARTAN POTAS100 MG PO (10:55)
[2021-05-30] MEDS ORDERED: DILTIAZEM HCL30 MG PO (10:55)
[2021-05-30] MEDS ORDERED: ATORVASTATIN CA20 MG PO (10:55)
[2021-05-30] MEDS ORDERED: BUPROPION HCL100 MG PO (10:55)
[2021-05-30] MEDS ORDERED: LEVOTHYROXINE75 MCG PO (10:55)
[2021-05-30] MEDS ORDERED: IMODIUM2 MG PO (10:56)
[2021-05-30] MEDS ORDERED: POTASSIUM CHLORIDE 20 MEQ TAB CR PO ONE (11:00)
[2021-05-30 11:23] VITALS: BP 141/88
[2021-05-30] MEDS: INSULIN LISPRO 100 UNIT/1 ML 3ML VIAL SQ SCH ×3 (11:30→22:00)
[2021-05-30] MEDS ORDERED: SODIUM CHLORIDE 0.9% 1000ML 2,000 ML IV PRN (13:15)
[2021-05-30] MEDS ORDERED: ALBUMIN 25% 12.5GM 0.25 GM/ML BTL IV PRN (13:15)
[2021-05-30] MEDS ORDERED: SODIUM CHLORIDE 0.9% 250ML 500 ML IV PRN (13:15)
[2021-05-30 14:33] VITALS: BP 141/88
[2021-05-30 15:05] LABS: CREATINE KINASE MB 2.3 ng/mL (0-5.0)
[2021-05-30 15:31] VITALS: BP 115/81
[2021-05-30] MEDS: BENZONATATE 100 MG CAP PO PRN (19:19)
[2021-05-30 20:30] VITALS: BP 152/73
[2021-05-30 21:00] VITALS: BP 152/73
[2021-05-30] MEDS: ALPRAZOLAM 0.25 MG TAB PO PRN (23:00)
[2021-05-30] MEDS: TRAMADOL HCL 50 MG TAB PO PRN (23:00)
[2021-05-31 01:04] VITALS: BP 156/98
[2021-05-31] MEDS ORDERED: COLCHICINE 0.6 MG TAB PO PRN (03:30)
[2021-05-31] MEDS ORDERED: FUROSEMIDE 40 MG TAB PO PRN (03:30)
[2021-05-31] MEDS: LOPERAMIDE HCL 2 MG CAP PO PRN (04:20)
[2021-05-31 04:59] LABS: BASOPHILS % 0.4 % (0.0-1.0); EOSINOPHILS # (AUTO) 0.1 (0.0-0.4); EOSINOPHILS % 1.4 % (0.0-6.0); HEMATOCRIT 31.4 % (34.2-44.1); HEMOGLOBIN 9.2 g/dL (12.0-16.0); LYMPHOCYTES # (AUTO) 1.6 (1.0-3.2); LYMPHOCYTES % 15.6 % (18.0-39.1); MEAN CORPUSCULAR HEMOGLOBIN 24.1 pg (28-32); MEAN CORPUSCULAR HGB CONC 29.3 g/dL (31-35); MEAN CORPUSCULAR VOLUME 82.2 fL (81-99); MONOCYTES # (AUTO) 0.6 (0.2-0.8); MONOCYTES % 5.5 % (4.4-11.3); NEUTROPHILS # (AUTO) 7.6 (2.1-6.9); NEUTROPHILS % 76.4 % (38.7-80.0); PLATELET COUNT 238 x10e3/uL (140-360); RED BLOOD COUNT 3.82 x10e6/uL (3.6-5.1); RED CELL DISTRIBUTION WIDTH 21.7 % (11.7-14.4)
[2021-05-31] MEDS: TRAMADOL HCL 50 MG TAB PO PRN (05:15)
[2021-05-31] MEDS: LEVOTHYROXINE SODIUM 75 MCG TAB PO SCH ×2 (05:22→09:00)
[2021-05-31 05:27] LABS: ALBUMIN 2.5 g/dL (3.5-5.0); ALBUMIN/GLOBULIN RATIO 0.6 (0.8-2.0); ANION GAP 16.3 mmol/L (8-16); CALCIUM 8.6 mg/dL (8.4-10.2); CREATININE, SERUM 3.82 mg/dL (0.57-1.11); POTASSIUM 4.3 mmol/L (3.5-5.1)
[2021-05-31 05:29] VITALS: BP 137/91
[2021-05-31 08:22] VITALS: BP 158/94
[2021-05-31] MEDS: ALLOPURINOL 100 MG TAB PO SCH (08:47)
[2021-05-31] MEDS: BUPROPION HCL 100 MG TAB PO SCH (08:48)
[2021-05-31] MEDS: LOSARTAN POTASSIUM 100 MG TAB PO SCH (08:51)
[2021-05-31] MEDS: INSULIN LISPRO 100 UNIT/1 ML 3ML VIAL SQ SCH ×4 (08:51→21:00)
[2021-05-31] MEDS: ASPIRIN 81 MG CHEW TAB PO SCH (08:51)
[2021-05-31] MEDS: CEFTRIAXONE 1 GM in SODIUM CHLORIDE 0.9% 50ML 50 ML IV SCH ×2 (08:51→21:25)
[2021-05-31] MEDS: BENZONATATE 100 MG CAP PO PRN (08:51)
[2021-05-31] MEDS: CHOLESTYRAMINE 4 GM PACKET PO SCH ×3 (08:51→16:03)
[2021-05-31] MEDS: DILTIAZEM HCL ER 90MG CAPSULE PO SCH ×2 (08:51→16:03)
[2021-05-31] MEDS: METOPROLOL TARTRATE 50 MG TAB PO SCH ×2 (08:52→16:03)
[2021-05-31] MEDS: ATORVASTATIN 20 MG TAB PO SCH (08:52)
[2021-05-31] MEDS: PANTOPRAZOLE SOD 40 MG TABEC PO SCH ×2 (08:52→16:03)
[2021-05-31] MEDS: GABAPENTIN 300 MG CAP PO SCH (08:52)
[2021-05-31] MEDS: CLOPIDOGREL BISULFATE 75 MG TAB PO SCH (08:52)
[2021-05-31 11:07] VITALS: BP 109/70
[2021-05-31] MEDS: BACITRACIN ZINC 15 GM OINT TOP SCH (13:00)
[2021-05-31] MEDS: COLLAGENASE 5 GM TUBE TP SCH (13:00)
[2021-05-31 15:22] VITALS: BP 115/61
[2021-05-31] MEDS: DEXTROSE 50% SYRINGE 50 ML IV PRN (19:10)
[2021-05-31 20:00] VITALS: BP 98/63
[2021-06-01] VITALS (8 sets, daily range): BP systolic 91–152; BP diastolic 55–70
[2021-06-01] MEDS: DEXTROSE 50% SYRINGE 50 ML IV PRN (04:00)
[2021-06-01] MEDS: CHOLESTYRAMINE 4 GM PACKET PO SCH ×3 (07:30→16:33)
[2021-06-01] MEDS: INSULIN LISPRO 100 UNIT/1 ML 3ML VIAL SQ SCH ×4 (07:30→21:00)
[2021-06-01] MEDS: CEFTRIAXONE 1 GM in SODIUM CHLORIDE 0.9% 50ML 50 ML IV SCH (08:30)
[2021-06-01] MEDS: LEVOTHYROXINE SODIUM 75 MCG TAB PO SCH (08:56)
[2021-06-01] MEDS: BUPROPION HCL 100 MG TAB PO SCH (08:56)
[2021-06-01] MEDS: GABAPENTIN 300 MG CAP PO SCH (08:56)
[2021-06-01] MEDS: PANTOPRAZOLE SOD 40 MG TABEC PO SCH ×2 (08:56→16:34)
[2021-06-01] MEDS: DILTIAZEM HCL ER 90MG CAPSULE PO SCH ×2 (09:00→16:33)
[2021-06-01] MEDS: METOPROLOL TARTRATE 50 MG TAB PO SCH ×2 (09:00→16:34)
[2021-06-01] MEDS: LOSARTAN POTASSIUM 100 MG TAB PO SCH (09:00)
[2021-06-01] MEDS: BENZONATATE 100 MG CAP PO PRN (11:57)
[2021-06-01] MEDS: MEROPENEM 500 MG in SODIUM CHLORIDE 0.9% 50ML 50 ML IV SCH ×3 (12:15→22:39)
[2021-06-01] MEDS: BACITRACIN ZINC 15 GM OINT TOP SCH (13:02)
[2021-06-01] MEDS: COLLAGENASE 5 GM TUBE TP SCH (13:02)
[2021-06-01] MEDS: CLOPIDOGREL BISULFATE 75 MG TAB PO SCH (13:02)
[2021-06-01] MEDS: ALLOPURINOL 100 MG TAB PO SCH (13:02)
[2021-06-01] MEDS: ASPIRIN 81 MG CHEW TAB PO SCH (13:02)
[2021-06-01] MEDS: ATORVASTATIN 20 MG TAB PO SCH (13:02)
[2021-06-02] VITALS (8 sets, daily range): BP systolic 93–125; BP diastolic 50–63
[2021-06-02] MEDS: ALPRAZOLAM 0.25 MG TAB PO PRN ×2 (01:22→13:16)
[2021-06-02] MEDS: LEVOTHYROXINE SODIUM 75 MCG TAB PO SCH (05:48)
[2021-06-02] MEDS: INSULIN LISPRO 100 UNIT/1 ML 3ML VIAL SQ SCH ×4 (08:30→21:00)
[2021-06-02] MEDS: CHOLESTYRAMINE 4 GM PACKET PO SCH ×3 (09:18→16:22)
[2021-06-02] MEDS: ASPIRIN 81 MG CHEW TAB PO SCH (09:19)
[2021-06-02] MEDS: DILTIAZEM HCL ER 90MG CAPSULE PO SCH ×2 (09:20→16:23)
[2021-06-02] MEDS: ATORVASTATIN 20 MG TAB PO SCH (09:21)
[2021-06-02] MEDS: LOSARTAN POTASSIUM 100 MG TAB PO SCH (09:21)
[2021-06-02] MEDS: METOPROLOL TARTRATE 50 MG TAB PO SCH ×2 (09:22→16:23)
[2021-06-02] MEDS: GABAPENTIN 300 MG CAP PO SCH (09:23)
[2021-06-02] MEDS: CLOPIDOGREL BISULFATE 75 MG TAB PO SCH (09:23)
[2021-06-02] MEDS: PANTOPRAZOLE SOD 40 MG TABEC PO SCH ×2 (09:23→16:23)
[2021-06-02] MEDS: ALLOPURINOL 100 MG TAB PO SCH (09:24)
[2021-06-02] MEDS: BUPROPION HCL 100 MG TAB PO SCH (09:24)
[2021-06-02] MEDS: MEROPENEM 500 MG in SODIUM CHLORIDE 0.9% 50ML 50 ML IV SCH ×2 (09:25→22:45)
[2021-06-02] MEDS: BACITRACIN ZINC 15 GM OINT TOP SCH (09:25)
[2021-06-02] MEDS: COLLAGENASE 5 GM TUBE TP SCH (12:04)
[2021-06-02] MEDS: LOPERAMIDE HCL 2 MG CAP PO PRN (22:11)
[2021-06-03] VITALS (9 sets, daily range): BP systolic 91–125; BP diastolic 57–79
[2021-06-03 05:42] LABS: ANION GAP 17.3 mmol/L (8-16); CALCIUM 7.9 mg/dL (8.4-10.2); CREATININE, SERUM 4.55 mg/dL (0.57-1.11); POTASSIUM 4.3 mmol/L (3.5-5.1)
[2021-06-03] MEDS: LEVOTHYROXINE SODIUM 75 MCG TAB PO SCH (05:42)
[2021-06-03] MEDS: INSULIN LISPRO 100 UNIT/1 ML 3ML VIAL SQ SCH ×4 (07:30→21:00)
[2021-06-03] MEDS: CHOLESTYRAMINE 4 GM PACKET PO SCH ×3 (07:30→16:30)
[2021-06-03] MEDS: DILTIAZEM HCL ER 90MG CAPSULE PO SCH ×2 (08:57→17:00)
[2021-06-03] MEDS: ASPIRIN 81 MG CHEW TAB PO SCH (08:57)
[2021-06-03] MEDS: METOPROLOL TARTRATE 50 MG TAB PO SCH ×2 (08:58→17:00)
[2021-06-03] MEDS: GABAPENTIN 300 MG CAP PO SCH (08:58)
[2021-06-03] MEDS: CLOPIDOGREL BISULFATE 75 MG TAB PO SCH (08:58)
[2021-06-03] MEDS: LOSARTAN POTASSIUM 100 MG TAB PO SCH (08:58)
[2021-06-03] MEDS: ATORVASTATIN 20 MG TAB PO SCH (08:58)
[2021-06-03] MEDS: BUPROPION HCL 100 MG TAB PO SCH (08:59)
[2021-06-03] MEDS: PANTOPRAZOLE SOD 40 MG TABEC PO SCH ×2 (08:59→17:00)
[2021-06-03] MEDS: ALLOPURINOL 100 MG TAB PO SCH (08:59)
[2021-06-03] MEDS: BACITRACIN ZINC 15 GM OINT TOP SCH (09:00)
[2021-06-03] MEDS: COLLAGENASE 5 GM TUBE TP SCH (09:00)
[2021-06-03] MEDS: MEROPENEM 500 MG in SODIUM CHLORIDE 0.9% 50ML 50 ML IV SCH ×2 (10:15→21:23)
[2021-06-03] MEDS: LOPERAMIDE HCL 2 MG CAP PO PRN (16:56)
[2021-06-03] MEDS: ALPRAZOLAM 0.25 MG TAB PO PRN (23:08)
[2021-06-04 05:00] VITALS: BP 93/65
[2021-06-04] MEDS: INSULIN LISPRO 100 UNIT/1 ML 3ML VIAL SQ SCH ×4 (07:30→21:00)
[2021-06-04] MEDS: CHOLESTYRAMINE 4 GM PACKET PO SCH ×3 (07:30→17:14)
[2021-06-04 07:43] VITALS: BP 110/60
[2021-06-04 08:50] VITALS: BP 110/60
[2021-06-04] MEDS: ATORVASTATIN 20 MG TAB PO SCH (09:00)
[2021-06-04] MEDS: CLOPIDOGREL BISULFATE 75 MG TAB PO SCH (09:00)
[2021-06-04] MEDS: PANTOPRAZOLE SOD 40 MG TABEC PO SCH ×2 (09:00→17:00)
[2021-06-04] MEDS: BUPROPION HCL 100 MG TAB PO SCH (09:00)
[2021-06-04] MEDS: METOPROLOL TARTRATE 50 MG TAB PO SCH ×2 (09:00→17:15)
[2021-06-04] MEDS: GABAPENTIN 300 MG CAP PO SCH (09:00)
[2021-06-04] MEDS: LOSARTAN POTASSIUM 100 MG TAB PO SCH (09:00)
[2021-06-04] MEDS: DILTIAZEM HCL ER 90MG CAPSULE PO SCH ×2 (09:00→17:15)
[2021-06-04] MEDS: ALLOPURINOL 100 MG TAB PO SCH (09:00)
[2021-06-04] MEDS: MEROPENEM 500 MG in SODIUM CHLORIDE 0.9% 50ML 50 ML IV SCH ×2 (10:15→22:15)
[2021-06-04 11:32] VITALS: BP 147/66
[2021-06-04 15:33] VITALS: BP 136/77
[2021-06-04] MEDS ORDERED: EPOETIN ALFA-EPBX 10,000 UNIT/ML VIAL SC SCH (17:00)
[2021-06-04] MEDS: ASPIRIN 81 MG CHEW TAB PO SCH (17:10)
[2021-06-04] MEDS: COLLAGENASE 5 GM TUBE TP SCH (17:13)
[2021-06-04] MEDS: BACITRACIN ZINC 15 GM OINT TOP SCH (17:13)
[2021-06-04 19:48] VITALS: BP 124/83
[2021-06-05] VITALS: BP 134/62
[2021-06-05 04:40] VITALS: BP 149/58
[2021-06-05 04:45] VITALS: BP 149/58
[2021-06-05] MEDS: LEVOTHYROXINE SODIUM 75 MCG TAB PO SCH (06:00)
[2021-06-05] MEDS: INSULIN LISPRO 100 UNIT/1 ML 3ML VIAL SQ SCH ×3 (07:30→16:30)
[2021-06-05 07:43] VITALS: BP 136/62
[2021-06-05 08:04] VITALS: BP 136/62
[2021-06-05] MEDS: GABAPENTIN 300 MG CAP PO SCH (09:00)
[2021-06-05] MEDS: ASPIRIN 81 MG CHEW TAB PO SCH (09:45)
[2021-06-05] MEDS: ATORVASTATIN 20 MG TAB PO SCH (09:45)
[2021-06-05] MEDS: ALLOPURINOL 100 MG TAB PO SCH (09:49)
[2021-06-05] MEDS: BUPROPION HCL 100 MG TAB PO SCH (09:49)
[2021-06-05] MEDS: CLOPIDOGREL BISULFATE 75 MG TAB PO SCH (09:49)
[2021-06-05] MEDS: PANTOPRAZOLE SOD 40 MG TABEC PO SCH ×2 (09:49→16:51)
[2021-06-05] MEDS: CHOLESTYRAMINE 4 GM PACKET PO SCH ×3 (09:50→16:51)
[2021-06-05] MEDS: METOPROLOL TARTRATE 50 MG TAB PO SCH ×2 (09:50→16:51)
[2021-06-05] MEDS: LOSARTAN POTASSIUM 100 MG TAB PO SCH (09:50)
[2021-06-05] MEDS: DILTIAZEM HCL ER 90MG CAPSULE PO SCH ×2 (09:50→16:51)
[2021-06-05] MEDS: MEROPENEM 500 MG in SODIUM CHLORIDE 0.9% 50ML 50 ML IV SCH (09:54)
[2021-06-05] MEDS: BACITRACIN ZINC 15 GM OINT TOP SCH (15:17)
[2021-06-05] MEDS: COLLAGENASE 5 GM TUBE TP SCH (15:17)
[2021-06-05] MEDS ORDERED: ONDANSETRON HCL 4 MG ORAL DISINTEGRATING TAB PO PRN (15:45)
[2021-06-05] MEDS ORDERED: METOPROLOL TART50 MG PO (15:58)
[2021-06-05] MEDS ORDERED: HIPREX1 GM PO (16:04)
[2021-06-05 16:50] VITALS: BP 112/58
== END 2021-06-05 18:50 | disposition home health service (06) | DRG 689 ==
LOC: ER 07:02 → ERHOLD 09:20 → MED/SURG2 10:29
PROVIDERS: ADMIT Internal Medicine; ATTEND Internal Medicine
PROC: 5A1D70Z Performance of Urinary Filtration, Intermittent, Less than 6 Hours Per Day (ICD-10-PCS; principal; 2021-05-30)
DX: N30.90 Cystitis, unspecified without hematuria (principal); N18.6 End stage renal disease; E87.1 Hypo-osmolality and hyponatremia; Z16.12 Extended spectrum beta lactamase (ESBL) resistance; I13.2 Hypertensive heart and chronic kidney disease with heart failure and with stage 5 chronic kidney disease, or end stage renal disease; W19.XXXA Unspecified fall, initial encounter; W18.30XA Fall on same level, unspecified, initial encounter; E87.6 Hypokalemia; I25.10 Atherosclerotic heart disease of native coronary artery without angina pectoris; Z95.1 Presence of aortocoronary bypass graft; E03.9 Hypothyroidism, unspecified; B96.1 Klebsiella pneumoniae [K. pneumoniae] as the cause of diseases classified elsewhere; S50.819A Abrasion of unspecified forearm, initial encounter; S00.03XA Contusion of scalp, initial encounter; Z20.822 Contact with and (suspected) exposure to COVID-19; R29.6 Repeated falls; F32.A Depression, unspecified; I50.9 Heart failure, unspecified
CPT/HCPCS: 36415; 70450; 71045; 72125; 80048; 80053; 81001; 82550; 82553; 82948; 83735; 83880; 84484; 85025; 85610; 85730; 86705; 86706; 87040; 87086; 87186; 87340; 90962; 93005; 94799; 96372; 97139; 99251; 99284; J0696; J2185; J2405; J7030; J7050; J7799; U0002

== ENCOUNTER 2021-09-17 16:53 | Emergency (ER) | payer MEDICARE, OTHER ==
[~2021-09-17] VITALS: Ht 157.5 cm; Wt 67.1 kg
[~2021-09-17 16:53] MED LIST changes: +ATORVASTATIN CA20 MG PO; +BUPROPION HCL100 MG PO; +COLCHICINE0.6 M1 PO; +DILTIAZEM HCL30 MG PO; +GABAPENTIN300 MG PO; +HIPREX1 GM PO; +HYDRALAZINE HCL25 MG PO; +LEVOTHYROXINE75 MCG PO; +LOSARTAN POTAS100 MG PO; +METOPROLOL TAR100 MG PO; +METOPROLOL TART50 MG PO; +PREVALITE PACKET4 GM PO
[2021-09-17 20:36] VITALS: BP 136/77
== END 2021-09-17 20:37 | disposition home or self-care (01) ==
LOC: ER 17:02
DX: M79.651 Pain in right thigh (principal); V43.52XA Car driver injured in collision with other type car in traffic accident, initial encounter; Y92.488 Other paved roadways as the place of occurrence of the external cause; N18.6 End stage renal disease; Z99.2 Dependence on renal dialysis; I50.9 Heart failure, unspecified; E78.5 Hyperlipidemia, unspecified; Z95.1 Presence of aortocoronary bypass graft
CPT/HCPCS: 99284

== ENCOUNTER 2021-09-18 21:41 | Inpatient (IN) | payer MEDICARE, OTHER ==
[~2021-09-18] VITALS: Ht 154.9 cm; Wt 62.7 kg
[2021-09-19] VITALS (8 sets, daily range): BP systolic 100–130; BP diastolic 48–75
[2021-09-19 01:36] LABS: BASOPHILS # (AUTO) 0.1 (0.0-0.1); BASOPHILS % 0.3 % (0.0-1.0); HEMATOCRIT 35.7 % (34.2-44.1); HEMOGLOBIN 11.8 g/dL (12.0-16.0); LYMPHOCYTES # (AUTO) 1.8 (1.0-3.2); LYMPHOCYTES % 5.4 % (18.0-39.1); MEAN CORPUSCULAR HEMOGLOBIN 25.5 pg (28-32); MEAN CORPUSCULAR HGB CONC 33.1 g/dL (31-35); MEAN CORPUSCULAR VOLUME 77.1 fL (81-99); MONOCYTES # (AUTO) 1.2 (0.2-0.8); MONOCYTES % 3.5 % (4.4-11.3); NEUTROPHILS # (AUTO) 29.6 (2.1-6.9); NEUTROPHILS % 88.8 % (38.7-80.0); PLATELET COUNT 177 x10e3/uL (140-360); RED BLOOD COUNT 4.63 x10e6/uL (3.6-5.1); RED CELL DISTRIBUTION WIDTH 18.6 % (11.7-14.4)
[2021-09-19] MEDS: Morphine 4mg Syringe 4 MG/ML INJ IV PRN ×3 (01:40→17:29)
[2021-09-19] MEDS: PIPERACILLIN/TAZOBACTAM 3.375 GM in SODIUM CHLORIDE 0.9% 50ML 50 ML IV SCH ×2 (01:41→06:15)
[2021-09-19] MEDS: ONDANSETRON HCL INJ 2MG/ML 2ML 2 MG/ML VIAL IV PRN ×2 (01:41→17:29)
[2021-09-19 02:08] LABS: LYMPHOCYTES % (MANUAL) 5 % (19-48); MONOCYTES % (MANUAL) 3 % (3.4-9.0); NEUTROPHILS % (MANUAL) 92 % (40-74)
[2021-09-19 02:09] LABS: ANISOCYTOSIS 1+; POLYCHROMASIA 1+; TARGET CELLS 1+
[2021-09-19 02:10] LABS: PLATELET ESTIMATE ADEQUATE; PLATELET MORPHOLOGY COMMENT FEW LARGE; RBC MORPHOLOGY COMMENT ABNORMAL; SCHISTOCYTES OCC
[2021-09-19 02:13] LABS: CREATINE KINASE 22 IU/L (29-168)
[2021-09-19 02:19] LABS: ALBUMIN/GLOBULIN RATIO 0.5 (0.8-2.0); ANION GAP 21.3 mmol/L (8-16); CALCIUM 8.8 mg/dL (8.4-10.2); CREATININE, SERUM 5.96 mg/dL (0.57-1.11); POTASSIUM 3.3 mmol/L (3.5-5.1)
[2021-09-19] MEDS ORDERED: SODIUM CHLORIDE 0.9% 250ML 250 ML ONE (06:17)
[2021-09-19] MEDS ORDERED: Clindamycin INJ 900 MG 900 MG in SODIUM CHLORIDE 0.9% 50ML 50 ML IV ONE (12:00)
[2021-09-19] MEDS ORDERED: SODIUM CHLORIDE 0.9% 1000ML 2,000 ML ONE (12:15)
[2021-09-19] MEDS: SENNOSIDES 8.6 MG TAB PO SCH (13:18)
[2021-09-19] MEDS: DOCUSATE SODIUM 100 MG CAP PO SCH (13:18)
[2021-09-19] MEDS: HEPARIN SOD (PORCINE) 5,000 UNIT/ML VIAL SC SCH (22:12)
[2021-09-20] VITALS (9 sets, daily range): BP systolic 110–126; BP diastolic 52–61
[2021-09-20 06:12] LABS: BASOPHILS # (AUTO) 0.1 (0.0-0.1); BASOPHILS % 0.2 % (0.0-1.0); EOSINOPHILS # (AUTO) 0.1 (0.0-0.4); EOSINOPHILS % 0.2 % (0.0-6.0); HEMATOCRIT 35.6 % (34.2-44.1); HEMOGLOBIN 11.3 g/dL (12.0-16.0); LYMPHOCYTES # (AUTO) 2.2 (1.0-3.2); LYMPHOCYTES % 8.1 % (18.0-39.1); MEAN CORPUSCULAR HEMOGLOBIN 25.3 pg (28-32); MEAN CORPUSCULAR HGB CONC 31.7 g/dL (31-35); MEAN CORPUSCULAR VOLUME 79.8 fL (81-99); MONOCYTES # (AUTO) 1.1 (0.2-0.8); MONOCYTES % 4.1 % (4.4-11.3); NEUTROPHILS # (AUTO) 23.1 (2.1-6.9); NEUTROPHILS % 85.9 % (38.7-80.0); PLATELET COUNT 158 x10e3/uL (140-360); RED BLOOD COUNT 4.46 x10e6/uL (3.6-5.1); RED CELL DISTRIBUTION WIDTH 19.5 % (11.7-14.4)
[2021-09-20 07:01] LABS: ALBUMIN 1.7 g/dL (3.5-5.0); ALBUMIN/GLOBULIN RATIO 0.4 (0.8-2.0); ANION GAP 18.4 mmol/L (8-16); CALCIUM 8.4 mg/dL (8.4-10.2); CREATININE, SERUM 4.38 mg/dL (0.57-1.11); POTASSIUM 3.4 mmol/L (3.5-5.1)
[2021-09-20] MEDS: SENNOSIDES 8.6 MG TAB PO SCH (08:20)
[2021-09-20] MEDS: DOCUSATE SODIUM 100 MG CAP PO SCH (08:20)
[2021-09-20] MEDS: ONDANSETRON HCL INJ 2MG/ML 2ML 2 MG/ML VIAL IV PRN (08:20)
[2021-09-20] MEDS: Morphine 4mg Syringe 4 MG/ML INJ IV PRN ×2 (08:20→20:36)
[2021-09-20 08:52] LABS: LYMPHOCYTES % (MANUAL) 5 % (19-48); MONOCYTES % (MANUAL) 2 % (3.4-9.0); MYELOCYTES % (MANUAL) 1 % (0-0); NEUTROPHILS % (MANUAL) 92 % (40-74)
[2021-09-20 08:53] LABS: PLATELET ESTIMATE ADEQUATE; PLATELET MORPHOLOGY COMMENT FEW GIANT; RBC MORPHOLOGY COMMENT NORMAL
[2021-09-20] MEDS: HEPARIN SOD (PORCINE) 5,000 UNIT/ML VIAL SC SCH ×2 (09:00→20:35)
[2021-09-20] MEDS ORDERED: CEFTRIAXONE 2 GM in SODIUM CHLORIDE 0.9% 100 ML IV SCH (09:00)
[2021-09-20] MEDS ORDERED: Vancomycin IV 500 MG in SODIUM CHLORIDE 0.9% 100 ML IV SCH (15:00)
[2021-09-20] MEDS ORDERED: POTASSIUM CHLORIDE 20 MEQ TAB CR PO ONE (16:30)
[2021-09-20] MEDS ORDERED: CLOPIDOGREL BISULFATE 75 MG TAB PO ONE (18:45)
[2021-09-20] MEDS: Vancomycin IV 500 MG in SODIUM CHLORIDE 0.9% 100 ML IV SCH (19:08)
[2021-09-21] VITALS (8 sets, daily range): BP systolic 102–128; BP diastolic 56–62
[2021-09-21] MEDS ORDERED: DEXTROSE 50% SYRINGE 50 ML IV PRN (01:30)
[2021-09-21] MEDS ORDERED: FUROSEMIDE 40 MG TAB PO PRN (01:30)
[2021-09-21] MEDS: LEVOTHYROXINE SODIUM 75 MCG TAB PO SCH (06:06)
[2021-09-21 06:19] LABS: BASOPHILS # (AUTO) 0.1 (0.0-0.1); BASOPHILS % 0.2 % (0.0-1.0); EOSINOPHILS # (AUTO) 0.2 (0.0-0.4); EOSINOPHILS % 0.7 % (0.0-6.0); HEMATOCRIT 37.6 % (34.2-44.1); HEMOGLOBIN 11.9 g/dL (12.0-16.0); LYMPHOCYTES # (AUTO) 2.4 (1.0-3.2); LYMPHOCYTES % 11.2 % (18.0-39.1); MEAN CORPUSCULAR HEMOGLOBIN 25.2 pg (28-32); MEAN CORPUSCULAR HGB CONC 31.6 g/dL (31-35); MEAN CORPUSCULAR VOLUME 79.5 fL (81-99); MONOCYTES # (AUTO) 0.9 (0.2-0.8); NEUTROPHILS # (AUTO) 17.8 (2.1-6.9); NEUTROPHILS % 83.2 % (38.7-80.0); PLATELET COUNT 147 x10e3/uL (140-360); RED BLOOD COUNT 4.73 x10e6/uL (3.6-5.1); RED CELL DISTRIBUTION WIDTH 19.8 % (11.7-14.4)
[2021-09-21 06:52] LABS: ANION GAP 18.5 mmol/L (8-16); CALCIUM 8.8 mg/dL (8.4-10.2); CREATININE, SERUM 5.28 mg/dL (0.57-1.11); POTASSIUM 4.5 mmol/L (3.5-5.1)
[2021-09-21] MEDS: INSULIN LISPRO 100 UNIT/1 ML 3ML VIAL SQ SCH ×4 (07:30→22:35)
[2021-09-21] MEDS ORDERED: SODIUM CHLORIDE 0.9% 1000ML 2,000 ML ONE (07:54)
[2021-09-21] MEDS: DILTIAZEM HCL ER 90MG CAPSULE PO SCH ×2 (10:30→16:58)
[2021-09-21] MEDS: HEPARIN SOD (PORCINE) 5,000 UNIT/ML VIAL SC SCH ×2 (11:00→22:35)
[2021-09-21] MEDS: PANTOPRAZOLE SOD 40 MG TABEC PO SCH ×2 (11:52→16:58)
[2021-09-21] MEDS: CEFEPIME 1 GM in SODIUM CHLORIDE 0.9% 50ML 50 ML IV SCH (11:52)
[2021-09-21] MEDS: DOCUSATE SODIUM 100 MG CAP PO SCH (11:55)
[2021-09-21] MEDS: SENNOSIDES 8.6 MG TAB PO SCH (11:55)
[2021-09-21] MEDS: BALSAM PERU/CASTOR OIL 60 GM OINT...G. TP SCH (11:55)
[2021-09-21] MEDS: ALLOPURINOL 100 MG TAB PO SCH (11:55)
[2021-09-21] MEDS: HYDRALAZINE HCL 25 MG TAB PO SCH (11:55)
[2021-09-21] MEDS: ATORVASTATIN 20 MG TAB PO SCH (11:55)
[2021-09-21] MEDS: ASPIRIN 81 MG CHEW TAB PO SCH (11:55)
[2021-09-21] MEDS: METOPROLOL TARTRATE 50 MG TAB PO SCH ×2 (11:56→16:59)
[2021-09-21] MEDS: LOSARTAN POTASSIUM 100 MG TAB PO SCH (11:56)
[2021-09-21] MEDS ORDERED: DIGOXIN INJ 0.25 MG/ML 2 ML AMP IV NR (12:00)
[2021-09-21] MEDS: Vancomycin IV 500 MG in SODIUM CHLORIDE 0.9% 100 ML IV SCH (16:58)
[2021-09-22] VITALS (8 sets, daily range): BP systolic 106–135; BP diastolic 47–56
[2021-09-22] MEDS: LEVOTHYROXINE SODIUM 75 MCG TAB PO SCH (06:08)
[2021-09-22] MEDS: INSULIN LISPRO 100 UNIT/1 ML 3ML VIAL SQ SCH ×4 (07:30→21:00)
[2021-09-22] MEDS: PANTOPRAZOLE SOD 40 MG TABEC PO SCH ×2 (07:38→16:30)
[2021-09-22] MEDS: HEPARIN SOD (PORCINE) 5,000 UNIT/ML VIAL SC SCH ×2 (09:00→21:41)
[2021-09-22] MEDS: DOCUSATE SODIUM 100 MG CAP PO SCH (09:00)
[2021-09-22] MEDS: ASPIRIN 81 MG CHEW TAB PO SCH (09:00)
[2021-09-22] MEDS: ATORVASTATIN 20 MG TAB PO SCH (09:00)
[2021-09-22] MEDS: SENNOSIDES 8.6 MG TAB PO SCH (09:00)
[2021-09-22] MEDS: BALSAM PERU/CASTOR OIL 60 GM OINT...G. TP SCH (09:00)
[2021-09-22] MEDS: DILTIAZEM HCL ER 90MG CAPSULE PO SCH ×2 (09:00→17:00)
[2021-09-22] MEDS: CEFEPIME 1 GM in SODIUM CHLORIDE 0.9% 50ML 50 ML IV SCH (09:00)
[2021-09-22] MEDS: METOPROLOL TARTRATE 50 MG TAB PO SCH ×2 (09:00→17:00)
[2021-09-22] MEDS: HYDRALAZINE HCL 25 MG TAB PO SCH (09:00)
[2021-09-22] MEDS: LOSARTAN POTASSIUM 100 MG TAB PO SCH (09:00)
[2021-09-22] MEDS: ALLOPURINOL 100 MG TAB PO SCH (09:00)
[2021-09-22] MEDS ORDERED: SODIUM CHLORIDE 0.9% 250ML 500 ML IV PRN (11:30)
[2021-09-22] MEDS ORDERED: SODIUM CHLORIDE 0.9% 1000ML 2,000 ML IV PRN (11:30)
[2021-09-23] VITALS: BP 111/50
[2021-09-23 04:00] VITALS: BP 109/49
[2021-09-23] MEDS: LEVOTHYROXINE SODIUM 75 MCG TAB PO SCH (06:01)
[2021-09-23] MEDS: INSULIN LISPRO 100 UNIT/1 ML 3ML VIAL SQ SCH ×4 (07:30→21:00)
[2021-09-23] MEDS: PANTOPRAZOLE SOD 40 MG TABEC PO SCH ×2 (07:30→16:30)
[2021-09-23 08:00] VITALS: BP 109/49
[2021-09-23] MEDS: HYDRALAZINE HCL 25 MG TAB PO SCH (09:00)
[2021-09-23] MEDS: CEFEPIME 1 GM in SODIUM CHLORIDE 0.9% 50ML 50 ML IV SCH (09:00)
[2021-09-23] MEDS: HEPARIN SOD (PORCINE) 5,000 UNIT/ML VIAL SC SCH ×2 (09:00→21:00)
[2021-09-23] MEDS: LOSARTAN POTASSIUM 100 MG TAB PO SCH (09:00)
[2021-09-23] MEDS: DILTIAZEM HCL ER 90MG CAPSULE PO SCH ×2 (09:00→17:00)
[2021-09-23] MEDS: BALSAM PERU/CASTOR OIL 60 GM OINT...G. TP SCH (09:00)
[2021-09-23] MEDS: DOCUSATE SODIUM 100 MG CAP PO SCH (09:00)
[2021-09-23] MEDS: METOPROLOL TARTRATE 50 MG TAB PO SCH ×2 (09:00→17:00)
[2021-09-23] MEDS: ASPIRIN 81 MG CHEW TAB PO SCH (09:00)
[2021-09-23] MEDS: ALLOPURINOL 100 MG TAB PO SCH (09:00)
[2021-09-23] MEDS: ATORVASTATIN 20 MG TAB PO SCH (09:00)
[2021-09-23] MEDS: SENNOSIDES 8.6 MG TAB PO SCH (09:00)
[2021-09-23 15:29] LABS: BASOPHILS # (AUTO) 0.1 (0.0-0.1); BASOPHILS % 0.3 % (0.0-1.0); EOSINOPHILS # (AUTO) 0.1 (0.0-0.4); EOSINOPHILS % 0.3 % (0.0-6.0); HEMATOCRIT 38.8 % (34.2-44.1); HEMOGLOBIN 12.1 g/dL (12.0-16.0); LYMPHOCYTES # (AUTO) 2.3 (1.0-3.2); LYMPHOCYTES % 11.7 % (18.0-39.1); MEAN CORPUSCULAR HEMOGLOBIN 24.8 pg (28-32); MEAN CORPUSCULAR HGB CONC 31.2 g/dL (31-35); MEAN CORPUSCULAR VOLUME 79.5 fL (81-99); MONOCYTES # (AUTO) 0.8 (0.2-0.8); MONOCYTES % 4.2 % (4.4-11.3); NEUTROPHILS # (AUTO) 16.1 (2.1-6.9); NEUTROPHILS % 82.5 % (38.7-80.0); PLATELET COUNT 197 x10e3/uL (140-360); RED BLOOD COUNT 4.88 x10e6/uL (3.6-5.1); RED CELL DISTRIBUTION WIDTH 19.7 % (11.7-14.4)
[2021-09-23 15:46] LABS: ANION GAP 18.6 mmol/L (8-16); CALCIUM 8.8 mg/dL (8.4-10.2); CREATININE, SERUM 5.07 mg/dL (0.57-1.11)
[2021-09-23 15:50] LABS: POTASSIUM 5.6 mmol/L (3.5-5.1)
[2021-09-23] MEDS: HYDROCODONE/APAP 5MG-325MG TAB PO PRN (18:31)
[2021-09-23] MEDS ORDERED: SOD POLYSTYRENE SULFONATE SUSP 15 GM/60 ML BTL PO ONE (18:55)
[2021-09-23] MEDS ORDERED: ONDANSETRON HCL 4 MG ORAL DISINTEGRATING TAB PO PRN (19:15)
[2021-09-23 19:52] VITALS: BP 119/49
[2021-09-23 22:34] VITALS: BP 119/49
[2021-09-24] VITALS (7 sets, daily range): BP systolic 122–144; BP diastolic 47–65
[2021-09-24 05:47] LABS: BASOPHILS # (AUTO) 0.1 (0.0-0.1); BASOPHILS % 0.5 % (0.0-1.0); EOSINOPHILS # (AUTO) 0.2 (0.0-0.4); EOSINOPHILS % 1.1 % (0.0-6.0); HEMATOCRIT 39.5 % (34.2-44.1); HEMOGLOBIN 12.2 g/dL (12.0-16.0); LYMPHOCYTES # (AUTO) 2.4 (1.0-3.2); LYMPHOCYTES % 15.9 % (18.0-39.1); MEAN CORPUSCULAR HEMOGLOBIN 24.6 pg (28-32); MEAN CORPUSCULAR HGB CONC 30.9 g/dL (31-35); MEAN CORPUSCULAR VOLUME 79.6 fL (81-99); MONOCYTES # (AUTO) 0.8 (0.2-0.8); MONOCYTES % 5.5 % (4.4-11.3); NEUTROPHILS # (AUTO) 11.6 (2.1-6.9); NEUTROPHILS % 75.9 % (38.7-80.0); PLATELET COUNT 160 x10e3/uL (140-360); RED BLOOD COUNT 4.96 x10e6/uL (3.6-5.1); RED CELL DISTRIBUTION WIDTH 19.8 % (11.7-14.4)
[2021-09-24] MEDS: LEVOTHYROXINE SODIUM 75 MCG TAB PO SCH (06:00)
[2021-09-24 06:15] LABS: ALBUMIN 1.4 g/dL (3.5-5.0); ALBUMIN/GLOBULIN RATIO 0.3 (0.8-2.0); ANION GAP 18.7 mmol/L (8-16); CALCIUM 8.5 mg/dL (8.4-10.2); CREATININE, SERUM 5.57 mg/dL (0.57-1.11); POTASSIUM 5.7 mmol/L (3.5-5.1)
[2021-09-24] MEDS: SENNOSIDES 8.6 MG TAB PO SCH (08:22)
[2021-09-24] MEDS: DOCUSATE SODIUM 100 MG CAP PO SCH (08:22)
[2021-09-24] MEDS: PANTOPRAZOLE SOD 40 MG TABEC PO SCH ×2 (08:23→16:29)
[2021-09-24] MEDS: ALLOPURINOL 100 MG TAB PO SCH (08:23)
[2021-09-24] MEDS: INSULIN LISPRO 100 UNIT/1 ML 3ML VIAL SQ SCH ×4 (08:23→21:10)
[2021-09-24] MEDS: HYDROCODONE/APAP 5MG-325MG TAB PO PRN ×3 (08:24→22:45)
[2021-09-24] MEDS: DILTIAZEM HCL ER 90MG CAPSULE PO SCH ×2 (09:00→16:29)
[2021-09-24] MEDS: BALSAM PERU/CASTOR OIL 60 GM OINT...G. TP SCH (09:00)
[2021-09-24] MEDS: METOPROLOL TARTRATE 50 MG TAB PO SCH ×2 (09:00→16:29)
[2021-09-24] MEDS: ASPIRIN 81 MG CHEW TAB PO SCH (16:28)
[2021-09-24] MEDS: CEFEPIME 1 GM in SODIUM CHLORIDE 0.9% 50ML 50 ML IV SCH (16:28)
[2021-09-24] MEDS: LOSARTAN POTASSIUM 100 MG TAB PO SCH (16:28)
[2021-09-24] MEDS: HEPARIN SOD (PORCINE) 5,000 UNIT/ML VIAL SC SCH ×2 (16:29→21:10)
[2021-09-24] MEDS: Vancomycin IV 500 MG in SODIUM CHLORIDE 0.9% 100 ML IV SCH (17:33)
[2021-09-24] MEDS ORDERED: ATORVASTATIN 40 MG TAB PO SCH (21:00)
[2021-09-25 04:00] VITALS: BP 129/62
[2021-09-25 05:46] LABS: BASOPHILS % 0.2 % (0.0-1.0); EOSINOPHILS # (AUTO) 0.2 (0.0-0.4); EOSINOPHILS % 1.3 % (0.0-6.0); HEMATOCRIT 38.6 % (34.2-44.1); HEMOGLOBIN 12.1 g/dL (12.0-16.0); LYMPHOCYTES % 15.8 % (18.0-39.1); MEAN CORPUSCULAR HEMOGLOBIN 24.7 pg (28-32); MEAN CORPUSCULAR HGB CONC 31.3 g/dL (31-35); MEAN CORPUSCULAR VOLUME 78.9 fL (81-99); MONOCYTES # (AUTO) 0.9 (0.2-0.8); MONOCYTES % 6.9 % (4.4-11.3); NEUTROPHILS # (AUTO) 9.5 (2.1-6.9); NEUTROPHILS % 74.8 % (38.7-80.0); PLATELET COUNT 206 x10e3/uL (140-360); RED BLOOD COUNT 4.89 x10e6/uL (3.6-5.1); RED CELL DISTRIBUTION WIDTH 19.7 % (11.7-14.4)
[2021-09-25] MEDS: LEVOTHYROXINE SODIUM 75 MCG TAB PO SCH (06:02)
[2021-09-25 06:10] LABS: ANION GAP 11.9 mmol/L (8-16); CALCIUM 8.1 mg/dL (8.4-10.2); CREATININE, SERUM 3.57 mg/dL (0.57-1.11); MAGNESIUM 1.9 MG/DL (1.3-2.1); POTASSIUM 3.9 mmol/L (3.5-5.1)
[2021-09-25] MEDS: PANTOPRAZOLE SOD 40 MG TABEC PO SCH ×2 (07:30→17:07)
[2021-09-25 08:00] VITALS: BP 129/62
[2021-09-25] MEDS: INSULIN LISPRO 100 UNIT/1 ML 3ML VIAL SQ SCH ×3 (08:07→17:09)
[2021-09-25 08:13] VITALS: BP 130/70
[2021-09-25] MEDS ORDERED: CLOPIDOGREL BISULFATE 75 MG TAB PO SCH (09:00)
[2021-09-25] MEDS: CEFEPIME 1 GM in SODIUM CHLORIDE 0.9% 50ML 50 ML IV SCH ×2 (09:00→09:12)
[2021-09-25] MEDS: ASPIRIN 81 MG CHEW TAB PO SCH (09:12)
[2021-09-25] MEDS: DILTIAZEM HCL ER 90MG CAPSULE PO SCH ×2 (09:12→17:10)
[2021-09-25] MEDS: DOCUSATE SODIUM 100 MG CAP PO SCH (09:12)
[2021-09-25] MEDS: SENNOSIDES 8.6 MG TAB PO SCH (09:13)
[2021-09-25] MEDS: ALLOPURINOL 100 MG TAB PO SCH (09:13)
[2021-09-25] MEDS: METOPROLOL TARTRATE 50 MG TAB PO SCH ×2 (09:13→17:00)
[2021-09-25] MEDS: LOSARTAN POTASSIUM 100 MG TAB PO SCH (09:13)
[2021-09-25] MEDS: HEPARIN SOD (PORCINE) 5,000 UNIT/ML VIAL SC SCH (09:15)
[2021-09-25] MEDS: BALSAM PERU/CASTOR OIL 60 GM OINT...G. TP SCH (09:15)
[2021-09-25 11:39] VITALS: BP 124/58
[2021-09-25 16:57] VITALS: BP 119/56
== END 2021-09-25 20:27 | disposition hospice, home (50) | DRG 299 ==
LOC: ER 21:58 → ERHOLD 09-19 01:00 → MED/SURG2 09-19 03:28
PROVIDERS: ADMIT Internal Medicine; ATTEND Internal Medicine
PROC: 5A1D70Z Performance of Urinary Filtration, Intermittent, Less than 6 Hours Per Day (ICD-10-PCS; principal; 2021-09-19)
DX: E11.52 Type 2 diabetes mellitus with diabetic peripheral angiopathy with gangrene (principal); N18.6 End stage renal disease; I96 Gangrene, not elsewhere classified; L03.116 Cellulitis of left lower limb; I13.2 Hypertensive heart and chronic kidney disease with heart failure and with stage 5 chronic kidney disease, or end stage renal disease; L03.115 Cellulitis of right lower limb; N17.9 Acute kidney failure, unspecified; I50.22 Chronic systolic (congestive) heart failure; Z99.2 Dependence on renal dialysis; Z87.440 Personal history of urinary (tract) infections; Z95.1 Presence of aortocoronary bypass graft; I25.10 Atherosclerotic heart disease of native coronary artery without angina pectoris; D63.8 Anemia in other chronic diseases classified elsewhere; E11.22 Type 2 diabetes mellitus with diabetic chronic kidney disease; E11.42 Type 2 diabetes mellitus with diabetic polyneuropathy; E87.6 Hypokalemia; I48.0 Paroxysmal atrial fibrillation; Z95.820 Peripheral vascular angioplasty status with implants and grafts; L89.610 Pressure ulcer of right heel, unstageable; Z20.822 Contact with and (suspected) exposure to COVID-19
CPT/HCPCS: 36415; 80048; 80053; 82550; 82553; 82948; 83036; 83605; 83735; 84484; 85025; 86705; 86706; 87040; 87340; 93005; 93925; 93971; 94799; 97139; 99251; 99284; J0692; J0696; J1160; J1644; J2270; J2405; J2543; J3370; J7030; J7050; U0002